=== PATIENT | male | born 2000 | race Caucasian/White ===

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

== ENCOUNTER 2019-06-21 14:08 | Emergency (ER) | payer MEDICARE, MEDICAID ==
[2019-06-21 14:40] VITALS: BP 124/73
== END 2019-06-21 16:15 | disposition home or self-care (01) ==
LOC: M ED 14:08
DX: F43.0 Acute stress reaction (principal); F90.9 Attention-deficit hyperactivity disorder, unspecified type; Z79.899 Other long term (current) drug therapy

== ENCOUNTER 2019-08-15 08:27 | Emergency (ER) | payer MEDICARE, MEDICAID ==
[~2019-08-15] VITALS: Ht 180.3 cm; Wt 115.5 kg
[2019-08-15 08:28] VITALS: BP 161/82
[2019-08-15] MEDS ORDERED: MELA3CAP2 (08:35)
[2019-08-15] MEDS ORDERED: ABIL10TA9 (08:35)
[2019-08-15] MEDS ORDERED: ZOLO50TA (08:35)
[2019-08-15] MEDS ORDERED: BACL10TA2 PO (09:36)
[2019-08-15] MEDS ORDERED: KETO10TAB PO (09:36)
[2019-08-15] MEDS ORDERED: KETOROLAC TROMETHAMINE 10 MG TAB PO ONE (09:45)
== END 2019-08-15 09:56 | disposition home or self-care (01) ==
LOC: M ED 08:27
DX: S39.012A Strain of muscle, fascia and tendon of lower back, initial encounter (principal); X58.XXXA Exposure to other specified factors, initial encounter; Y92.89 Other specified places as the place of occurrence of the external cause; F33.9 Major depressive disorder, recurrent, unspecified; F41.9 Anxiety disorder, unspecified; F90.9 Attention-deficit hyperactivity disorder, unspecified type; Z79.899 Other long term (current) drug therapy

== ENCOUNTER 2019-09-04 14:37 | Emergency (ER) | payer MEDICARE, MEDICAID ==
[~2019-09-04] VITALS: Ht 182.9 cm; Wt 117.3 kg
[~2019-09-04 14:37] MED LIST changes: +ABIL10TA9; +BACL10TA2 PO; +KETO10TAB PO; +MELA3CAP2; +ZOLO50TA
[2019-09-04 16:45] VITALS: BP 114/61
--- NOTE | 2019-09-04 20:43 | ECGEPIP ---
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
== END 2019-09-04 17:10 | disposition home or self-care (01) ==
LOC: M ED 14:37 → EDBD 14:37 → M ED 17:10
DX: R55 Syncope and collapse (principal); T48.1X5A Adverse effect of skeletal muscle relaxants [neuromuscular blocking agents], initial encounter; Y92.9 Unspecified place or not applicable; Y93.9 Activity, unspecified; M54.9 Dorsalgia, unspecified; E66.9 Obesity, unspecified; Z79.899 Other long term (current) drug therapy

== ENCOUNTER → 2019-09-26 | Outpatient (CLI) | payer MEDICARE, MEDICAID ==
[2019-09-26 11:12] LABS: ALBUMIN 3.8 GM/DL (3.2-5.2); ALT/SGPT 40 U/L (12-78); BILIRUBIN,TOTAL 0.4 MG/DL (0.2-1.0); BLOOD UREA NITROGEN 16 MG/DL (7-18); CARBON DIOXIDE LEVEL 29 MEQ/L (21-32); CHLORIDE LEVEL 105 MEQ/L (98-107); CHOLESTEROL LEVEL 132 MG/DL (<200); CHOLESTEROL RISK RATIO 3.219 (<5); CREATININE FOR GFR 0.94 MG/DL (0.70-1.30); FREE T4 0.82 NG/DL (0.78-1.33); GLUCOSE, FASTING 83 MG/DL (70-100); HDL CHOLESTEROL 41 MG/DL (>40); LDL CHOLESTEROL 77 MG/DL (<100); NON-HDL-C 91 MG/DL; POTASSIUM SERUM 4.7 MEQ/L (3.5-5.1); SODIUM LEVEL 139 MEQ/L (136-145); TOTAL PROTEIN 6.9 GM/DL (6.4-8.2); TRIGLYCERIDES LEVEL 72 MG/DL (<150)
[2019-09-26 11:14] LABS: BASO # 0.1 10^3/uL (0.0-0.2); BASO % 0.8 % (0.0-1.0); EOS # 0.2 10^3/uL (0.0-0.5); HEMATOCRIT 47.1 % (42.0-52.0); HEMOGLOBIN 15.2 g/dl (13.5-17.5); LYMPH # 2.6 10^3/uL (1.5-5.0); LYMPH % 41.8 % (24.0-44.0); MEAN CORPUSCULAR HEMOGLOBIN 29.9 pg (27.0-33.0); MEAN CORPUSCULAR HGB CONC 32.3 g/dl (32.0-36.5); MEAN CORPUSCULAR VOLUME 92.5 fl (80.0-96.0); MONO # 0.6 10^3/uL (0.0-0.8); MONO % 9.7 % (0.0-5.0); NEUTROPHILS # 2.8 10^3/uL (1.5-8.5); NEUTROPHILS % 44.4 % (36.0-66.0); PLATELET COUNT, AUTOMATED 317 10^3/uL (150-450); RED BLOOD COUNT 5.09 10^6/uL (4.30-6.10); TOTAL 25(OH) VITAMIN D 35.7 NG/ML (30.0-100.0); WHITE BLOOD COUNT 6.3 10^3/uL (4.0-10.0)
[2019-09-26 11:18] LABS: HEMOGLOBIN A1c 5.2 %
== END ==
LOC: M LAB 08:51
PROVIDERS: ATTEND Nurse Practitioner Family
DX: E66.01 Morbid (severe) obesity due to excess calories (principal); Z13.9 Encounter for screening, unspecified

== ENCOUNTER → 2019-11-07 | Outpatient (CLI) | payer MEDICARE, MEDICAID ==
[2019-11-07 13:27] LABS: BASO # 0.1 10^3/uL (0.0-0.2); BASO % 0.7 % (0.0-1.0); EOS # 0.2 10^3/uL (0.0-0.5); EOS % 2.4 % (0.0-3.0); HEMATOCRIT 47.6 % (42.0-52.0); HEMOGLOBIN 15.7 g/dl (13.5-17.5); LYMPH # 2.5 10^3/uL (1.5-5.0); LYMPH % 37.4 % (24.0-44.0); MEAN CORPUSCULAR HEMOGLOBIN 29.6 pg (27.0-33.0); MEAN CORPUSCULAR VOLUME 89.6 fl (80.0-96.0); MONO # 0.6 10^3/uL (0.0-0.8); MONO % 8.2 % (0.0-5.0); NEUTROPHILS # 3.4 10^3/uL (1.5-8.5); NEUTROPHILS % 50.9 % (36.0-66.0); PLATELET COUNT, AUTOMATED 339 10^3/uL (150-450); RED BLOOD COUNT 5.31 10^6/uL (4.30-6.10); WHITE BLOOD COUNT 6.7 10^3/uL (4.0-10.0)
[2019-11-07 14:07] LABS: FOLATE 9.5 NG/ML (>5.4); TOTAL 25(OH) VITAMIN D 38.9 NG/ML (30.0-100.0); VITAMIN B12 LEVEL 1211 PG/ML (247-911)
[2019-11-07 16:38] LABS: BLOOD UREA NITROGEN 10 MG/DL (7-18); CREATININE FOR GFR 0.97 MG/DL (0.70-1.30); GLUCOSE, FASTING 105 MG/DL (70-100)
[2019-11-07 16:39] LABS: ALBUMIN 3.8 GM/DL (3.2-5.2); ALT/SGPT 56 U/L (12-78); BILIRUBIN,TOTAL 0.5 MG/DL (0.2-1.0); CALCIUM LEVEL 9.4 MG/DL (8.5-10.1); CARBON DIOXIDE LEVEL 28 MEQ/L (21-32); CHLORIDE LEVEL 108 MEQ/L (98-107); POTASSIUM SERUM 4.1 MEQ/L (3.5-5.1); SODIUM LEVEL 140 MEQ/L (136-145); TOTAL PROTEIN 7.1 GM/DL (6.4-8.2)
[2019-11-09 00:07] LABS: ANTI-PARIETAL CELL ANTIBODY 5.6 Units (0.0-20.0); INTRINSIC FACTOR ANTIBODY 1.1 AU/mL (0.0-1.1)
== END ==
LOC: M LAB 12:44
PROVIDERS: ATTEND Psychiatry & Neurology Neurology
DX: E53.9 Vitamin B deficiency, unspecified (principal)

== ENCOUNTER → 2019-12-03 | Outpatient (REF) | payer MEDICARE, MEDICAID ==
[2019-12-03 12:37] LABS: FREE T4 0.86 NG/DL (0.78-1.33); THYROID STIMULATING HORMONE 1.17 uIU/ML (0.463-3.98)
== END ==
LOC: M LAB REF 12:03
PROVIDERS: ATTEND Nurse Practitioner Family
DX: Z13.9 Encounter for screening, unspecified (principal); E66.01 Morbid (severe) obesity due to excess calories; Z79.899 Other long term (current) drug therapy

== ENCOUNTER → 2020-10-07 | Outpatient (REF) | payer MEDICARE, MEDICAID ==
[2020-10-07 16:55] LABS: BASO % 0.6 % (0.0-1.0); EOS # 0.2 10^3/uL (0.0-0.5); EOS % 2.4 % (0.0-3.0); HEMATOCRIT 46.6 % (42.0-52.0); LYMPH # 2.4 10^3/uL (1.5-5.0); LYMPH % 39.5 % (24.0-44.0); MEAN CORPUSCULAR HEMOGLOBIN 29.2 pg (27.0-33.0); MEAN CORPUSCULAR HGB CONC 32.2 g/dl (32.0-36.5); MEAN CORPUSCULAR VOLUME 90.8 fl (80.0-96.0); MONO # 0.5 10^3/uL (0.0-0.8); MONO % 7.9 % (0.0-5.0); NEUTROPHILS # 3.1 10^3/uL (1.5-8.5); NEUTROPHILS % 49.4 % (36.0-66.0); PLATELET COUNT, AUTOMATED 352 10^3/uL (150-450); RED BLOOD COUNT 5.13 10^6/uL (4.30-6.10); WHITE BLOOD COUNT 6.2 10^3/uL (4.0-10.0)
[2020-10-07 17:28] LABS: ALBUMIN 4.2 GM/DL (3.2-5.2); ALT/SGPT 36 U/L (12-78); BILIRUBIN,TOTAL 0.5 MG/DL (0.2-1.0); BLOOD UREA NITROGEN 15 MG/DL (7-18); CALCIUM LEVEL 9.7 MG/DL (8.5-10.1); CARBON DIOXIDE LEVEL 26 MEQ/L (21-32); CHLORIDE LEVEL 108 MEQ/L (98-107); CHOLESTEROL LEVEL 145 MG/DL (<200); CHOLESTEROL RISK RATIO 3.918 (<5); CREATININE FOR GFR 0.94 MG/DL (0.70-1.30); FREE T4 0.99 NG/DL (0.76-1.46); GLOMERULAR FILTRATION RATE > 60.0 (>60); GLUCOSE, FASTING 93 MG/DL (70-100); HDL CHOLESTEROL 37 MG/DL (>40); LDL CHOLESTEROL 97 MG/DL (<100); NON-HDL-C 108 MG/DL; POTASSIUM SERUM 4.9 MEQ/L (3.5-5.1); SODIUM LEVEL 140 MEQ/L (136-145); THYROID STIMULATING HORMONE 0.524 uIU/ML (0.358-3.740); TOTAL 25(OH) VITAMIN D 44.6 NG/ML (30.0-100.0); TOTAL PROTEIN 7.2 GM/DL (6.4-8.2); TRIGLYCERIDES LEVEL 56 MG/DL (<150)
[2020-10-07 17:35] LABS: HEMOGLOBIN A1c 5.1 %
== END ==
LOC: M LAB REF 16:17
PROVIDERS: ATTEND Nurse Practitioner Family
DX: Z13.9 Encounter for screening, unspecified (principal); F41.1 Generalized anxiety disorder; G47.00 Insomnia, unspecified; F39 Unspecified mood [affective] disorder; E55.9 Vitamin D deficiency, unspecified; E66.01 Morbid (severe) obesity due to excess calories

== ENCOUNTER → 2020-12-17 | Outpatient (CLI) | payer MEDICARE, MEDICAID ==
--- NOTE | 2020-12-17 14:26 | REP ---
INDICATION: PAIN IN LEFT ANKLE AND JOINTS OF LEFT FOOT. COMPARISON: None. TECHNIQUE: Four views. FINDINGS: Four views of the left ankle demonstrate overall normal mineralization. Ankle mortise is intact. No fracture is seen. There is minimal lateral soft tissue swelling. Bones, joints and soft tissues are otherwise unremarkable. IMPRESSION: No fracture seen. Minimal lateral soft tissue swelling. <Electronically signed by Juan M Jacobs > 12/17/20 1901
== END ==
LOC: M RAD 12:21
PROVIDERS: ATTEND Nurse Practitioner Family
DX: M25.572 Pain in left ankle and joints of left foot (principal)

== ENCOUNTER → 2021-01-16 | Outpatient (REF) | payer MEDICARE, MEDICAID ==
[2021-01-16 12:29] LABS: BASO # 0.1 10^3/uL (0.0-0.2); BASO % 0.7 % (0.0-1.0); EOS # 0.2 10^3/uL (0.0-0.5); EOS % 2.4 % (0.0-3.0); HEMATOCRIT 46.1 % (42.0-52.0); HEMOGLOBIN 14.9 g/dl (13.5-17.5); LYMPH # 2.5 10^3/uL (1.5-5.0); LYMPH % 35.7 % (24.0-44.0); MEAN CORPUSCULAR HEMOGLOBIN 28.9 pg (27.0-33.0); MEAN CORPUSCULAR HGB CONC 32.3 g/dl (32.0-36.5); MEAN CORPUSCULAR VOLUME 89.5 fl (80.0-96.0); MONO # 0.7 10^3/uL (0.0-0.8); MONO % 9.9 % (2.0-8.0); NEUTROPHILS # 3.6 10^3/uL (1.5-8.5); PLATELET COUNT, AUTOMATED 322 10^3/uL (150-450); RED BLOOD COUNT 5.15 10^6/uL (4.30-6.10); WHITE BLOOD COUNT 7.1 10^3/uL (4.0-10.0)
[2021-01-16 12:45] LABS: ALT/SGPT 51 U/L (12-78); BILIRUBIN,TOTAL 0.8 MG/DL (0.2-1.0); BLOOD UREA NITROGEN 15 MG/DL (7-18); CALCIUM LEVEL 9.5 MG/DL (8.5-10.1); CARBON DIOXIDE LEVEL 29 MEQ/L (21-32); CHLORIDE LEVEL 105 MEQ/L (98-107); CREATININE FOR GFR 1.02 MG/DL (0.70-1.30); GLOMERULAR FILTRATION RATE > 60.0 (>60); GLUCOSE, FASTING 91 MG/DL (70-100); POTASSIUM SERUM 4.9 MEQ/L (3.5-5.1); SODIUM LEVEL 140 MEQ/L (136-145); TOTAL PROTEIN 6.9 GM/DL (6.4-8.2)
[2021-01-16 12:53] LABS: FOLATE 14.9 NG/ML; VITAMIN B12 LEVEL 994 PG/ML
== END ==
LOC: M LAB REF 11:25
PROVIDERS: ATTEND Nurse Practitioner Family
DX: Z00.00 Encounter for general adult medical examination without abnormal findings (principal); E53.8 Deficiency of other specified B group vitamins

== ENCOUNTER → 2021-06-19 | Outpatient (CLI) | payer MEDICARE, MEDICAID ==
[~2021-06-19] MED LIST changes: -SIME180C PO; +SIME180C25 PO
[2021-06-19 13:54] LABS: BASO # 0.1 10^3/uL (0.0-0.2); BASO % 0.8 % (0.0-1.0); EOS # 0.2 10^3/uL (0.0-0.5); EOS % 3.1 % (0.0-3.0); HEMATOCRIT 46.9 % (42.0-52.0); HEMOGLOBIN 15.5 g/dl (13.5-17.5); LYMPH # 2.6 10^3/uL (1.5-5.0); LYMPH % 40.8 % (24.0-44.0); MEAN CORPUSCULAR HEMOGLOBIN 29.9 pg (27.0-33.0); MEAN CORPUSCULAR VOLUME 90.5 fl (80.0-96.0); MONO # 0.6 10^3/uL (0.0-0.8); MONO % 8.8 % (2.0-8.0); NEUTROPHILS % 46.2 % (36.0-66.0); PLATELET COUNT, AUTOMATED 353 10^3/uL (150-450); RED BLOOD COUNT 5.18 10^6/uL (4.30-6.10); WHITE BLOOD COUNT 6.4 10^3/uL (4.0-10.0)
[2021-06-19 14:20] LABS: ALBUMIN 4.1 GM/DL (3.2-5.2); ALT/SGPT 56 U/L (12-78); BILIRUBIN,TOTAL 0.4 MG/DL (0.2-1.0); BLOOD UREA NITROGEN 10 MG/DL (7-18); CALCIUM LEVEL 9.6 MG/DL (8.5-10.1); CARBON DIOXIDE LEVEL 29 MEQ/L (21-32); CHLORIDE LEVEL 105 MEQ/L (98-107); CREATININE FOR GFR 0.97 MG/DL (0.70-1.30); GLOMERULAR FILTRATION RATE > 60.0 (>60); GLUCOSE, FASTING 86 MG/DL (70-100); POTASSIUM SERUM 4.6 MEQ/L (3.5-5.1); SODIUM LEVEL 140 MEQ/L (136-145); TOTAL PROTEIN 7.4 GM/DL (6.4-8.2)
[2021-06-19 14:28] LABS: TOTAL 25(OH) VITAMIN D 31.4 NG/ML (30.0-100.0); VITAMIN B12 LEVEL 1036 PG/ML (247-911)
== END ==
LOC: M LAB 13:20
PROVIDERS: ATTEND Psychiatry & Neurology Neurology
DX: E55.9 Vitamin D deficiency, unspecified (principal); D51.9 Vitamin B12 deficiency anemia, unspecified

== ENCOUNTER 2021-07-02 10:42 | Emergency (ER) | payer MEDICARE, MEDICAID ==
[~2021-07-02] VITALS: Ht 180.3 cm; Wt 130.0 kg
[2021-07-02] MEDS ORDERED: ARIP1TAB10 PO (11:00)
[2021-07-02] MEDS ORDERED: OMEP40CA5 (11:00)
[2021-07-02] MEDS ORDERED: DULO1CAP6 (11:00)
[2021-07-02] MEDS ORDERED: LAMO100T3 (11:00)
[2021-07-02] MEDS ORDERED: MIRT1TAB16 (11:00)
[2021-07-02] MEDS ORDERED: GI COCKTAIL 50ML BTL(HYOSCYAMINE/MAALOX/LIDOCAINE VISCOUS)(1:3:1) PO ONE (13:45)
[2021-07-02] MEDS ORDERED: NS 1,000 ML IV ONE (13:45)
[2021-07-02] MEDS ORDERED: ONDANSETRON 4MG/2ML VIAL IV ONE (14:20)
[2021-07-02 14:51] LABS: BASO # 0.1 10^3/uL (0.0-0.2); BASO % 0.9 % (0.0-1.0); EOS # 0.2 10^3/uL (0.0-0.5); EOS % 2.1 % (0.0-3.0); HEMATOCRIT 44.1 % (42.0-52.0); HEMOGLOBIN 14.7 g/dl (13.5-17.5); LYMPH # 2.9 10^3/uL (1.5-5.0); MEAN CORPUSCULAR HEMOGLOBIN 30.2 pg (27.0-33.0); MEAN CORPUSCULAR HGB CONC 33.3 g/dl (32.0-36.5); MEAN CORPUSCULAR VOLUME 90.6 fl (80.0-96.0); MONO # 0.8 10^3/uL (0.0-0.8); MONO % 9.4 % (2.0-8.0); NEUTROPHILS # 4.7 10^3/uL (1.5-8.5); NEUTROPHILS % 54.1 % (36.0-66.0); PLATELET COUNT, AUTOMATED 326 10^3/uL (150-450); RED BLOOD COUNT 4.87 10^6/uL (4.30-6.10); WHITE BLOOD COUNT 8.7 10^3/uL (4.0-10.0)
[2021-07-02 15:32] LABS: ALBUMIN 3.9 GM/DL (3.2-5.2); BILIRUBIN,DIRECT 0.2 MG/DL (0.0-0.2); BILIRUBIN,TOTAL 0.5 MG/DL (0.2-1.0); TOTAL PROTEIN 7.1 GM/DL (6.4-8.2)
[2021-07-02] MEDS ORDERED: CARA1TAB6 PO (15:40)
[2021-07-02 16:18] VITALS: BP 123/56
[2021-09-10] MEDS ORDERED: D31000TA2 PO (13:17)
[2021-09-10] MEDS ORDERED: B-12100011 SL (13:17)
== END 2021-07-02 16:45 | disposition home or self-care (01) ==
LOC: M ED 10:42
DX: K29.70 Gastritis, unspecified, without bleeding (principal); K21.9 Gastro-esophageal reflux disease without esophagitis; R11.10 Vomiting, unspecified; F90.9 Attention-deficit hyperactivity disorder, unspecified type; F41.9 Anxiety disorder, unspecified
CPT/HCPCS: 74021; 80047; 80076; 83690; 85025; 93005; 96361; 96374; 99284; J2405

== ENCOUNTER → 2021-09-08 | Outpatient (CLI) | payer MEDICARE, MEDICAID ==
[~2021-09-08] MED LIST changes: +ARIP1TAB10 PO; +B-12100011 SL; +CARA1TAB6 PO; +D31000TA2 PO; +DULO1CAP6; +LAMO100T3; +MIRT1TAB16; +OMEP-221
--- NOTE | 2021-09-09 12:30 | REP ---
INDICATION: NAUSEA WITH VOMITING. COMPARISON: None. TECHNIQUE/RADIOTRACER AND DOSE: Following the intravenous administration of 1.07 mCi technetium 99 M sulfur colloid in 2 scrambled eggs and 6 oz of water, multiple images of the upper abdomen are performed in the anterior and posterior projections for 90 minutes. FINDINGS: The gastric activity is measured. At the end of 90 minutes 50% of the ingested activity has emptied from the stomach. The T1/2 is 90 minutes which is normal. IMPRESSION: Normal gastric emptying time. <Electronically signed by Tam Cabrera > 09/09/21 [id number]
== END ==
LOC: M RAD 10:53
PROVIDERS: ATTEND Physician Assistant Medical
DX: R11.2 Nausea with vomiting, unspecified (principal); R10.10 Upper abdominal pain, unspecified
CPT/HCPCS: 78264; A9541

== ENCOUNTER → 2021-09-17 | Outpatient (CLI) | payer MEDICARE, MEDICAID | LOC: M LABSMTC 11:28 | PROVIDERS: ATTEND Anesthesiology | DX: Z20.828 Contact with and (suspected) exposure to other viral communicable diseases (principal); Z11.52 Encounter for screening for COVID-19 ==

== ENCOUNTER 2021-09-21 11:25 | Day surgery (SDC) | payer MEDICARE, MEDICAID ==
[~2021-09-21] VITALS: Ht 180.3 cm; Wt 128.5 kg
[~2021-09-21 11:25] MED LIST changes: +NS 1,000 ML IV ONE
--- OUTSIDE RECORDS SUMMARY | 2021-09-21 11:33 | CCD | Continuity of Care Document ---
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 AUTM [phone] Adenike Marie AUTM Problems Description No Active Problems Social History Type Date Description Comments Sex Unknown ETOH Use Denies alcohol use Tobacco Use Start: Unknown End: Unknown Patient is a former smoker Allergies, Adverse Reactions, Alerts Description No Known Drug Allergies Medications Active Medications SIG Qnty Indications Ordering Provide r Date Miralax 17GM/Scoop Powder use as instructed by doctor for bowel prep 510gm K21.9 Mata Marinelli MD 08/07/[address] take 4 tabs by mouth prior to procedure per instructions. 4tabs K62.5 Mata Marinelli MD 08/07/2021 Ibuprofen 800mg Tablets bid Adenike Foreman rn, F.N.P. Duloxetine HCL 60mg Caps DR Stephanie Daily Unknown Omeprazole 40mg Capsules Adenike Perez, [place].N.P. Aripiprazole 20mg Tablets at hs Unknown Mirtazapine 30mg Tablets at h s Unknown Lamictal 100mg Tablets Reports taking 60 mg bid Unknown Vitamin D 2000Unit Tablets Da katt Unknown Sucralfate 1gm Tablets 1 gm by mouth four times a day Unknown Vitamin B-12 100mcg Tablets D aily Unknown Immunizations Description No Information Available Vital Signs Date Vital Result Comment 08/07/2021 2:20pm BP Systolic 128 mmHg BP Diastolic 88 mmHg Height 71.5 inches 5'11.50" Weight 282.00 lb BMI (Body Mass Index) 38.8 kg/m2 [place] Body Weight 172 lb Weight 127.915 kg BSA (Body Surface Area) 2.45 m2 09/24/2020 10:19am Body Temperature 97.1 F Height 71 inches 5'11" Weight 274.00 lb BMI (Body Mass Index) 38.2 kg/m2 [place] Body Weight 172 lb Weight 124.286 kg BSA (Body Surface Area) 2.41 m2 Results Description No Information Available Procedures Description No Information Available Medical Devices Description No Information Available Encounters Description No Information Available Assessments Date Code Description Provider 08/07/2021 K21.9 Gastro-esophageal reflux disease without esophagitis Jossy Marte Lu [facility] 08/07/2021 R10.10 Upper abdominal pain, unspecifie d Jossy Marte Lu [facility] 08/07/2021 R11.2 Nausea with vomiting, unspecifie d Jossy Marte Lu [facility] 08/07/2021 K62.5 Hemorrhage of anus and rectum Me tameka Estuardo Kingston [facility] 08/07/2021 R63.4 Abnormal weight loss Jossy Marte Jaime hebert [facility] 08/07/2021 R68.81 Early satiety Jossy Marte Ahmet hobbs [facility] Plan of Treatment 08/07/2021 - Jossy Marte Lu [facility]* K21.9 Gastro-esophageal reflux disease without esophagitis * R10.10 Upper abdominal pain, unspecified * R11.2 Nausea with vomiting, unspecified * K62.5 Hemorrhage of anus and rectum * R63.4 Abnormal weight loss * R68.81 Early satiety * * New Medication:* Miralax 17 GM/Scoop * New Orders:* Endoscopy, Ordered: 08/07/21 * Comments:* Will arrange for upper endoscopy and colonoscopy. Reviewed risks and benefits of the procedures, as well as other options, with the patient. Prep for this procedure was discussed with patient, including risks and side effects associated with the prep. Patient verbalized understanding of all of the above and is in agreement to proceed. Patient will seek medical attention for any acute changes. Will monitor. * Follow up:* 2 weeks after procedures, sooner if needed. Functional Status Description No Information Available Mental Status Description No Information Available Referrals Refer to Reason for Referral Status Appt Date César Hernandez M.D. GERD Created [address], [address] [place] [address] [phone]
--- OUTSIDE RECORDS SUMMARY | 2021-09-21 11:33 | CCD ---
Author Author James Licona Organization [facility] Address Unknown Phone Unavailable Care Team Providers Care Milling Supervisor Name Role Phone Ninoska Licona PCP Unavailable Allergies, Adverse Reactions, Alerts Allergy Substance Code C odeSystem Reaction Severity Critic ality Status Start Date hydroxyzine hcl 249500 R xNorm aggression Moderate Active 2020-04-20 Medications Medication Medication Code Medication CodeSystem Start Date Stop Date Route Dose Status Fill Instructions buspirone 265771 RxNorm 2016-06-07 2016-06-23 oral 5 mg tablet completed for 30 day(s) Adderall XR 842869 RxNorm 2016-07-20 2016-08-16 oral 10 mg capsule,extended release 24hr completed for 30 day(s) Vitamin D3 918648 RxNorm 2017-11-14 2018-03-10 oral 2,000 unit capsule completed for 30 day(s) Benadryl 6277756 RxNorm 2018-01-30 2018-06-22 oral 25 mg capsule completed duloxetine 639834 RxNorm 2020-02-04 2020-02-20 oral 20 mg capsule,delayed release(DR/EC) completed for 30 day(s) Adderall XR 988151 RxNorm 2018-05-22 2018-07-14 oral 15 mg capsule,extended release 24hr completed for 30 day(s) Adderall XR 266730 RxNorm 2018-07-19 2018-08-18 oral 15 mg capsule,extended release 24hr completed for 30 day(s) Adderall XR 010708 RxNorm 2015-03-25 2016-05-03 oral 10 mg capsule,extended release 24hr completed for 30 day(s) aripiprazole 625271 RxNo 2020-02-20 2020-06-17 or al 15 mg tablet active for 30 day(s) hydroxyzine pamoate 465393 RxNo 2017-09-08 2017-09-28 or al 25 mg capsule completed for 30 day(s) Adderall XR 387096 RxNorm 2016-03-04 2016-04-03 oral 5 mg capsule,extended release 24hr completed for 30 day(s) lamotrigine 754242 RxNorm 2020-02-04 2020-06-17 oral 100 mg tablet active for 30 day(s) Abilify 283320 RxNorm 2015-12-23 2016-04-06 oral 20 mg tablet completed for 30 day(s) Lamictal 249394 RxNorm 2018-10-24 2018-12-24 oral 100 mg tablet completed for 30 day(s) [facility] 6[facility] 2016-12-24 2018-12-08 oral 20 mg tablet completed trazodone 314359 RxNo 2016-01-13 2016-04-06 oral 50 mg tablet completed for 30 day(s) haloperidol 846410 RxNo 2017-08-03 2017-09-21 oral 1 mg 1 tablet three times a day completed Take 1 tablet by mouth three times a day for 30 day(s) buspirone 851385 RxNo 2016-04-06 2016-06-07 oral 5 mg 1 tablet every morning completed Take 1 tablet by mouth every morning for 30 day(s) Adderall XR 313557 RxNo 2015-04-23 2016-05-03 oral 10 mg capsule,extended release 24hr completed for 30 day(s) Lexapro 963471 RxNorm 2015-12-23 2016-04-06 oral 10 mg tablet completed for 30 day(s) Abilify 794309 RxNorm 2016-04-06 2016-06-11 oral 20 mg tablet completed for 30 day(s) Adderall XR 717075 RxNorm 2015-12-08 2016-03-04 oral 5 mg capsule,extended release 24hr completed for 30 day(s) Abilify 266373 RxNorm 2019-03-19 2019-04-12 oral 10 mg tablet completed for 30 day(s) Lexapro 195991 RxNorm 2016-04-06 2016-07-20 oral 20 mg tablet completed for 30 day(s) buspirone 424563 RxNorm 2015-12-08 2016-04-06 oral 5 mg tablet completed for 30 day(s) Adderall XR 332887 RxNorm 2015-08-26 2016-05-03 oral 10 mg capsule,extended release 24hr completed for 30 day(s) Lexapro 353333 RxNorm 2015-04-23 2016-04-06 oral 10 mg tablet completed for 30 day(s) mirtazapine 116888 RxNorm 2019-09-13 2019-10-29 oral 7.5 mg tablet completed for 30 day(s) buspirone 647358 RxNorm 2016-06-23 2016-09-23 oral 5 mg 1 tablet every morning completed Take 1 tablet by mouth every morning for 30 day(s) Abilify 864923 RxNorm 2018-01-09 2018-02-20 oral 20 mg tablet completed for 21 day(s) Vitamin D3 230663 RxNorm 2019-12-07 2020-01-06 oral 50 mcg (2,000 unit) capsule completed for 30 day(s) hydroxyzine HCl 333215 R xNorm 2020-03-21 2020-04-20 or al 10 mg tablet completed for 30 day(s) trazodone 406942 RxNorm 2015-10-07 2015-10-21 oral 50 mg tablet completed for 30 day(s) Adderall XR 961457 RxNorm 2015-09-23 2016-05-03 oral 10 mg capsule,extended release 24hr completed for 30 day(s) Adderall XR 910319 RxNorm 2015-06-17 2016-05-03 oral 10 mg capsule,extended release 24hr completed for 30 day(s) prazosin 559548 RxNorm 2015-03-25 2016-05-03 oral 1 mg capsule completed for 6 day(s) Adderall XR 686372 RxNorm 2016-06-07 2016-06-23 oral 10 mg capsule,extended release 24hr completed for 30 day(s) Adderall XR 310040 RxNorm 2016-08-16 2016-09-15 oral 10 mg capsule,extended release 24hr completed for 30 day(s) Abilify 610940 RxNorm 2019-04-12 2019-05-12 oral 5 mg tablet completed for 30 day(s) Lexapro 185629 RxNorm 2015-10-07 2016-04-06 oral 10 mg tablet completed for 30 day(s) Lexapro 838666 RxNo 2015-08-12 2016-04-06 oral 10 mg tablet completed for 30 day(s) trazodone 186399 RxNo 2015-10-20 2016-04-06 oral 50 mg tablet completed for 30 day(s) Adderall XR 276706 RxNo 2017-01-24 2017-03-04 oral 15 mg capsule,extended release 24hr completed for 30 day(s) Lexapro 372965 RxNorm 2016-07-20 2016-11-17 oral 10 mg tablet completed for 30 day(s) Vistaril 636468 RxNo 2016-07-20 2016-10-18 oral 25 mg 1 capsule three times a day complete d Take 1 capsule by mouth three times a day for 30 day(s) Lexapro 080914 No 2015-12-23 2016-04-06 oral 20 mg tablet completed for 30 day(s) Abilify 953302 RxNo 2015-06-17 2016-05-03 oral 15 mg tablet completed for 30 day(s) Adderall XR 494303 RxNo 2015-10-07 2016-03-04 oral 5 mg capsule,extended release 24hr completed for 30 day(s) haloperidol 324064 RxNo 2017-09-21 2017-09-29 oral 1 mg 1 tablet twice a day completed Take 1 tablet by mouth twice a day Lexapro 431315 RxNo 2016-07-20 2016-08-16 oral 20 mg tablet completed for 30 day(s) Adderall XR 107941 RxNo 2015-12-23 2016-05-03 oral 10 mg capsule,extended release 24hr completed for 30 day(s) Adderall XR 983459 RxNorm 2018-04-20 2018-05-20 oral 15 mg capsule,extended release 24hr completed for 30 day(s) Adderall XR 217304 RxNorm 2019-04-02 2019-05-02 oral 20 mg capsule,extended release 24hr completed for 30 day(s) Adderall XR 603489 RxNorm 2018-03-15 2018-04-14 oral 15 mg capsule,extended release 24hr completed for 30 day(s) aripiprazole 397474 [facility] 2020-02-04 2020-02-20 or al 10 mg tablet completed for 30 day(s) [facility] 474340 [facility] 2016-08-16 2016-09-15 oral 5 mg capsule,extended release 24hr completed for 30 day(s) Abilify 412979 [facility] 2016-04-06 2016-09-23 oral 20 mg tablet completed for 30 day(s) Adderall XR 491600 [facility] 2016-04-06 2016-05-06 oral 10 mg capsule,extended release 24hr completed for 30 day(s) Lamictal 517632 [facility] 2019-04-17 2019-12-30 oral 100 mg tablet completed for 30 day(s) Abilify 557338 [facility] 2019-07-03 2019-07-17 oral 5 mg tablet completed for 30 day(s) Aristada 1742103 [facility] 2017-08-03 2017-08-24 IM 882 mg/3.2 mL suspension,extended rel syring completed aripiprazole 685511 [facility] 2019-10-01 2020-01-15 or al 10 mg tablet completed for 30 day(s) Adderall XR 981062 [facility] 2018-08-21 2018-10-20 oral 15 mg capsule,extended release 24hr completed for 30 day(s) Abilify 186412 [facility] 2017-11-17 2017-12-29 oral 20 mg tablet completed for 21 day(s) Adderall XR 118042 [facility] 2016-06-23 2016-07-20 oral 10 mg capsule,extended release 24hr completed for 30 day(s) Abilify 719354 [facility] 2018-05-22 2018-07-03 oral 20 mg tablet completed for 21 day(s) Adderall XR 804922 RxNo 2015-08-12 2016-03-04 oral 5 mg capsule,extended release 24hr completed for 30 day(s) Zoloft 439410 [facility] 2019-03-20 oral 50 mg tablet completed for 30 day(s) Abilify 082513 [facility] 2015-04-23 2016-05-03 oral 15 mg tablet completed for 30 day(s) Adderall XR 320087 No 2017-11-14 2018-03-01 oral 15 mg capsule,extended release 24hr completed for 30 day(s) Vitamin D3 862545 Rx[facility] 2019-08-13 2019-11-30 oral 50 mcg (2,000 unit) capsule completed for 30 day(s) Lamictal 510152 RxNo 2017-08-03 2017-08-10 oral 25 mg 1 tablet once a day completed Take 1 tablet by mouth once a day for 30 day(s) hydroxyzine pamoate 821263 RxNo 2016-12-24 2017-09-08 or al 25 mg capsule completed for 30 day(s) Adderall XR 724866 Rx[facility] 2015-12-23 2016-03-04 oral 5 mg capsule,extended release 24hr completed for 30 day(s) Abilify 603153 RxNo 2019 2019-03-17 oral 10 mg tablet completed for 30 day(s) Lamictal 009986 RxNo 2018-03-28 2018-08-18 oral 100 mg tablet completed for 30 day(s) haloperidol 260423 RxNo 2017-07-11 2017-08-03 oral 1 mg tablet completed lamotrigine 037388 RxNo 2019-03-12 2019-04-11 oral 100 mg tablet completed for 30 day(s) Abilify 193673 RxNo 2019-07-17 2019-09-13 oral 10 mg tablet completed for 30 day(s) Abilify 047856 RxNo 2017-08-31 2017-10-30 oral 5 mg tablet completed for 30 day(s) Lamictal 298265 RxNo 2017-09-26 2017-09-28 oral 25 mg tablet completed Adderall XR 490623 Rx[facility] 2019-05-07 2019-07-05 oral 20 mg 1 capsule,extended release 24hr once a day completed Take 1 capsule by mouth once a day for 30 day(s) Adderall XR 264670 RxNorm 2019-02-26 2019-03-28 oral 20 mg capsule,extended release 24hr completed for 30 day(s) Adderall XR 908764 RxNorm 2016-12-24 2017-01-22 oral 15 mg capsule,extended release 24hr completed for 30 day(s) Lexapro 216486 RxNo 2015-06-17 2016-04-06 oral 20 mg 1 tablet once a day completed Take 1 tablet by mouth once a day for 30 day(s) Adderall XR 487436 RxNorm 2015-10-29 2016-05-03 oral 10 mg capsule,extended release 24hr completed for 30 day(s) diphenhydramine HCl 4286527 RxNo 2015-03-25 2016-05-03 or al 50 mg tablet completed for 30 day(s) Adderall XR 418868 Rx[facility] 2018-10-24 2018-12-16 oral 20 mg capsule,extended release 24hr completed for 30 day(s) Vitamin D3 911661 Rx[facility] 2018-11-15 2019-03-15 oral 2,000 unit capsule completed for 30 day(s) Lamictal 779862 RxNo 2017-09-29 2017-10-05 oral 100 mg tablet completed for 30 day(s) Lexapro 062812 RxNo 2015-10-07 2016-04-06 oral 20 mg 1 tablet once a day completed Take 1 tablet by mouth once a day for 30 day(s) Adderall XR 421910 RxNo 2019 2019-02-18 oral 20 mg capsule,extended release 24hr completed for 30 day(s) Adderall XR 074304 RxNo 2016-05-27 2016-06-07 oral 5 mg capsule,extended release 24hr completed for 30 day(s) Adderall XR 161162 RxNo 2015-10-07 2016-05-03 oral 10 mg capsule,extended release 24hr completed for 30 day(s) Abilify 619208 RxNo 2018-02-27 2018-04-10 oral 20 mg tablet completed for 21 day(s) trazodone 362516 RxNo 2015-04-23 2016-04-06 oral 50 mg tablet completed for 30 day(s) Adderall XR 194460 Rx[facility] 2017-10-12 2017-11-11 oral 15 mg capsule,extended release 24hr completed for 30 day(s) Lamictal 674508 RxNo 2017-09-21 2017-09-26 oral 25 mg tablet completed Adderall XR 974624 RxNo 2015-11-18 2016-05-03 oral 10 mg capsule,extended release 24hr completed for 30 day(s) Lamictal 426987 RxNo 2018-08-21 2018-10-15 oral 100 mg tablet completed for 30 day(s) sertraline 613669 Rx[facility] 2020-01-04 2020-02-03 oral 25 mg tablet completed for 30 day(s) [facility] 253662 [facility] 2016-08-16 2016-09-23 oral 20 mg tablet completed for 30 day(s) Adderall XR 074824 [facility] 2015-10-29 2016-03-04 oral 5 mg capsule,extended release 24hr completed for 30 day(s) trazodone 454100 [facility] 2016-04-06 2016-06-05 oral 50 mg 1 tablet at bedtime completed Take 1 tablet by mouth at bedtime as needed for 30 day(s) Abilify 962267 [facility] 2018-08-21 2018-10-15 oral 20 mg tablet completed for 30 day(s) trazodone 215927 [facility] 2015-06-17 2016-04-06 oral 50 mg tablet completed for 30 day(s) Abilify 361982 [facility] 2016-09-23 2016-11-26 oral 10 mg tablet completed for 30 day(s) Adderall XR 586926 [facility] 2019-07-09 2019-08-08 oral 20 mg 1 capsule,extended release 24hr once a day completed Take 1 capsule by mouth once a day for 30 day(s) Adderall XR 475719 [facility] 2016-07-20 2016-08-16 oral 5 mg capsule,extended release 24hr completed for 30 day(s) Lamictal 743419 RxNo 2017-08-10 2017-09-21 oral 25 mg tablet completed for 30 day(s) Vistaril 105053 [facility] 2016-06-23 2016-07-20 oral 25 mg 1 capsule twice a day completed Take 1 capsule by mouth twice a day for 30 day(s) Adderall XR 639790 [facility] 2017-03-07 2017-06-01 oral 15 mg capsule,extended release 24hr completed for 30 day(s) Lamictal 772514 RxNo 2017-09-21 2017-09-21 oral 25 mg tablet completed for 30 day(s) Abilify 066764 [facility] 2018-07-19 2018-08-18 oral 20 mg tablet completed for 30 day(s) Abilify 014407 Rx[facility] 2017-08-24 2017-08-31 oral 20 mg tablet completed for 21 day(s) Adderall XR 860420 Rx[facility] 2016-05-27 2016-06-07 oral 10 mg capsule,extended release 24hr completed for 30 day(s) Adderall XR 294020 Rx[facility] 2016-05-06 2016-05-27 oral 5 mg capsule,extended release 24hr completed for 30 day(s) Lexapro 319159 Rx[facility] 2018-12-08 2018-12-15 oral 10 mg tablet completed for 7 day(s) escitalopram oxalate 790272 RxNorm 2015-07-15 2016-04-06 or al 10 mg 1 tablet every morning complet ed Take 1 tablet by mouth every morning fo r 30 day(s) Abilify 942227 Rx[facility] 2018-10-25 2018-12-24 oral 30 mg tablet completed for 30 day(s) Zoloft 714721 Rx[facility] 2019-08-02 2019-09-13 oral 50 mg tablet completed for 30 day(s) Zoloft 753906 Rx[facility] 2019-03-26 2019-06-24 oral 50 mg tablet completed for 30 day(s) Adderall XR 939910 Rx[facility] 2015-12-08 2016-05-03 oral 10 mg capsule,extended release 24hr completed for 30 day(s) mirtazapine 236362 Rx[facility] 2019-10-29 2019-12-16 oral 15 mg tablet completed for 30 day(s) Adderall XR 229339 Rx[facility] 2017-06-20 2017-09-23 oral 15 mg capsule,extended release 24hr completed for 30 day(s) haloperidol 365270 Rx[facility] 2017-09-29 2017-10-05 oral 1 mg tablet completed Abilify 783425 Rx[facility] 2018-12-26 2019 oral 30 mg tablet completed for 30 day(s) Adderall XR 965094 [facility] 2016-04-05 2016-05-05 oral 5 mg capsule,extended release 24hr completed for 30 day(s) Adderall XR 995199 Rx[facility] 2015-08-05 2016-05-03 oral 10 mg capsule,extended release 24hr completed for 30 day(s) Lexapro 156412 Rx[facility] 2016-04-06 2016-07-20 oral 10 mg tablet completed for 30 day(s) sertraline 427098 Rx[facility] 2019-12-07 2020-01-04 oral 50 mg tablet completed for 30 day(s) sertraline 176373 Rx[facility] 2019-06-29 2019-07-29 oral 50 mg tablet completed for 30 day(s) Lexapro 803725 Rx[facility] 2015-08-12 2016-04-06 oral 20 mg tablet completed for 30 day(s) Abilify 049694 Rx[facility] 2018-10-24 2018-10-25 oral 15 mg tablet completed for 30 day(s) Vitamin D3 087976 Rx[facility] 2019-04-03 2019-08-01 oral 2,000 unit capsule completed for 30 day(s) Adderall XR 971235 Rx[facility] 2016-03-09 2016-05-03 oral 10 mg capsule,extended release 24hr completed for 30 day(s) Adderall XR 974482 [facility] 2016-06-07 2016-06-23 oral 5 mg capsule,extended release 24hr completed for 30 day(s) Adderall XR 842538 Rx[facility] 2018-12-20 2019 oral 20 mg capsule,extended release 24hr completed for 30 day(s) Lamictal 148877 Rx[facility] 2017-09-26 2017-09-29 oral 100 mg tablet completed trazodone 198421 Rx[facility] 2018-06-22 2018-08-21 oral 50 mg tablet completed for 30 day(s) haloperidol 998197 Rx[facility] 2016-09-23 2017-07-11 oral 1 mg tablet completed for 30 day(s) melatonin 192731 Rx[facility] 2017-09-28 2017-10-05 oral 3 mg 2 tablet at bedtime completed Take 2 tablet by mouth at bedtime Cymbalta 188808 RxNorm 2020-01-04 2020-02-03 oral 20 mg capsule,delayed release(DR/EC) completed for 30 day(s) buspirone 890261 Rx[facility] 2015-12-23 2016-04-06 oral 5 mg tablet completed for 30 day(s) sertraline 600808 Rx[facility] 2019-10-01 2019-12-07 oral 50 mg tablet completed for 30 day(s) Abilify 610782 Rx[facility] 2015-03-25 2016-05-03 oral 15 mg tablet completed for 30 day(s) Lexapro 103656 RxNorm 2015-03-25 2016-04-06 oral 10 mg tablet completed for 30 day(s) Adderall XR 487631 RxNorm 2015-09-10 2016-03-04 oral 5 mg capsule,extended release 24hr completed for 30 day(s) Adderall XR 253128 RxNorm 2016 2016-05-03 oral 10 mg capsule,extended release 24hr completed for 30 day(s) melatonin 050865 RxNorm 2019-08-14 2019-09-13 oral 3 mg capsule completed for 30 day(s) Vitamin D3 224285 Rx[facility] 2016-12-24 2017-10-23 oral 2,000 unit capsule completed for 30 day(s) Abilify 625966 RxNo 2017-11-14 2017-11-17 oral 5 mg tablet completed for 30 day(s) Zoloft 036202 Rx[facility] 2018-12-08 2019-01-07 oral 50 mg tablet completed for 30 day(s) Adderall XR 489069 RxNorm 2016 2016-03-04 oral 5 mg capsule,extended release 24hr completed for 30 day(s) Lamictal 385763 RxNorm 2019-01-08 2019-03-09 oral 100 mg tablet completed for 30 day(s) Abilify 147375 RxNo 2016-11-26 2017-08-24 oral 20 mg tablet completed for 21 day(s) Lamictal 011739 RxNorm 2017-10-05 2018-03-28 oral 100 mg tablet completed Vitamin D3 476890 RxNorm 2020-01-22 2020-07-17 oral 50 mcg (2,000 unit) capsule active for 30 day(s) Adderall XR 412481 RxNorm 2015-11-18 2016-03-04 oral 5 mg capsule,extended release 24hr completed for 30 day(s) Adderall XR 997483 RxNorm 2016-05-10 2016-05-27 oral 10 mg capsule,extended release 24hr completed for 30 day(s) Adderall XR 558160 Rx[facility] 2016-06-23 2016-07-20 oral 5 mg capsule,extended release 24hr completed for 30 day(s) duloxetine 276407 RxNorm 2020-02-20 2020-06-17 oral 30 mg capsule,delayed release(DR/EC) active for 30 day(s) Vitamin D3 527298 RxNorm 2018-03-28 2018-11-14 oral 2,000 unit capsule completed for 30 day(s) Abilify 352226 RxNorm 2015-10-07 2016-05-03 oral 15 mg tablet completed for 30 day(s) Problems Problem Name Code CodeSy stem Alternate Code Alternate CodeSystem Start Date End Date Status Narrative Disruptive mood dysregulation disorder [id number] SNOMED-CT 2017-10-28 Active Conduct disorder, childhood onset 3647258 8 SNOMED-CT 2016-09-23 Active Depressive episode, unspecified 02556319 SNOMED-CT 2017-07-26 Active Depressive episode, unspecified 88081150 SNOMED-CT 2017-10-28 Active Attention-deficit hyperactivity disorder, combined ty pe 44382374 SNOMED-CT 2015-08-22 Active Depressive episode, unspecified 07136424 SNOMED-CT 2017-10-28 Active Conduct disorder, childhood onset 1494901 8 SNOMED-CT 2016-09-23 Active Disruptive mood dysregulation disorder 441443572 SNOMED-CT 2017-07-26 Active Conduct disorder, childhood onset 5409498 8 SNOMED-CT 2016-09-23 Active Conduct disorder, childhood onset 3120107 8 SNOMED-CT 2016-09-23 Active Disruptive mood dysregulation disorder 823484550 SNOMED-CT 2017-10-28 Active Attention-deficit hyperactivity disorder, combined ty pe 01991657 SNOMED-CT 2015-08-22 Active Attention-deficit hyperactivity disorder, combined ty pe 41548237 SNOMED-CT 2015-08-22 Active Disruptive mood dysregulation disorder 800016209 SNOMED-CT 2017-10-28 Active Attention-deficit hyperactivity disorder, combined ty pe 18870193 SNOMED-CT 2015-08-22 Active Depressive episode, unspecified 79758663 SNOMED-CT 2017-10-28 Active Conduct disorder, childhood onset 5767664 8 SNOMED-CT 2016-09-23 Active Attention-deficit hyperactivity disorder, combined ty pe 64862310 SNOMED-CT 2015-08-22 Active Relevant diagnostic tests/laboratory data Narrative No Information Procedures Procedure Name Code Code System Target Site Date of Procedure Status Service Delivery Location Device Cod e Device Name Device UID Psychotherapy, 45 minutes with patient [id number] SNOMED-CT () 2015-03-[address], [id number] Psychotherapy, 45 minutes with patient [id number] SNOMED-CT () 2015-07-[address], [id number] Psychotherapy, 45 minutes with patient [id number] SNOMED-CT () 2015-08-[address], [id number] Psychotherapy, 45 minutes with patient [id number] SNOMED-CT () 2015-08-[address], [id number] Psychotherapy, 45 minutes with patient [id number] SNOMED-CT () 2015-08-[address], [id number] Psychotherapy, 45 minutes with patient [id number] SNOMED-CT () 2015-09-[address], [id number] Psychotherapy, 45 minutes with patient [id number] SNOMED-CT () 2021-07-[address], [id number] Psychotherapy, 45 minutes with patient [id number] SNOMED-CT () 2016-12-[address], [id number] Psychotherapy, 45 minutes with patient [id number] SNOMED-CT () 2021-02-[address], [id number] Psychotherapy, 45 minutes with patient [id number] SNOMED-CT () 2021-03-[address], [id number] Psychotherapy, 45 minutes with patient [id number] SNOMED-CT () 2021-04-[address], [id number] Psychotherapy, 45 minutes with patient [id number] SNOMED-CT () 2021-05-[address], [id number] Psychotherapy, 45 minutes with patient [id number] SNOMED-CT () 2021-05-[address], [id number] Psychotherapy, 45 minutes with patient [id number] SNOMED-CT () 2021-06-[address], [id number] Psychotherapy, 45 minutes with patient [id number] SNOMED-CT () 2018-10-[address], [id number] Psychotherapy, 45 minutes with patient [id number] SNOMED-CT () 2019-02-[address], [id number] Psychotherapy, 45 minutes with patient [id number] SNOMED-CT () 2019-03-[address], [id number] Psychotherapy, 45 minutes with patient [id number] SNOMED-CT () 2019-07-[address], [id number] Psychotherapy, 45 minutes with patient [id number] SNOMED-CT () 2020-01-[address], [id number] Psychotherapy, 45 minutes with patient [id number] SNOMED-CT () 2020-05-[address], [id number] Psychotherapy, 45 minutes with patient [id number] SNOMED-CT () 2017-12-[address], [id number] Psychotherapy, 45 minutes with patient [id number] SNOMED-CT () 2017-12-[address], [id number] Psychotherapy, 45 minutes with patient [id number] SNOMED-CT () 2018-01-[address], [id number] Psychotherapy, 45 minutes with patient [id number] SNOMED-CT () 2018-04-[address], [id number] Psychotherapy, 45 minutes with patient [id number] SNOMED-CT () 2018-05-[address], [id number] Psychotherapy, 45 minutes with patient [id number] SNOMED-CT () 2018-08-[address], [id number] Psychotherapy, 45 minutes with patient [id number] SNOMED-CT () [address], [id number] Psychotherapy, 45 minutes with patient [id number] SNOMED-CT () 2017-03-[address], [id number] Psychotherapy, 45 minutes with patient [id number] SNOMED-CT () 2017-04-[address], [id number] Psychotherapy, 45 minutes with patient [id number] SNOMED-CT () 2017-04-[address], [id number] Psychotherapy, 45 minutes with patient [id number] SNOMED-CT () 2017-04-[address], [id number] Psychotherapy, 45 minutes with patient [id number] SNOMED-CT () 2017-11-[address], [id number] Psychotherapy, 45 minutes with patient [id number] SNOMED-CT () 2016-05-[address], [id number] Psychotherapy, 45 minutes with patient [id number] SNOMED-CT () 2016-06-[address], [id number] Psychotherapy, 45 minutes with patient [id number] SNOMED-CT () 2016-11-[address], [id number] Psychotherapy, 45 minutes with patient [id number] SNOMED-CT () 2016-12-[address], [id number] Psychotherapy, 45 minutes with patient [id number] SNOMED-CT () 2016-12-[address], [id number] Psychotherapy, 45 minutes with patient [id number] SNOMED-CT () 2017-01-[address], [id number] Psychotherapy, 45 minutes with patient [id number] SNOMED-CT () 2016-02-[address], [id number] Psychotherapy, 45 minutes with patient [id number] SNOMED-CT () 2016-02-[address], [id number] Psychotherapy, 45 minutes with patient [id number] SNOMED-CT () 2016-03-[address], [id number] [id number] Psychotherapy, 45 minutes with patient [id number] SNOMED-CT () 2016-03-[address], [id number] [id number] Psychotherapy, 45 minutes with patient [id number] SNOMED-CT () 2016-04-[address], [id number] Psychotherapy, 45 minutes with patient [id number] SNOMED-CT () 2016-05-[address], [id number] Psychotherapy, 45 minutes with patient [id number] SNOMED-CT () 2015-10-[address], [id number] [id number] Psychotherapy, 45 minutes with patient [id number] SNOMED-CT () 2015-12-[address], [id number] [id number] Psychotherapy, 45 minutes with patient [id number] SNOMED-CT () 2015-12-[address], [id number] [id number] Psychotherapy, 45 minutes with patient [id number] SNOMED-CT () 2015-12-[address], [id number] Psychotherapy, 45 minutes with patient [id number] SNOMED-CT () 2016-01-[address], [id number] [id number] Psychotherapy, 45 minutes with patient [id number] SNOMED-CT () 2016-01-[address], [id number] [phone] Initial Psychiatric Evaluation [id number] SNOMED-CT () 2017-07-[address], [place], [id number] [id number] Family psychotherapy (without the patien t present), 50 minutes [id number] SNOMED-CT () 2015-04-[address], [id number] [id number] Family psychotherapy (without the patien t present), 50 minutes [id number] SNOMED-CT () 2015-04-[address], [id number] [id number] Psychotherapy - Family&Client 1 hr 1 [id number] SNOMED-CT () 2016-06-[address], [id number] [id number] Health Monitoring / Risk Reduction Counseling - Brief [id number] SNOMED-CT () 2019-05-[address], [id number] Health Monitoring / Risk Reduction Counseling - Interm ediate [id number] SNOMED-CT () 2019-05-[address], [id number] [id number] Health Monitoring / Risk Reduction Counseling - Expand ed [id number] SNOMED-CT () 2019-04-[address], [id number] Health Monitoring / Risk Reduction Counseling - Expand ed [id number] SNOMED-CT () 2019-06-[address], [id number] Est. Patient - E&M Intermediate [id number] SNOMED-CT () 2015-04-[address], [id number] [id number] Est. Patient - E&M Intermediate [id number] SNOMED-CT () 2015-08-[address], [id number] [id number] Est. Patient - E&M Intermediate [id number] SNOMED-CT () 2015-09-[address], [id number] [id number] Est. Patient - E&M Intermediate [id number] SNOMED-CT () 2015-11-[address], [id number] [phone] Est. Patient - E&M Intermediate [id number] SNOMED-CT () 2015-12-[address], [id number] [id number] Est. Patient - E&M Intermediate [id number] SNOMED-CT () 2015-12-[address], [id number] [phone] Est. Patient - E&M Intermediate [id number] SNOMED-CT () 2020-12-[address], [id number] [id number] Est. Patient - E&M Intermediate [id number] SNOMED-CT () 2021-03-[address], [id number] Est. Patient - E&M Intermediate [id number] SNOMED-CT () 2018-08-[address], [id number] [id number] Est. Patient - E&M Intermediate [id number] SNOMED-CT () 2018-09-[address], [id number] [id number] Est. Patient - E&M Intermediate [id number] SNOMED-CT () 2018-10-[address], [id number] [phone] Est. Patient - E&M Intermediate [id number] SNOMED-CT () 2018-12-[address], [id number] Est. Patient - E&M Intermediate [id number] SNOMED-CT () [address], [id number] [id number] Est. Patient - E&M Intermediate [id number] SNOMED-CT () 2019-06-[address], [id number] [id number] Est. Patient - E&M Intermediate [id number] SNOMED-CT () 2017-02-[address], [id number] [phone] Est. Patient - E&M Intermediate [id number] SNOMED-CT () 2017-03-[address], [id number] Est. Patient - E&M Intermediate [id number] SNOMED-CT () 2017-04-[address], [id number] [id number] Est. Patient - E&M Intermediate [id number] SNOMED-CT () 2017-05-[address], [id number] [id number] Est. Patient - E&M Intermediate [id number] SNOMED-CT () 2017-10-[address], [id number] [phone] Est. Patient - E&M Intermediate [id number] SNOMED-CT () 2017-11-[address], [id number] [id number] Est. Patient - E&M Intermediate [id number] SNOMED-CT () [address], [id number] [id number] Est. Patient - E&M Intermediate [id number] SNOMED-CT () 2016-05-[address], [id number] Est. Patient - E&M Intermediate [id number] SNOMED-CT () 2016-06-[address], [id number] [phone] Est. Patient - E&M Intermediate [id number] SNOMED-CT () 2016-06-[address], [id number] [id number] Est. Patient - E&M Intermediate [id number] SNOMED-CT () 2016-07-[address], [id number] [phone] Est. Patient - E&M Intermediate [id number] SNOMED-CT () 2017-01-[address], [id number] [id number] Est. Patient - E&M Brief [id number] SNOMED-CT () 2015-08-[address], [id number] [id number] Est. Patient - E&M Brief [id number] SNOMED-CT () 2015-10-[address], [id number] [id number] Est. Patient - E&M Brief [id number] SNOMED-CT () 2015-10-[address], [id number] [phone] Est. Patient - E&M Brief [id number] SNOMED-CT () 2016-03-[address], [place], [id number] Est. Patient - E&M Brief [id number] SNOMED-CT () 2016-04-[address], [id number] [id number] Est. Patient - E&M Brief [id number] SNOMED-CT () 2016-08-[address], [id number] [id number] Est. Patient - E&M Brief [id number] SNOMED-CT () 2020-03-[address], [id number] [id number] Est. Patient - E&M Brief [id number] SNOMED-CT () 2020-04-[address], [id number] [id number] Est. Patient - E&M Brief [id number] SNOMED-CT () 2020-05-[address], [id number] [id number] Est. Patient - E&M Brief [id number] SNOMED-CT () 2020-07-[address], [id number] [phone] Est. Patient - E&M Brief [id number] SNOMED-CT () 2021-01-[address], [id number] [id number] Est. Patient - E&M Brief [id number] SNOMED-CT () 2020-02-[address], [id number] [phone] Est. Patient - E&M Brief [id number] SNOMED-CT () 2019-05-[address], [id number] [id number] Est. Patient - E&M Brief [id number] SNOMED-CT () 2019-08-[address], [id number] [id number] Est. Patient - E&M Brief [id number] SNOMED-CT () 2019-09-[address], [id number] [id number] Est. Patient - E&M Brief [id number] SNOMED-CT () 2019-10-[address], [id number] [phone] Est. Patient - E&M Brief [id number] SNOMED-CT () 2019-12-[address], [id number] [id number] Est. Patient - E&M Brief [id number] SNOMED-CT () 2020-01-[address], [id number] Est. Patient - E&M Brief [id number] SNOMED-CT () 2016-12-[address], [id number] [id number] Est. Patient - E&M Brief [id number] SNOMED-CT () 2017-09-[address], [id number] [id number] Est. Patient - E&M Brief [id number] SNOMED-CT () 2017-09-[address], [id number] [id number] Est. Patient - E&M Brief [id number] SNOMED-CT () 2017-09-[address], [id number] [id number] Est. Patient - E&M Brief [id number] SNOMED-CT () 2018-05-[address], [id number] [id number] Est. Patient - E&M Brief [id number] SNOMED-CT () 2019-04-[address], [id number] Est. Patient - E&M Expanded [id number] SNOMED-CT () 2015-03-[address], [id number] [phone] Est. Patient - E&M Expanded [id number] SNOMED-CT () 2015-05-[address], [id number] [id number] Est. Patient - E&M Expanded [id number] SNOMED-CT () 2015-06-[address], [id number] [id number] Est. Patient - E&M Expanded [id number] SNOMED-CT () 2015-07-[address], [id number] [id number] Est. Patient - E&M Expanded [id number] SNOMED-CT () 2017-07-[address], [id number] [id number] Est. Patient - E&M Expanded [id number] SNOMED-CT () 2017-08-[address], [id number] [phone] Est. Patient - E&M Expanded [id number] SNOMED-CT () 2019-07-[address], [id number] [id number] Est. Patient - E&M Expanded [id number] SNOMED-CT () 2019-07-[address], [id number] [id number] Est. Patient - E&M Expanded [id number] SNOMED-CT () 2021-05-[address], [id number] [id number] Est. Patient - E&M Expanded [id number] SNOMED-CT () 2021-06-[address], [id number] [id number] Est. Patient - E&M Expanded [id number] SNOMED-CT () 2021-07-[address], [id number] [id number] Est. Patient - E&M Expanded [id number] SNOMED-CT () 2018-01-[address], [id number] [id number] Est. Patient - E&M Expanded [id number] SNOMED-CT () 2018-01-[address], [id number] [id number] Est. Patient - E&M Expanded [id number] SNOMED-CT () 2018-02-[address], [id number] Est. Patient - E&M Expanded [id number] SNOMED-CT () 2018-03-[address], [id number] [id number] Est. Patient - E&M Expanded [id number] SNOMED-CT () 2018-04-[address], [id number] [id number] Est. Patient - E&M Expanded [id number] SNOMED-CT () 2018-06-22 completed [address], [id number] [id number] Est. Patient - E&M Expanded [id number] SNOMED-CT () 2017-08-[address], [id number] [id number] Est. Patient - E&M Expanded [id number] SNOMED-CT () 2017-08-[address], [id number] [id number] Est. Patient - E&M Expanded [id number] SNOMED-CT () 2017-09-[address], [id number] [phone] Est. Patient - E&M Expanded [id number] SNOMED-CT () 2017-09-[address], [id number] [id number] Est. Patient - E&M Expanded [id number] SNOMED-CT () 2017-10-[address], [id number] [id number] Est. Patient - E&M Expanded [id number] SNOMED-CT () 2017-12-[address], [id number] [id number] Individual Psychotherapy [id number] SNOMED-CT () 2015-03-[address], [id number] [phone] Individual Psychotherapy [id number] SNOMED-CT () 2015-04-[address], [id number] [phone] Individual Psychotherapy [id number] SNOMED-CT () 2015-05-[address], [id number] [id number] Individual Psychotherapy [id number] SNOMED-CT () 2015-05-[address], [id number] [id number] Individual Psychotherapy [id number] SNOMED-CT () 2015-05-[address], [id number] Individual Psychotherapy [id number] SNOMED-CT () 2015-05-[address], [id number] [id number] Individual Psychotherapy [id number] SNOMED-CT () 2020-04-[address], [id number] [id number] Individual Psychotherapy [id number] SNOMED-CT () 2020-03-[address], [id number] [id number] Individual Psychotherapy [id number] SNOMED-CT () 2021-01-[address], [id number] Individual Psychotherapy [id number] SNOMED-CT () 2021-02-[address], [id number] [id number] Individual Psychotherapy [id number] SNOMED-CT () 2021-03-[address], [id number] [phone] Individual Psychotherapy [id number] SNOMED-CT () 2021-03-[address], [id number] Individual Psychotherapy [id number] SNOMED-CT () 2021-03-[address], [id number] [id number] Individual Psychotherapy [id number] SNOMED-CT () 2021-07-[address] [place], [place], [id number] [phone] Individual Psychotherapy [id number] SNOMED-CT () 2019-09-[address], [id number] [id number] Individual Psychotherapy [id number] SNOMED-CT () 2020-02-[address], [id number] [id number] Individual Psychotherapy [id number] SNOMED-CT () 2020-07-[address], [id number] Individual Psychotherapy [id number] SNOMED-CT () 2020-04-[address], [id number] [phone] Individual Psychotherapy [id number] SNOMED-CT () 2020-03-[address], [id number] [id number] Individual Psychotherapy [id number] SNOMED-CT () 2020-12-[address], [id number] [id number] Individual Psychotherapy [id number] SNOMED-CT () 2018-10-[address], [id number] [phone] Individual Psychotherapy [id number] SNOMED-CT () 2018-10-[address], [id number] [id number] Individual Psychotherapy [id number] SNOMED-CT () 2018-11-[address], [id number] [id number] Individual Psychotherapy [id number] SNOMED-CT () 2018-12-[address], [id number] Individual Psychotherapy [id number] SNOMED-CT () 2019-02-[address], [id number] [id number] Individual Psychotherapy [id number] SNOMED-CT () 2019-08-[address], [id number] Individual Psychotherapy [id number] SNOMED-CT () 2017-11-[address], [id number] [id number] Individual Psychotherapy [id number] SNOMED-CT () 2017-12-[address], [id number] Individual Psychotherapy [id number] SNOMED-CT () 2018-03-[address], [id number] Individual Psychotherapy [id number] SNOMED-CT () 2018-06-[address], [id number] [phone] Individual Psychotherapy [id number] SNOMED-CT () 2018-07-[address], [id number] Individual Psychotherapy [id number] SNOMED-CT () 2018-09-[address], [id number] [id number] Individual Psychotherapy [id number] SNOMED-CT () 2017-08-[address], [id number] [phone] Individual Psychotherapy [id number] SNOMED-CT () 2017-09-[address], [id number] Individual Psychotherapy [id number] SNOMED-CT () 2017-09-[address], [id number] Individual Psychotherapy [id number] SNOMED-CT () 2017-09-[address], [id number] Individual Psychotherapy [id number] SNOMED-CT () 2017-10-[address], [id number] Individual Psychotherapy [id number] SNOMED-CT () 2017-10-[address], [id number] Individual Psychotherapy [id number] SNOMED-CT () 2017-03-[address], [id number] Individual Psychotherapy [id number] SNOMED-CT () 2017-03-[address], [id number] Individual Psychotherapy [id number] SNOMED-CT () 2017-05-[address], [id number] Individual Psychotherapy [id number] SNOMED-CT () 2017-07-[address], [id number] Individual Psychotherapy [id number] SNOMED-CT () 2017-08-[address], [id number] Individual Psychotherapy [id number] SNOMED-CT () 2017-08-[address], [id number] [id number] Individual Psychotherapy [id number] SNOMED-CT () 2016-07-[address], [id number] [phone] Individual Psychotherapy [id number] SNOMED-CT () 2016-07-[address], [id number] Individual Psychotherapy [id number] SNOMED-CT () 2016-08-[address], [id number] [id number] Individual Psychotherapy [id number] SNOMED-CT () 2016-08-[address], [id number] Individual Psychotherapy [id number] SNOMED-CT () 2016-09-[address], [id number] [id number] Individual Psychotherapy [id number] SNOMED-CT () 2017-02-[address], [id number] Individual Psychotherapy [id number] SNOMED-CT () 2016-03-[address], [id number] [id number] Individual Psychotherapy [id number] SNOMED-CT () 2016-04-[address], [id number] Individual Psychotherapy [id number] SNOMED-CT () 2016-04-[address], [id number] Individual Psychotherapy [id number] SNOMED-CT () 2016-05-[address], [id number] Individual Psychotherapy [id number] SNOMED-CT () 2016-06-[address], [id number] [id number] Individual Psychotherapy [id number] SNOMED-CT () 2016-07-05 completed [address], [id number] [id number] Individual Psychotherapy [id number] SNOMED-CT () 2015-11-[address], [id number] Individual Psychotherapy [id number] SNOMED-CT () 2016-01-[address], [id number] [id number] Individual Psychotherapy [id number] SNOMED-CT () 2016-01-[address], [id number] Individual Psychotherapy [id number] SNOMED-CT () 2016-02-[address], [id number] Individual Psychotherapy [id number] SNOMED-CT () 2016-02-[address], [id number] Individual Psychotherapy [id number] SNOMED-CT () 2016-03-[address], [id number] Individual Psychotherapy [id number] SNOMED-CT () 2015-06-[address], [id number] Individual Psychotherapy [id number] SNOMED-CT () 2015-09-[address], [id number] Individual Psychotherapy [id number] SNOMED-CT () 2015-09-[address], [id number] Individual Psychotherapy [id number] SNOMED-CT () 2015-10-[address], [id number] Individual Psychotherapy [id number] SNOMED-CT () 2015-10-[address] [place], [place], [id number] [id number] Individual Psychotherapy [id number] SNOMED-CT () 2015-10-[address], [id number] Individual Psychotherapy [id number] SNOMED-CT () 2015-03-[address], [id number] Individual Psychotherapy [id number] SNOMED-CT () 2015-07-[address], [id number] Individual Psychotherapy [id number] SNOMED-CT () 2015-08-[address], [id number] [id number] Individual Psychotherapy [id number] SNOMED-CT () 2015-08-[address], [id number] Individual Psychotherapy [id number] SNOMED-CT () 2015-08-[address], [id number] Individual Psychotherapy [id number] SNOMED-CT () 2015-09-[address], [id number] Individual Psychotherapy [id number] SNOMED-CT () 2021-07-[address], [id number] [id number] Individual Psychotherapy [id number] SNOMED-CT () 2016-12-[address], [id number] Individual Psychotherapy [id number] SNOMED-CT () 2021-02-[address], [id number] Individual Psychotherapy [id number] SNOMED-CT () 2021-03-[address], [id number] [id number] Individual Psychotherapy [id number] SNOMED-CT () 2021-04-[address], [id number] Individual Psychotherapy [id number] SNOMED-CT () 2021-05-[address], 514861106 [id number] Individual Psychotherapy [id number] SNOMED-CT () 2021-05-[address], [id number] Individual Psychotherapy [id number] SNOMED-CT () 2021-06-[address], [id number] Individual Psychotherapy [id number] SNOMED-CT () 2018-10-[address], [id number] [id number] Individual Psychotherapy [id number] SNOMED-CT () 2019-02-[address], [id number] Individual Psychotherapy [id number] SNOMED-CT () 2019-03-[address], [id number] Individual Psychotherapy [id number] SNOMED-CT () 2019-07-[address], [id number] [id number] Individual Psychotherapy [id number] SNOMED-CT () 2020-01-[address], [id number] Individual Psychotherapy [id number] SNOMED-CT () 2020-05-[address], [id number] Individual Psychotherapy [id number] SNOMED-CT () 2017-12-[address], [id number] Individual Psychotherapy [id number] SNOMED-CT () 2017-12-[address], [id number] [id number] Individual Psychotherapy [id number] SNOMED-CT () 2018-01-[address], [id number] [id number] Individual Psychotherapy [id number] SNOMED-CT () 2018-04-[address], [id number] Individual Psychotherapy [id number] SNOMED-CT () 2018-05-[address], [id number] Individual Psychotherapy [id number] SNOMED-CT () 2018-08-[address], [id number] [id number] Individual Psychotherapy [id number] SNOMED-CT () [address], [id number] Individual Psychotherapy [id number] SNOMED-CT () 2017-03-[address], [id number] [id number] Individual Psychotherapy [id number] SNOMED-CT () 2017-04-[address], [id number] Individual Psychotherapy [id number] SNOMED-CT () 2017-04-[address], [id number] Individual Psychotherapy [id number] SNOMED-CT () 2017-04-[address], [id number] Individual Psychotherapy [id number] SNOMED-CT () 2017-11-[address], [id number] [id number] Individual Psychotherapy [id number] SNOMED-CT () 2016-05-[address], [id number] Individual Psychotherapy [id number] SNOMED-CT () 2016-06-[address], [id number] Individual Psychotherapy [id number] SNOMED-CT () 2016-11-[address], [id number] Individual Psychotherapy [id number] SNOMED-CT () 2016-12-[address], [id number] [id number] Individual Psychotherapy [id number] SNOMED-CT () 2016-12-[address], [id number] Individual Psychotherapy [id number] SNOMED-CT () 2017-01-[address], [id number] Individual Psychotherapy [id number] SNOMED-CT () 2016-02-[address], [id number] Individual Psychotherapy [id number] SNOMED-CT () 2016-02-[address], [id number] [id number] Individual Psychotherapy [id number] SNOMED-CT () 2016-03-[address], [id number] [id number] Individual Psychotherapy [id number] SNOMED-CT () 2016-03-[address], [id number] [id number] Individual Psychotherapy [id number] SNOMED-CT () 2016-04-[address], [id number] [id number] Individual Psychotherapy [id number] SNOMED-CT () 2016-05-[address], 973606936 [id number] Individual Psychotherapy [id number] SNOMED-CT () 2015-10-[address], [id number] Individual Psychotherapy [id number] SNOMED-CT () 2015-12-[address], [id number] Individual Psychotherapy [id number] SNOMED-CT () 2015-12-[address], [id number] [id number] Individual Psychotherapy [id number] SNOMED-CT () 2015-12-[address], [id number] Individual Psychotherapy [id number] SNOMED-CT () 2016-01-[address], [id number] Individual Psychotherapy [id number] SNOMED-CT () 2016-01-[address], [id number] Psychiatric Diagnostic Evaluation without medical serv ices [id number] SNOMED-CT () 2015-03-[address], [id number] SNOMED-CT () 2018-03-[address], [id number] SNOMED-CT () 2017-12-29 completed [address] [place], [place], [id number] SNOMED-CT () 2018-07-29 completed [address] [place], [place], [id number] SNOMED-CT () 2017-10-28 completed [address] [place], [address] [id number] SNOMED-CT () 2018-06-28 completed [address] [place], [place], [id number] [id number] SNOMED-CT () 2018-08-28 completed [address] [place], [place], [id number] [id number] SNOMED-CT () 2017-11-28 completed [address] [place], [place], [address] [id number] SNOMED-CT () 2018-03-28 completed [address] [place], [place], [id number] SNOMED-CT () 2018-01-26 completed [address] [place], [id number] SNOMED-CT () 2018-05-28 completed [address] [place], 487209722 [id number] SNOMED-CT () 2018-02-26 completed [address] [place], 100774074 [phone] SNOMED-CT () 2018-04-28 completed [address] [place], 621012052 [id number] SNOMED-CT () 2017-07-21 completed [facility] [address] [place], [place], [address] [id number] SNOMED-CT () 2017-07-21 completed [facility] [address] [place], [place], [id number] [id number] SNOMED-CT () 2017-07-21 completed [facility] [address] [place], [place], 7[address] [id number] SNOMED-CT () 2017-07-21 completed [facility] [address] [place], [place], [id number] [id number] SNOMED-CT () 2017-07-21 completed [place] [address] [place], 603888392 [id number] SNOMED-CT () 2017-07-21 completed [place] [address] [place], 775525795 [id number] SNOMED-CT () 2017-07-[address], 662089184 [id number] SNOMED-CT () 2017-07-[address], 324187082 [id number] SNOMED-CT () 2017-07-[address], 263366495 [id number] SNOMED-CT () 2017-07-[address], 123779956 [id number] SNOMED-CT () 2017-07-[address], 666295919 [id number] SNOMED-CT () 2017-07-[address], 702824032 [id number] SNOMED-CT () 2017-07-[address], 061787447 [id number] SNOMED-CT () 2017-07-[address], 732720412 [id number] SNOMED-CT () 2017-07-[address], 174190794 [id number] SNOMED-CT () 2017-07-[address], 725644991 [id number] SNOMED-CT () 2016-08-[address], 762798127 [id number] SNOMED-CT () 2016-07-[address], 909386159 [id number] SNOMED-CT () 2016-04-[address], 215297067 [phone] SNOMED-CT () 2016-03-[address], [id number] [id number] SNOMED-CT () 2016-06-[address], 821344297 [id number] SNOMED-CT () 2016-04-12 completed [facility] [address], 614527998 [phone] SNOMED-CT () 2016-04-[address], 225775650 [id number] SNOMED-CT () 2016-06-[address], 310849742 [id number] SNOMED-CT () 2017-01-[address], 469579494 [id number] SNOMED-CT () 2016-05-[address], 780041206 [phone] SNOMED-CT () 2016-07-[address], 572087920 [id number] SNOMED-CT () 2016-08-[address], 878060420 [phone] SNOMED-CT () 2016-07-[address], 738068892 [phone] SNOMED-CT () 2016-05-[address], 475260197 [id number] SNOMED-CT () 2016-04-[address], 364791868 [id number] SNOMED-CT () 2016-03-[address], 494277586 [id number] SNOMED-CT () 2016-09-27 completed [facility] [address], 442884644 [phone] SNOMED-CT () 2016-06-21 completed [facility] [address], [id number] [phone] SNOMED-CT () 2016-05-10 completed [facility] [address], 978843942 [id number] SNOMED-CT () 2016-05-[address], 087621196 [phone] SNOMED-CT () 2016-06-14 completed [facility] [address], 277047859 [phone] SNOMED-CT () 2016-03-[address], [id number] [id number] SNOMED-CT () [address], 867338671 [phone] SNOMED-CT () 2016-06-[address], 919541828 [phone] SNOMED-CT () 2016-08-[address], 798232990 [id number] SNOMED-CT () 2016-07-[address], 187824964 [id number] SNOMED-CT () 2016-03-[address], 282704955 [id number] SNOMED-CT () 2016-03-09 completed [facility] [address], 815406379 [phone] SNOMED-CT () 2021-04-22 completed [facility] C [address], 181098193 [phone] SNOMED-CT () 2021-03-16 completed [address] C [address], 403653026 [phone] SNOMED-CT () 2021-01-21 completed [address] C [address], 658676777 [id number] SNOMED-CT () 2021-03-17 completed [address] C [address], 881569074 [phone] SNOMED-CT () 2021-03-04 completed [facility] [address], 538960409 [phone] SNOMED-CT () 2021-05-11 completed [address] C [address], 771503167 [id number] SNOMED-CT () 2020-12-29 completed W C [address], 741663548 [id number] SNOMED-CT () 2020-12-15 completed [address] C [address], 845251848 [phone] SNOMED-CT () 2021-03-11 completed [address] C [address], 509158789 [id number] SNOMED-CT () 2021-02-04 completed [address] C [address], 658063592 [phone] SNOMED-CT () 2021-03-24 completed [address] C [address], 230672861 [id number] SNOMED-CT () 2021-05-06 completed [facility] [address], 093905926 [phone] SNOMED-CT () 2021-02-[address], 957487255 [phone] SNOMED-CT () 2020-03-28 completed [address] [place], 02[address]2503 [id number] SNOMED-CT () 2020-06-28 completed [address] [place], 488311019 [id number] SNOMED-CT () 2020-09-28 completed [address] [place], 457436648 [id number] SNOMED-CT () 2020-04-28 completed [address] [place], 847452567 [id number] SNOMED-CT () 2020-02-27 completed [address] [place], 440872446 [id number] SNOMED-CT () 2020-08-28 completed [address] [place], 600023766 [id number] SNOMED-CT () 2020-12-29 completed [address] [place], 530262530 [id number] SNOMED-CT () 2021-01-26 completed [address] [place], 566876074 [id number] SNOMED-CT () 2020-11-28 completed [address] [place], 230585270 [id number] SNOMED-CT () 2020-01-27 completed [address] [place], 944998031 [phone] SNOMED-CT () 2020-05-28 completed [address] [place], 457380687 [phone] SNOMED-CT () 2020-10-28 completed [address] [place], 807269736 [phone] SNOMED-CT () 2020-07-29 completed [address] [place], 067696238 [id number] SNOMED-CT () 2015-03-29 completed [facility] [address] [place], 509177178 [phone] SNOMED-CT () 2015-04-29 completed [facility] [address] [place], 264187838 [phone] SNOMED-CT () 2015-05-28 completed [facility] [address] [place], 396860298 [phone] SNOMED-CT () 2015-06-28 completed [facility] [address] [place], 719705039 [phone] SNOMED-CT () 2015-07-29 completed [facility] [address] [place] [address], 252172701 [id number] SNOMED-CT () 2015-08-28 completed [address] [place] [address], 412418583 [id number] SNOMED-CT () 2021-04-28 completed [address] [place], 758927877 [id number] SNOMED-CT () 2021-05-28 completed [address] [place], 751011881 [id number] SNOMED-CT () 2021-06-28 completed [address] [place], 346516455 [phone] SNOMED-CT () 2021-07-29 completed [address] [place], 640725621 [phone] SNOMED-CT () 2020-10-28 completed [address] [place], 387988050 [phone] SNOMED-CT () 2020-11-28 completed [address] [place], 495947264 [id number] SNOMED-CT () 2020-12-29 completed [address] [place], 725801411 [phone] SNOMED-CT () 2021-01-26 completed [address] [place], 917751873 [id number] SNOMED-CT () 2021-02-26 completed [address] [place], 762837726 [id number] SNOMED-CT () 2021-03-28 completed [address] [place], 658811815 [id number] SNOMED-CT () 2020-04-28 completed [address] [place], 474881374 [id number] SNOMED-CT () 2020-05-28 completed [address] [place], 701241044 [id number] SNOMED-CT () 2020-06-28 completed [address] [place], 481053695 [id number] SNOMED-CT () 2020-07-29 completed [address] [place], 305243680 [phone] SNOMED-CT () 2020-08-28 completed [address] [place], 428667214 [phone] SNOMED-CT () 2020-09-28 completed [address] [place], 734613622 [id number] SNOMED-CT () 2019-10-28 completed [address] [place], 769840566 [id number] SNOMED-CT () 2019-11-28 completed [address] [place], 296332220 [id number] SNOMED-CT () 2019-12-29 completed [address] [place], 968591051 [id number] SNOMED-CT () 2020-01-27 completed [address] [place], 200929822 [id number] SNOMED-CT () 2020-02-27 completed [address] [place], 548674481 [id number] SNOMED-CT () 2020-03-28 completed [address] [place], 903662798 [id number] SNOMED-CT () 2019-05-28 completed [address] [place], 165326314 [id number] SNOMED-CT () 2019-06-[address], 841069226 [phone] SNOMED-CT () 2019-06-29 completed [address] [place], 102192918 [id number] SNOMED-CT () 2019-07-[address] [place], [place], 102681334 [phone] SNOMED-CT () 2019-08-28 completed [address] [place], 596039781 [phone] SNOMED-CT () 2019-09-28 completed [address] [place], 636277544 [id number] SNOMED-CT () 2018-11-28 completed [address] [place], 339135902 [phone] SNOMED-CT () 2018-12-29 completed [address] [place], 074601721 [id number] SNOMED-CT () 2019-01-26 completed [address] [place], 862554482 [phone] SNOMED-CT () 2019-02-26 completed [address] [place], 100204215 [id number] SNOMED-CT () 2019-03-28 completed [address] [place], 620619724 [id number] SNOMED-CT () 2019-04-28 completed [address] [place], 857085263 [phone] SNOMED-CT () 2018-05-28 completed [address] [place], 666441017 [phone] SNOMED-CT () 2018-06-28 completed [address] [place], 095857389 [phone] SNOMED-CT () 2018-07-29 completed [address] [place], 099951671 [id number] SNOMED-CT () 2018-08-28 completed [address] [place], 261259539 [id number] SNOMED-CT () 2018-09-28 completed [address] [place], 844709339 [id number] SNOMED-CT () 2018-10-28 completed [address] [place], 694939720 [id number] SNOMED-CT () 2017-11-28 completed [address] [place], 477570607 [phone] SNOMED-CT () 2017-12-29 completed [address] [place], 188303839 [id number] SNOMED-CT () 2018-01-26 completed [address] [place], 436311770 [id number] SNOMED-CT () 2018-02-26 completed [address] [place], 092605609 [id number] SNOMED-CT () 2018-03-28 completed [address] [place], 544958971 [phone] SNOMED-CT () 2018-04-28 completed [address] [place], 591013580 [phone] SNOMED-CT () 2017-05-28 completed [address] [place], 112992749 [id number] SNOMED-CT () 2017-06-28 completed [address] [place], 417965043 [phone] SNOMED-CT () 2017-07-29 completed [address] [place], 992696627 [id number] SNOMED-CT () 2017-08-28 completed [address] [place], 402076502 [id number] SNOMED-CT () 2017-09-28 completed [address] [place], 148483390 [id number] SNOMED-CT () 2017-10-28 completed [address] [place], 149295742 [id number] SNOMED-CT () 2016-11-28 completed [address] [place], 867877091 [id number] SNOMED-CT () 2016-12-29 completed [address] [place], 346991858 [id number] SNOMED-CT () 2017-01-26 completed [address] [place], 691886899 [phone] SNOMED-CT () 2017-02-26 completed [address] [place], 561488734 [id number] SNOMED-CT () 2017-03-28 completed [address] [place], 296463215 [id number] SNOMED-CT () 2017-04-28 completed [address] [place], 178451103 [id number] SNOMED-CT () 2016-03-28 completed [address] [place], 948991443 [id number] SNOMED-CT () 2016-04-28 completed [address] [place], 423178034 [phone] SNOMED-CT () 2016-05-28 completed [address] [place], 006371784 [id number] SNOMED-CT () 2016-06-28 completed [address] [place], [place], 963229706 [id number] SNOMED-CT () 2016-07-29 completed [address] [place], 806488033 [phone] SNOMED-CT () 2016-08-28 completed [address] [place], 353175931 [id number] SNOMED-CT () 2015-09-28 completed [address] [place], 462635520 [id number] SNOMED-CT () 2015-10-28 completed [address] [place], 404791463 [id number] SNOMED-CT () 2015-11-28 completed [address] [place], 214395574 [id number] SNOMED-CT () 2015-12-29 completed [address] [place], 032218970 [id number] SNOMED-CT () 2016-01-27 completed [address] [place], 552048205 [id number] SNOMED-CT () 2016-02-27 completed [address] [place], 048016352 [id number] SNOMED-CT () 2016-07-29 completed [address] [place], 868010705 [id number] SNOMED-CT () 2016-12-29 completed [address] [place], 853536696 [id number] SNOMED-CT () 2016-04-28 completed [address] [place], [place], 443009642 [id number] SNOMED-CT () 2016-05-28 completed [address] [place], NY, 142185779 [id number] SNOMED-CT () 2016-02-27 completed [address] [place], 121490269 [id number] SNOMED-CT () 2016-08-28 completed [address] [place], 558465143 [phone] SNOMED-CT () 2016-03-28 completed [address] [place], NY, 924645508 [id number] SNOMED-CT () 2016-06-28 completed [address] [place], NY, 346268778 [id number] SNOMED-CT () 2016-11-28 completed [address] [place], 306697564 [id number] SNOMED-CT () 2019-10-28 completed [address] [place], 894367017 [id number] SNOMED-CT () 2019-11-28 completed [address] [place], 891313339 [id number] SNOMED-CT () 2019-12-29 completed [address] [place], 239346772 [id number] SNOMED-CT () 2015-03-28 completed [address] [place], 591681591 [id number] SNOMED-CT () 2015-04-28 completed [address] [place], [place], 972780433 [id number] SNOMED-CT () 2015-05-28 completed [address] [place], NY, 660826406 [id number] SNOMED-CT () 2015-06-28 completed [address] [place] NY, 665525077 [id number] SNOMED-CT () 2015-07-29 completed [address] [place], 230098149 [id number] SNOMED-CT () 2015-09-28 completed [address] [place], [place], 299039994 [id number] SNOMED-CT () 2015-08-28 completed [facility] [address] [place] [address], 588967405 [id number] SNOMED-CT () 2016-09-28 completed [address] [place], 402099707 [id number] SNOMED-CT () 2015-03-10 completed [address] [place], 888685839 [id number] SNOMED-CT () 2018-05-28 completed [address] [place], 661831743 [id number] SNOMED-CT () 2016-10-28 completed [address] [place], 038114439 [id number] SNOMED-CT () 2020-02-27 completed [address] [place], 822181990 [id number] SNOMED-CT () 2021-02-26 completed [address] [place], 424040967 [id number] SNOMED-CT () 2021-03-28 completed [address] [place], 922531904 [id number] SNOMED-CT () 2021-04-28 completed [address] [place], 099101211 [id number] SNOMED-CT () 2021-05-28 completed [address] [place], 272575694 [id number] SNOMED-CT () 2021-06-28 completed [address] [place], 120620305 [phone] SNOMED-CT () 2021-07-29 completed [address] [place], 835929866 [id number] SNOMED-CT () 2020-08-28 completed [address] [place], 731772471 [id number] SNOMED-CT () 2020-09-28 completed [address] [place], 372176110 [id number] SNOMED-CT () 2020-10-28 completed [address] [place], 059598735 [id number] SNOMED-CT () 2020-11-28 completed [address] [place], 054548215 [id number] SNOMED-CT () 2020-12-29 completed [address] [place], 211767821 [id number] SNOMED-CT () 2021-01-26 completed [address] [place], 104552925 [id number] SNOMED-CT () 2020-01-27 completed [address] [place], 169624022 [id number] SNOMED-CT () 2020-03-28 completed [address] [place], 725887903 [id number] SNOMED-CT () 2020-04-28 completed [address] [place], 524317239 [phone] SNOMED-CT () 2020-05-28 completed [address] [place], 296162961 [id number] SNOMED-CT () 2020-06-28 completed [address] [place], 466105858 [id number] SNOMED-CT () 2020-07-29 completed [address] [place], 547165141 [id number] SNOMED-CT () 2019-07-29 completed [address] [place], 096896247 [id number] SNOMED-CT () 2019-08-28 completed [address] [place], 786713814 [id number] SNOMED-CT () 2019-09-28 completed [address] [place], 343004050 [id number] SNOMED-CT () 2019-10-28 completed [address] [place], 377701803 [id number] SNOMED-CT () 2019-11-28 completed [address] [place], 745213815 [id number] SNOMED-CT () 2019-12-29 completed [address] [place], 125270808 [id number] SNOMED-CT () 2019-01-26 completed [address] [place], 081572227 [id number] SNOMED-CT () 2019-02-26 completed [address] [place], 928674287 [id number] SNOMED-CT () 2019-03-28 completed [address] [place], 116002752 [id number] SNOMED-CT () 2019-04-28 completed [address] [place], 489527367 [id number] SNOMED-CT () 2019-05-28 completed [address] [place], 824546897 [id number] SNOMED-CT () 2019-06-[address], 688367946 [id number] SNOMED-CT () 2018-07-29 completed [address] [place], 225123827 [id number] SNOMED-CT () 2018-08-28 completed [address] [place], 596039099 [id number] SNOMED-CT () 2018-09-28 completed [address] [place], 125586545 [id number] SNOMED-CT () 2018-10-28 completed [address] [place], 354354649 [id number] SNOMED-CT () 2018-11-28 completed [address] [place], 119542980 [id number] SNOMED-CT () 2018-12-29 completed [address] [place], 529256117 [id number] SNOMED-CT () 2017-12-29 completed [address] [place], 562866457 [id number] SNOMED-CT () 2018-01-26 completed [address] [place], 655316135 [id number] SNOMED-CT () 2018-02-26 completed [address] [place], 260001756 [id number] SNOMED-CT () 2018-03-28 completed [address] [place], 235298968 [id number] SNOMED-CT () 2018-04-28 completed [address] [place], 225797511 [id number] SNOMED-CT () 2018-06-28 completed [address] [place], 034958076 [id number] SNOMED-CT () 2017-06-28 completed [address] [place], 847583452 [id number] SNOMED-CT () 2017-07-29 completed [address] [place], 644434391 [id number] SNOMED-CT () 2017-08-28 completed [address] [place], 276001497 [id number] SNOMED-CT () 2017-09-28 completed [address] [place], 232955365 [id number] SNOMED-CT () 2017-10-28 completed [address] [place], 300103583 [id number] SNOMED-CT () 2017-11-28 completed [address] [place], 973885927 [id number] SNOMED-CT () 2016-12-29 completed [address] [place], 213906378 [id number] SNOMED-CT () 2017-01-26 completed [address] [place], 755221065 [id number] SNOMED-CT () 2017-02-26 completed [address] [place], 077982138 [id number] SNOMED-CT () 2017-03-28 completed [address] [place], 860104992 [id number] SNOMED-CT () 2017-04-28 completed [address] [place], 691952116 [id number] SNOMED-CT () 2017-05-28 completed [address] [place], 818754333 [id number] SNOMED-CT () 2016-04-28 completed [address] [place], [place], 894826293 [id number] SNOMED-CT () 2016-05-28 completed [address] [place], 692410107 [id number] SNOMED-CT () 2016-06-28 completed [address] [place], 800885163 [id number] SNOMED-CT () 2016-07-29 completed [address] [place], 396578013 [id number] SNOMED-CT () 2016-08-28 completed [address] [place], 313910501 [id number] SNOMED-CT () 2016-11-28 completed [address] [place], 038169328 [id number] SNOMED-CT () 2015-10-28 completed [address] [place], 027088780 [phone] SNOMED-CT () 2015-11-28 completed [address] [place], 525746411 3951801853 SNOMED-CT () 2015-12-29 completed [address] [place], 265919297 [phone] SNOMED-CT () 2016-01-27 completed [address] [place], 792683977 [id number] SNOMED-CT () 2016-02-27 completed [address] [place], 256137708 [id number] SNOMED-CT () 2016-03-28 completed [address] [place], 921662582 7279388672 SNOMED-CT () 2015-09-30 completed [facility] [address], 684800853 [phone] SNOMED-CT () 2017-07-12 completed [facility] [address], 493025252 [id number] SNOMED-CT () 2019-06-29 completed [facility] [address], 371482684 [id number] SNOMED-CT () 2020-12-24 completed [facility] [address] [place], 868134417 [phone] SNOMED-CT () 2017-08-28 completed [address] [place], 477219843 [id number] SNOMED-CT () 2017-09-28 completed [address] [place], 678906944 [id number] SNOMED-CT () 2016-09-28 completed [address] [place], 349684570 [id number] SNOMED-CT () 2016-09-28 completed [address] [place], 013283673 [id number] SNOMED-CT () 2016-09-28 completed [address] [place], 460620095 7852130085 SNOMED-CT () 2016-09-28 completed [address] [place], 582158675 [id number] SNOMED-CT () 2016-09-28 completed [address] [place], 766137215 1893047002 SNOMED-CT () 2016-09-28 completed [address] [place], 081143868 [id number] SNOMED-CT () 2016-09-28 completed [address] [place], 257048862 [id number] SNOMED-CT () 2016-09-28 completed [address] [place], 319415369 5380048686 SNOMED-CT () 2016-09-28 completed [address] [place], 694217224 [id number] SNOMED-CT () 2016-09-28 completed [address] [place], 641581516 [id number] SNOMED-CT () 2016-09-28 completed [address] [place], 285617868 [id number] Encounters/Encounter Diagnoses Encounter Name Encounter Code Diagnosis Code Diagnosis Name Diagnosis CodeSystem Date of Diagnosis Service Delivery L ocation non-billable 51930 87422 006 Attention-deficit hyperactivity disorder, combined typ e SNOMED-CT 2019-07-31 [facility] , , , Vital Signs Code CodeSystem Vitals Date Value 8302-2 LO[facility] Height 2019-07-17 70 [in_i] 53775-5 [facility] Weight 2019-07-17 228 [lb_av] 8480-6 [facility] Blood Press ure-Systolic 2019-07-17 74 mm[HG] 8462-4 [facility] Press [facility]-Diastolic 2019-07-17 115 mm[HG] 77173-1 LOINC BMI 2019-07-17 32.71 (lb/in2) 8867-4 [facility] Heart Rate 2019-07-17 69 /min Social History Element Description Description Start Date End Date Code CodeSystem AdditionalInfo SexAssignedAtBirth Male 2000 M AdministrativeGender Hospital Discharge Instructions * Reason For Referral Medical Equipment * FDA Assessments *
--- OUTSIDE RECORDS SUMMARY | 2021-09-21 11:33 | CCD | Continuity of Care Document ---
Author Author James [facility] Organization Unknown Address 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 AUTM [phone] Adenike Marie AUTM [phone] Problems Description No Active Problems Social History [...] lb BMI (Body Mass Index) 38.8 kg/m2 [place] Body Weight 172 lb Weight 127.915 kg BSA (Body Surface Area) 2.45 m2 09/24/2020 10:19am Body Temperature 97.1 F Height 71 inches 5'11" Weight 274.00 lb BMI (Body Mass Index) 38.2 kg/m2 [place] Body Weight 172 lb Weight 124.286 kg BSA (Body Surface Area) 2.41 m2 Results Description No Information Available Procedures Description No Information Available Medical Devices Description No Information Available Encounters Description No Information Available Assessments Date Code Description Provider 08/07/2021 K21.9 Gastro-esophageal reflux disease without esophagitis Jossy Marte Lu [facility] 08/07/2021 R10.10 Upper abdominal pain, unspecifie d Jossy Marte Lu [facility] 08/07/2021 R11.2 Nausea with vomiting, unspecifie d Jossy Marte Lu [facility] 08/07/2021 K62.5 Hemorrhage of anus and rectum Me tameka Estuardo Kingston [facility] 08/07/2021 R63.4 Abnormal weight loss Jossy Marte Jaime hebert [facility] 08/07/2021 R68.81 Early satiety Jossy Marte Ahmet hobbs [facility] Plan of Treatment 08/07/2021 - Jossy Marte Lu [facility]* K21.9 Gastro-esophageal reflux disease without esophagitis * [...] Appt Date César Hernandez M.D. GERD Created [address], [address] [place] [address] [phone]
--- OUTSIDE RECORDS SUMMARY | 2021-09-21 11:33 | CCD ---
Author Author James Licona Organization [facility] Address Unknown Phone Unavailable Care Team Providers Care Community [facility] Advocate Name Role Phone Ninoska Licona PCP Unavailable Allergies, Adverse Reactions, Alerts Allergy Substance Code C odeSystem Reaction Severity Critic ality Status Start Date hydroxyzine hcl [id number] R xNorm aggression Moderate Active 2020-04-20 Medications Medication Medication Code Medication CodeSystem Start Date Stop Date Route Dose Status Fill Instructions sertraline 979822 RxNorm 2019-10-01 2019-12-07 oral 50 mg tablet completed for 30 day(s) Abilify 375891 RxNorm 2015-06-17 2016-05-03 oral 15 mg tablet completed for 30 day(s) Adderall XR 993168 RxNorm 2015-10-07 2016-03-04 oral 5 mg capsule,extended release 24hr completed for 30 day(s) Adderall XR 131253 RxNorm 2015-04-23 2016-05-03 oral 10 mg capsule,extended release 24hr completed for 30 day(s) Abilify 557305 RxNorm 2016-04-06 2016-09-23 oral 20 mg tablet completed for 30 day(s) melatonin 317245 RxNorm 2017-09-28 2017-10-05 oral 3 mg 2 tablet at bedtime completed Take 2 tablet by mouth at bedtime Lamictal 545349 RxNorm 2017-09-26 2017-09-29 oral 100 mg tablet completed Adderall XR 463354 RxNorm 2016-06-23 2016-07-20 oral 10 mg capsule,extended release 24hr completed for 30 day(s) Lexapro 291763 RxNorm 2016-08-16 2016-09-23 oral 20 mg tablet completed for 30 day(s) Abilify 145793 RxNorm 2015-03-25 2016-05-03 oral 15 mg tablet completed for 30 day(s) Abilify 145357 RxNorm 2018-10-25 2018-12-24 oral 30 mg tablet completed for 30 day(s) Adderall XR 718182 RxNorm 2015-06-17 2016-05-03 oral 10 mg capsule,extended release 24hr completed for 30 day(s) haloperidol 698930 RxNorm 2016-09-23 2017-07-11 oral 1 mg tablet completed for 30 day(s) Vitamin D3 459407 RxNorm 2019-04-03 2019-08-01 oral 2,000 unit capsule completed for 30 day(s) Abilify 808949 RxNorm 2015-12-23 2016-04-06 oral 20 mg tablet completed for 30 day(s) Adderall XR 627167 RxNorm 2015-11-18 2016-03-04 oral 5 mg capsule,extended release 24hr completed for 30 day(s) Lexapro 093710 RxNorm 2015-03-25 2016-04-06 oral 10 mg tablet completed for 30 day(s) Adderall XR 236847 RxNorm 2015-10-29 2016-03-04 oral 5 mg capsule,extended release 24hr completed for 30 day(s) Adderall XR 405305 RxNorm 2015-12-08 2016-05-03 oral 10 mg capsule,extended release 24hr completed for 30 day(s) Abilify 927065 RxNorm 2018-12-26 2019 oral 30 mg tablet completed for 30 day(s) Lexapro 165137 RxNorm 2015-04-23 2016-04-06 oral 10 mg tablet completed for 30 day(s) trazodone 558273 RxNorm 2015-10-20 2016-04-06 oral 50 mg tablet completed for 30 day(s) Abilify 269975 RxNorm 2018-02-27 2018-04-10 oral 20 mg tablet completed for 21 day(s) Vitamin D3 778411 RxNorm 2018-03-28 2018-11-14 oral 2,000 unit capsule completed for 30 day(s) Adderall XR 983963 RxNorm 2017-10-12 2017-11-11 oral 15 mg capsule,extended release 24hr completed for 30 day(s) Benadryl 7303935 RxNorm 2018-01-30 2018-06-22 oral 25 mg capsule completed Adderall XR 286239 RxNorm 2016-03-09 2016-05-03 oral 10 mg capsule,extended release 24hr completed for 30 day(s) Lexapro 986767 RxNorm 2015-06-17 2016-04-06 oral 20 mg 1 tablet once a day completed Take 1 tablet by mouth once a day for 30 day(s) Lamictal 838905 RxNorm 2018-10-24 2018-12-24 oral 100 mg tablet completed for 30 day(s) Abilify 573863 RxNorm 2017-11-14 2017-11-17 oral 5 mg tablet completed for 30 day(s) hydroxyzine pamoate 247767 RxNorm 2017-09-08 2017-09-28 or al 25 mg capsule completed for 30 day(s) trazodone 694457 RxNorm 2016-04-06 2016-06-05 oral 50 mg 1 tablet at bedtime completed Take 1 tablet by mouth at bedtime as needed for 30 day(s) Lamictal 953279 RxNo 2017-09-26 2017-09-28 oral 25 mg tablet completed hydroxyzine HCl 534598 R xNorm 2020-03-21 2020-04-20 or al 10 mg tablet completed for 30 day(s) lamotrigine 432069 RxNorm 2019-03-12 2019-04-11 oral 100 mg tablet completed for 30 day(s) Adderall XR 830880 RxNorm 2015-08-12 2016-03-04 oral 5 mg capsule,extended release 24hr completed for 30 day(s) Abilify 250460 RxNorm 2015-04-23 2016-05-03 oral 15 mg tablet completed for 30 day(s) Adderall XR 390836 RxNorm 2019 2019-02-18 oral 20 mg capsule,extended release 24hr completed for 30 day(s) Adderall XR 173983 RxNorm 2016 2016-03-04 oral 5 mg capsule,extended release 24hr completed for 30 day(s) prazosin 165039 RxNorm 2015-03-25 2016-05-03 oral 1 mg capsule completed for 6 day(s) duloxetine 296091 RxNorm 2020-02-04 2020-02-20 oral 20 mg capsule,delayed release(DR/EC) completed for 30 day(s) mirtazapine 958262 [facility] 2019-10-29 2019-12-16 oral 15 mg tablet completed for 30 day(s) [facility] 2019-07-17 oral 5 mg tablet completed for 30 day(s) aripiprazole 425123 RxNo 2020-02-04 2020-02-20 or al 10 mg tablet completed for 30 day(s) [facility] 238919 [facility] 2018-07-19 2018-08-18 oral 20 mg tablet completed for 30 day(s) duloxetine 882978 [facility] 2020-02-20 2020-06-17 oral 30 mg capsule,delayed release(DR/EC) active for 30 day(s) Abilify 062091 [facility] 2016-09-23 2016-11-26 oral 10 mg tablet completed for 30 day(s) trazodone 628817 [facility] 2015-06-17 2016-04-06 oral 50 mg tablet completed for 30 day(s) buspirone 210244 [facility] 2016-06-23 2016-09-23 oral 5 mg 1 tablet every morning completed Take 1 tablet by mouth every morning for 30 day(s) trazodone 574232 [facility] 2016-01-13 2016-04-06 oral 50 mg tablet completed for 30 day(s) Adderall XR 711068 [facility] 2015-12-08 2016-03-04 oral 5 mg capsule,extended release 24hr completed for 30 day(s) Vitamin D3 489958 [facility] 2016-12-24 2017-10-23 oral 2,000 unit capsule completed for 30 day(s) Adderall XR 360334 [facility] 2017-11-14 2018-03-01 oral 15 mg capsule,extended release 24hr completed for 30 day(s) sertraline 733090 [facility] 2019-12-07 2020-01-04 oral 50 mg tablet completed for 30 day(s) [facility] 2017-09-[facility] 2017-10-05 oral 1 mg tablet completed Adderall XR 314330 [facility] 2016-06-07 2016-06-23 oral 10 mg capsule,extended release 24hr completed for 30 day(s) haloperidol 688539 [facility] 2017-08-03 2017-09-21 oral 1 mg 1 tablet three times a day completed Take 1 tablet by mouth three times a day for 30 day(s) Adderall XR 472136 [facility] 2016-08-16 2016-09-15 oral 10 mg capsule,extended release 24hr completed for 30 day(s) Adderall XR 658117 Rx[facility] 2015-09-23 2016-05-03 oral 10 mg capsule,extended release 24hr completed for 30 day(s) Abilify 566065 Rx[facility] 2018-05-22 2018-07-03 oral 20 mg tablet completed for 21 day(s) mirtazapine 321586 RxNorm 2019-09-13 2019-10-29 oral 7.5 mg tablet completed for 30 day(s) Abilify 991799 RxNo 2018-01-09 2018-02-20 oral 20 mg tablet completed for 21 day(s) Adderall XR 564575 Rx[facility] 2018-08-21 2018-10-20 oral 15 mg capsule,extended release 24hr completed for 30 day(s) sertraline 432207 RxNo 2019-06-29 2019-07-29 oral 50 mg tablet completed for 30 day(s) Lamictal 533238 Rx[facility] 2018-08-21 2018-10-15 oral 100 mg tablet completed for 30 day(s) Abilify 971426 RxNo 2018-08-21 2018-10-15 oral 20 mg tablet completed for 30 day(s) melatonin 917473 Rx[facility] 2019-08-14 2019-09-13 oral 3 mg capsule completed for 30 day(s) Adderall XR 343860 RxNorm 2016 2016-05-03 oral 10 mg capsule,extended release 24hr completed for 30 day(s) Adderall XR 670037 [facility] 2016-04-05 2016-05-05 oral 5 mg capsule,extended release 24hr completed for 30 day(s) buspirone 324978 [facility] 2016-04-06 2016-06-07 oral 5 mg 1 tablet every morning completed Take 1 tablet by mouth every morning for 30 day(s) Lexapro 678546 [facility] 2015-10-07 2016-04-06 oral 10 mg tablet completed for 30 day(s) [facility]88661 [facility] 2020-02-03 oral 25 mg tablet completed for 30 day(s) buspirone 205058 [facility] 2015-12-23 2016-04-06 oral 5 mg tablet completed for 30 day(s) Adderall XR 730866 [facility] 2015-11-18 2016-05-03 oral 10 mg capsule,extended release 24hr completed for 30 day(s) Lamictal 962816 [facility] 2018-03-28 2018-08-18 oral 100 mg tablet completed for 30 day(s) [facility]28460 [facility] 2016-06-07 2016-06-23 oral 5 mg tablet completed for 30 day(s) aripiprazole 337610 [facility] 2020-02-20 2020-06-17 or al 15 mg tablet active for 30 day(s) Vistaril 716948 [facility] 2016-06-23 2016-07-20 oral 25 mg 1 capsule twice a day completed Take 1 capsule by mouth twice a day for 30 day(s) Adderall XR 554026 [facility] 2016-05-27 2016-06-07 oral 5 mg capsule,extended release 24hr completed for 30 day(s) [facility] 355387 [facility] 2019-07-09 2019-08-08 oral 20 mg 1 capsule,extended release 24hr once a day completed Take 1 capsule by mouth once a day for 30 day(s) Adderall XR 844157 [facility] 2015-08-05 2016-05-03 oral 10 mg capsule,extended release 24hr completed for 30 day(s) Lamictal 553017 [facility] 2017-09-21 2017-09-26 oral 25 mg tablet completed Adderall XR 842592 [facility] 2017-03-07 2017-06-01 oral 15 mg capsule,extended release 24hr completed for 30 day(s) Lexapro 852807 [facility] 2016-12-24 2018-12-08 oral 20 mg tablet completed Lexapro 478535 [facility] 2016-07-20 2016-11-17 oral 10 mg tablet completed for 30 day(s) Lexapro 309818 [facility] 2016-04-06 2016-07-20 oral 20 mg tablet completed for 30 day(s) Vistaril 318191 Rx[facility] 2016-07-20 2016-10-18 oral 25 mg 1 capsule three times a day complete d Take 1 capsule by mouth three times a day for 30 day(s) Adderall XR 163111 [facility] 2016-05-10 2016-05-27 oral 10 mg capsule,extended release 24hr completed for 30 day(s) Lamictal 016987 Rx[facility] 2017-09-21 2017-09-21 oral 25 mg tablet completed for 30 day(s) Adderall XR 546398 Rx[facility] 2015-08-26 2016-05-03 oral 10 mg capsule,extended release 24hr completed for 30 day(s) Lexapro 412729 RxNo 2016-07-20 2016-08-16 oral 20 mg tablet completed for 30 day(s) Abilify 104252 Rx[facility] 2017-08-31 2017-10-30 oral 5 mg tablet completed for 30 day(s) Vitamin D3 043761 Rx[facility] 2019-08-13 2019-11-30 oral 50 mcg (2,000 unit) capsule completed for 30 day(s) Abilify 739061 Rx[facility] 2017-08-24 2017-08-31 oral 20 mg tablet completed for 21 day(s) Adderall XR 985258 RxNo 2017-06-20 2017-09-23 oral 15 mg capsule,extended release 24hr completed for 30 day(s) Vitamin D3 718531 [facility] 2019-12-07 2020-01-06 oral 50 mcg (2,000 unit) capsule completed for 30 day(s) hydroxyzine pamoate 033089 [facility] 2016-12-24 2017-09-08 or al 25 mg capsule completed for 30 day(s) Adderall XR 965750 [facility] 2018-07-19 2018-08-18 oral 15 mg capsule,extended release 24hr completed for 30 day(s) Lexapro 311806 [facility] 2015-10-07 2016-04-06 oral 20 mg 1 tablet once a day completed Take 1 tablet by mouth once a day for 30 day(s) Abilify 330523 [facility] 2016-11-26 2017-08-24 oral 20 mg tablet completed for 21 day(s) Adderall XR 414319 [facility] 2016-12-24 2017-01-22 oral 15 mg capsule,extended release 24hr completed for 30 day(s) Vitamin D3 918815 [facility] 2017-11-14 2018-03-10 oral 2,000 unit capsule completed for 30 day(s) Lamictal 290641 [facility] 2017-10-05 2018-03-28 oral 100 mg tablet completed lamotrigine 019725 [facility] 2020-02-04 2020-06-17 oral 100 mg tablet active for 30 day(s) Abilify 089323 Rx[facility] 2019 2019-03-17 oral 10 mg tablet completed for 30 day(s) Adderall XR 698561 Rx[facility] 2015-09-10 2016-03-04 oral 5 mg capsule,extended release 24hr completed for 30 day(s) Adderall XR 685459 RxNo 2017-01-24 2017-03-04 oral 15 mg capsule,extended release 24hr completed for 30 day(s) Abilify 227747 RxNo 2016-04-06 2016-06-11 oral 20 mg tablet completed for 30 day(s) Adderall XR 489969 RxNo 2016-07-20 2016-08-16 oral 10 mg capsule,extended release 24hr completed for 30 day(s) Lamictal 275395 RxNo 2019-01-08 2019-03-09 oral 100 mg tablet completed for 30 day(s) Adderall XR 226487 Rx[facility] 2018-12-20 2019 oral 20 mg capsule,extended release 24hr completed for 30 day(s) Adderall XR 393587 Rx[facility] 2018-05-22 2018-07-14 oral 15 mg capsule,extended release 24hr completed for 30 day(s) diphenhydramine HCl 0639541 RxNo 2015-03-25 2016-05-03 or al 50 mg tablet completed for 30 day(s) Adderall XR 625444 [facility] 2015-10-07 2016-05-03 oral 10 mg capsule,extended release 24hr completed for 30 day(s) Adderall XR 609378 [facility] 2016-04-06 2016-05-06 oral 10 mg capsule,extended release 24hr completed for 30 day(s) Adderall XR 436247 [facility] 2015-12-23 2016-05-03 oral 10 mg capsule,extended release 24hr completed for 30 day(s) Adderall XR 187181 [facility] 2016-06-23 2016-07-20 oral 5 mg capsule,extended release 24hr completed for 30 day(s) Lexapro 808670 Rx[facility] 2016-04-06 2016-07-20 oral 10 mg tablet completed for 30 day(s) Adderall XR 868178 Rx[facility] 2015-03-25 2016-05-03 oral 10 mg capsule,extended release 24hr completed for 30 day(s) haloperidol 008416 Rx[facility] 2017-07-11 2017-08-03 oral 1 mg tablet completed Abilify 684888 [facility] 2018-10-24 2018-10-25 oral 15 mg tablet completed for 30 day(s) Abilify 747234 Rx[facility] 2019-03-19 2019-04-12 oral 10 mg tablet completed for 30 day(s) Vitamin D3 099577 RxNo 2020-01-22 2020-07-17 oral 50 mcg (2,000 unit) capsule active for 30 day(s) Zoloft 573453 Rx[facility] 2019-03-26 2019-06-24 oral 50 mg tablet completed for 30 day(s) Adderall XR 890290 [facility] 2016-07-20 2016-08-16 oral 5 mg capsule,extended release 24hr completed for 30 day(s) Adderall XR 260620 [facility] 2018-04-20 2018-05-20 oral 15 mg capsule,extended release 24hr completed for 30 day(s) Lexapro 910037 [facility] 2015-12-23 2016-04-06 oral 20 mg tablet completed for 30 day(s) Lamictal 690893 Rx[facility] 2017-09-29 2017-10-05 oral 100 mg tablet completed for 30 day(s) haloperidol 422134 Rx[facility] 2017-09-21 2017-09-29 oral 1 mg 1 tablet twice a day completed Take 1 tablet by mouth twice a day Adderall XR 430789 [facility] 2016-05-06 2016-05-27 oral 5 mg capsule,extended release 24hr completed for 30 day(s) Abilify 582231 Rx[facility] 2015-10-07 2016-05-03 oral 15 mg tablet completed for 30 day(s) Adderall XR 588509 Rx[facility] 2015-10-29 2016-05-03 oral 10 mg capsule,extended release 24hr completed for 30 day(s) Zoloft 467144 Rx[facility] 2019-08-02 2019-09-13 oral 50 mg tablet completed for 30 day(s) Adderall XR 794274 [facility] 2016-05-27 2016-06-07 oral 10 mg capsule,extended release 24hr completed for 30 day(s) Cymbalta 227098 Rx[facility] 2020-01-04 2020-02-03 oral 20 mg capsule,delayed release(DR/EC) completed for 30 day(s) Lexapro 791842 Rx[facility] 2015-08-12 2016-04-06 oral 20 mg tablet completed for 30 day(s) Adderall XR 401065 Rx[facility] 2019-04-02 2019-05-02 oral 20 mg capsule,extended release 24hr completed for 30 day(s) trazodone 853101 Rx[facility] 2018-06-22 2018-08-21 oral 50 mg tablet completed for 30 day(s) Abilify 641810 Rx[facility] 2017-11-17 2017-12-29 oral 20 mg tablet completed for 21 day(s) Lamictal 646471 Rx[facility] 2017-08-10 2017-09-21 oral 25 mg tablet completed for 30 day(s) Adderall XR 478325 Rx[facility] 2019-05-07 2019-07-05 oral 20 mg 1 capsule,extended release 24hr once a day completed Take 1 capsule by mouth once a day for 30 day(s) Lexapro 591040 Rx[facility] 2018-12-08 2018-12-15 oral 10 mg tablet completed for 7 day(s) Zoloft 380378 Rx[facility] 2018-12-08 2019-01-07 oral 50 mg tablet completed for 30 day(s) trazodone 377073 Rx[facility] 2015-10-07 2015-10-21 oral 50 mg tablet completed for 30 day(s) Adderall XR 353458 Rx[facility] 2018-10-24 2018-12-16 oral 20 mg capsule,extended release 24hr completed for 30 day(s) Adderall XR 976502 Rx[facility] 2018-03-15 2018-04-14 oral 15 mg capsule,extended release 24hr completed for 30 day(s) Lamictal 396026 RxNo 2019-04-17 2019-12-30 oral 100 mg tablet completed for 30 day(s) [facility] 2016-04-03 oral 5 mg capsule,extended release 24hr completed for 30 day(s) aripiprazole 726365 RxNo 2019-10-01 2020-01-15 or al 10 mg tablet completed for 30 day(s) [facility] 920223 [facility] 2016-08-16 2016-09-15 oral 5 mg capsule,extended release 24hr completed for 30 day(s) buspirone 636247 [facility] 2015-12-08 2016-04-06 oral 5 mg tablet completed for 30 day(s) Zoloft 001397 [facility] 2019 2019-03-20 oral 50 mg tablet completed for 30 day(s) Lamictal 110317 [facility] 2017-08-03 2017-08-10 oral 25 mg 1 tablet once a day completed Take 1 tablet by mouth once a day for 30 day(s) Abilify 219819 [facility] 2019-04-12 2019-05-12 oral 5 mg tablet completed for 30 day(s) Aristada 3002336 [facility] 2017-08-03 2017-08-24 IM 882 mg/3.2 mL suspension,extended rel syring completed [facility] X[facility] 832138 [facility] 2019-02-26 2019-03-28 oral 20 mg capsule,extended release 24hr completed for 30 day(s) Adderall XR 649885 RxNo 2015-12-23 2016-03-04 oral 5 mg capsule,extended release 24hr completed for 30 day(s) [facility] 752057 [facility] 2019-07-17 2019-09-13 oral 10 mg tablet completed for 30 day(s) Adderall XR 572740 [facility] 2016-06-07 2016-06-23 oral 5 mg capsule,extended release 24hr completed for 30 day(s) Vitamin D3 761845 [facility] 2018-11-15 2019-03-15 oral 2,000 unit capsule completed for 30 day(s) [facility]ro 840881 [facility] 2015-08-12 2016-04-06 oral 10 mg tablet completed for 30 day(s) escitalopram oxalate 946023 Rx[facility] 2015-07-15 2016-04-06 or al 10 mg 1 tablet every morning complet ed Take 1 tablet by mouth every morning fo r 30 day(s) trazodone 276976 [facility] 2015-04-23 2016-04-06 oral 50 mg tablet completed for 30 day(s) Lexapro 877702 Rx[facility] 2015-12-23 2016-04-06 oral 10 mg tablet completed for 30 day(s) Problems Problem Name Code CodeSy stem Alternate Code Alternate CodeSystem Start Date End Date Status Narrative Depressive episode, unspecified [id number] [facility]OM[facility] 2017-10-28 Active Depressive episode, unspecified 95903277 [facility] 2017-10-28 Active Attention-deficit hyperactivity disorder, combined ty pe 28055120 [facility] 2015-08-22 Active Disruptive mood dysregulation disorder 646860137 [facility] 2017-10-28 Active Attention-deficit hyperactivity disorder, combined ty pe 16088025 [facility] 2015-08-22 Active Depressive episode, unspecified 33265383 [facility] 2017-10-28 Active Depressive episode, unspecified 99071620 [facility] 2017-07-26 Active Conduct disorder, childhood onset 6603139 8 [facility]OMED-CT 2016-09-23 Active Disruptive mood dysregulation disorder 401545765 [facility]OM[facility] 2017-07-26 Active Disruptive mood dysregulation disorder 006059303 [facility]OM[facility] 2017-10-28 Active Attention-deficit hyperactivity disorder, combined ty pe 61257701 [facility]OM[facility] 2015-08-22 Active Conduct disorder, childhood onset 6943060 8 [facility]OMED-CT 2016-09-23 Active Conduct disorder, childhood onset 7417829 8 [facility]OMED-CT 2016-09-23 Active Conduct disorder, childhood onset 9339585 8 SNOMED-CT 2016-09-23 Active Disruptive mood dysregulation disorder 793180324 SNOMED-CT 2017-10-28 Active Attention-deficit hyperactivity disorder, combined ty pe 68684879 [facility]OM[facility]-CT 2015-08-22 Active Attention-deficit hyperactivity disorder, combined ty pe 32264681 [facility]OM[facility] 2015-08-22 Active Conduct disorder, childhood onset 0858426 8 SNOMED-CT 2016-09-23 Active Relevant diagnostic tests/laboratory data Narrative No Information Procedures Procedure Name Code Code System Target Site Date of Procedure Status Service Delivery Location Device Cod e Device Name Device UID Psychotherapy, 45 minutes with patient [id number] SNOMED-CT () 2015-03-[address], [id number] Psychotherapy, 45 minutes with patient [id number] SNOMED-CT () 2015-07-[address], [id number] Psychotherapy, 45 minutes with patient [id number] SNOMED-CT () 2015-08-[address], [id number] Psychotherapy, 45 minutes with patient [id number] SNOMED-CT () 2015-08-[address], [id number] Psychotherapy, 45 minutes with patient [id number] SNOMED-CT () 2015-08-[address], [id number] Psychotherapy, 45 minutes with patient [id number] SNOMED-CT () 2015-09-[address], [id number] Psychotherapy, 45 minutes with patient [id number] SNOMED-CT () 2021-02-[address], [id number] Psychotherapy, 45 minutes with patient [id number] SNOMED-CT () 2021-04-[address], [id number] Psychotherapy, 45 minutes with patient [id number] SNOMED-CT () 2015-12-[address], [id number] Psychotherapy, 45 minutes with patient [id number] SNOMED-CT () 2015-12-[address], [id number] Psychotherapy, 45 minutes with patient [id number] SNOMED-CT () 2015-12-[address], [id number] Psychotherapy, 45 minutes with patient [id number] SNOMED-CT () 2016-01-[address], [id number] Psychotherapy, 45 minutes with patient [id number] SNOMED-CT () 2016-01-[address], [id number] Psychotherapy, 45 minutes with patient [id number] SNOMED-CT () 2020-05-[address], [id number] Psychotherapy, 45 minutes with patient [id number] SNOMED-CT () 2016-02-[address], [id number] Psychotherapy, 45 minutes with patient [id number] SNOMED-CT () 2016-03-[address], [id number] Psychotherapy, 45 minutes with patient [id number] SNOMED-CT () 2016-03-[address], [id number] Psychotherapy, 45 minutes with patient [id number] SNOMED-CT () 2016-04-[address], [id number] Psychotherapy, 45 minutes with patient [id number] SNOMED-CT () 2016-05-[address], [id number] Psychotherapy, 45 minutes with patient [id number] SNOMED-CT () 2015-10-[address], [id number] Psychotherapy, 45 minutes with patient [id number] SNOMED-CT () 2016-06-[address], [id number] Psychotherapy, 45 minutes with patient [id number] SNOMED-CT () 2016-11-[address], [id number] Psychotherapy, 45 minutes with patient [id number] SNOMED-CT () 2016-12-[address], [id number] Psychotherapy, 45 minutes with patient [id number] SNOMED-CT () 2016-12-[address], [id number] Psychotherapy, 45 minutes with patient [id number] SNOMED-CT () 2017-01-[address], [id number] Psychotherapy, 45 minutes with patient [id number] SNOMED-CT () 2016-02-[address], [id number] Psychotherapy, 45 minutes with patient [id number] SNOMED-CT () 2017-03-[address], [id number] Psychotherapy, 45 minutes with patient [id number] SNOMED-CT () 2017-04-[address], [id number] Psychotherapy, 45 minutes with patient [id number] SNOMED-CT () 2017-04-[address], [id number] Psychotherapy, 45 minutes with patient [id number] SNOMED-CT () 2017-04-[address], [id number] Psychotherapy, 45 minutes with patient [id number] SNOMED-CT () 2017-11-[address], [id number] Psychotherapy, 45 minutes with patient [id number] SNOMED-CT () 2016-05-[address], [id number] Psychotherapy, 45 minutes with patient [id number] SNOMED-CT () 2017-12-[address], [id number] Psychotherapy, 45 minutes with patient [id number] SNOMED-CT () 2018-01-[address], [id number] Psychotherapy, 45 minutes with patient [id number] SNOMED-CT () 2018-04-[address], [id number] Psychotherapy, 45 minutes with patient [id number] SNOMED-CT () 2018-05-[address], [id number] Psychotherapy, 45 minutes with patient [id number] SNOMED-CT () 2018-08-[address], [id number] Psychotherapy, 45 minutes with patient [id number] SNOMED-CT () 2017 completed [address] [address], [id number] Psychotherapy, 45 minutes with patient [id number] SNOMED-CT () 2019-02-[address], [id number] Psychotherapy, 45 minutes with patient [id number] SNOMED-CT () 2019-03-[address], [id number] Psychotherapy, 45 minutes with patient [id number] SNOMED-CT () 2019-07-[address], [id number] Psychotherapy, 45 minutes with patient [id number] SNOMED-CT () 2020-01-[address], [id number] Psychotherapy, 45 minutes with patient [id number] SNOMED-CT () 2021-03-[address], [id number] [phone] Psychotherapy, 45 minutes with patient [id number] SNOMED-CT () 2017-12-[address], [id number] Psychotherapy, 45 minutes with patient [id number] SNOMED-CT () 2021-05-[address], [id number] Psychotherapy, 45 minutes with patient [id number] SNOMED-CT () 2021-05-[address], [id number] [phone] Psychotherapy, 45 minutes with patient [id number] SNOMED-CT () 2021-06-[address], [id number] Psychotherapy, 45 minutes with patient [id number] SNOMED-CT () 2021-07-[address], [id number] [phone] Psychotherapy, 45 minutes with patient [id number] SNOMED-CT () 2016-12-[address], [id number] Psychotherapy, 45 minutes with patient [id number] SNOMED-CT () 2018-10-[address], [id number] Initial Psychiatric Evaluation [id number] SNOMED-CT () 2017-07-[address], [place], [id number] [phone] Family psychotherapy (without the patien t present), 50 minutes [id number] SNOMED-CT () 2015-04-[address], [id number] Family psychotherapy (without the patien t present), 50 minutes [id number] SNOMED-CT () 2015-04-[address], [id number] Psychotherapy - Family&Client 1 hr 1 [id number] SNOMED-CT () 2016-06-[address], [id number] [phone] Health Monitoring / Risk Reduction Counseling - Brief [id number] SNOMED-CT () 2019-05-[address], [id number] Health Monitoring / Risk Reduction Counseling - Interm ediate [id number] SNOMED-CT () 2019-05-[address], [id number] Health Monitoring / Risk Reduction Counseling - Expand ed [id number] SNOMED-CT () 2019-04-[address], [id number] Health Monitoring / Risk Reduction Counseling - Expand ed [id number] SNOMED-CT () 2019-06-[address], [phone] Est. Patient - E&M Intermediate [id number] SNOMED-CT () 2015-04-[address], [id number] [id number] Est. Patient - E&M Intermediate [id number] SNOMED-CT () 2015-08-[address], [id number] [id number] Est. Patient - E&M Intermediate [id number] SNOMED-CT () 2015-09-[address], [id number] [id number] Est. Patient - E&M Intermediate [id number] SNOMED-CT () 2015-11-[address], [id number] Est. Patient - E&M Intermediate [id number] SNOMED-CT () 2015-12-[address], [id number] [id number] Est. Patient - E&M Intermediate [id number] SNOMED-CT () 2015-12-[address], [id number] [id number] Est. Patient - E&M Intermediate [id number] SNOMED-CT () 2017-01-[address], [id number] [id number] Est. Patient - E&M Intermediate [id number] SNOMED-CT () 2020-12-[address], [id number] [id number] Est. Patient - E&M Intermediate [id number] SNOMED-CT () 2021-03-[address], [id number] [id number] Est. Patient - E&M Intermediate [id number] SNOMED-CT () 2017-11-[address], [id number] [id number] Est. Patient - E&M Intermediate [id number] SNOMED-CT () [address], [id number] [phone] Est. Patient - E&M Intermediate [id number] SNOMED-CT () 2016-05-[address], [id number] [id number] Est. Patient - E&M Intermediate [id number] SNOMED-CT () 2016-06-[address], [id number] Est. Patient - E&M Intermediate [id number] SNOMED-CT () 2016-06-[address], [id number] [id number] Est. Patient - E&M Intermediate [id number] SNOMED-CT () 2016-07-[address], [id number] [id number] Est. Patient - E&M Intermediate [id number] SNOMED-CT () 2019-06-[address], [id number] [phone] Est. Patient - E&M Intermediate [id number] SNOMED-CT () 2017-02-[address], [id number] [id number] Est. Patient - E&M Intermediate [id number] SNOMED-CT () 2017-03-[address], [id number] Est. Patient - E&M Intermediate [id number] SNOMED-CT () 2017-04-[address], [id number] [phone] Est. Patient - E&M Intermediate [id number] SNOMED-CT () 2017-05-[address], [id number] [id number] Est. Patient - E&M Intermediate [id number] SNOMED-CT () 2017-10-[address], [id number] [phone] Est. Patient - E&M Intermediate [id number] SNOMED-CT () 2021-08-[address], [id number] [id number] Est. Patient - E&M Intermediate [id number] SNOMED-CT () 2018-08-[address], [id number] [phone] Est. Patient - E&M Intermediate [id number] SNOMED-CT () 2018-09-[address], [id number] [phone] Est. Patient - E&M Intermediate [id number] SNOMED-CT () 2018-10-[address], [id number] [phone] Est. Patient - E&M Intermediate [id number] SNOMED-CT () 2018-12-[address], [id number] [phone] Est. Patient - E&M Intermediate [id number] SNOMED-CT () [address], [id number] [id number] Est. Patient - E&M Brief [id number] SNOMED-CT () 2015-08-[address], [id number] [id number] Est. Patient - E&M Brief [id number] SNOMED-CT () 2015-10-[address], [id number] [phone] Est. Patient - E&M Brief [id number] SNOMED-CT () 2015-10-[address], [place], [id number] Est. Patient - E&M Brief [id number] SNOMED-CT () 2016-03-[address], [id number] [id number] Est. Patient - E&M Brief [id number] SNOMED-CT () 2016-04-[address], [id number] [id number] Est. Patient - E&M Brief [id number] SNOMED-CT () 2016-08-[address], [id number] [phone] Est. Patient - E&M Brief [id number] SNOMED-CT () 2019-04-[address], [id number] [phone] Est. Patient - E&M Brief [id number] SNOMED-CT () 2020-03-[address], [id number] [id number] Est. Patient - E&M Brief [id number] SNOMED-CT () 2020-04-[address], [id number] [phone] Est. Patient - E&M Brief [id number] SNOMED-CT () 2020-05-[address], [id number] [phone] Est. Patient - E&M Brief [id number] SNOMED-CT () 2020-07-[address], [id number] [phone] Est. Patient - E&M Brief [id number] SNOMED-CT () 2021-01-[address], [id number] [phone] Est. Patient - E&M Brief [id number] SNOMED-CT () 2020-01-[address], [id number] [id number] Est. Patient - E&M Brief [id number] SNOMED-CT () 2016-12-[address], [id number] [id number] Est. Patient - E&M Brief [id number] SNOMED-CT () 2017-09-[address], [phone] Est. Patient - E&M Brief [id number] SNOMED-CT () 2017-09-[address], [id number] [phone] Est. Patient - E&M Brief [id number] SNOMED-CT () 2017-09-[address], [id number] [id number] Est. Patient - E&M Brief [id number] SNOMED-CT () 2018-05-[address], [id number] [phone] Est. Patient - E&M Brief [id number] SNOMED-CT () 2020-02-[address], [id number] [phone] Est. Patient - E&M Brief [id number] SNOMED-CT () 2019-05-[address], [id number] [id number] Est. Patient - E&M Brief [id number] SNOMED-CT () 2019-08-[address], [id number] [phone] Est. Patient - E&M Brief [id number] SNOMED-CT () 2019-09-[address], [id number] [id number] Est. Patient - E&M Brief [id number] SNOMED-CT () 2019-10-[address], [id number] [phone] Est. Patient - E&M Brief [id number] SNOMED-CT () 2019-12-[address], [id number] [phone] Est. Patient - E&M Expanded [id number] SNOMED-CT () 2015-03-[address], [id number] [id number] Est. Patient - E&M Expanded [id number] SNOMED-CT () 2015-05-[address], [id number] [phone] Est. Patient - E&M Expanded [id number] SNOMED-CT () 2015-06-[address], [id number] [id number] Est. Patient - E&M Expanded [id number] SNOMED-CT () 2015-07-[address], [id number] [phone] Est. Patient - E&M Expanded [id number] SNOMED-CT () 2017-07-[address], [id number] [id number] Est. Patient - E&M Expanded [id number] SNOMED-CT () 2017-08-[address], [id number] [id number] Est. Patient - E&M Expanded [id number] SNOMED-CT () 2017-09-[address], [id number] [id number] Est. Patient - E&M Expanded [id number] SNOMED-CT () 2017-10-[address], [id number] [phone] Est. Patient - E&M Expanded [id number] SNOMED-CT () 2017-12-[address], [id number] [id number] Est. Patient - E&M Expanded [id number] SNOMED-CT () 2021-05-[address], [id number] [id number] Est. Patient - E&M Expanded [id number] SNOMED-CT () 2021-06-[address], [id number] [id number] Est. Patient - E&M Expanded [id number] SNOMED-CT () 2018-03-[address], [id number] [id number] Est. Patient - E&M Expanded [id number] SNOMED-CT () 2018-04-[address], [id number] [phone] Est. Patient - E&M Expanded [id number] SNOMED-CT () 2018-06-[address], [id number] [id number] Est. Patient - E&M Expanded [id number] SNOMED-CT () 2017-08-[address], [id number] [id number] Est. Patient - E&M Expanded [id number] SNOMED-CT () 2017-08-[address], [id number] [id number] Est. Patient - E&M Expanded [id number] SNOMED-CT () 2017-09-[address], [phone] Est. Patient - E&M Expanded [id number] SNOMED-CT () 2019-07-[address], [id number] [id number] Est. Patient - E&M Expanded [id number] SNOMED-CT () 2019-07-[address], [id number] [phone] Est. Patient - E&M Expanded [id number] SNOMED-CT () 2021-07-[address], [id number] [id number] Est. Patient - E&M Expanded [id number] SNOMED-CT () 2018-01-[address], [id number] [phone] Est. Patient - E&M Expanded [id number] SNOMED-CT () 2018-01-[address], [id number] [phone] Est. Patient - E&M Expanded [id number] SNOMED-CT () 2018-02-[address], [id number] [id number] Individual Psychotherapy [id number] SNOMED-CT () 2015-03-[address], [id number] Individual Psychotherapy [id number] SNOMED-CT () 2015-04-[address], [id number] [phone] Individual Psychotherapy [id number] SNOMED-CT () 2015-05-[address], [id number] [phone] Individual Psychotherapy [id number] SNOMED-CT () 2015-05-[address], [id number] [id number] Individual Psychotherapy [id number] SNOMED-CT () 2015-05-[address], 335154470 [id number] Individual Psychotherapy [id number] SNOMED-CT () 2015-05-[address], [id number] Individual Psychotherapy [id number] SNOMED-CT () 2021-03-[address], [id number] [phone] Individual Psychotherapy [id number] SNOMED-CT () 2021-03-[address], [id number] [id number] Individual Psychotherapy [id number] SNOMED-CT () 2021-07-[address], [id number] [id number] Individual Psychotherapy [id number] SNOMED-CT () 2020-04-[address], [id number] Individual Psychotherapy [id number] SNOMED-CT () 2020-03-[address], [id number] Individual Psychotherapy [id number] SNOMED-CT () 2020-04-[address], [id number] [id number] Individual Psychotherapy [id number] SNOMED-CT () 2020-03-[address], [id number] [phone] Individual Psychotherapy [id number] SNOMED-CT () 2020-12-[address], [id number] [phone] Individual Psychotherapy [id number] SNOMED-CT () 2021-01-[address], [id number] Individual Psychotherapy [id number] SNOMED-CT () 2021-02-[address], [id number] [id number] Individual Psychotherapy [id number] SNOMED-CT () 2021-03-[address], [id number] Individual Psychotherapy [id number] SNOMED-CT () 2015-09-[address], [id number] Individual Psychotherapy [id number] SNOMED-CT () 2015-09-[address], [id number] [id number] Individual Psychotherapy [id number] SNOMED-CT () 2015-10-[address], [id number] Individual Psychotherapy [id number] SNOMED-CT () 2015-10-[address], [id number] Individual Psychotherapy [id number] SNOMED-CT () 2015-10-[address], [id number] [id number] Individual Psychotherapy [id number] SNOMED-CT () 2020-07-[address], [id number] Individual Psychotherapy [id number] SNOMED-CT () 2016-01-[address], [id number] [phone] Individual Psychotherapy [id number] SNOMED-CT () 2016-01-[address], [id number] [id number] Individual Psychotherapy [id number] SNOMED-CT () 2016-02-[address], [id number] Individual Psychotherapy [id number] SNOMED-CT () 2016-02-[address], [id number] Individual Psychotherapy [id number] SNOMED-CT () 2016-03-[address], [id number] [id number] Individual Psychotherapy [id number] SNOMED-CT () 2015-06-[address], [id number] Individual Psychotherapy [id number] SNOMED-CT () 2016-04-[address], [id number] Individual Psychotherapy [id number] SNOMED-CT () 2016-04-[address], [id number] [id number] Individual Psychotherapy [id number] SNOMED-CT () 2016-05-[address], [id number] Individual Psychotherapy [id number] SNOMED-CT () 2016-06-[address], [id number] Individual Psychotherapy [id number] SNOMED-CT () 2016-07-[address], [id number] [id number] Individual Psychotherapy [id number] SNOMED-CT () 2015-11-[address], [id number] Individual Psychotherapy [id number] SNOMED-CT () 2016-07-[address], [phone] Individual Psychotherapy [id number] SNOMED-CT () 2016-08-[address], [id number] Individual Psychotherapy [id number] SNOMED-CT () 2016-08-[address], [id number] Individual Psychotherapy [id number] SNOMED-CT () 2016-09-[address], [id number] [id number] Individual Psychotherapy [id number] SNOMED-CT () 2017-02-[address], [id number] Individual Psychotherapy [id number] SNOMED-CT () 2016-03-[address], [id number] Individual Psychotherapy [id number] SNOMED-CT () 2017-03-[address], [id number] Individual Psychotherapy [id number] SNOMED-CT () 2017-05-[address], 297185963 [id number] Individual Psychotherapy [id number] SNOMED-CT () 2017-07-[address], [id number] [phone] Individual Psychotherapy [id number] SNOMED-CT () 2017-08-[address], [id number] Individual Psychotherapy [id number] SNOMED-CT () 2017-08-[address], [id number] [id number] Individual Psychotherapy [id number] SNOMED-CT () 2016-07-[address], [id number] Individual Psychotherapy [id number] SNOMED-CT () 2017-09-[address], [id number] Individual Psychotherapy [id number] SNOMED-CT () 2017-09-[address], 562581726 [id number] Individual Psychotherapy [id number] SNOMED-CT () 2017-09-[address], [id number] Individual Psychotherapy [id number] SNOMED-CT () 2017-10-[address], [id number] [id number] Individual Psychotherapy [id number] SNOMED-CT () 2017-10-[address], [id number] Individual Psychotherapy [id number] SNOMED-CT () 2017-03-[address], [id number] Individual Psychotherapy [id number] SNOMED-CT () 2017-12-[address], [id number] [id number] Individual Psychotherapy [id number] SNOMED-CT () 2018-03-[address], 413986842 [id number] Individual Psychotherapy [id number] SNOMED-CT () 2018-06-[address], 522144931 [id number] Individual Psychotherapy [id number] SNOMED-CT () 2018-07-[address], 647482944 [id number] Individual Psychotherapy [id number] SNOMED-CT () 2018-09-[address], [id number] Individual Psychotherapy [id number] SNOMED-CT () 2017-08-[address], [id number] [id number] Individual Psychotherapy [id number] SNOMED-CT () 2018-10-[address], [id number] Individual Psychotherapy [id number] SNOMED-CT () 2018-11-[address], [id number] [id number] Individual Psychotherapy [id number] SNOMED-CT () 2018-12-[address], [id number] Individual Psychotherapy [id number] SNOMED-CT () 2019-02-[address], [id number] [id number] Individual Psychotherapy [id number] SNOMED-CT () 2019-08-[address], 456807215 [id number] Individual Psychotherapy [id number] SNOMED-CT () 2017-11-[address], [id number] Individual Psychotherapy [id number] SNOMED-CT () 2019-09-[address], [id number] Individual Psychotherapy [id number] SNOMED-CT () 2020-02-[address], [id number] Individual Psychotherapy [id number] SNOMED-CT () 2021-08-[address], [id number] Individual Psychotherapy [id number] SNOMED-CT () 2021-08-[address], [id number] [id number] Individual Psychotherapy [id number] SNOMED-CT () 2021-08-[address], [id number] Individual Psychotherapy [id number] SNOMED-CT () 2018-10-[address], [id number] Individual Psychotherapy [id number] SNOMED-CT () 2015-03-[address], [id number] Individual Psychotherapy [id number] SNOMED-CT () 2015-07-[address], [id number] Individual Psychotherapy [id number] SNOMED-CT () 2015-08-[address], [id number] Individual Psychotherapy [id number] SNOMED-CT () 2015-08-[address], [id number] Individual Psychotherapy [id number] SNOMED-CT () 2015-08-[address], 640278798 [id number] Individual Psychotherapy [id number] SNOMED-CT () 2015-09-[address], 704377229 [id number] Individual Psychotherapy [id number] SNOMED-CT () 2021-02-[address], [id number] [id number] Individual Psychotherapy [id number] SNOMED-CT () 2021-04-[address], [id number] [id number] Individual Psychotherapy [id number] SNOMED-CT () 2015-12-[address], [id number] [id number] Individual Psychotherapy [id number] SNOMED-CT () 2015-12-[address], [id number] [id number] Individual Psychotherapy [id number] SNOMED-CT () 2015-12-[address], [id number] [id number] Individual Psychotherapy [id number] SNOMED-CT () 2016-01-[address], [id number] Individual Psychotherapy [id number] SNOMED-CT () 2016-01-[address], [id number] Individual Psychotherapy [id number] SNOMED-CT () 2020-05-[address], [id number] Individual Psychotherapy [id number] SNOMED-CT () 2016-02-[address], [id number] [id number] Individual Psychotherapy [id number] SNOMED-CT () 2016-03-[address], [id number] Individual Psychotherapy [id number] SNOMED-CT () 2016-03-[address], [id number] Individual Psychotherapy [id number] SNOMED-CT () 2016-04-[address], [id number] [id number] Individual Psychotherapy [id number] SNOMED-CT () 2016-05-[address], [id number] Individual Psychotherapy [id number] SNOMED-CT () 2015-10-[address], [id number] [id number] Individual Psychotherapy [id number] SNOMED-CT () 2016-06-[address], [id number] [id number] Individual Psychotherapy [id number] SNOMED-CT () 2016-11-[address], [id number] Individual Psychotherapy [id number] SNOMED-CT () 2016-12-[address], [id number] [id number] Individual Psychotherapy [id number] SNOMED-CT () 2016-12-[address], 950186478 [id number] Individual Psychotherapy [id number] SNOMED-CT () 2017-01-[address], [id number] Individual Psychotherapy [id number] SNOMED-CT () 2016-02-[address], [id number] [id number] Individual Psychotherapy [id number] SNOMED-CT () 2017-03-[address], [id number] Individual Psychotherapy [id number] SNOMED-CT () 2017-04-[address], [id number] Individual Psychotherapy [id number] SNOMED-CT () 2017-04-[address], 975353658 [id number] Individual Psychotherapy [id number] SNOMED-CT () 2017-04-[address], 835718940 [id number] Individual Psychotherapy [id number] SNOMED-CT () 2017-11-[address], [id number] Individual Psychotherapy [id number] SNOMED-CT () 2016-05-[address], [id number] Individual Psychotherapy [id number] SNOMED-CT () 2017-12-[address], 705769188 [id number] Individual Psychotherapy [id number] SNOMED-CT () 2018-01-[address], [id number] Individual Psychotherapy [id number] SNOMED-CT () 2018-04-[address], 943784026 [id number] Individual Psychotherapy [id number] SNOMED-CT () 2018-05-[address], [id number] [id number] Individual Psychotherapy [id number] SNOMED-CT () 2018-08-[address], [id number] Individual Psychotherapy [id number] SNOMED-CT () [address], [id number] Individual Psychotherapy [id number] SNOMED-CT () 2019-02-[address], [id number] [id number] Individual Psychotherapy [id number] SNOMED-CT () 2019-03-[address], [id number] Individual Psychotherapy [id number] SNOMED-CT () 2019-07-[address], [id number] [id number] Individual Psychotherapy [id number] SNOMED-CT () 2020-01-[address], [id number] [id number] Individual Psychotherapy [id number] SNOMED-CT () 2021-03-[address], [id number] [id number] Individual Psychotherapy [id number] SNOMED-CT () 2017-12-[address], [id number] Individual Psychotherapy [id number] SNOMED-CT () 2021-05-[address], [id number] [id number] Individual Psychotherapy [id number] SNOMED-CT () 2021-05-[address], [id number] [id number] Individual Psychotherapy [id number] SNOMED-CT () 2021-06-[address], 750381668 [id number] Individual Psychotherapy [id number] SNOMED-CT () 2021-07-[address] completed [address], [id number] [id number] Individual Psychotherapy [id number] SNOMED-CT () 2016-12-[address], [id number] [id number] Individual Psychotherapy [id number] SNOMED-CT () 2018-10-[address], [id number] Psychiatric Diagnostic Evaluation without medical serv ices [id number] SNOMED-CT () 2015-03-[address], [id number] SNOMED-CT () 2018-03-[address], [id number] SNOMED-CT () 2017-12-29 completed [address] [place], [place], [address] [id number] SNOMED-CT () 2017-10-28 completed [address] [place], [place], [address] [id number] SNOMED-CT () 2017-11-28 completed [address] [place], [place], [id number] SNOMED-CT () 2018-07-29 completed [address] [place], 575447026 [id number] SNOMED-CT () 2018-06-28 completed [address] [place], 653715011 [phone] SNOMED-CT () 2018-08-28 completed [address] [place], 807449752 [id number] SNOMED-CT () 2018-03-28 completed [address] [place], 760741481 [id number] SNOMED-CT () 2018-01-26 completed [address] [place], 374794527 [id number] SNOMED-CT () 2018-05-28 completed [address] [place], 233858262 [id number] SNOMED-CT () 2018-02-26 completed [address] [place], 416420754 [id number] SNOMED-CT () 2018-04-28 completed [address] [place], 989125057 [id number] SNOMED-CT () 2017-07-21 completed [address] [place], [place], 414713940 [id number] SNOMED-CT () 2017-07-21 completed [facility] [address] [place], [place], 702839525 [id number] SNOMED-CT () 2017-07-21 completed [address] [place], [place], 273507454 [id number] SNOMED-CT () 2017-07-21 completed [address] [place], 930329558 [phone] SNOMED-CT () 2017-07-21 completed [address] [place], 268776957 [id number] SNOMED-CT () 2017-07-21 completed [facility] [address] [place], [place], 772601975 [id number] SNOMED-CT () 2017-07-21 completed [address] [place], 882095692 [phone] SNOMED-CT () 2017-07-21 completed [facility] [address] [place], [place], 117677275 [id number] SNOMED-CT () 2017-07-21 completed [facility] [address] [place], [place], 031722078 [id number] SNOMED-CT () 2017-07-21 completed [facility] [address] [place], [place], 782371839 [id number] SNOMED-CT () 2017-07-21 completed [address] [place], [place], [id number] [phone] SNOMED-CT () 2017-07-21 completed [facility] [address] [place], [place], 879886311 [id number] SNOMED-CT () 2017-07-21 completed [address] [place], 455986796 [phone] SNOMED-CT () 2017-07-[address], 525269242 [phone] SNOMED-CT () 2017-07-[address], 057859517 [phone] SNOMED-CT () 2017-07-[address], 392089885 [phone] SNOMED-CT () 2016-08-[address], 273495719 [id number] SNOMED-CT () 2016-07-[address], 961088605 [phone] SNOMED-CT () 2016-04-[address], 819226820 [id number] SNOMED-CT () 2016-03-[address], 192297898 [id number] SNOMED-CT () 2016-06-[address], 223887054 [phone] SNOMED-CT () 2016-04-[address], 699987765 [id number] SNOMED-CT () 2016-08-[address], 818072392 [id number] SNOMED-CT () 2016-07-[address], 177237114 [phone] SNOMED-CT () 2016-03-[address], 131024001 [phone] SNOMED-CT () 2016-03-[address], 415656678 [phone] SNOMED-CT () 2016-05-10 completed [address], 267940774 [id number] SNOMED-CT () 2016-05-[address], 165688829 [phone] SNOMED-CT () 2016-06-14 completed [address], 947461839 [id number] SNOMED-CT () 2016-03-22 completed [address], 411071465 [id number] SNOMED-CT () 2017 completed [address], [id number] [id number] SNOMED-CT () 2016-06-07 completed [facility] [address], [id number] [id number] SNOMED-CT () 2016-07-26 completed [facility] [address], 718391170 [phone] SNOMED-CT () 2016-05-[address], 071866911 [id number] SNOMED-CT () 2016-04-05 completed [address], 278866627 [phone] SNOMED-CT () 2016-03-29 completed [address] [place] [address], [id number] [id number] SNOMED-CT () 2016-09-[address], 961225900 [id number] SNOMED-CT () 2016-06-[address], 791036964 [phone] SNOMED-CT () 2016-04-06 completed [facility] [address], 982174489 [phone] SNOMED-CT () 2016-06-[address], 536257661 [phone] SNOMED-CT () 2017-01-[address], 371355746 [id number] SNOMED-CT () 2016-05-[address], 151867592 [id number] SNOMED-CT () 2016-07-[address], 103671646 [id number] SNOMED-CT () 2016-08-[address], 588441694 [id number] SNOMED-CT () 2021-04-[address], 443183056 [id number] SNOMED-CT () 2021-03-[address], 132866945 [id number] SNOMED-CT () 2021-01-[address], 261949553 [id number] SNOMED-CT () 2021-03-[address], 488235362 [id number] SNOMED-CT () 2021-03-[address], 044468577 [id number] SNOMED-CT () 2021-05-[address], 801377635 [id number] SNOMED-CT () 2021-02-18 completed [facility] [address], 719513730 [id number] SNOMED-CT () 2020-12-[address], 571086888 [phone] SNOMED-CT () 2020-12-15 completed [facility] [address], 780273035 [id number] SNOMED-CT () 2021-03-[address], 000837242 [id number] SNOMED-CT () 2021-02-[address], 798526210 [phone] SNOMED-CT () 2021-03-[address], 096643344 [id number] SNOMED-CT () 2021-05-[address], 892848068 [id number] SNOMED-CT () 2020-03-28 completed [address] [place], 286438272 [id number] SNOMED-CT () 2020-06-28 completed [address] [place], 835982398 [id number] SNOMED-CT () 2020-09-28 completed [address] [place], 800532213 [id number] SNOMED-CT () 2020-04-28 completed [address] [place], 295737128 [id number] SNOMED-CT () 2020-02-27 completed [address] [place], 785647810 [id number] SNOMED-CT () 2020-08-28 completed [address] [place], 985113547 [id number] SNOMED-CT () 2020-07-29 completed [address] [place], 403880917 [id number] SNOMED-CT () 2020-12-29 completed [address] [place], 517932295 [id number] SNOMED-CT () 2021-01-26 completed [address] [place], 897159664 [id number] SNOMED-CT () 2020-11-28 completed [address] [place], 482898931 [id number] SNOMED-CT () 2020-01-27 completed [address] [place], 967810052 [phone] SNOMED-CT () 2020-05-28 completed [address] [place], 303840214 [id number] SNOMED-CT () 2020-10-28 completed [address] [place], 455637821 [id number] SNOMED-CT () 2016-11-28 completed [address] [place], 082425746 [id number] SNOMED-CT () 2016-12-29 completed [address] [place], 008827493 [phone] SNOMED-CT () 2019-06-[address] [place], [place], 561522551 [phone] SNOMED-CT () 2019-06-29 completed [address] [place], 965090994 [phone] SNOMED-CT () 2015-03-29 completed [address] [place], 274501788 [id number] SNOMED-CT () 2015-04-29 completed CYP [address] [place], 748912064 [id number] SNOMED-CT () 2015-12-29 completed CYP [address] [place], 714979129 [phone] SNOMED-CT () 2016-01-27 completed [address] [place] [address], 566415470 [id number] SNOMED-CT () 2016-02-27 completed [address] [place], 623282562 [phone] SNOMED-CT () 2016-03-28 completed [address] [place], 549263684 [id number] SNOMED-CT () 2016-04-28 completed [address] [place], 317548875 [phone] SNOMED-CT () 2016-06-28 completed [address] [place], 140894947 [phone] SNOMED-CT () 2016-07-29 completed [address] [place], 095521073 [id number] SNOMED-CT () 2016-08-28 completed [address] [place], 048031981 [phone] SNOMED-CT () 2017-01-26 completed [address] [place], 023056068 [phone] SNOMED-CT () 2017-02-26 completed [address] [place], 860888192 [phone] SNOMED-CT () 2015-11-28 completed [address] [place], 418793934 [phone] SNOMED-CT () 2017-03-28 completed [address] [place], 216855786 [phone] SNOMED-CT () 2017-04-28 completed [address] [place], 095980173 [phone] SNOMED-CT () 2017-05-28 completed [address] [place], 438980238 [phone] SNOMED-CT () 2017-06-28 completed [address] [place], 198324615 [phone] SNOMED-CT () 2017-07-29 completed [address] [place], 141757406 [phone] SNOMED-CT () 2016-05-28 completed [address] [place], 234429095 [id number] SNOMED-CT () 2015-05-28 completed [address] [place], 917572773 [id number] SNOMED-CT () 2015-06-28 completed [address] [place], 759722426 [phone] SNOMED-CT () 2015-07-29 completed [address] [place], 957551619 [id number] SNOMED-CT () 2015-08-28 completed [address] [place], 690039287 [phone] SNOMED-CT () 2015-09-28 completed [address] [place], 706437349 [id number] SNOMED-CT () 2015-10-28 completed [address] [place], 955935248 [phone] SNOMED-CT () 2018-02-26 completed [address] [place], 421937090 [id number] SNOMED-CT () 2018-03-28 completed [address] [place], 969421290 [id number] SNOMED-CT () 2018-04-28 completed [address] [place], 277261263 [id number] SNOMED-CT () 2018-05-28 completed [address] [place], 110735973 [id number] SNOMED-CT () 2018-06-28 completed [address] [place], 024414107 [id number] SNOMED-CT () 2018-07-29 completed [address] [place], 132854241 [id number] SNOMED-CT () 2018-08-28 completed [address] [place], 665597773 [id number] SNOMED-CT () 2018-09-28 completed [address] [place], 437547011 [id number] SNOMED-CT () 2018-10-28 completed [address] [place], 912982249 [id number] SNOMED-CT () 2018-11-28 completed [address] [place], 992574881 [phone] SNOMED-CT () 2018-12-29 completed [address] [place], 760718773 [phone] SNOMED-CT () 2019-01-26 completed [address] [place], 498791358 [id number] SNOMED-CT () 2019-02-26 completed [address] [place], 396615381 [id number] SNOMED-CT () 2019-03-28 completed [address] [place], 137082280 [phone] SNOMED-CT () 2019-04-28 completed [address] [place], 548498089 [phone] SNOMED-CT () 2019-05-28 completed [address] [place], 473601512 [id number] SNOMED-CT () 2019-07-[address], 120430367 [phone] SNOMED-CT () 2019-08-28 completed [address] [place], 963365682 [id number] SNOMED-CT () 2019-09-28 completed [address] [place], 088229741 [phone] SNOMED-CT () 2019-10-28 completed [address] [place], 914950843 [id number] SNOMED-CT () 2019-11-28 completed [address] [place], 529977837 [id number] SNOMED-CT () 2019-12-29 completed [address] [place], 677326813 [phone] SNOMED-CT () 2020-01-27 completed [address] [place], 827069098 [id number] SNOMED-CT () 2020-02-27 completed [address] [place], 750404863 [id number] SNOMED-CT () 2020-03-28 completed [address] [place], 505514472 [id number] SNOMED-CT () 2020-04-28 completed [address] [place], 859752175 [id number] SNOMED-CT () 2020-05-28 completed [address] [place], 327015934 [id number] SNOMED-CT () 2020-06-28 completed [address] [place], 464209357 [id number] SNOMED-CT () 2020-07-29 completed [address] [place], 769634818 [id number] SNOMED-CT () 2020-08-28 completed [address] [place], 026370765 [phone] SNOMED-CT () 2020-09-28 completed [address] [place], 507724596 [phone] SNOMED-CT () 2020-10-28 completed [address] [place], 828064011 [id number] SNOMED-CT () 2020-11-28 completed [address] [place], 103707246 [id number] SNOMED-CT () 2020-12-29 completed [address] [place], 689423931 [phone] SNOMED-CT () 2021-01-26 completed [address] [place], 207067070 [id number] SNOMED-CT () 2021-02-26 completed [address] [place], 841869493 [id number] SNOMED-CT () 2021-03-28 completed [address] [place], 709438028 [id number] SNOMED-CT () 2021-04-28 completed [address] [place], 328506940 [id number] SNOMED-CT () 2021-05-28 completed [address] [place], 648277074 [id number] SNOMED-CT () 2021-06-28 completed [address] [place], 478009877 [id number] SNOMED-CT () 2021-07-29 completed [address] [place], 234644246 [id number] SNOMED-CT () 2021-08-28 completed [address] [place], 638581663 [id number] SNOMED-CT () 2017-08-28 completed [address] [place], 845731851 [id number] SNOMED-CT () 2017-09-28 completed [address] [place], 835593076 [id number] SNOMED-CT () 2017-10-28 completed [address] [place], 813235403 [id number] SNOMED-CT () 2017-11-28 completed [address] [place], 840302898 [id number] SNOMED-CT () 2017-12-29 completed [address] [place], 195445593 [id number] SNOMED-CT () 2018-01-26 completed [address] [place], 909464511 [id number] SNOMED-CT () 2016-07-29 completed [address] [place], 065607260 [id number] SNOMED-CT () 2016-12-29 completed CYP [address] [place], 524531436 [id number] SNOMED-CT () 2016-04-28 completed CYP [address] [place], 098378553 [id number] SNOMED-CT () 2016-05-28 completed CYP [address] [place], 541187828 [id number] SNOMED-CT () 2016-02-27 completed CYP [address] [place], 222549719 [id number] SNOMED-CT () 2016-08-28 completed CYP [address] [place], 082281096 [id number] SNOMED-CT () 2016-03-28 completed [address] [place], 288481404 [id number] SNOMED-CT () 2016-06-28 completed CYP [address] [place], 356919813 [id number] SNOMED-CT () 2016-11-28 completed [address] [place], 010576098 [id number] SNOMED-CT () 2019-10-28 completed [address] [place], 675781820 [id number] SNOMED-CT () 2019-11-28 completed [address] [place], 439863898 [id number] SNOMED-CT () 2019-12-29 completed [address] [place], 542507349 [id number] SNOMED-CT () 2015-03-28 completed [address] [place], 854600783 [id number] SNOMED-CT () 2015-04-28 completed CYP [address] [place], 286190725 [id number] SNOMED-CT () 2015-05-28 completed CYP [address] [place] NY, 103859876 [id number] SNOMED-CT () 2015-06-28 completed CYP [address] [place] NY, 802615579 [id number] SNOMED-CT () 2015-07-29 completed CYP [address] [place] NY, 992378130 [id number] SNOMED-CT () 2015-09-28 completed CYP [address] [place], 518568186 [phone] SNOMED-CT () 2016-03-28 completed CYP [address] [place] NY, 475201077 [id number] SNOMED-CT () 2016-11-28 completed CYP [address] [place], 324151565 [id number] SNOMED-CT () 2015-10-28 completed CYP [address] [place], 258104857 [id number] SNOMED-CT () 2015-11-28 completed CYP [address] [place], 624798268 [id number] SNOMED-CT () 2015-12-29 completed CYP [address] [place], 797256095 [id number] SNOMED-CT () 2016-01-27 completed CYP [address] [place], 367466130 [id number] SNOMED-CT () 2016-02-27 completed CYP [address] [place], 091742269 [id number] SNOMED-CT () 2017-05-28 completed CYP [address] [place], 127562982 [id number] SNOMED-CT () 2016-04-28 completed CYP [address] [place], 171703662 [id number] SNOMED-CT () 2016-05-28 completed CYP [address] [place], 218019991 [id number] SNOMED-CT () 2016-06-28 completed CYP [address] [place], 665986845 [id number] SNOMED-CT () 2016-07-29 completed CYP [address] [place], 470205313 [phone] SNOMED-CT () 2016-08-28 completed CYP [address] [place], 798787482 [id number] SNOMED-CT () 2017-11-28 completed [address] [place], 849829266 [phone] SNOMED-CT () 2016-12-29 completed [address] [place], 917449970 [id number] SNOMED-CT () 2017-01-26 completed [address] [place], 456982505 [phone] SNOMED-CT () 2017-02-26 completed [address] [place], 756071441 [id number] SNOMED-CT () 2017-03-28 completed CYP [address] [place], 674847808 [id number] SNOMED-CT () 2017-04-28 completed [address] [place], 831471505 0238903851 SNOMED-CT () 2018-06-28 completed [address] [place], 492312563 [id number] SNOMED-CT () 2017-06-28 completed [address] [place], 301207533 [id number] SNOMED-CT () 2017-07-29 completed [address] [place], 402168341 [phone] SNOMED-CT () 2017-08-28 completed [address] [place], 778624211 [id number] SNOMED-CT () 2017-09-28 completed [address] [place], 167734018 [id number] SNOMED-CT () 2017-10-28 completed [address] [place], 474889863 [id number] SNOMED-CT () 2018-12-29 completed [address] [place], 670443100 [phone] SNOMED-CT () 2017-12-29 completed [address] [place], 463857085 [phone] SNOMED-CT () 2018-01-26 completed [address] [place], 525621155 [id number] SNOMED-CT () 2018-02-26 completed [address] [place], 602560905 [id number] SNOMED-CT () 2018-03-28 completed [address] [place], 580488496 [phone] SNOMED-CT () 2018-04-28 completed [address] [place], 631978122 [id number] SNOMED-CT () 2019-06-[address] [place] [address], 023960570 [id number] SNOMED-CT () 2018-07-29 completed [address] [place], 156613317 [id number] SNOMED-CT () 2018-08-28 completed [address] [place], 490947489 [id number] SNOMED-CT () 2018-09-28 completed [address] [place], 536063278 [id number] SNOMED-CT () 2018-10-28 completed [address] [place], 245720876 [id number] SNOMED-CT () 2018-11-28 completed [address] [place], 081089279 [id number] SNOMED-CT () 2019-12-29 completed [address] [place], 243322059 [id number] SNOMED-CT () 2019-01-26 completed [address] [place], 485633261 [id number] SNOMED-CT () 2019-02-26 completed [address] [place], 027221033 [id number] SNOMED-CT () 2019-03-28 completed [address] [place], 423160312 [id number] SNOMED-CT () 2019-04-28 completed [address] [place], 779179841 [id number] SNOMED-CT () 2019-05-28 completed [address] [place], 229508564 [id number] SNOMED-CT () 2020-07-29 completed [address] [place], 318605892 [id number] SNOMED-CT () 2019-07-29 completed [address] [place], 471772691 [id number] SNOMED-CT () 2019-08-28 completed [address] [place], 953911565 [id number] SNOMED-CT () 2019-09-28 completed [address] [place], 148474221 [id number] SNOMED-CT () 2019-10-28 completed [address] [place], 547448411 [id number] SNOMED-CT () 2019-11-28 completed [address] [place], 854551582 [id number] SNOMED-CT () 2021-01-26 completed [address] [place], 921355814 [id number] SNOMED-CT () 2020-01-27 completed [address] [place], 369724228 [id number] SNOMED-CT () 2020-03-28 completed [address] [place], 367931507 [id number] SNOMED-CT () 2020-04-28 completed [address] [place], 469005579 [id number] SNOMED-CT () 2020-05-28 completed [address] [place], 833133279 [id number] SNOMED-CT () 2020-06-28 completed [address] [place], 421594269 [id number] SNOMED-CT () 2021-07-29 completed [address] [place], 722338600 [id number] SNOMED-CT () 2020-08-28 completed [address] [place], 497161192 [id number] SNOMED-CT () 2020-09-28 completed [address] [place], 293621538 [id number] SNOMED-CT () 2020-10-28 completed [address] [place], 869242938 [id number] SNOMED-CT () 2020-11-28 completed [address] [place], 529674861 [id number] SNOMED-CT () 2020-12-29 completed [address] [place], 510108490 [id number] SNOMED-CT () 2016-10-28 completed [address] [place], 473013069 [id number] SNOMED-CT () 2021-02-26 completed [address] [place], 710584379 [id number] SNOMED-CT () 2021-03-28 completed [address] [place], 418405373 [id number] SNOMED-CT () 2021-04-28 completed [address] [place], 714202285 [id number] SNOMED-CT () 2021-05-28 completed [address] [place], 813030751 [id number] SNOMED-CT () 2021-06-28 completed [address] [place], 859310353 [id number] SNOMED-CT () 2020-02-27 completed [address] [place], 815468301 [id number] SNOMED-CT () 2021-08-28 completed [address] [place], 212253830 [id number] SNOMED-CT () 2015-08-28 completed [address] [place], 843638683 [id number] SNOMED-CT () 2016-09-[address] [place] [address], 551017440 [id number] SNOMED-CT () 2015-03-10 completed CYP [address] [place], 077445959 [id number] SNOMED-CT () 2018-05-28 completed [address] [place], 281843341 [id number] SNOMED-CT () 2015-09-30 completed [address], 427465645 [id number] SNOMED-CT () 2017-07-12 completed [address], 771036572 [id number] SNOMED-CT () 2019-06-29 completed [address], 902111959 [id number] SNOMED-CT () 2020-12-24 completed [address] [place] [address], 469907758 [phone] SNOMED-CT () 2017-08-28 completed [address] [place], 163172953 [id number] SNOMED-CT () 2017-09-28 completed [address] [place], 783999974 [id number] SNOMED-CT () 2016-09-28 completed [address] [place] [address], 757562429 [id number] SNOMED-CT () 2016-09-28 completed [address] [place] [address], 840781835 [id number] SNOMED-CT () 2016-09-28 completed [address] [place] [address], 756207968 [id number] SNOMED-CT () 2016-09-28 completed [address] [place] [address], 424874495 [id number] SNOMED-CT () 2016-09-28 completed [address] [place] [address], 110919478 [id number] SNOMED-CT () 2016-09-28 completed [address] [place] [address], 828070506 [id number] SNOMED-CT () 2016-09-28 completed [address] [place] [address], 022099521 [id number] SNOMED-CT () 2016-09-28 completed [address] [place] [address], 066994710 [id number] SNOMED-CT () 2016-09-28 completed [address] [place] [address], 783033433 [id number] SNOMED-CT () 2016-09-28 completed [address] [place] [address], 235298326 [id number] SNOMED-CT () 2016-09-[address] completed [address] [place] [address], 763456674 [phone] Encounters/Encounter Diagnoses Encounter Name Encounter Code Diagnosis Code Diagnosis Name Diagnosis CodeSystem Date of Diagnosis Service Delivery L ocation non-billable 03658 [id number] Attention-deficit hyperactivity disorder, combined typ e SNOMED-CT 2019-07-31 [facility] , , , Vital Signs Code CodeSystem Vitals Date Value 51494-2 [facility] BMI 2019-07-17 32.71 (lb/in2) 8462-4 [facility] Blood Press ure-Diastolic 2019-07-17 115 mm[HG] 8867-4 [facility] Heart Rate 2019-07-17 69 /min 75169-1 [facility] Weight 2019-07-17 228 [lb_av] 8480-6 [facility] Blood Press ure-Systolic 2019-07-17 74 mm[HG] 8302-2 [facility] Height 2019-07-17 70 [in_i] Social History Element Description Description Start Date End Date Code CodeSystem AdditionalInfo SexAssignedAtBirth Male 2000 M AdministrativeGender Hospital Discharge Instructions * Reason For Referral Medical Equipment * FDA Assessments *
--- OUTSIDE RECORDS SUMMARY | 2021-09-21 11:33 | CCD | Continuity of Care Document ---
Author Author James [facility] - Organization Unknown Address [address], [address] [place] [address] Phone [phone] Care Team Providers Care Gaming Cage Worker Name Role Phone AUTM Unavailable Sd Flannery M.D. AUTM [phone] Adenike Marie AUTM [phone] Problems Description No Active Problems Social [...] lb BMI (Body Mass Index) 38.8 kg/m2 [place] Body Weight 172 lb Weight 127.915 kg BSA (Body Surface Area) 2.45 m2 09/24/2020 10:19am Body Temperature 97.1 F Height 71 inches 5'11" Weight 274.00 lb BMI (Body Mass Index) 38.2 kg/m2 [place] Body Weight 172 lb Weight 124.286 kg BSA (Body Surface Area) 2.41 m2 Results Description No Information Available Procedures Date Code Description Status 08/07/2021 42409 Office/Outpatient New Moderate M DM 45-59 Minutes Completed Medical Devices Description No Information Available Encounters Type Date Location Provider Dx Diagnosis Office Visit 08/07/2021 2:00p [facility]astro[facility] ctice Jossy Marte Lu, [facility] K21.9 Gastro-esophageal reflux dis ease without esophagitis R11.2 Nausea with vomiting, unspec ified R10.10 Upper abdominal pain, unspec ified R68.81 Early satiety K62.5 Hemorrhage of anus and rectu m R63.4 Abnormal weight loss R13.10 Dysphagia, unspecified Assessments Date Code Description Provider 08/07/2021 K21.9 Gastro-esophageal reflux disease without esophagitis Jossy Leobosuzanna, [facility] 08/07/2021 R11.2 Nausea with vomiting, unspecifie d Jossy Callowaylebois, [facility] 08/07/2021 R10.10 Upper abdominal pain, unspecifie d Jossy Callowaylebois, [facility] 08/07/2021 R68.81 Early satiety Jossy Leo bois, [facility] 08/07/2021 K62.5 Hemorrhage of anus and rectum Me tameka Estuardo [place], [facility] 08/07/2021 R63.4 Abnormal weight loss Jossy Estuardo Sandoval madisynlebois, [facility] 08/07/2021 R13.10 Dysphagia, unspecified Jossy Estuardo Ahmetbosuzanna, [facility] Plan of Treatment Future Appointment(s):* 09/21/2021 9:05 am - César Hernandez M.D. at [facility] 08/07/2021 - Jossy Kingston, [facility]* K21.9 Gastro-esophageal reflux disease without esophagitis * R11.2 Nausea with vomiting, unspecified * R10.10 Upper abdominal pain, unspecified * R68.81 Early satiety * K62.5 Hemorrhage of anus and rectum * R63.4 Abnormal weight loss * R13.10 Dysphagia, unspecified * * New Medication:* Miralax 17 GM/Scoop [...] Appt Date César Hernandez M.D. GERD Created [facility] [address], [address] [place] [address] [phone]
--- OUTSIDE RECORDS SUMMARY | 2021-09-21 11:33 | CCD | Continuity of Care Document ---
Author Author James [facility] Organization Unknown Address [address], [address] [place] [address] Phone [phone] Care Team Providers Care Line Rider Name Role Phone AUTM Unavailable Sd Flannery M.D. AUTM [phone] Adenike Marie AUTM [phone] Problems Description No Active Problems Social [...] lb BMI (Body Mass Index) 38.8 kg/m2 [place] Body Weight 172 lb Weight 127.915 kg BSA (Body Surface Area) 2.45 m2 09/24/2020 10:19am Body Temperature 97.1 F Height 71 inches 5'11" Weight 274.00 lb BMI (Body Mass Index) 38.2 kg/m2 [place] Body Weight 172 lb Weight 124.286 kg BSA (Body Surface Area) 2.41 m2 Results Description No Information Available Procedures Description No Information Available Medical Devices Description No Information Available Encounters Description No Information Available Assessments Date Code Description Provider 08/07/2021 K21.9 Gastro-esophageal reflux disease without esophagitis Jossy Marte Lu [facility] 08/07/2021 R10.10 Upper abdominal pain, unspecifie d Jossy Marte Lu [facility] 08/07/2021 R11.2 Nausea with vomiting, unspecifie d Jossy Marte Lu [facility] 08/07/2021 K62.5 Hemorrhage of anus and rectum Me tameka Estuardo Kingston [facility] 08/07/2021 R63.4 Abnormal weight loss Jossy Marte Jaime hebert [facility] 08/07/2021 R68.81 Early satiety Jossy Marte Ahmet hobbs [facility] Plan of Treatment 08/07/2021 - Jossy Marte Lu [facility]* K21.9 Gastro-esophageal reflux disease without esophagitis * [...] Appt Date César Hernandez M.D. GERD Created [address], [address] [place] [address] [phone]
--- OUTSIDE RECORDS SUMMARY | 2021-09-21 11:34 | CCD ---
Author Author James Licona Organization [facility] Address Unknown Phone Unavailable Care Team Providers Care Gis Analyst Name Role Phone Ninoska Licona PCP Unavailable Allergies, Adverse Reactions, Alerts Allergy Substance Code C odeSystem Reaction Severity Critic ality Status Start Date hydroxyzine hcl [id number] R xNorm aggression Moderate Active 2020-04-20 Medications Medication Medication Code Medication CodeSystem Start Date Stop Date Route Dose Status Fill Instructions Vistaril [id number] RxNorm 2016-06-23 2016-07-20 oral 25 mg 1 capsule twice a day completed Take 1 capsule by mouth twice a day for 30 day(s) Adderall XR 154420 RxNorm 2018-12-20 2019 oral 20 mg capsule,extended release 24hr completed for 30 day(s) diphenhydramine HCl [id number] RxNorm 2015-03-25 2016-05-03 or al 50 mg tablet completed for 30 day(s) buspirone 144413 RxNorm 2015-12-23 2016-04-06 oral 5 mg tablet completed for 30 day(s) Adderall XR 641564 RxNorm 2016-06-23 2016-07-20 oral 10 mg capsule,extended release 24hr completed for 30 day(s) Abilify 945994 RxNorm 2018-07-19 2018-08-18 oral 20 mg tablet completed for 30 day(s) trazodone 786055 RxNorm 2015-04-23 2016-04-06 oral 50 mg tablet completed for 30 day(s) Abilify 598562 RxNorm 2018-08-21 2018-10-15 oral 20 mg tablet completed for 30 day(s) duloxetine 380371 RxNorm 2020-02-04 2020-02-20 oral 20 mg capsule,delayed release(DR/EC) completed for 30 day(s) Lexapro 502186 RxNorm 2015-04-23 2016-04-06 oral 10 mg tablet completed for 30 day(s) sertraline 178409 RxNorm 2019-10-01 2019-12-07 oral 50 mg tablet completed for 30 day(s) Lamictal 022596 RxNorm 2017-09-21 2017-09-26 oral 25 mg tablet completed trazodone 635495 RxNorm 2016-01-13 2016-04-06 oral 50 mg tablet completed for 30 day(s) Adderall XR 634410 RxNorm 2017-06-20 2017-09-23 oral 15 mg capsule,extended release 24hr completed for 30 day(s) Abilify 216679 RxNorm 2015-03-25 2016-05-03 oral 15 mg tablet completed for 30 day(s) Lamictal 704227 RxNorm 2018-08-21 2018-10-15 oral 100 mg tablet completed for 30 day(s) Lexapro 899107 RxNorm 2015-12-23 2016-04-06 oral 20 mg tablet completed for 30 day(s) Adderall XR 747381 RxNorm 2019-05-07 2019-07-05 oral 20 mg 1 capsule,extended release 24hr once a day completed Take 1 capsule by mouth once a day for 30 day(s) mirtazapine 648061 RxNorm 2019-10-29 2019-12-16 oral 15 mg tablet completed for 30 day(s) hydroxyzine pamoate 985875 RxNorm 2017-09-08 2017-09-28 or al 25 mg capsule completed for 30 day(s) Lamictal 713795 RxNorm 2017-09-29 2017-10-05 oral 100 mg tablet completed for 30 day(s) Adderall XR 656855 RxNorm 2016 2016-05-03 oral 10 mg capsule,extended release 24hr completed for 30 day(s) Cymbalta 340916 RxNorm 2020-01-04 2020-02-03 oral 20 mg capsule,delayed release(DR/EC) completed for 30 day(s) sertraline 359055 RxNorm 2019-06-29 2019-07-29 oral 50 mg tablet completed for 30 day(s) Adderall XR 110670 RxNorm 2018-03-15 2018-04-14 oral 15 mg capsule,extended release 24hr completed for 30 day(s) Adderall XR 829555 RxNorm 2018-10-24 2018-12-16 oral 20 mg capsule,extended release 24hr completed for 30 day(s) aripiprazole 820491 RxNo 2020-02-04 2020-02-20 or al 10 mg tablet completed for 30 day(s) Abilify 491225 RxNorm 2019-07-03 2019-07-17 oral 5 mg tablet completed for 30 day(s) duloxetine 570330 RxNorm 2020-02-20 2020-06-17 oral 30 mg capsule,delayed release(DR/EC) active for 30 day(s) Abilify 966142 RxNorm 2019-07-17 2019-09-13 oral 10 mg tablet completed for 30 day(s) Adderall XR 537356 RxNo 2018-05-22 2018-07-14 oral 15 mg capsule,extended release 24hr completed for 30 day(s) Lexapro 316214 RxNo 2015-10-07 2016-04-06 oral 10 mg tablet completed for 30 day(s) Adderall XR 349733 RxNorm 2016-04-06 2016-05-06 oral 10 mg capsule,extended release 24hr completed for 30 day(s) Abilify 318372 RxNo 2018-05-22 2018-07-03 oral 20 mg tablet completed for 21 day(s) Adderall XR 996195 RxNorm 2015-12-08 2016-05-03 oral 10 mg capsule,extended release 24hr completed for 30 day(s) Adderall XR 197680 RxNorm 2016-05-27 2016-06-07 oral 10 mg capsule,extended release 24hr completed for 30 day(s) Lexapro 535934 RxNorm 2016-08-16 2016-09-23 oral 20 mg tablet completed for 30 day(s) buspirone 017903 RxNorm 2015-12-08 2016-04-06 oral 5 mg tablet completed for 30 day(s) Adderall XR 263386 RxNorm 2016-08-16 2016-09-15 oral 5 mg capsule,extended release 24hr completed for 30 day(s) Adderall XR 832869 RxNorm 2016-04-05 2016-05-05 oral 5 mg capsule,extended release 24hr completed for 30 day(s) trazodone 808288 RxNorm 2018-06-22 2018-08-21 oral 50 mg tablet completed for 30 day(s) Abilify 047723 RxNorm 2016-04-06 2016-09-23 oral 20 mg tablet completed for 30 day(s) Adderall XR 988759 RxNorm 2016-03-04 2016-04-03 oral 5 mg capsule,extended release 24hr completed for 30 day(s) Abilify 157893 RxNorm 2019 2019-03-17 oral 10 mg tablet completed for 30 day(s) Lamictal 801329 RxNorm 2019-01-08 2019-03-09 oral 100 mg tablet completed for 30 day(s) Adderall XR 971855 RxNo 2019-02-26 2019-03-28 oral 20 mg capsule,extended release 24hr completed for 30 day(s) Lamictal 128197 RxNo 2018-10-24 2018-12-24 oral 100 mg tablet completed for 30 day(s) Aristada 2101877 RxNo 2017-08-03 2017-08-24 IM 882 mg/3.2 mL suspension,extended rel syring completed haloperidol 879988 RxNo 2017-08-03 2017-09-21 oral 1 mg 1 tablet three times a day completed Take 1 tablet by mouth three times a day for 30 day(s) Lexapro 645514 RxNo 2016-07-20 2016-08-16 oral 20 mg tablet completed for 30 day(s) Adderall XR 519430 RxNorm 2019-04-02 2019-05-02 oral 20 mg capsule,extended release 24hr completed for 30 day(s) melatonin 634729 RxNorm 2017-09-28 2017-10-05 oral 3 mg 2 tablet at bedtime completed Take 2 tablet by mouth at bedtime Abilify 841197 RxNo 2016-11-26 2017-08-24 oral 20 mg tablet completed for 21 day(s) Lexapro 307562 RxNo 2015-08-12 2016-04-06 oral 10 mg tablet completed for 30 day(s) Abilify 000396 RxNo 2017-08-24 2017-08-31 oral 20 mg tablet completed for 21 day(s) Adderall XR 742606 [facility] 2015-10-07 2016-03-04 oral 5 mg capsule,extended release 24hr completed for 30 day(s) Abilify 365142 [facility] 2019-03-19 2019-04-12 oral 10 mg tablet completed for 30 day(s) Lamictal 744578 [facility] 2017-10-05 2018-03-28 oral 100 mg tablet completed Abilify 086379 [facility] 2018-10-24 2018-10-25 oral 15 mg tablet completed for 30 day(s) Abilify 188811 RxNo 2018-10-25 2018-12-24 oral 30 mg tablet completed for 30 day(s) Lamictal 609191 [facility] 2018-03-28 2018-08-18 oral 100 mg tablet completed for 30 day(s) buspirone 000447 [facility] 2016-04-06 2016-06-07 oral 5 mg 1 tablet every morning completed Take 1 tablet by mouth every morning for 30 day(s) Adderall XR 029381 [facility] 2016-06-07 2016-06-23 oral 5 mg capsule,extended release 24hr completed for 30 day(s) Adderall XR 233415 [facility] 2016-12-24 2017-01-22 oral 15 mg capsule,extended release 24hr completed for 30 day(s) Adderall XR 646258 [facility] 2016-05-10 2016-05-27 oral 10 mg capsule,extended release 24hr completed for 30 day(s) Adderall XR 613898 [facility] 2015-08-12 2016-03-04 oral 5 mg capsule,extended release 24hr completed for 30 day(s) Abilify 258554 [facility] 2018-02-27 2018-04-10 oral 20 mg tablet completed for 21 day(s) aripiprazole 507523 [facility] 2020-02-20 2020-06-17 or al 15 mg tablet active for 30 day(s) Adderall XR 440069 RxNo 2015-04-23 2016-05-03 oral 10 mg capsule,extended release 24hr completed for 30 day(s) Adderall XR 920524 [facility] 2017-11-14 2018-03-01 oral 15 mg capsule,extended release 24hr completed for 30 day(s) Adderall XR 242443 RxNorm 2017-01-24 2017-03-04 oral 15 mg capsule,extended release 24hr completed for 30 day(s) Adderall XR 079279 RxNorm 2016-06-07 2016-06-23 oral 10 mg capsule,extended release 24hr completed for 30 day(s) Lexapro 931729 RxNorm 2015-12-23 2016-04-06 oral 10 mg tablet completed for 30 day(s) Lamictal 322854 RxNorm 2017-08-10 2017-09-21 oral 25 mg tablet completed for 30 day(s) Adderall XR 603197 RxNorm 2015-03-25 2016-05-03 oral 10 mg capsule,extended release 24hr completed for 30 day(s) Adderall XR 693768 RxNorm 2015-12-08 2016-03-04 oral 5 mg capsule,extended release 24hr completed for 30 day(s) hydroxyzine pamoate 233080 RxNorm 2016-12-24 2017-09-08 or al 25 mg capsule completed for 30 day(s) Adderall XR 369925 RxNorm 2015-10-07 2016-05-03 oral 10 mg capsule,extended release 24hr completed for 30 day(s) Adderall XR 143701 RxNorm 2016-07-20 2016-08-16 oral 10 mg capsule,extended release 24hr completed for 30 day(s) Adderall XR 935281 RxNorm 2019 2019-02-18 oral 20 mg capsule,extended release 24hr completed for 30 day(s) aripiprazole 203067 RxNo rm 2019-10-01 2020-01-15 or al 10 mg tablet completed for 30 day(s) Adderall XR 819875 RxNorm 2015-08-05 2016-05-03 oral 10 mg capsule,extended release 24hr completed for 30 day(s) melatonin 705613 RxNorm 2019-08-14 2019-09-13 oral 3 mg capsule completed for 30 day(s) escitalopram oxalate 356978 RxNorm 2015-07-15 2016-04-06 or al 10 mg 1 tablet every morning complet ed Take 1 tablet by mouth every morning fo r 30 day(s) Abilify 920459 RxNorm 2016-04-06 2016-06-11 oral 20 mg tablet completed for 30 day(s) Adderall XR 629758 RxNorm 2015-12-23 2016-05-03 oral 10 mg capsule,extended release 24hr completed for 30 day(s) Adderall XR 688916 RxNorm 2015-12-23 2016-03-04 oral 5 mg capsule,extended release 24hr completed for 30 day(s) trazodone 753871 RxNorm 2015-10-07 2015-10-21 oral 50 mg tablet completed for 30 day(s) Abilify 038570 RxNorm 2017-11-17 2017-12-29 oral 20 mg tablet completed for 21 day(s) Lexapro 319284 RxNorm 2015-03-25 2016-04-06 oral 10 mg tablet completed for 30 day(s) Adderall XR 286127 RxNorm 2015-11-18 2016-03-04 oral 5 mg capsule,extended release 24hr completed for 30 day(s) Adderall XR 279946 RxNorm 2015-08-26 2016-05-03 oral 10 mg capsule,extended release 24hr completed for 30 day(s) Adderall XR 457355 RxNorm 2019-07-09 2019-08-08 oral 20 mg 1 capsule,extended release 24hr once a day completed Take 1 capsule by mouth once a day for 30 day(s) haloperidol 426131 RxNorm 2016-09-23 2017-07-11 oral 1 mg tablet completed for 30 day(s) Abilify 462777 RxNorm 2015-04-23 2016-05-03 oral 15 mg tablet completed for 30 day(s) Adderall XR 296654 RxNorm 2015-09-23 2016-05-03 oral 10 mg capsule,extended release 24hr completed for 30 day(s) Vitamin D3 126556 RxNorm 2016-12-24 2017-10-23 oral 2,000 unit capsule completed for 30 day(s) Zoloft 999187 RxNorm 2019-03-26 2019-06-24 oral 50 mg tablet completed for 30 day(s) lamotrigine 924434 RxNorm 2020-02-04 2020-06-17 oral 100 mg tablet active for 30 day(s) Adderall XR 827920 RxNorm 2018-07-19 2018-08-18 oral 15 mg capsule,extended release 24hr completed for 30 day(s) Adderall XR 788468 RxNorm 2016-05-27 2016-06-07 oral 5 mg capsule,extended release 24hr completed for 30 day(s) Adderall XR 404125 RxNorm 2017-03-07 2017-06-01 oral 15 mg capsule,extended release 24hr completed for 30 day(s) Vitamin D3 527911 RxNorm 2018-11-15 2019-03-15 oral 2,000 unit capsule completed for 30 day(s) Abilify 757139 RxNorm 2016-09-23 2016-11-26 oral 10 mg tablet completed for 30 day(s) Zoloft 720244 RxNorm 2019 2019-03-20 oral 50 mg tablet completed for 30 day(s) sertraline 011062 RxNo 2019-12-07 2020-01-04 oral 50 mg tablet completed for 30 day(s) Vitamin D3 438837 RxNo 2020-01-22 2020-07-17 oral 50 mcg (2,000 unit) capsule active for 30 day(s) Abilify 479678 RxNo 2018-12-26 2019 oral 30 mg tablet completed for 30 day(s) trazodone 927465 RxNo 2015-10-20 2016-04-06 oral 50 mg tablet completed for 30 day(s) Adderall XR 559200 RxNo 2015-11-18 2016-05-03 oral 10 mg capsule,extended release 24hr completed for 30 day(s) Adderall XR 772346 RxNorm 2017-10-12 2017-11-11 oral 15 mg capsule,extended release 24hr completed for 30 day(s) lamotrigine 950894 RxNorm 2019-03-12 2019-04-11 oral 100 mg tablet completed for 30 day(s) mirtazapine 883885 RxNorm 2019-09-13 2019-10-29 oral 7.5 mg tablet completed for 30 day(s) Adderall XR 177140 RxNo 2016-05-06 2016-05-27 oral 5 mg capsule,extended release 24hr completed for 30 day(s) Vistaril 734140 RxNorm 2016-07-20 2016-10-18 oral 25 mg 1 capsule three times a day complete d Take 1 capsule by mouth three times a day for 30 day(s) Lamictal 501120 RxNorm 2017-09-26 2017-09-29 oral 100 mg tablet completed Lexapro 465167 RxNorm 2016-07-20 2016-11-17 oral 10 mg tablet completed for 30 day(s) haloperidol 271591 RxNorm 2017-07-11 2017-08-03 oral 1 mg tablet completed Lexapro 135273 RxNorm 2016-04-06 2016-07-20 oral 20 mg tablet completed for 30 day(s) Adderall XR 337591 RxNorm 2016-08-16 2016-09-15 oral 10 mg capsule,extended release 24hr completed for 30 day(s) prazosin 976126 RxNorm 2015-03-25 2016-05-03 oral 1 mg capsule completed for 6 day(s) trazodone 509471 RxNorm 2016-04-06 2016-06-05 oral 50 mg 1 tablet at bedtime completed Take 1 tablet by mouth at bedtime as needed for 30 day(s) Vitamin D3 870131 RxNorm 2018-03-28 2018-11-14 oral 2,000 unit capsule completed for 30 day(s) Abilify 702639 RxNorm 2015-06-17 2016-05-03 oral 15 mg tablet completed for 30 day(s) Adderall XR 647753 RxNorm 2016-03-09 2016-05-03 oral 10 mg capsule,extended release 24hr completed for 30 day(s) haloperidol 172587 RxNorm 2017-09-29 2017-10-05 oral 1 mg tablet completed Abilify 478708 RxNorm 2015-12-23 2016-04-06 oral 20 mg tablet completed for 30 day(s) Lexapro 532595 RxNorm 2015-08-12 2016-04-06 oral 20 mg tablet completed for 30 day(s) Vitamin D3 356220 RxNorm 2019-12-07 2020-01-06 oral 50 mcg (2,000 unit) capsule completed for 30 day(s) Abilify 056167 RxNorm 2015-10-07 2016-05-03 oral 15 mg tablet completed for 30 day(s) Lamictal 981672 RxNo 2019-04-17 2019-12-30 oral 100 mg tablet completed for 30 day(s) Adderall XR 150474 RxNorm 2015-09-10 2016-03-04 oral 5 mg capsule,extended release 24hr completed for 30 day(s) Vitamin D3 250461 RxNorm 2019-04-03 2019-08-01 oral 2,000 unit capsule completed for 30 day(s) Adderall XR 724142 RxNorm 2016 2016-03-04 oral 5 mg capsule,extended release 24hr completed for 30 day(s) Adderall XR 324264 RxNorm 2018-08-21 2018-10-20 oral 15 mg capsule,extended release 24hr completed for 30 day(s) Adderall XR 237992 RxNorm 2016-07-20 2016-08-16 oral 5 mg capsule,extended release 24hr completed for 30 day(s) Abilify 113504 RxNorm 2017-08-31 2017-10-30 oral 5 mg tablet completed for 30 day(s) Adderall XR 644432 RxNorm 2015-10-29 2016-05-03 oral 10 mg capsule,extended release 24hr completed for 30 day(s) Adderall XR 817859 RxNorm 2016-06-23 2016-07-20 oral 5 mg capsule,extended release 24hr completed for 30 day(s) Adderall XR 614473 RxNorm 2015-06-17 2016-05-03 oral 10 mg capsule,extended release 24hr completed for 30 day(s) Vitamin D3 962771 RxNorm 2017-11-14 2018-03-10 oral 2,000 unit capsule completed for 30 day(s) Abilify 221175 RxNorm 2018-01-09 2018-02-20 oral 20 mg tablet completed for 21 day(s) Lexapro 244894 RxNorm 2016-12-24 2018-12-08 oral 20 mg tablet completed Adderall XR 131060 RxNorm 2015-10-29 2016-03-04 oral 5 mg capsule,extended release 24hr completed for 30 day(s) Lamictal 846823 RxNorm 2017-09-26 2017-09-28 oral 25 mg tablet completed hydroxyzine HCl 945721 R xNorm 2020-03-21 2020-04-20 or al 10 mg tablet completed for 30 day(s) trazodone 245911 RxNo 2015-06-17 2016-04-06 oral 50 mg tablet completed for 30 day(s) Lamictal 720761 [facility] 2017-09-21 2017-09-21 oral 25 mg tablet completed for 30 day(s) Lexapro 059246 [facility] 2015-06-17 2016-04-06 oral 20 mg 1 tablet once a day completed Take 1 tablet by mouth once a day for 30 day(s) Abilify 328973 No 2019-04-12 2019-05-12 oral 5 mg tablet completed for 30 day(s) buspirone 606992 RxNo 2016-06-23 2016-09-23 oral 5 mg 1 tablet every morning completed Take 1 tablet by mouth every morning for 30 day(s) Lexapro 090806 No 2018-12-08 2018-12-15 oral 10 mg tablet completed for 7 day(s) Vitamin D3 367023 [facility] 2019-08-13 2019-11-30 oral 50 mcg (2,000 unit) capsule completed for 30 day(s) Lamictal 795485 [facility] 2017-08-03 2017-08-10 oral 25 mg 1 tablet once a day completed Take 1 tablet by mouth once a day for 30 day(s) Lexapro 193626 [facility] 2015-10-07 2016-04-06 oral 20 mg 1 tablet once a day completed Take 1 tablet by mouth once a day for 30 day(s) Zoloft 281054 No 2019-08-02 2019-09-13 oral 50 mg tablet completed for 30 day(s) haloperidol 437800 [facility] 2017-09-21 2017-09-29 oral 1 mg 1 tablet twice a day completed Take 1 tablet by mouth twice a day Abilify 872399 No 2017-11-14 2017-11-17 oral 5 mg tablet completed for 30 day(s) Zoloft 001455 No 2018-12-08 2019-01-07 oral 50 mg tablet completed for 30 day(s) Adderall XR 346013 RxNo 2018-04-20 2018-05-20 oral 15 mg capsule,extended release 24hr completed for 30 day(s) sertraline 183422 RxNorm 2020-01-04 2020-02-03 oral 25 mg tablet completed for 30 day(s) Benadryl 9397118 RxNorm 2018-01-30 2018-06-22 oral 25 mg capsule completed buspirone 701909 RxNorm 2016-06-07 2016-06-23 oral 5 mg tablet completed for 30 day(s) Lexapro 785421 RxNorm 2016-04-06 2016-07-20 oral 10 mg tablet completed for 30 day(s) Problems Problem Name Code CodeSy stem Alternate Code Alternate CodeSystem Start Date End Date Status Narrative Attention-deficit hyperactivity disorder, combined ty pe [id number] [facility]OM[facility]-CT 2015-08-22 Active Conduct disorder, childhood onset 2532810 8 [facility]OM[facility] 2016-09-23 Active Depressive episode, unspecified 26641306 [facility] 2017-10-28 Active Attention-deficit hyperactivity disorder, combined ty pe 85178169 [facility]OM[facility] 2015-08-22 Active Conduct disorder, childhood onset 0569942 8 SNOMED-CT 2016-09-23 Active Depressive episode, unspecified 55313788 [facility]OM[facility] 2017-10-28 Active Disruptive mood dysregulation disorder 383704092 [facility] 2017-07-26 Active Disruptive mood dysregulation disorder 008967453 [facility]OM[facility] 2017-10-28 Active Attention-deficit hyperactivity disorder, combined ty pe 30411965 [facility]OM[facility] 2015-08-22 Active Depressive episode, unspecified 85803339 [facility]OM[facility] 2017-10-28 Active Disruptive mood dysregulation disorder 204128088 [facility] 2017-10-28 Active Attention-deficit hyperactivity disorder, combined ty pe 34716457 [facility]OM[facility] 2015-08-22 Active Disruptive mood dysregulation disorder 156706962 [facility] 2017-10-28 Active Conduct disorder, childhood onset 7746981 8 SNOMED-CT 2016-09-23 Active Conduct disorder, childhood onset 9623547 8 SNOMED-CT 2016-09-23 Active Attention-deficit hyperactivity disorder, combined ty pe 28489921 [facility]OMED-CT 2015-08-22 Active Conduct disorder, childhood onset 7822075 8 SNOMED-CT 2016-09-23 Active Depressive episode, unspecified 18599813 [facility]OM[facility] 2017-07-26 Active Relevant diagnostic tests/laboratory data Narrative No Information Procedures Procedure Name Code Code System Target Site Date of Procedure Status Service Delivery Location Device Cod e Device Name Device UID Psychotherapy, 45 minutes with patient [id number] SNOMED-CT () 2015-03-[address], [id number] Psychotherapy, 45 minutes with patient [id number] SNOMED-CT () 2015-07-[address], [id number] Psychotherapy, 45 minutes with patient [id number] [facility]OM[facility] () 2015-08-[address], [id number] Psychotherapy, 45 minutes with patient [id number] [facility]OM[facility] () 2015-08-[address], [id number] Psychotherapy, 45 minutes with patient [id number] [facility]OM[facility] () 2015-08-[address], [id number] Psychotherapy, 45 minutes with patient [id number] [facility]OM[facility] () 2015-09-[address], [id number] Psychotherapy, 45 minutes with patient [id number] [facility]OM[facility] () 2021-07-[address], [id number] Psychotherapy, 45 minutes with patient [id number] [facility]OM[facility] () 2016-12-[address], [id number] Psychotherapy, 45 minutes with patient [id number] [facility]OM[facility]-CT () 2021-02-[address], [id number] Psychotherapy, 45 minutes with patient [id number] SNOMED-CT () 2021-03-[address], [id number] Psychotherapy, 45 minutes with patient [id number] SNOMED-CT () 2021-04-[address], [id number] Psychotherapy, 45 minutes with patient [id number] SNOMED-CT () 2021-05-[address], [id number] Psychotherapy, 45 minutes with patient [id number] SNOMED-CT () 2021-05-[address], [id number] Psychotherapy, 45 minutes with patient [id number] SNOMED-CT () 2021-06-[address], [id number] Psychotherapy, 45 minutes with patient [id number] SNOMED-CT () 2018-10-[address], [id number] Psychotherapy, 45 minutes with patient [id number] SNOMED-CT () 2019-02-[address], [id number] Psychotherapy, 45 minutes with patient [id number] SNOMED-CT () 2019-03-[address], [id number] Psychotherapy, 45 minutes with patient [id number] SNOMED-CT () 2019-07-[address], [id number] Psychotherapy, 45 minutes with patient [id number] SNOMED-CT () 2020-01-[address], [id number] Psychotherapy, 45 minutes with patient [id number] SNOMED-CT () 2020-05-[address], [id number] Psychotherapy, 45 minutes with patient [id number] SNOMED-CT () 2017-12-[address], [id number] Psychotherapy, 45 minutes with patient [id number] SNOMED-CT () 2017-12-[address], [id number] Psychotherapy, 45 minutes with patient [id number] SNOMED-CT () 2018-01-[address], [id number] Psychotherapy, 45 minutes with patient [id number] SNOMED-CT () 2018-04-[address], [id number] Psychotherapy, 45 minutes with patient [id number] SNOMED-CT () 2018-05-[address], [id number] Psychotherapy, 45 minutes with patient [id number] SNOMED-CT () 2018-08-[address], [id number] Psychotherapy, 45 minutes with patient [id number] SNOMED-CT () [address], [id number] Psychotherapy, 45 minutes with patient [id number] SNOMED-CT () 2017-03-[address], [id number] Psychotherapy, 45 minutes with patient [id number] SNOMED-CT () 2017-04-[address], [id number] Psychotherapy, 45 minutes with patient [id number] SNOMED-CT () 2017-04-[address], [id number] Psychotherapy, 45 minutes with patient [id number] SNOMED-CT () 2017-04-[address], [id number] Psychotherapy, 45 minutes with patient [id number] SNOMED-CT () 2017-11-[address], [id number] Psychotherapy, 45 minutes with patient [id number] SNOMED-CT () 2016-05-[address], [id number] Psychotherapy, 45 minutes with patient [id number] SNOMED-CT () 2016-06-[address], [id number] Psychotherapy, 45 minutes with patient [id number] SNOMED-CT () 2016-11-[address], [id number] Psychotherapy, 45 minutes with patient [id number] SNOMED-CT () 2016-12-[address], [id number] Psychotherapy, 45 minutes with patient [id number] SNOMED-CT () 2016-12-[address], [id number] Psychotherapy, 45 minutes with patient [id number] SNOMED-CT () 2017-01-[address], [id number] Psychotherapy, 45 minutes with patient [id number] SNOMED-CT () 2016-02-[address], [id number] Psychotherapy, 45 minutes with patient [id number] SNOMED-CT () 2016-02-[address], [id number] Psychotherapy, 45 minutes with patient [id number] SNOMED-CT () 2016-03-[address], [id number] Psychotherapy, 45 minutes with patient [id number] SNOMED-CT () 2016-03-[address], 785707675 [id number] Psychotherapy, 45 minutes with patient [id number] SNOMED-CT () 2016-04-[address], [id number] [id number] Psychotherapy, 45 minutes with patient [id number] SNOMED-CT () 2016-05-[address], [id number] Psychotherapy, 45 minutes with patient [id number] SNOMED-CT () 2015-10-[address], [id number] [id number] Psychotherapy, 45 minutes with patient [id number] SNOMED-CT () 2015-12-[address], [id number] [id number] Psychotherapy, 45 minutes with patient [id number] SNOMED-CT () 2015-12-[address], [id number] Psychotherapy, 45 minutes with patient [id number] SNOMED-CT () 2015-12-[address], [id number] [phone] Psychotherapy, 45 minutes with patient [id number] SNOMED-CT () 2016-01-[address], [id number] Psychotherapy, 45 minutes with patient [id number] SNOMED-CT () 2016-01-[address], [id number] [phone] Initial Psychiatric Evaluation [id number] SNOMED-CT () 2017-07-[address], [place], [id number] Family psychotherapy (without the patien t present), 50 minutes [id number] SNOMED-CT () 2015-04-[address], [id number] [phone] Family psychotherapy (without the patien t present), 50 minutes [id number] SNOMED-CT () 2015-04-[address], [id number] Psychotherapy - Family&Client 1 hr 1 [id number] SNOMED-CT () 2016-06-[address], [id number] Health Monitoring / Risk Reduction Counseling - Brief [id number] SNOMED-CT () 2019-05-[address], [id number] Health Monitoring / Risk Reduction Counseling - Interm ediate [id number] SNOMED-CT () 2019-05-[address], [id number] Health Monitoring / Risk Reduction Counseling - Expand ed [id number] SNOMED-CT () 2019-04-[address], [id number] Health Monitoring / Risk Reduction Counseling - Expand ed [id number] SNOMED-CT () 2019-06-[address], [id number] [id number] Est. Patient - E&M Intermediate [id number] SNOMED-CT () 2015-04-[address], [id number] [id number] Est. Patient - E&M Intermediate [id number] SNOMED-CT () 2015-08-[address], [id number] [phone] Est. Patient - E&M Intermediate [id number] SNOMED-CT () 2015-09-[address], [id number] [id number] Est. Patient - E&M Intermediate [id number] SNOMED-CT () 2015-11-[address], [id number] Est. Patient - E&M Intermediate [id number] SNOMED-CT () 2015-12-[address], [id number] Est. Patient - E&M Intermediate [id number] SNOMED-CT () 2015-12-[address], [id number] [id number] Est. Patient - E&M Intermediate [id number] SNOMED-CT () 2020-12-[address], [id number] [phone] Est. Patient - E&M Intermediate [id number] SNOMED-CT () 2021-03-[address], [id number] [phone] Est. Patient - E&M Intermediate [id number] SNOMED-CT () 2018-08-[address], [id number] Est. Patient - E&M Intermediate [id number] SNOMED-CT () 2018-09-[address], [id number] [phone] Est. Patient - E&M Intermediate [id number] SNOMED-CT () 2018-10-[address], [id number] [id number] Est. Patient - E&M Intermediate [id number] SNOMED-CT () 2018-12-[address], [id number] [phone] Est. Patient - E&M Intermediate [id number] SNOMED-CT () [address], [id number] [id number] Est. Patient - E&M Intermediate [id number] SNOMED-CT () 2019-06-[address], [id number] Est. Patient - E&M Intermediate [id number] SNOMED-CT () 2017-02-[address], [id number] [id number] Est. Patient - E&M Intermediate [id number] SNOMED-CT () 2017-03-[address], [id number] [phone] Est. Patient - E&M Intermediate [id number] SNOMED-CT () 2017-04-[address], [id number] [phone] Est. Patient - E&M Intermediate [id number] SNOMED-CT () 2017-05-[address], [id number] [id number] Est. Patient - E&M Intermediate [id number] SNOMED-CT () 2017-10-[address], [id number] [phone] Est. Patient - E&M Intermediate [id number] SNOMED-CT () 2017-11-[address], [id number] [phone] Est. Patient - E&M Intermediate [id number] SNOMED-CT () [address], [id number] [id number] Est. Patient - E&M Intermediate [id number] SNOMED-CT () 2016-05-[address], [id number] [id number] Est. Patient - E&M Intermediate [id number] SNOMED-CT () 2016-06-[address], [id number] [phone] Est. Patient - E&M Intermediate [id number] SNOMED-CT () 2016-06-[address], [id number] [id number] Est. Patient - E&M Intermediate [id number] SNOMED-CT () 2016-07-[address], [id number] [phone] Est. Patient - E&M Intermediate [id number] SNOMED-CT () 2017-01-[address], [id number] [id number] Est. Patient - E&M Brief [id number] SNOMED-CT () 2015-08-[address], [id number] [phone] Est. Patient - E&M Brief [id number] SNOMED-CT () 2015-10-[address], [id number] [id number] Est. Patient - E&M Brief [id number] SNOMED-CT () 2015-10-[address], [id number] [id number] Est. Patient - E&M Brief [id number] SNOMED-CT () 2016-03-[address], [place], [id number] [phone] Est. Patient - E&M Brief [id number] SNOMED-CT () 2016-04-[address], [id number] [id number] Est. Patient - E&M Brief [id number] SNOMED-CT () 2016-08-[address], [id number] [phone] Est. Patient - E&M Brief [id number] SNOMED-CT () 2020-03-[address], [id number] [phone] Est. Patient - E&M Brief [id number] SNOMED-CT () 2020-04-[address], [id number] Est. Patient - E&M Brief [id number] SNOMED-CT () 2020-05-[address], [id number] [id number] Est. Patient - E&M Brief [id number] SNOMED-CT () 2020-07-[address], [id number] [id number] Est. Patient - E&M Brief [id number] SNOMED-CT () 2021-01-[address], [id number] Est. Patient - E&M Brief [id number] SNOMED-CT () 2020-02-[address], [id number] [id number] Est. Patient - E&M Brief [id number] SNOMED-CT () 2019-05-[address], [id number] [phone] Est. Patient - E&M Brief [id number] SNOMED-CT () 2019-08-[address], [id number] [id number] Est. Patient - E&M Brief [id number] SNOMED-CT () 2019-09-[address], [id number] [phone] Est. Patient - E&M Brief [id number] SNOMED-CT () 2019-10-[address], [id number] [id number] Est. Patient - E&M Brief [id number] SNOMED-CT () 2019-12-[address], [id number] [id number] Est. Patient - E&M Brief [id number] SNOMED-CT () 2020-01-[address], [id number] [id number] Est. Patient - E&M Brief [id number] SNOMED-CT () 2016-12-[address], [id number] [phone] Est. Patient - E&M Brief [id number] SNOMED-CT () 2017-09-[address], [id number] [id number] Est. Patient - E&M Brief [id number] SNOMED-CT () 2017-09-[address], [id number] [phone] Est. Patient - E&M Brief [id number] SNOMED-CT () 2017-09-[address], [id number] [id number] Est. Patient - E&M Brief [id number] SNOMED-CT () 2018-05-[address], [id number] [id number] Est. Patient - E&M Brief [id number] SNOMED-CT () 2019-04-[address], [id number] [phone] Est. Patient - E&M Expanded [id number] SNOMED-CT () 2015-03-[address], [id number] Est. Patient - E&M Expanded [id number] SNOMED-CT () 2015-05-[address], [id number] [phone] Est. Patient - E&M Expanded [id number] SNOMED-CT () 2015-06-[address], [id number] [phone] Est. Patient - E&M Expanded [id number] SNOMED-CT () 2015-07-[address], [id number] [phone] Est. Patient - E&M Expanded [id number] SNOMED-CT () 2017-07-[address], [id number] [id number] Est. Patient - E&M Expanded [id number] SNOMED-CT () 2017-08-[address], [id number] [phone] Est. Patient - E&M Expanded [id number] SNOMED-CT () 2019-07-[address], [id number] [id number] Est. Patient - E&M Expanded [id number] SNOMED-CT () 2019-07-[address], [id number] [phone] Est. Patient - E&M Expanded [id number] SNOMED-CT () 2021-05-[address], [id number] [phone] Est. Patient - E&M Expanded [id number] SNOMED-CT () 2021-06-[address], [id number] [phone] Est. Patient - E&M Expanded [id number] SNOMED-CT () 2021-07-[address], [id number] [phone] Est. Patient - E&M Expanded [id number] SNOMED-CT () 2018-01-[address], [id number] [id number] Est. Patient - E&M Expanded [id number] SNOMED-CT () 2018-01-[address], [id number] [phone] Est. Patient - E&M Expanded [id number] SNOMED-CT () 2018-02-[address], [id number] [phone] Est. Patient - E&M Expanded [id number] SNOMED-CT () 2018-03-[address], [id number] [id number] Est. Patient - E&M Expanded [id number] SNOMED-CT () 2018-04-[address], [id number] [phone] Est. Patient - E&M Expanded [id number] SNOMED-CT () 2018-06-22 completed [address], [id number] [phone] Est. Patient - E&M Expanded [id number] SNOMED-CT () 2017-08-[address], [id number] [id number] Est. Patient - E&M Expanded [id number] SNOMED-CT () 2017-08-[address], [phone] Est. Patient - E&M Expanded [id number] SNOMED-CT () 2017-09-[address], [id number] [id number] Est. Patient - E&M Expanded [id number] SNOMED-CT () 2017-09-[address], [id number] [phone] Est. Patient - E&M Expanded [id number] SNOMED-CT () 2017-10-[address], [id number] [id number] Est. Patient - E&M Expanded [id number] SNOMED-CT () 2017-12-[address], [id number] [phone] Individual Psychotherapy [id number] SNOMED-CT () 2015-03-[address], [phone] Individual Psychotherapy [id number] SNOMED-CT () 2015-04-[address], [id number] [phone] Individual Psychotherapy [id number] SNOMED-CT () 2015-05-[address], [id number] [id number] Individual Psychotherapy [id number] SNOMED-CT () 2015-05-[address], [id number] [phone] Individual Psychotherapy [id number] SNOMED-CT () 2015-05-[address], [id number] [phone] Individual Psychotherapy [id number] SNOMED-CT () 2015-05-[address], [id number] [id number] Individual Psychotherapy [id number] SNOMED-CT () 2020-03-[address], [id number] [id number] Individual Psychotherapy [id number] SNOMED-CT () 2021-01-[address], [id number] [phone] Individual Psychotherapy [id number] SNOMED-CT () 2021-02-[address], [id number] [id number] Individual Psychotherapy [id number] SNOMED-CT () 2021-03-[address], [id number] [id number] Individual Psychotherapy [id number] SNOMED-CT () 2021-03-[address], [id number] [id number] Individual Psychotherapy [id number] SNOMED-CT () 2021-03-[address], [id number] Individual Psychotherapy [id number] SNOMED-CT () 2020-04-[address], [id number] [phone] Individual Psychotherapy [id number] SNOMED-CT () 2019-09-07 completed [address], [id number] [id number] Individual Psychotherapy [id number] SNOMED-CT () 2020-02-[address], [id number] [id number] Individual Psychotherapy [id number] SNOMED-CT () 2020-07-[address], [id number] [id number] Individual Psychotherapy [id number] SNOMED-CT () 2020-04-[address], [id number] Individual Psychotherapy [id number] SNOMED-CT () 2020-03-[address], [id number] [id number] Individual Psychotherapy [id number] SNOMED-CT () 2020-12-[address], [id number] Individual Psychotherapy [id number] SNOMED-CT () 2018-10-[address], [id number] [phone] Individual Psychotherapy [id number] SNOMED-CT () 2018-10-[address], [id number] [id number] Individual Psychotherapy [id number] SNOMED-CT () 2018-11-[address], [id number] Individual Psychotherapy [id number] SNOMED-CT () 2018-12-[address], [id number] [id number] Individual Psychotherapy [id number] SNOMED-CT () 2019-02-[address], [id number] [phone] Individual Psychotherapy [id number] SNOMED-CT () 2019-08-[address], [id number] [id number] Individual Psychotherapy [id number] SNOMED-CT () 2017-11-[address], [id number] [id number] Individual Psychotherapy [id number] SNOMED-CT () 2017-12-[address], [id number] Individual Psychotherapy [id number] SNOMED-CT () 2018-03-[address], [id number] Individual Psychotherapy [id number] SNOMED-CT () 2018-06-[address], [id number] [id number] Individual Psychotherapy [id number] SNOMED-CT () 2018-07-[address], [id number] [id number] Individual Psychotherapy [id number] SNOMED-CT () 2018-09-[address], [id number] Individual Psychotherapy [id number] SNOMED-CT () 2017-08-[address], [id number] [phone] Individual Psychotherapy [id number] SNOMED-CT () 2017-09-[address], [id number] [id number] Individual Psychotherapy [id number] SNOMED-CT () 2017-09-[address], [id number] [id number] Individual Psychotherapy [id number] SNOMED-CT () 2017-09-[address], [id number] [id number] Individual Psychotherapy [id number] SNOMED-CT () 2017-10-[address], [id number] Individual Psychotherapy [id number] SNOMED-CT () 2017-10-[address], [id number] [id number] Individual Psychotherapy [id number] SNOMED-CT () 2017-03-[address], 522711066 [id number] Individual Psychotherapy [id number] SNOMED-CT () 2017-03-[address], [id number] Individual Psychotherapy [id number] SNOMED-CT () 2017-05-[address], [id number] Individual Psychotherapy [id number] SNOMED-CT () 2017-07-[address], [id number] Individual Psychotherapy [id number] SNOMED-CT () 2017-08-[address], [id number] [id number] Individual Psychotherapy [id number] SNOMED-CT () 2017-08-[address], [id number] [id number] Individual Psychotherapy [id number] SNOMED-CT () 2016-07-[address], [id number] [id number] Individual Psychotherapy [id number] SNOMED-CT () 2016-07-[address], [id number] Individual Psychotherapy [id number] SNOMED-CT () 2016-08-[address], [id number] Individual Psychotherapy [id number] SNOMED-CT () 2016-08-[address], [id number] Individual Psychotherapy [id number] SNOMED-CT () 2016-09-[address], [id number] Individual Psychotherapy [id number] SNOMED-CT () 2017-02-[address], [id number] [id number] Individual Psychotherapy [id number] SNOMED-CT () 2016-03-[address], [id number] Individual Psychotherapy [id number] SNOMED-CT () 2016-04-[address], [id number] [id number] Individual Psychotherapy [id number] SNOMED-CT () 2016-04-[address], [id number] Individual Psychotherapy [id number] SNOMED-CT () 2016-05-[address], [id number] Individual Psychotherapy [id number] SNOMED-CT () 2016-06-[address], [id number] [phone] Individual Psychotherapy [id number] SNOMED-CT () 2016-07-[address], [id number] Individual Psychotherapy [id number] SNOMED-CT () 2015-11-06 completed [address], [id number] [phone] Individual Psychotherapy [id number] SNOMED-CT () 2016-01-[address], [id number] Individual Psychotherapy [id number] SNOMED-CT () 2016-01-[address], [id number] Individual Psychotherapy [id number] SNOMED-CT () 2016-02-[address], [id number] Individual Psychotherapy [id number] SNOMED-CT () 2016-02-[address], [id number] [phone] Individual Psychotherapy [id number] SNOMED-CT () 2016-03-[address], [id number] [id number] Individual Psychotherapy [id number] SNOMED-CT () 2015-06-[address], [id number] [id number] Individual Psychotherapy [id number] SNOMED-CT () 2015-09-[address], [id number] Individual Psychotherapy [id number] SNOMED-CT () 2015-09-[address], [id number] Individual Psychotherapy [id number] SNOMED-CT () 2015-10-[address], [id number] [id number] Individual Psychotherapy [id number] SNOMED-CT () 2015-10-[address], [id number] Individual Psychotherapy [id number] SNOMED-CT () 2015-10-30 completed [address], [address] [id number] Individual Psychotherapy [id number] SNOMED-CT () 2015-03-[address], [id number] [id number] Individual Psychotherapy [id number] SNOMED-CT () 2015-07-[address], [id number] Individual Psychotherapy [id number] SNOMED-CT () 2015-08-[address], [id number] Individual Psychotherapy [id number] SNOMED-CT () 2015-08-[address], [id number] Individual Psychotherapy [id number] SNOMED-CT () 2015-08-[address], [id number] Individual Psychotherapy [id number] SNOMED-CT () 2015-09-[address], [id number] [id number] Individual Psychotherapy [id number] SNOMED-CT () 2021-07-[address], [id number] Individual Psychotherapy [id number] SNOMED-CT () 2016-12-[address], [id number] [id number] Individual Psychotherapy [id number] SNOMED-CT () 2021-02-[address], [id number] [id number] Individual Psychotherapy [id number] SNOMED-CT () 2021-03-[address], [id number] Individual Psychotherapy [id number] SNOMED-CT () 2021-04-[address], [id number] [id number] Individual Psychotherapy [id number] SNOMED-CT () 2021-05-[address], [id number] [id number] Individual Psychotherapy [id number] SNOMED-CT () 2021-05-[address], [id number] [id number] Individual Psychotherapy [id number] SNOMED-CT () 2021-06-[address], [id number] Individual Psychotherapy [id number] SNOMED-CT () 2018-10-[address], [id number] Individual Psychotherapy [id number] SNOMED-CT () 2019-02-[address], [id number] Individual Psychotherapy [id number] SNOMED-CT () 2019-03-[address], 391606866 [id number] Individual Psychotherapy [id number] SNOMED-CT () 2019-07-[address], [id number] Individual Psychotherapy [id number] SNOMED-CT () 2020-01-[address], [id number] [phone] Individual Psychotherapy [id number] SNOMED-CT () 2020-05-[address], [id number] [id number] Individual Psychotherapy [id number] SNOMED-CT () 2017-12-[address], [id number] Individual Psychotherapy [id number] SNOMED-CT () 2017-12-[address], [id number] Individual Psychotherapy [id number] SNOMED-CT () 2018-01-[address], [id number] Individual Psychotherapy [id number] SNOMED-CT () 2018-04-[address], [id number] Individual Psychotherapy [id number] SNOMED-CT () 2018-05-[address], [id number] Individual Psychotherapy [id number] SNOMED-CT () 2018-08-[address], [id number] Individual Psychotherapy [id number] SNOMED-CT () [address], [id number] [phone] Individual Psychotherapy [id number] SNOMED-CT () 2017-03-[address], [id number] [id number] Individual Psychotherapy [id number] SNOMED-CT () 2017-04-[address], 323328480 [id number] Individual Psychotherapy [id number] SNOMED-CT () 2017-04-[address], [id number] Individual Psychotherapy [id number] SNOMED-CT () 2017-04-[address], [id number] [id number] Individual Psychotherapy [id number] SNOMED-CT () 2017-11-[address], [id number] Individual Psychotherapy [id number] SNOMED-CT () 2016-05-[address], [id number] [id number] Individual Psychotherapy [id number] SNOMED-CT () 2016-06-[address], [id number] Individual Psychotherapy [id number] SNOMED-CT () 2016-11-[address], [id number] [id number] Individual Psychotherapy [id number] SNOMED-CT () 2016-12-[address], [id number] Individual Psychotherapy [id number] SNOMED-CT () 2016-12-[address], [id number] Individual Psychotherapy [id number] SNOMED-CT () 2017-01-[address], [id number] Individual Psychotherapy [id number] SNOMED-CT () 2016-02-[address], 348662783 [id number] Individual Psychotherapy [id number] SNOMED-CT () 2016-02-[address], [id number] Individual Psychotherapy [id number] SNOMED-CT () 2016-03-[address], 435982756 [id number] Individual Psychotherapy [id number] SNOMED-CT () 2016-03-[address], [id number] Individual Psychotherapy [id number] SNOMED-CT () 2016-04-[address], [id number] [id number] Individual Psychotherapy [id number] SNOMED-CT () 2016-05-[address], [id number] Individual Psychotherapy [id number] SNOMED-CT () 2015-10-[address], [id number] Individual Psychotherapy [id number] SNOMED-CT () 2015-12-[address], [id number] Individual Psychotherapy [id number] SNOMED-CT () 2015-12-[address], 595280131 [id number] Individual Psychotherapy [id number] SNOMED-CT () 2015-12-[address], [id number] [id number] Individual Psychotherapy [id number] SNOMED-CT () 2016-01-[address], [id number] Individual Psychotherapy [id number] SNOMED-CT () 2016-01-[address], [id number] [id number] Psychiatric Diagnostic Evaluation without medical serv ices [id number] SNOMED-CT () 2015-03-[address], [id number] SNOMED-CT () 2018-03-[address], [id number] SNOMED-CT () 2017-12-29 completed [address] [address], [id number] SNOMED-CT () 2018-07-29 completed [address] [place], [place], [id number] SNOMED-CT () 2017-10-28 completed [address] [place], [address] [id number] SNOMED-CT () 2018-06-28 completed [address] [place], [place], [address] [id number] SNOMED-CT () 2018-08-28 completed [address] [place], [place], [address] [id number] SNOMED-CT () 2017-11-28 completed [address] [place], [address] [id number] SNOMED-CT () 2018-03-28 completed [address] [place], [address] [id number] SNOMED-CT () 2018-01-26 completed [address] [place], [address] [id number] SNOMED-CT () 2018-05-28 completed [address] [place], [place], [address] [id number] SNOMED-CT () 2018-02-26 completed [address] [place], [address] [id number] SNOMED-CT () 2018-04-28 completed [address] [place], [place], [address] [id number] SNOMED-CT () 2017-07-21 completed [facility] [address] [place], [place], [id number] SNOMED-CT () 2017-07-21 completed [facility] [address], [place], [id number] [id number] SNOMED-CT () 2017-07-21 completed [facility] [address], [place], [id number] [id number] SNOMED-CT () 2017-07-21 completed [facility] [address], [place], [id number] [id number] SNOMED-CT () 2017-07-21 completed [facility] [address] [place], [place], [id number] [id number] SNOMED-CT () 2017-07-[address], [id number] SNOMED-CT () 2017-07-[address], [id number] [id number] SNOMED-CT () 2017-07-[address], [id number] [id number] SNOMED-CT () 2017-07-[address], [id number] [id number] SNOMED-CT () 2017-07-[address], 090197078 [id number] SNOMED-CT () 2017-07-[address], [id number] [id number] SNOMED-CT () 2017-07-[address], [id number] [id number] SNOMED-CT () 2017-07-[address], [id number] [id number] SNOMED-CT () 2017-07-[address], [id number] [id number] SNOMED-CT () 2017-07-[address], [id number] [id number] SNOMED-CT () 2017-07-[address], [id number] [id number] SNOMED-CT () 2016-08-[address], [id number] [id number] SNOMED-CT () 2016-07-[address], [id number] [id number] SNOMED-CT () 2016-04-[address], 714763776 [id number] SNOMED-CT () 2016-03-[address], [id number] [id number] SNOMED-CT () 2016-06-[address], [id number] [id number] SNOMED-CT () 2016-04-[address], 470885498 [id number] SNOMED-CT () 2016-04-[address], 756867322 [id number] SNOMED-CT () 2016-06-[address], 781068362 [id number] SNOMED-CT () 2017-01-[address], [id number] [id number] SNOMED-CT () 2016-05-[address], [id number] [id number] SNOMED-CT () 2016-07-[address], [id number] [id number] SNOMED-CT () 2016-08-[address], 469166934 [id number] SNOMED-CT () 2016-07-[address], [id number] [id number] SNOMED-CT () 2016-05-[address], 442512837 [id number] SNOMED-CT () 2016-04-[address], 755686916 [id number] SNOMED-CT () 2016-03-[address], 326011051 [id number] SNOMED-CT () 2016-09-[address], 976946962 [id number] SNOMED-CT () 2016-06-21 completed [facility] [address], [id number] [id number] SNOMED-CT () 2016-05-10 completed [facility] [address], [id number] [id number] SNOMED-CT () 2016-05-17 completed [facility] [address] [place] [address], [phone] SNOMED-CT () 2016-06-14 completed [facility] [address], [id number] [phone] SNOMED-CT () 2016-03-[address], 470568594 [id number] SNOMED-CT () [address], 484403802 [id number] SNOMED-CT () 2016-06-[address], 454702290 [id number] SNOMED-CT () 2016-08-[address], 754729589 [id number] SNOMED-CT () 2016-07-[address], [id number] [phone] SNOMED-CT () 2016-03-[address], [id number] [id number] SNOMED-CT () 2016-03-[address], [id number] [id number] SNOMED-CT () 2021-04-22 [address], [address]77[address] [phone] SNOMED-CT () 2021-03-[address], 660473682 [id number] SNOMED-CT () 2021-01-[address], [id number] [id number] SNOMED-CT () 2021-03-17 completed [facility] [address], [id number] [phone] SNOMED-CT () 2021-03-[address], 372391939 [id number] SNOMED-CT () 2021-05-[address], [id number] SNOMED-CT () 2020-12-[address], 095237870 [id number] SNOMED-CT () 2020-12-[address], [id number] [id number] SNOMED-CT () 2021-03-[address], 905158929 [id number] SNOMED-CT () 2021-02-[address], 432466567 [id number] SNOMED-CT () 2021-03-[address], 760997817 [id number] SNOMED-CT () 2021-05-[address], 909811035 [id number] SNOMED-CT () 2021-02-18 completed [facility] [address], [id number] [id number] SNOMED-CT () 2020-03-28 completed [address] [place], 565138332 [id number] SNOMED-CT () 2020-06-28 completed [address] [place], 311659531 [id number] SNOMED-CT () 2020-09-28 completed [address] [place], 680582555 [phone] SNOMED-CT () 2020-04-28 completed [address] [place], 654426979 [id number] SNOMED-CT () 2020-02-27 completed [address] [place], 255565210 [id number] SNOMED-CT () 2020-08-28 completed [address] [place], 865014852 [id number] SNOMED-CT () 2020-12-29 completed [address] [place], 242446540 [id number] SNOMED-CT () 2021-01-26 completed [address] [place], 539668680 [id number] SNOMED-CT () 2020-11-28 completed [address] [place], 363696905 [id number] SNOMED-CT () 2020-01-27 completed [address] [place], 557140918 [id number] SNOMED-CT () 2020-05-28 completed [address] [place], 043644032 [id number] SNOMED-CT () 2020-10-28 completed [address] [place], 420468757 [phone] SNOMED-CT () 2020-07-29 completed [address] [place], 267158667 [id number] SNOMED-CT () 2015-03-29 completed [facility] [address], [place], 153244188 [id number] SNOMED-CT () 2015-04-29 completed [facility] [address], 853120963 [phone] SNOMED-CT () 2015-05-28 completed [facility] [address], 303985440 [id number] SNOMED-CT () 2015-06-28 completed [facility] [address], 185421063 [id number] SNOMED-CT () 2015-07-29 completed [facility] [address], 476119683 [phone] SNOMED-CT () 2015-08-28 completed [facility] [address], 466658950 [id number] SNOMED-CT () 2021-04-28 completed [address] [place], [id number] [id number] SNOMED-CT () 2021-05-28 completed [address] [place], 421866552 [id number] SNOMED-CT () 2021-06-28 completed [address] [place], 681689501 [phone] SNOMED-CT () 2021-07-29 completed [address] [place], [place], 283566162 [id number] SNOMED-CT () 2020-10-28 completed [address] [place], 292554146 [id number] SNOMED-CT () 2020-11-28 completed [address] [place], 349748116 [id number] SNOMED-CT () 2020-12-29 completed [address] [place], 174677350 [id number] SNOMED-CT () 2021-01-26 completed [address] [place], [place], 392875925 [id number] SNOMED-CT () 2021-02-26 completed [address] [place], 036783683 [id number] SNOMED-CT () 2021-03-28 completed [address] [place], 376870528 [id number] SNOMED-CT () 2020-04-28 completed [address] [place], 426169248 [id number] SNOMED-CT () 2020-05-28 completed [address] [place], 271624031 [id number] SNOMED-CT () 2020-06-28 completed [address] [place], 392289904 [id number] SNOMED-CT () 2020-07-29 completed [address] [place], 616377360 [id number] SNOMED-CT () 2020-08-28 completed [address] [place], [place], [id number] [phone] SNOMED-CT () 2020-09-28 completed [address] [place], 391915206 [phone] SNOMED-CT () 2019-10-28 completed [address] [place], 372772584 [id number] SNOMED-CT () 2019-11-28 completed [address] [place], 676056950 [id number] SNOMED-CT () 2019-12-29 completed [address] [place], 755556004 [phone] SNOMED-CT () 2020-01-27 completed [address] [place], 118590124 [id number] SNOMED-CT () 2020-02-27 completed [address] [place], 108449109 [id number] SNOMED-CT () 2020-03-28 completed [address] [place], 655823266 [id number] SNOMED-CT () 2019-05-28 completed [address] [place], 869811289 [phone] SNOMED-CT () 2019-06-28 completed [facility] [address] [place] [address], [id number] [phone] SNOMED-CT () 2019-06-29 completed [address] [place], 645105248 [phone] SNOMED-CT () 2019-07-29 completed [facility] [facility] [address] [place], [place], 641961672 [phone] SNOMED-CT () 2019-08-28 completed [address] [place], 430409411 [id number] SNOMED-CT () 2019-09-28 completed [address] [place], [id number] SNOMED-CT () 2018-11-28 completed [address] [place], 004420596 [id number] SNOMED-CT () 2018-12-29 completed [address] [place], 435516357 [phone] SNOMED-CT () 2019-01-26 completed [address] [place], 650704628 [id number] SNOMED-CT () 2019-02-26 completed [address] [place], 893745135 [id number] SNOMED-CT () 2019-03-28 completed [address] [place], 762014899 [id number] SNOMED-CT () 2019-04-28 completed [address] [place], 377334050 [id number] SNOMED-CT () 2018-05-28 completed [address] [place], 888426020 [phone] SNOMED-CT () 2018-06-28 completed [address] [place] NY, 398146654 [id number] SNOMED-CT () 2018-07-29 completed [address] [place] NY, 358337908 [id number] SNOMED-CT () 2018-08-28 completed [address] [place], 731946040 [id number] SNOMED-CT () 2018-09-28 completed [address] [place] NY, 645670333 [id number] SNOMED-CT () 2018-10-28 completed [address] [place] NY, 393207361 [id number] SNOMED-CT () 2017-11-28 completed [address] [place], 931153904 [id number] SNOMED-CT () 2017-12-29 completed [address] [place], 409589520 [id number] SNOMED-CT () 2018-01-26 completed [address] [place] NY, 647250205 [id number] SNOMED-CT () 2018-02-26 completed [address] [place], 997789523 [id number] SNOMED-CT () 2018-03-28 completed [address] [place], NY, 624556329 [id number] SNOMED-CT () 2018-04-28 completed [address] [place], 023974519 [phone] SNOMED-CT () 2017-05-28 completed [facility] [address] [place] [address], [id number] [id number] SNOMED-CT () 2017-06-28 completed [facility] [address] [place] [address], [id number] [id number] SNOMED-CT () 2017-07-29 completed [facility] [address], 558582693 [id number] SNOMED-CT () 2017-08-28 completed [address] [place], 262854421 [id number] SNOMED-CT () 2017-09-28 completed [address] [place], 958279733 [id number] SNOMED-CT () 2017-10-28 completed [address] [place], 097647819 [id number] SNOMED-CT () 2016-11-28 completed [facility] [address], 386226991 [id number] SNOMED-CT () 2016-12-29 completed [facility] [address], 285907603 [id number] SNOMED-CT () 2017-01-26 [address] [place] [address], 498602502 [id number] SNOMED-CT () 2017-02-26 completed [facility] [address], 468097857 [phone] SNOMED-CT () 2017-03-28 completed [facility] [address], 464840264 [id number] SNOMED-CT () 2017-04-28 completed [facility] [address], 039335204 [phone] SNOMED-CT () 2016-03-28 completed [facility] [address], 742321063 [id number] SNOMED-CT () 2016-04-28 completed [facility] [address], 540622554 [phone] SNOMED-CT () 2016-05-28 completed [facility] [address] NY, 405100790 [id number] SNOMED-CT () 2016-06-28 completed [facility] [address] [place], 901290037 [id number] SNOMED-CT () 2016-07-29 completed [facility] [address] [place], 711813779 [id number] SNOMED-CT () 2016-08-28 completed [facility] [address] [place], 167537116 [phone] SNOMED-CT () 2015-09-28 completed [facility] [address] [place] NY, 080036389 [id number] SNOMED-CT () 2015-10-28 completed [facility] [address] [place], 926466650 [id number] SNOMED-CT () 2015-11-28 completed [facility] [address] [place], 533391019 [id number] SNOMED-CT () 2015-12-29 completed [facility] [address] [place], 619367700 [id number] SNOMED-CT () 2016-01-27 completed [facility] [address] [place], 590519040 [id number] SNOMED-CT () 2016-02-27 completed [facility] [address] [place], 937515907 [id number] SNOMED-CT () 2016-07-29 completed [facility] [address] [place], 136628913 [id number] SNOMED-CT () 2016-12-29 completed [facility] [address] [place] NY, 235998441 [id number] SNOMED-CT () 2016-04-28 completed [facility] [address] [place], 808141745 [id number] SNOMED-CT () 2016-05-28 completed [facility] [address] [place], 417040903 [phone] SNOMED-CT () 2016-02-27 completed [facility] [address] [place] NY, 272428201 [id number] SNOMED-CT () 2016-08-28 completed [facility] [address] [place] NY, 590418338 [id number] SNOMED-CT () 2016-03-28 completed [facility] [address] [place] NY, 495756603 [id number] SNOMED-CT () 2016-06-28 completed [facility] [address] [place], 223834324 [id number] SNOMED-CT () 2016-11-28 completed [facility] [address], 005897155 [id number] SNOMED-CT () 2019-10-28 completed [address] [place], 439571112 [id number] SNOMED-CT () 2019-11-28 completed [address] [place], 632817426 [id number] SNOMED-CT () 2019-12-29 completed [address] [place], 996341727 [id number] SNOMED-CT () 2015-03-28 completed [facility] [address], 038095965 [id number] SNOMED-CT () 2015-04-28 completed [facility] [address], 863866263 [id number] SNOMED-CT () 2015-05-28 completed [facility] [address] [place], 439650367 [id number] SNOMED-CT () 2015-06-28 completed [facility] [address] NY, 256535285 [id number] SNOMED-CT () 2015-07-29 completed [facility] [address] NY, 745039571 [id number] SNOMED-CT () 2015-09-28 completed [facility] [address] NY, 002694110 [id number] SNOMED-CT () 2015-08-28 completed [facility] [address] NY, 965913985 [id number] SNOMED-CT () 2016-09-28 completed [facility] [address] NY, 364535317 [id number] SNOMED-CT () 2015-03-10 completed [facility] [address], 391774897 [id number] SNOMED-CT () 2018-05-28 completed [address] [place], 523179579 [id number] SNOMED-CT () 2016-10-28 completed [facility] [address], 657705097 [id number] SNOMED-CT () 2020-02-27 completed [address] [place], NY, 275385149 [phone] SNOMED-CT () 2021-02-26 completed [address] [place] NY, 490967789 [id number] SNOMED-CT () 2021-03-28 completed [address] [place] NY, 869599339 [phone] SNOMED-CT () 2021-04-28 completed [address] [place] NY, 819651439 [id number] SNOMED-CT () 2021-05-28 completed [address] [place] NY, 197430853 [id number] SNOMED-CT () 2021-06-28 completed [address] [place], 658924024 [id number] SNOMED-CT () 2021-07-29 completed [address] [place], 635759716 [id number] SNOMED-CT () 2020-08-28 completed [address] [place] NY, 609918536 [id number] SNOMED-CT () 2020-09-28 completed [address] [place], 487894832 [id number] SNOMED-CT () 2020-10-28 completed [address] [place], 341657568 [id number] SNOMED-CT () 2020-11-28 completed [address] [place] NY, 204821072 [id number] SNOMED-CT () 2020-12-29 completed [address] [place], [place], 841442922 [id number] SNOMED-CT () 2021-01-26 completed [address] [place] NY, 800007618 [id number] SNOMED-CT () 2020-01-27 completed [address] [place], 218402791 [id number] SNOMED-CT () 2020-03-28 completed [address] [place] NY, 267191169 [id number] SNOMED-CT () 2020-04-28 completed [address] [place], 901357097 [id number] SNOMED-CT () 2020-05-28 completed [address] [place] NY, 350853127 [phone] SNOMED-CT () 2020-06-28 completed [address] [place], 802754091 [id number] SNOMED-CT () 2020-07-29 completed [address] [place], 531083314 [id number] SNOMED-CT () 2019-07-29 completed [address] [place], 911365942 [id number] SNOMED-CT () 2019-08-28 completed [address] [place], 222840273 [id number] SNOMED-CT () 2019-09-28 completed [address] [place], 622202855 [id number] SNOMED-CT () 2019-10-28 completed [address] [place], 342474865 [id number] SNOMED-CT () 2019-11-28 completed [address] [place], 837547513 [id number] SNOMED-CT () 2019-12-29 completed [address] [place], 843306551 [id number] SNOMED-CT () 2019-01-26 completed [address] [place], 084231434 [id number] SNOMED-CT () 2019-02-26 completed [address] [place], 565900716 [id number] SNOMED-CT () 2019-03-28 completed [address] [place], 712599234 [id number] SNOMED-CT () 2019-04-28 completed [address] [place], 896116230 [id number] SNOMED-CT () 2019-05-28 completed [address] [place], 894693362 [id number] SNOMED-CT () 2019-06-28 completed [facility] [facility] [address] [place] [address], 489776427 [phone] SNOMED-CT () 2018-07-29 completed [address] [place], 479164164 [id number] SNOMED-CT () 2018-08-28 completed [address] [place], 051405766 [id number] SNOMED-CT () 2018-09-28 completed [address] [place] NY, 328349681 [id number] SNOMED-CT () 2018-10-28 completed [address] [place], 176027835 [id number] SNOMED-CT () 2018-11-28 completed [address] [place], 075705033 [id number] SNOMED-CT () 2018-12-29 completed [address] [place], 958878839 [id number] SNOMED-CT () 2017-12-29 completed [address] [place] NY, 639327990 [id number] SNOMED-CT () 2018-01-26 completed [address] [place], 187995299 [id number] SNOMED-CT () 2018-02-26 completed [address] [place] NY, 924534536 [id number] SNOMED-CT () 2018-03-28 completed [address] [place], NY, 951134195 [id number] SNOMED-CT () 2018-04-28 completed [address] [place], 833132783 [id number] SNOMED-CT () 2018-06-28 completed [address] [place] NY, 970880984 [id number] SNOMED-CT () 2017-06-28 completed [facility] [address], 527942368 [id number] SNOMED-CT () 2017-07-29 completed [facility] [address], 766205854 [id number] SNOMED-CT () 2017-08-28 completed [address] [place], 474822176 [id number] SNOMED-CT () 2017-09-28 completed [address] [place], 437072665 [id number] SNOMED-CT () 2017-10-28 completed [address] [place] NY, 460938563 [id number] SNOMED-CT () 2017-11-28 completed [address] [place] NY, 587245908 [id number] SNOMED-CT () 2016-12-29 completed [facility] [address], 395162824 [id number] SNOMED-CT () 2017-01-26 completed [facility] [address], 632683459 [id number] SNOMED-CT () 2017-02-26 completed [facility] [address] [place], 009760682 [id number] SNOMED-CT () 2017-03-28 completed [facility] [address] [place], 293099237 [id number] SNOMED-CT () 2017-04-28 completed [facility] [address] [place], 463056816 [id number] SNOMED-CT () 2017-05-28 completed [facility] [address] [place], 842533553 [id number] SNOMED-CT () 2016-04-28 completed [facility] [address] NY, 929753129 [id number] SNOMED-CT () 2016-05-28 completed [facility] [address] [place] NY, 048357472 [id number] SNOMED-CT () 2016-06-28 completed [facility] [address] [place], 910883496 [id number] SNOMED-CT () 2016-07-29 completed [facility] [address], 205976824 [id number] SNOMED-CT () 2016-08-28 completed [facility] [address] [place], 314387210 [id number] SNOMED-CT () 2016-11-28 completed [facility] [address] [place], 548790992 [id number] SNOMED-CT () 2015-10-28 completed [address] [place], 063996967 [id number] SNOMED-CT () 2015-11-28 completed [facility] [address] [place], 816968959 [id number] SNOMED-CT () 2015-12-29 completed [facility] [address] [place], 825018420 [id number] SNOMED-CT () 2016-01-27 completed [facility] [address] [place], 861779054 [id number] SNOMED-CT () 2016-02-27 completed [facility] [address] [place], 937592402 [id number] SNOMED-CT () 2016-03-28 completed [facility] [address] [place], 095063825 [id number] SNOMED-CT () 2015-09-30 completed [facility] [address], 051267307 [id number] SNOMED-CT () 2017-07-12 completed [address], 079128532 [id number] SNOMED-CT () 2019-06-29 completed [facility] [address], 657271615 [id number] SNOMED-CT () 2020-12-24 completed [address] [place] [address], 349385397 [id number] SNOMED-CT () 2017-08-28 completed [address] [place], [place], 545707689 [id number] SNOMED-CT () 2017-09-28 completed [address] [place], 249002084 [id number] SNOMED-CT () 2016-09-28 completed [facility] [address], 760235142 [id number] SNOMED-CT () 2016-09-28 completed [facility] [address], 407318878 [id number] SNOMED-CT () 2016-09-28 completed [facility] [address], 066240371 [id number] SNOMED-CT () 2016-09-28 completed [facility] [address] [place], 758858294 [id number] SNOMED-CT () 2016-09-28 completed [facility] [address] [place] NY, 351669935 [id number] SNOMED-CT () 2016-09-28 completed [facility] [address] [place], 997456367 [id number] SNOMED-CT () 2016-09-28 completed [facility] [address] [place], 165440259 [id number] SNOMED-CT () 2016-09-28 completed [facility] [address] [place], 444635962 [id number] SNOMED-CT () 2016-09-28 completed [facility] [address] [place], 269247469 [id number] SNOMED-CT () 2016-09-28 completed [facility] [address] [place], 656825622 [id number] SNOMED-CT () 2016-09-28 completed [facility] [address], 446489294 [phone] Encounters/Encounter Diagnoses Encounter Name Encounter Code Diagnosis Code Diagnosis Name Diagnosis CodeSystem Date of Diagnosis Service Delivery L ocation non-billable [id number] Attention-deficit hyperactivity disorder, combined typ e SNOMED-CT 2019-07-31 [facility] , , , Vital Signs Code CodeSystem Vitals Date Value 8302-2 LOINC Height 2019-07-17 70 [in_i] 8480-6 [facility] Blood Press ure-Systolic 2019-07-17 74 mm[HG] 8462-4 [facility] Blood Press ure-Diastolic 2019-07-17 115 mm[HG] 8867-4 [facility] Heart Rate 2019-07-17 69 /min 96041-9 LO[facility] Weight 2019-07-17 228 [lb_av] 32314-7 LO[facility] BMI 2019-07-17 32.71 (lb/in2) Social History Element Description Description Start Date End Date Code CodeSystem AdditionalInfo SexAssignedAtBirth Male 2000 M AdministrativeGender [facility] Discharge Instructions * Reason For Referral Medical Equipment * FDA Assessments *
--- OUTSIDE RECORDS SUMMARY | 2021-09-21 11:34 | CCD ---
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[employer] Name Role Phone Ninoska Licona PCP Unavailable Allergies, Adverse Reactions, Alerts Allergy Substance Code C odeSystem Reaction Severity Critic ality Status Start Date hydroxyzine hcl 050198 R xNorm aggression Moderate Active 2020-04-20 Medications Medication Medication Code Medication CodeSystem Start Date Stop Date Route Dose Status Fill Instructions trazodone [id number] RxNorm 2015-10-07 2015-10-21 oral 50 mg tablet completed for 30 day(s) Adderall XR 870899 RxNorm 2017-01-24 2017-03-04 oral 15 mg capsule,extended release 24hr completed for 30 day(s) Adderall XR 767909 RxNorm 2015-10-29 2016-03-04 oral 5 mg capsule,extended release 24hr completed for 30 day(s) Adderall XR 594756 RxNorm 2015-09-23 2016-05-03 oral 10 mg capsule,extended release 24hr completed for 30 day(s) Adderall XR 942197 RxNorm 2015-12-08 2016-03-04 oral 5 mg capsule,extended release 24hr completed for 30 day(s) haloperidol 326573 RxNorm 2017-07-11 2017-08-03 oral 1 mg tablet completed trazodone 174451 RxNorm 2016-01-13 2016-04-06 oral 50 mg tablet completed for 30 day(s) haloperidol 067601 RxNorm 2017-08-03 2017-09-21 oral 1 mg 1 tablet three times a day completed Take 1 tablet by mouth three times a day for 30 day(s) Lamictal 709519 RxNorm 2017-09-21 2017-09-26 oral 25 mg tablet completed Adderall XR 164669 RxNorm 2016-05-06 2016-05-27 oral 5 mg capsule,extended release 24hr completed for 30 day(s) Abilify 518292 RxNorm 2017-08-31 2017-10-30 oral 5 mg tablet completed for 30 day(s) Abilify 274944 RxNorm 2015-06-17 2016-05-03 oral 15 mg tablet completed for 30 day(s) Abilify 796591 RxNorm 2019-07-03 2019-07-17 oral 5 mg tablet completed for 30 day(s) Lexapro 987051 RxNorm 2016-04-06 2016-07-20 oral 20 mg tablet completed for 30 day(s) trazodone 267305 RxNorm 2018-06-22 2018-08-21 oral 50 mg tablet completed for 30 day(s) Adderall XR 139635 RxNo 2016-12-24 2017-01-22 oral 15 mg capsule,extended release 24hr completed for 30 day(s) Adderall XR 612246 RxNorm 2015-12-08 2016-05-03 oral 10 mg capsule,extended release 24hr completed for 30 day(s) lamotrigine 201867 RxNo 2020-02-04 2020-06-17 oral 100 mg tablet active for 30 day(s) Lamictal 558660 RxNo 2018-08-21 2018-10-15 oral 100 mg tablet completed for 30 day(s) Lexapro 985792 RxNo 2016-08-16 2016-09-23 oral 20 mg tablet completed for 30 day(s) Adderall XR 352964 RxNorm 2015-11-18 2016-03-04 oral 5 mg capsule,extended release 24hr completed for 30 day(s) Lexapro 278738 RxNorm 2015-03-25 2016-04-06 oral 10 mg tablet completed for 30 day(s) duloxetine 307791 RxNorm 2020-02-20 2020-06-17 oral 30 mg capsule,delayed release(DR/EC) active for 30 day(s) Aristada 6180871 RxNorm 2017-08-03 2017-08-24 IM 882 mg/3.2 mL suspension,extended rel syring completed Lamictal 612680 RxNo 2017-08-10 2017-09-21 oral 25 mg tablet completed for 30 day(s) aripiprazole 122268 RxNo 2020-02-20 2020-06-17 or al 15 mg tablet active for 30 day(s) Adderall XR 824379 RxNorm 2016-08-16 2016-09-15 oral 10 mg capsule,extended release 24hr completed for 30 day(s) Lexapro 777667 RxNorm 2015-06-17 2016-04-06 oral 20 mg 1 tablet once a day completed Take 1 tablet by mouth once a day for 30 day(s) hydroxyzine pamoate 249853 RxNo 2016-12-24 2017-09-08 or al 25 mg capsule completed for 30 day(s) escitalopram oxalate 017680 RxNo 2015-07-15 2016-04-06 or al 10 mg 1 tablet every morning complet ed Take 1 tablet by mouth every morning fo r 30 day(s) Adderall XR 034490 RxNo 2016-03-09 2016-05-03 oral 10 mg capsule,extended release 24hr completed for 30 day(s) Vitamin D3 005137 RxNo 2019-08-13 2019-11-30 oral 50 mcg (2,000 unit) capsule completed for 30 day(s) Adderall XR 951768 RxNo 2016-06-07 2016-06-23 oral 5 mg capsule,extended release 24hr completed for 30 day(s) [facility] 2016-04-06 oral 50 mg tablet completed for 30 day(s) Adderall XR 084901 RxNo 2015-09-10 2016-03-04 oral 5 mg capsule,extended release 24hr completed for 30 day(s) Abilify 785251 RxNo 2015-12-23 2016-04-06 oral 20 mg tablet completed for 30 day(s) Abilify 594824 RxNorm 2018-08-21 2018-10-15 oral 20 mg tablet completed for 30 day(s) Abilify 762152 RxNo 2018-12-26 2019 oral 30 mg tablet completed for 30 day(s) Zoloft 685124 RxNo 2019-03-26 2019-06-24 oral 50 mg tablet completed for 30 day(s) buspirone 625327 RxNo 2016-06-07 2016-06-23 oral 5 mg tablet completed for 30 day(s) haloperidol 907670 RxNo 2017-09-29 2017-10-05 oral 1 mg tablet completed Adderall XR 625810 RxNo 2016-06-07 2016-06-23 oral 10 mg capsule,extended release 24hr completed for 30 day(s) Adderall XR 735794 RxNo 2018-12-20 2019 oral 20 mg capsule,extended release 24hr completed for 30 day(s) [facility]3426 [facility] 2016-05-03 oral 1 mg capsule completed for 6 day(s) Adderall XR 381513 RxNo 2015-10-07 2016-03-04 oral 5 mg capsule,extended release 24hr completed for 30 day(s) [facility]30013 [facility] 2016-08-16 2016-09-15 oral 5 mg capsule,extended release 24hr completed for 30 day(s) [facility] 403145 [facility] 2016-05-03 oral 10 mg capsule,extended release 24hr completed for 30 day(s) [facility] 356760 [facility] 2018-03-15 2018-04-14 oral 15 mg capsule,extended release 24hr completed for 30 day(s) [facility]8499 [facility] 2016-04-05 2016-05-05 oral 5 mg capsule,extended release 24hr completed for 30 day(s) aripiprazole 226483 [facility] 2019-10-01 2020-01-15 or al 10 mg tablet completed for 30 day(s) [facility] 333851 [facility] 2016-04-06 2016-06-05 oral 50 mg 1 tablet at bedtime completed Take 1 tablet by mouth at bedtime as needed for 30 day(s) Benadryl 1516908 RxNo 2018-01-30 2018-06-22 oral 25 mg capsule completed lamotrigine 671201 RxNo 2019-03-12 2019-04-11 oral 100 mg tablet completed for 30 day(s) [facility] 096053 [facility] 2015-10-20 2016-04-06 oral 50 mg tablet completed for 30 day(s) [facility] 338745 [facility] 2016-11-26 2017-08-24 oral 20 mg tablet completed for 21 day(s) buspirone 383733 RxNo 2016-06-23 2016-09-23 oral 5 mg 1 tablet every morning completed Take 1 tablet by mouth every morning for 30 day(s) [facility] 887921 [facility] 2016-06-23 2016-07-20 oral 25 mg 1 capsule twice a day completed Take 1 capsule by mouth twice a day for 30 day(s) Vitamin D3 097707 RxNo 2019-12-07 2020-01-06 oral 50 mcg (2,000 unit) capsule completed for 30 day(s) [facility] 653269 [facility] 2018-02-27 2018-04-10 oral 20 mg tablet completed for 21 day(s) [facility] 734753 [facility] 2015-12-08 2016-04-06 oral 5 mg tablet completed for 30 day(s) [facility] 634071 [facility] 2019-10-29 2019-12-16 oral 15 mg tablet completed for 30 day(s) [facility] 306195 [facility] 2015-04-23 2016-05-03 oral 10 mg capsule,extended release 24hr completed for 30 day(s) Adderall XR 217399 RxNo 2015-08-26 2016-05-03 oral 10 mg capsule,extended release 24hr completed for 30 day(s) [facility] 102697 [facility] 2015-12-23 2016-04-06 oral 5 mg tablet completed for 30 day(s) Abilify 665743 [facility] 2019 2019-03-17 oral 10 mg tablet completed for 30 day(s) buspirone 561294 RxNo 2016-04-06 2016-06-07 oral 5 mg 1 tablet every morning completed Take 1 tablet by mouth every morning for 30 day(s) Adderall XR 320391 RxNo 2018-10-24 2018-12-16 oral 20 mg capsule,extended release 24hr completed for 30 day(s) Adderall XR 759579 RxNo 2016-06-23 2016-07-20 oral 5 mg capsule,extended release 24hr completed for 30 day(s) Adderall XR 062473 RxNo 2015-12-23 2016-03-04 oral 5 mg capsule,extended release 24hr completed for 30 day(s) Adderall XR 584248 RxNorm 2016-06-23 2016-07-20 oral 10 mg capsule,extended release 24hr completed for 30 day(s) Adderall XR 178676 RxNorm 2018-07-19 2018-08-18 oral 15 mg capsule,extended release 24hr completed for 30 day(s) Adderall XR 141768 RxNorm 2019 2019-02-18 oral 20 mg capsule,extended release 24hr completed for 30 day(s) Lexapro 592450 RxNorm 2016-04-06 2016-07-20 oral 10 mg tablet completed for 30 day(s) hydroxyzine pamoate 134386 RxNorm 2017-09-08 2017-09-28 or al 25 mg capsule completed for 30 day(s) Abilify 913220 RxNorm 2019-07-17 2019-09-13 oral 10 mg tablet completed for 30 day(s) Lexapro 935399 RxNorm 2016-07-20 2016-11-17 oral 10 mg tablet completed for 30 day(s) Lexapro 631744 RxNorm 2015-08-12 2016-04-06 oral 10 mg tablet completed for 30 day(s) Adderall XR 473379 RxNorm 2016 2016-03-04 oral 5 mg capsule,extended release 24hr completed for 30 day(s) Lamictal 223696 RxNorm 2019-01-08 2019-03-09 oral 100 mg tablet completed for 30 day(s) Abilify 444620 RxNorm 2018-07-19 2018-08-18 oral 20 mg tablet completed for 30 day(s) Lamictal 517445 RxNorm 2017-09-26 2017-09-29 oral 100 mg tablet completed sertraline 743975 RxNorm 2019-12-07 2020-01-04 oral 50 mg tablet completed for 30 day(s) Adderall XR 415502 RxNorm 2017-06-20 2017-09-23 oral 15 mg capsule,extended release 24hr completed for 30 day(s) Lexapro 532600 RxNorm 2016-07-20 2016-08-16 oral 20 mg tablet completed for 30 day(s) melatonin 429199 RxNorm 2019-08-14 2019-09-13 oral 3 mg capsule completed for 30 day(s) Lamictal 645106 RxNo 2017-09-21 2017-09-21 oral 25 mg tablet completed for 30 day(s) sertraline 392811 RxNorm 2019-06-29 2019-07-29 oral 50 mg tablet completed for 30 day(s) Abilify 460397 RxNorm 2018-05-22 2018-07-03 oral 20 mg tablet completed for 21 day(s) Abilify 521973 RxNorm 2015-04-23 2016-05-03 oral 15 mg tablet completed for 30 day(s) Vitamin D3 079671 RxNo 2016-12-24 2017-10-23 oral 2,000 unit capsule completed for 30 day(s) [facility]129 [facility] 2016-04-06 2016-06-11 oral 20 mg tablet completed for 30 day(s) Adderall XR 557872 RxNo 2018-04-20 2018-05-20 oral 15 mg capsule,extended release 24hr completed for 30 day(s) Lexapro 876704 RxNo 2015-04-23 2016-04-06 oral 10 mg tablet completed for 30 day(s) [facility]00664 [facility] 2015-08-12 2016-04-06 oral 20 mg tablet completed for 30 day(s) Lamictal 745671 RxNo 2017-09-29 2017-10-05 oral 100 mg tablet completed for 30 day(s) [facility] 261094 [facility] 2015-12-23 2016-05-03 oral 10 mg capsule,extended release 24hr completed for 30 day(s) Adderall XR 035126 RxNo 2019-07-09 2019-08-08 oral 20 mg 1 capsule,extended release 24hr once a day completed Take 1 capsule by mouth once a day for 30 day(s) trazodone 916172 RxNo 2015-06-17 2016-04-06 oral 50 mg tablet completed for 30 day(s) [facility] 133675 [facility] 2016-07-20 2016-10-18 oral 25 mg 1 capsule three times a day complete d Take 1 capsule by mouth three times a day for 30 day(s) Zoloft 491381 RxNo 2019-08-02 2019-09-13 oral 50 mg tablet completed for 30 day(s) Adderall XR 407869 RxNo 2018-05-22 2018-07-14 oral 15 mg capsule,extended release 24hr completed for 30 day(s) Adderall XR 714810 RxNo 2017-11-14 2018-03-01 oral 15 mg capsule,extended release 24hr completed for 30 day(s) Adderall XR 675120 RxNo 2015-06-17 2016-05-03 oral 10 mg capsule,extended release 24hr completed for 30 day(s) [facility]23537 [facility] 2015-03-25 2016-05-03 oral 15 mg tablet completed for 30 day(s) [facility] 720966 [facility] 2018-03-28 2018-08-18 oral 100 mg tablet completed for 30 day(s) Abilify 437198 [facility] 2017-08-24 2017-08-31 oral 20 mg tablet completed for 21 day(s) aripiprazole 652611 [facility] 2020-02-04 2020-02-20 or al 10 mg tablet completed for 30 day(s) Abilify 348409 [facility] 2018-10-24 2018-10-25 oral 15 mg tablet completed for 30 day(s) [facility] 640307 [facility] 2018-12-08 2018-12-15 oral 10 mg tablet completed for 7 day(s) mirtazapine 982855 [facility] 2019-09-13 2019-10-29 oral 7.5 mg tablet completed for 30 day(s) Adderall XR 611911 RxNo 2015-08-12 2016-03-04 oral 5 mg capsule,extended release 24hr completed for 30 day(s) Adderall XR 141304 RxNo 2016-03-04 2016-04-03 oral 5 mg capsule,extended release 24hr completed for 30 day(s) Adderall XR 388720 RxNo 2016-04-06 2016-05-06 oral 10 mg capsule,extended release 24hr completed for 30 day(s) [facility]3496 [facility] 2017-03-07 2017-06-01 oral 15 mg capsule,extended release 24hr completed for 30 day(s) [facility] 564094 [facility] 2017-11-14 2017-11-17 oral 5 mg tablet completed for 30 day(s) diphenhydramine HCl 2125373 RxNorm 2015-03-25 2016-05-03 or al 50 mg tablet completed for 30 day(s) Adderall XR 848382 RxNorm 2015-08-05 2016-05-03 oral 10 mg capsule,extended release 24hr completed for 30 day(s) haloperidol 346615 RxNorm 2017-09-21 2017-09-29 oral 1 mg 1 tablet twice a day completed Take 1 tablet by mouth twice a day Lamictal 111740 RxNorm 2018-10-24 2018-12-24 oral 100 mg tablet completed for 30 day(s) Adderall XR 569959 RxNorm 2015-11-18 2016-05-03 oral 10 mg capsule,extended release 24hr completed for 30 day(s) Adderall XR 139095 RxNorm 2017-10-12 2017-11-11 oral 15 mg capsule,extended release 24hr completed for 30 day(s) Abilify 863692 RxNorm 2015-10-07 2016-05-03 oral 15 mg tablet completed for 30 day(s) Vitamin D3 780033 RxNorm 2018-03-28 2018-11-14 oral 2,000 unit capsule completed for 30 day(s) Vitamin D3 196083 RxNorm 2020-01-22 2020-07-17 oral 50 mcg (2,000 unit) capsule active for 30 day(s) Adderall XR 674293 RxNo 2016-05-27 2016-06-07 oral 5 mg capsule,extended release 24hr completed for 30 day(s) melatonin 822197 RxNorm 2017-09-28 2017-10-05 oral 3 mg 2 tablet at bedtime completed Take 2 tablet by mouth at bedtime sertraline 173831 RxNorm 2019-10-01 2019-12-07 oral 50 mg tablet completed for 30 day(s) Adderall XR 731070 RxNorm 2019-04-02 2019-05-02 oral 20 mg capsule,extended release 24hr completed for 30 day(s) Lamictal 009605 RxNorm 2017-10-05 2018-03-28 oral 100 mg tablet completed Abilify 081064 RxNorm 2019-03-19 2019-04-12 oral 10 mg tablet completed for 30 day(s) sertraline 474460 RxNorm 2020-01-04 2020-02-03 oral 25 mg tablet completed for 30 day(s) Lamictal 209511 RxNorm 2017-08-03 2017-08-10 oral 25 mg 1 tablet once a day completed Take 1 tablet by mouth once a day for 30 day(s) Vitamin D3 668627 RxNorm 2017-11-14 2018-03-10 oral 2,000 unit capsule completed for 30 day(s) haloperidol 835105 RxNorm 2016-09-23 2017-07-11 oral 1 mg tablet completed for 30 day(s) Vitamin D3 886863 RxNorm 2018-11-15 2019-03-15 oral 2,000 unit capsule completed for 30 day(s) Adderall XR 646511 RxNo 2016-05-27 2016-06-07 oral 10 mg capsule,extended release 24hr completed for 30 day(s) Abilify 823579 RxNo 2017-11-17 2017-12-29 oral 20 mg tablet completed for 21 day(s) Adderall XR 490518 RxNo 2016-07-20 2016-08-16 oral 5 mg capsule,extended release 24hr completed for 30 day(s) Cymbalta 264625 RxNo 2020-01-04 2020-02-03 oral 20 mg capsule,delayed release(DR/EC) completed for 30 day(s) Lexapro 673196 RxNo 2015-10-07 2016-04-06 oral 20 mg 1 tablet once a day completed Take 1 tablet by mouth once a day for 30 day(s) Lamictal 773403 RxNo 2019-04-17 2019-12-30 oral 100 mg tablet completed for 30 day(s) Adderall XR 814996 RxNorm 2015-03-25 2016-05-03 oral 10 mg capsule,extended release 24hr completed for 30 day(s) Adderall XR 837848 RxNorm 2018-08-21 2018-10-20 oral 15 mg capsule,extended release 24hr completed for 30 day(s) Adderall XR 735936 RxNorm 2019-05-07 2019-07-05 oral 20 mg 1 capsule,extended release 24hr once a day completed Take 1 capsule by mouth once a day for 30 day(s) Adderall XR 229554 RxNorm 2016-07-20 2016-08-16 oral 10 mg capsule,extended release 24hr completed for 30 day(s) duloxetine 812772 RxNorm 2020-02-04 2020-02-20 oral 20 mg capsule,delayed release(DR/EC) completed for 30 day(s) Abilify 764774 RxNorm 2016-04-06 2016-09-23 oral 20 mg tablet completed for 30 day(s) Abilify 483457 RxNorm 2019-04-12 2019-05-12 oral 5 mg tablet completed for 30 day(s) Zoloft 752738 RxNorm 2018-12-08 2019-01-07 oral 50 mg tablet completed for 30 day(s) hydroxyzine HCl 732949 R xNorm 2020-03-21 2020-04-20 or al 10 mg tablet completed for 30 day(s) Abilify 934738 RxNorm 2016-09-23 2016-11-26 oral 10 mg tablet completed for 30 day(s) Vitamin D3 505206 RxNorm 2019-04-03 2019-08-01 oral 2,000 unit capsule completed for 30 day(s) Adderall XR 316002 RxNorm 2015-10-29 2016-05-03 oral 10 mg capsule,extended release 24hr completed for 30 day(s) Lexapro 110676 RxNorm 2015-10-07 2016-04-06 oral 10 mg tablet completed for 30 day(s) Adderall XR 835820 RxNorm 2019-02-26 2019-03-28 oral 20 mg capsule,extended release 24hr completed for 30 day(s) Abilify 599679 RxNorm 2018-10-25 2018-12-24 oral 30 mg tablet completed for 30 day(s) Lamictal 602411 RxNorm 2017-09-26 2017-09-28 oral 25 mg tablet completed Lexapro 792693 RxNorm 2015-12-23 2016-04-06 oral 10 mg tablet completed for 30 day(s) Abilify 929064 RxNorm 2018-01-09 2018-02-20 oral 20 mg tablet completed for 21 day(s) Lexapro 208594 RxNorm 2015-12-23 2016-04-06 oral 20 mg tablet completed for 30 day(s) Lexapro 349497 RxNorm 2016-12-24 2018-12-08 oral 20 mg tablet completed Zoloft 119935 RxNorm 2019 2019-03-20 oral 50 mg tablet completed for 30 day(s) Adderall XR 442278 RxNorm 2016-05-10 2016-05-27 oral 10 mg capsule,extended release 24hr completed for 30 day(s) Adderall XR 443914 RxNorm 2015-10-07 2016-05-03 oral 10 mg capsule,extended release 24hr completed for 30 day(s) Problems Problem Name Code CodeSy stem Alternate Code Alternate CodeSystem Start Date End Date Status Narrative Attention-deficit hyperactivity disorder, combined ty pe [id number] SNOMED-CT 2015-08-22 Active Depressive episode, unspecified [id number] SNOMED-CT 2017-10-28 Active Disruptive mood dysregulation disorder [id number] SNOMED-CT 2017-07-26 Active Disruptive mood dysregulation disorder 755029047 SNOMED-CT 2017-10-28 Active Depressive episode, unspecified 76744350 SNOMED-CT 2017-10-28 Active Attention-deficit hyperactivity disorder, combined ty pe 00543246 SNOMED-CT 2015-08-22 Active Attention-deficit hyperactivity disorder, combined ty pe 89278548 SNOMED-CT 2015-08-22 Active Disruptive mood dysregulation disorder 679135938 SNOMED-CT 2017-10-28 Active Attention-deficit hyperactivity disorder, combined ty pe 57997954 SNOMED-CT 2015-08-22 Active Conduct disorder, childhood onset 6551195 8 SNOMED-CT 2016-09-23 Active Conduct disorder, childhood onset 0524651 8 SNOMED-CT 2016-09-23 Active Disruptive mood dysregulation disorder 006282781 SNOMED-CT 2017-10-28 Active Conduct disorder, childhood onset 6207544 8 SNOMED-CT 2016-09-23 Active Conduct disorder, childhood onset 8248131 8 SNOMED-CT 2016-09-23 Active Conduct disorder, childhood onset 5643282 8 SNOMED-CT 2016-09-23 Active Depressive episode, unspecified 59774998 SNOMED-CT 2017-07-26 Active Attention-deficit hyperactivity disorder, combined ty pe 07020688 SNOMED-CT 2015-08-22 Active Depressive episode, unspecified 67658836 SNOMED-CT 2017-10-28 Active Relevant diagnostic tests/laboratory data Narrative No Information Procedures Procedure Name Code Code System Target Site Date of Procedure Status Service Delivery Location Device Cod e Device Name Device UID Psychotherapy, 45 minutes with patient [id number] SNOMED-CT () 2015-03-[address], [id number] Psychotherapy, 45 minutes with patient [id number] SNOMED-CT () 2015-07-[address], [id number] Psychotherapy, 45 minutes with patient [id number] SNOMED-CT () 2015-08-[address], [id number] Psychotherapy, 45 minutes with patient [id number] SNOMED-CT () 2015-08-[address], [id number] Psychotherapy, 45 minutes with patient [id number] SNOMED-CT () 2015-08-[address], [id number] Psychotherapy, 45 minutes with patient [id number] SNOMED-CT () 2015-09-[address], [id number] Psychotherapy, 45 minutes with patient [id number] SNOMED-CT () 2016-12-[address], [id number] Psychotherapy, 45 minutes with patient [id number] SNOMED-CT () 2021-02-[address], [id number] Psychotherapy, 45 minutes with patient [id number] SNOMED-CT () 2021-03-[address], [id number] Psychotherapy, 45 minutes with patient [id number] SNOMED-CT () 2021-04-[address], [id number] Psychotherapy, 45 minutes with patient [id number] SNOMED-CT () 2021-05-[address], [id number] Psychotherapy, 45 minutes with patient [id number] SNOMED-CT () 2021-05-[address], [id number] Psychotherapy, 45 minutes with patient [id number] SNOMED-CT () 2021-06-[address], [id number] Psychotherapy, 45 minutes with patient [id number] SNOMED-CT () 2018-10-[address], [id number] Psychotherapy, 45 minutes with patient [id number] SNOMED-CT () 2019-02-[address], [id number] Psychotherapy, 45 minutes with patient [id number] SNOMED-CT () 2019-03-[address], [id number] Psychotherapy, 45 minutes with patient [id number] SNOMED-CT () 2019-07-[address], [id number] Psychotherapy, 45 minutes with patient [id number] SNOMED-CT () 2020-01-[address], [id number] Psychotherapy, 45 minutes with patient [id number] SNOMED-CT () 2020-05-[address], [id number] Psychotherapy, 45 minutes with patient [id number] SNOMED-CT () 2017-12-[address], [id number] Psychotherapy, 45 minutes with patient [id number] SNOMED-CT () 2017-12-[address], [id number] Psychotherapy, 45 minutes with patient [id number] SNOMED-CT () 2018-01-[address], [id number] Psychotherapy, 45 minutes with patient [id number] SNOMED-CT () 2018-04-[address], [id number] Psychotherapy, 45 minutes with patient [id number] SNOMED-CT () 2018-05-[address], [id number] Psychotherapy, 45 minutes with patient [id number] SNOMED-CT () 2018-08-[address], [id number] Psychotherapy, 45 minutes with patient [id number] SNOMED-CT () [address], [id number] Psychotherapy, 45 minutes with patient [id number] SNOMED-CT () 2017-03-[address], [id number] Psychotherapy, 45 minutes with patient [id number] SNOMED-CT () 2017-04-[address], [id number] Psychotherapy, 45 minutes with patient [id number] SNOMED-CT () 2017-04-[address], [id number] Psychotherapy, 45 minutes with patient [id number] SNOMED-CT () 2017-04-[address], [id number] Psychotherapy, 45 minutes with patient [id number] SNOMED-CT () 2017-11-[address], [id number] Psychotherapy, 45 minutes with patient [id number] SNOMED-CT () 2016-05-[address], [id number] Psychotherapy, 45 minutes with patient [id number] SNOMED-CT () 2016-06-[address], [id number] Psychotherapy, 45 minutes with patient [id number] SNOMED-CT () 2016-11-[address], [id number] Psychotherapy, 45 minutes with patient [id number] SNOMED-CT () 2016-12-[address], [id number] Psychotherapy, 45 minutes with patient [id number] SNOMED-CT () 2016-12-22 completed [address], [id number] Psychotherapy, 45 minutes with patient [id number] SNOMED-CT () 2017-01-[address], [id number] [id number] Psychotherapy, 45 minutes with patient [id number] SNOMED-CT () 2016-02-[address], [id number] [id number] Psychotherapy, 45 minutes with patient [id number] SNOMED-CT () 2016-02-[address], [id number] [phone] Psychotherapy, 45 minutes with patient [id number] SNOMED-CT () 2016-03-[address], [id number] [id number] Psychotherapy, 45 minutes with patient [id number] SNOMED-CT () 2016-03-[address], [id number] Psychotherapy, 45 minutes with patient [id number] SNOMED-CT () 2016-04-[address], [id number] [id number] Psychotherapy, 45 minutes with patient [id number] SNOMED-CT () 2016-05-[address], [id number] [id number] Psychotherapy, 45 minutes with patient [id number] SNOMED-CT () 2015-10-[address], [id number] Psychotherapy, 45 minutes with patient [id number] SNOMED-CT () 2015-12-[address], [id number] [id number] Psychotherapy, 45 minutes with patient [id number] SNOMED-CT () 2015-12-[address], [id number] [phone] Psychotherapy, 45 minutes with patient [id number] SNOMED-CT () 2015-12-[address], [id number] Psychotherapy, 45 minutes with patient [id number] SNOMED-CT () 2016-01-[address], [id number] Psychotherapy, 45 minutes with patient [id number] SNOMED-CT () 2016-01-[address], [id number] Initial Psychiatric Evaluation [id number] SNOMED-CT () 2017-07-[address], [id number] [phone] Family psychotherapy (without the patien t present), 50 minutes [id number] SNOMED-CT () 2015-04-[address], [id number] [id number] Family psychotherapy (without the patien t present), 50 minutes [id number] SNOMED-CT () 2015-04-[address], [id number] Psychotherapy - Family&Client 1 hr 1 [id number] SNOMED-CT () 2016-06-[address], [id number] Health Monitoring / Risk Reduction Counseling - Brief [id number] SNOMED-CT () 2019-05-[address], [id number] Health Monitoring / Risk Reduction Counseling - Interm ediate [id number] SNOMED-CT () 2019-05-[address], [id number] [id number] Health Monitoring / Risk Reduction Counseling - Expand ed [id number] SNOMED-CT () 2019-04-[address], [id number] [id number] Health Monitoring / Risk Reduction Counseling - Expand ed [id number] SNOMED-CT () 2019-06-[address], [id number] [id number] Est. Patient - E&M Intermediate [id number] SNOMED-CT () 2015-04-[address], [id number] [id number] Est. Patient - E&M Intermediate [id number] SNOMED-CT () 2015-08-[address], [id number] [phone] Est. Patient - E&M Intermediate [id number] SNOMED-CT () 2015-09-[address], [id number] [id number] Est. Patient - E&M Intermediate [id number] SNOMED-CT () 2015-11-[address], [id number] [id number] Est. Patient - E&M Intermediate [id number] SNOMED-CT () 2015-12-[address], [id number] [phone] Est. Patient - E&M Intermediate [id number] SNOMED-CT () 2015-12-[address], [id number] Est. Patient - E&M Intermediate [id number] SNOMED-CT () 2020-12-[address], [id number] [id number] Est. Patient - E&M Intermediate [id number] SNOMED-CT () 2021-03-[address], [id number] [id number] Est. Patient - E&M Intermediate [id number] SNOMED-CT () 2018-08-[address], [id number] [id number] Est. Patient - E&M Intermediate [id number] SNOMED-CT () 2018-09-[address], [id number] [id number] Est. Patient - E&M Intermediate [id number] SNOMED-CT () 2018-10-[address], [id number] [id number] Est. Patient - E&M Intermediate [id number] SNOMED-CT () 2018-12-[address], [id number] [phone] Est. Patient - E&M Intermediate [id number] SNOMED-CT () [address], [id number] [id number] Est. Patient - E&M Intermediate [id number] SNOMED-CT () 2019-06-[address], [phone] Est. Patient - E&M Intermediate [id number] SNOMED-CT () 2017-02-[address], [id number] [phone] Est. Patient - E&M Intermediate [id number] SNOMED-CT () 2017-03-[address], [id number] [id number] Est. Patient - E&M Intermediate [id number] SNOMED-CT () 2017-04-[address], [id number] [id number] Est. Patient - E&M Intermediate [id number] SNOMED-CT () 2017-05-[address], [id number] [id number] Est. Patient - E&M Intermediate [id number] SNOMED-CT () 2017-10-[address], [id number] [phone] Est. Patient - E&M Intermediate [id number] SNOMED-CT () 2017-11-[address], [id number] [phone] Est. Patient - E&M Intermediate [id number] SNOMED-CT () [address], [id number] [id number] Est. Patient - E&M Intermediate [id number] SNOMED-CT () 2016-05-[address], [id number] [id number] Est. Patient - E&M Intermediate [id number] SNOMED-CT () 2016-06-[address], [id number] [id number] Est. Patient - E&M Intermediate [id number] SNOMED-CT () 2016-06-[address], [id number] [phone] Est. Patient - E&M Intermediate [id number] SNOMED-CT () 2016-07-[address], [id number] [phone] Est. Patient - E&M Intermediate [id number] SNOMED-CT () 2017-01-[address], [id number] [id number] Est. Patient - E&M Brief [id number] SNOMED-CT () 2015-08-[address], [id number] [phone] Est. Patient - E&M Brief [id number] SNOMED-CT () 2015-10-[address], [id number] [id number] Est. Patient - E&M Brief [id number] SNOMED-CT () 2015-10-[address], [id number] [phone] Est. Patient - E&M Brief [id number] SNOMED-CT () 2016-03-[address], [id number] [id number] Est. Patient - E&M Brief [id number] SNOMED-CT () 2016-04-06 completed [address], [id number] [phone] Est. Patient - E&M Brief [id number] SNOMED-CT () 2016-08-[address], [id number] [id number] Est. Patient - E&M Brief [id number] SNOMED-CT () 2020-03-[address], [id number] [phone] Est. Patient - E&M Brief [id number] SNOMED-CT () 2020-04-[address], [id number] [phone] Est. Patient - E&M Brief [id number] SNOMED-CT () 2020-05-[address], [id number] [id number] Est. Patient - E&M Brief [id number] SNOMED-CT () 2020-07-[address], [id number] [phone] Est. Patient - E&M Brief [id number] SNOMED-CT () 2021-01-[address], [id number] Est. Patient - E&M Brief [id number] SNOMED-CT () 2020-02-[address], [id number] [phone] Est. Patient - E&M Brief [id number] SNOMED-CT () 2019-05-[address], [id number] [phone] Est. Patient - E&M Brief [id number] SNOMED-CT () 2019-08-[address], [id number] [phone] Est. Patient - E&M Brief [id number] SNOMED-CT () 2019-09-[address], [id number] [id number] Est. Patient - E&M Brief [id number] SNOMED-CT () 2019-10-[address], [id number] [id number] Est. Patient - E&M Brief [id number] SNOMED-CT () 2019-12-[address], [id number] [id number] Est. Patient - E&M Brief [id number] SNOMED-CT () 2020-01-[address], [id number] [id number] Est. Patient - E&M Brief [id number] SNOMED-CT () 2016-12-[address], [id number] [phone] Est. Patient - E&M Brief [id number] SNOMED-CT () 2017-09-[address], [id number] Est. Patient - E&M Brief [id number] SNOMED-CT () 2017-09-[address], [id number] [id number] Est. Patient - E&M Brief [id number] SNOMED-CT () 2017-09-[address], [id number] [id number] Est. Patient - E&M Brief [id number] SNOMED-CT () 2018-05-[address], [id number] [phone] Est. Patient - E&M Brief [id number] SNOMED-CT () 2019-04-[address], [id number] [phone] Est. Patient - E&M Expanded [id number] SNOMED-CT () 2015-03-[address], [id number] [id number] Est. Patient - E&M Expanded [id number] SNOMED-CT () 2015-05-[address], [id number] [id number] Est. Patient - E&M Expanded [id number] SNOMED-CT () 2015-06-[address], [id number] [phone] Est. Patient - E&M Expanded [id number] SNOMED-CT () 2015-07-[address], [id number] [phone] Est. Patient - E&M Expanded [id number] SNOMED-CT () 2017-07-[address], [id number] [id number] Est. Patient - E&M Expanded [id number] SNOMED-CT () 2017-08-[address], [id number] [id number] Est. Patient - E&M Expanded [id number] SNOMED-CT () 2019-07-[address], [id number] [phone] Est. Patient - E&M Expanded [id number] SNOMED-CT () 2019-07-[address], [id number] [id number] Est. Patient - E&M Expanded [id number] SNOMED-CT () 2021-05-[address], [id number] Est. Patient - E&M Expanded [id number] SNOMED-CT () 2021-06-[address], [id number] [id number] Est. Patient - E&M Expanded [id number] SNOMED-CT () 2021-07-[address], [id number] [id number] Est. Patient - E&M Expanded [id number] SNOMED-CT () 2018-01-[address], [id number] [phone] Est. Patient - E&M Expanded [id number] SNOMED-CT () 2018-01-[address], [id number] [id number] Est. Patient - E&M Expanded [id number] SNOMED-CT () 2018-02-[address], [id number] [phone] Est. Patient - E&M Expanded [id number] SNOMED-CT () 2018-03-[address], [id number] [id number] Est. Patient - E&M Expanded [id number] SNOMED-CT () 2018-04-[address], [id number] [id number] Est. Patient - E&M Expanded [id number] SNOMED-CT () 2018-06-[address], [id number] [phone] Est. Patient - E&M Expanded [id number] SNOMED-CT () 2017-08-10 completed [facility] [address], [id number] [phone] Est. Patient - E&M Expanded [id number] SNOMED-CT () 2017-08-[address], [id number] [phone] Est. Patient - E&M Expanded [id number] SNOMED-CT () 2017-09-[address], [id number] [phone] Est. Patient - E&M Expanded [id number] SNOMED-CT () 2017-09-[address], [id number] [id number] Est. Patient - E&M Expanded [id number] SNOMED-CT () 2017-10-[address], [id number] [id number] Est. Patient - E&M Expanded [id number] SNOMED-CT () 2017-12-[address], [id number] [phone] Individual Psychotherapy [id number] SNOMED-CT () 2015-03-[address], [id number] [phone] Individual Psychotherapy [id number] SNOMED-CT () 2015-04-[address], [id number] [phone] Individual Psychotherapy [id number] SNOMED-CT () 2015-05-[address], [id number] [id number] Individual Psychotherapy [id number] SNOMED-CT () 2015-05-[address], [id number] Individual Psychotherapy [id number] SNOMED-CT () 2015-05-[address], [id number] [id number] Individual Psychotherapy [id number] SNOMED-CT () 2015-05-[address], [id number] [id number] Individual Psychotherapy [id number] SNOMED-CT () 2020-03-[address], [id number] [id number] Individual Psychotherapy [id number] SNOMED-CT () 2021-01-[address], [id number] Individual Psychotherapy [id number] SNOMED-CT () 2021-02-[address], [id number] Individual Psychotherapy [id number] SNOMED-CT () 2021-03-[address], [id number] Individual Psychotherapy [id number] SNOMED-CT () 2021-03-[address], [id number] Individual Psychotherapy [id number] SNOMED-CT () 2021-03-[address], [id number] [id number] Individual Psychotherapy [id number] SNOMED-CT () 2020-04-[address], [id number] Individual Psychotherapy [id number] SNOMED-CT () 2019-09-[address], [id number] [id number] Individual Psychotherapy [id number] SNOMED-CT () 2020-02-[address], [place], [id number] [id number] Individual Psychotherapy [id number] SNOMED-CT () 2020-07-[address], [id number] [id number] Individual Psychotherapy [id number] SNOMED-CT () 2020-04-[address], [id number] [id number] Individual Psychotherapy [id number] SNOMED-CT () 2020-03-[address], [id number] Individual Psychotherapy [id number] SNOMED-CT () 2020-12-[address], [id number] [id number] Individual Psychotherapy [id number] SNOMED-CT () 2018-10-[address], [id number] Individual Psychotherapy [id number] SNOMED-CT () 2018-10-[address], [id number] Individual Psychotherapy [id number] SNOMED-CT () 2018-11-[address], [id number] Individual Psychotherapy [id number] SNOMED-CT () 2018-12-[address], [id number] [id number] Individual Psychotherapy [id number] SNOMED-CT () 2019-02-[address], [id number] Individual Psychotherapy [id number] SNOMED-CT () 2019-08-[address], [id number] [id number] Individual Psychotherapy [id number] SNOMED-CT () 2017-11-[address], [id number] Individual Psychotherapy [id number] SNOMED-CT () 2017-12-[address], [id number] Individual Psychotherapy [id number] SNOMED-CT () 2018-03-[address], [id number] [id number] Individual Psychotherapy [id number] SNOMED-CT () 2018-06-[address], [id number] [id number] Individual Psychotherapy [id number] SNOMED-CT () 2018-07-[address], [id number] Individual Psychotherapy [id number] SNOMED-CT () 2018-09-[address], [id number] [id number] Individual Psychotherapy [id number] SNOMED-CT () 2017-08-[address], [id number] Individual Psychotherapy [id number] SNOMED-CT () 2017-09-[address], [id number] Individual Psychotherapy [id number] SNOMED-CT () 2017-09-[address], [id number] Individual Psychotherapy [id number] SNOMED-CT () 2017-09-[address], [id number] [id number] Individual Psychotherapy [id number] SNOMED-CT () 2017-10-[address], [id number] Individual Psychotherapy [id number] SNOMED-CT () 2017-10-[address], [id number] [id number] Individual Psychotherapy [id number] SNOMED-CT () 2017-03-[address], [id number] [phone] Individual Psychotherapy [id number] SNOMED-CT () 2017-03-[address], [id number] Individual Psychotherapy [id number] SNOMED-CT () 2017-05-[address], [id number] Individual Psychotherapy [id number] SNOMED-CT () 2017-07-[address], [id number] Individual Psychotherapy [id number] SNOMED-CT () 2017-08-[address], [id number] Individual Psychotherapy [id number] SNOMED-CT () 2017-08-[address], [id number] Individual Psychotherapy [id number] SNOMED-CT () 2016-07-[address], [id number] [phone] Individual Psychotherapy [id number] SNOMED-CT () 2016-07-[address], [id number] Individual Psychotherapy [id number] SNOMED-CT () 2016-08-[address], [id number] Individual Psychotherapy [id number] SNOMED-CT () 2016-08-[address], [id number] Individual Psychotherapy [id number] SNOMED-CT () 2016-09-[address], [id number] [id number] Individual Psychotherapy [id number] SNOMED-CT () 2017-02-[address], 517443241 [id number] Individual Psychotherapy [id number] SNOMED-CT () 2016-03-[address], [id number] Individual Psychotherapy [id number] SNOMED-CT () 2016-04-[address], [id number] Individual Psychotherapy [id number] SNOMED-CT () 2016-04-[address], [id number] Individual Psychotherapy [id number] SNOMED-CT () 2016-05-[address], [id number] Individual Psychotherapy [id number] SNOMED-CT () 2016-06-[address], [id number] [id number] Individual Psychotherapy [id number] SNOMED-CT () 2016-07-[address], [id number] Individual Psychotherapy [id number] SNOMED-CT () 2015-11-[address], [id number] [id number] Individual Psychotherapy [id number] SNOMED-CT () 2016-01-[address], [id number] Individual Psychotherapy [id number] SNOMED-CT () 2016-01-[address], [id number] [id number] Individual Psychotherapy [id number] SNOMED-CT () 2016-02-[address], [id number] Individual Psychotherapy [id number] SNOMED-CT () 2016-02-[address], [id number] Individual Psychotherapy [id number] SNOMED-CT () 2016-03-[address], [id number] [id number] Individual Psychotherapy [id number] SNOMED-CT () 2015-06-[address], [id number] Individual Psychotherapy [id number] SNOMED-CT () 2015-09-[address], [id number] Individual Psychotherapy [id number] SNOMED-CT () 2015-09-[address], [id number] [id number] Individual Psychotherapy [id number] SNOMED-CT () 2015-10-[address], [id number] Individual Psychotherapy [id number] SNOMED-CT () 2015-10-[address], [id number] Individual Psychotherapy [id number] SNOMED-CT () 2015-10-[address], [id number] [id number] Individual Psychotherapy [id number] SNOMED-CT () 2015-03-[address], [id number] Individual Psychotherapy [id number] SNOMED-CT () 2015-07-[address], [id number] Individual Psychotherapy [id number] SNOMED-CT () 2015-08-[address], [id number] [id number] Individual Psychotherapy [id number] SNOMED-CT () 2015-08-[address], [id number] [id number] Individual Psychotherapy [id number] SNOMED-CT () 2015-08-[address], [id number] Individual Psychotherapy [id number] SNOMED-CT () 2015-09-[address], [id number] Individual Psychotherapy [id number] SNOMED-CT () 2016-12-[address], [id number] Individual Psychotherapy [id number] SNOMED-CT () 2021-02-[address], [id number] [id number] Individual Psychotherapy [id number] SNOMED-CT () 2021-03-[address], [id number] Individual Psychotherapy [id number] SNOMED-CT () 2021-04-[address], [id number] Individual Psychotherapy [id number] SNOMED-CT () 2021-05-[address], [id number] Individual Psychotherapy [id number] SNOMED-CT () 2021-05-[address], [id number] [id number] Individual Psychotherapy [id number] SNOMED-CT () 2021-06-[address], [id number] [id number] Individual Psychotherapy [id number] SNOMED-CT () 2018-10-[address], [id number] Individual Psychotherapy [id number] SNOMED-CT () 2019-02-[address], [id number] [id number] Individual Psychotherapy [id number] SNOMED-CT () 2019-03-[address], [id number] Individual Psychotherapy [id number] SNOMED-CT () 2019-07-[address], [id number] Individual Psychotherapy [id number] SNOMED-CT () 2020-01-[address], [id number] [id number] Individual Psychotherapy [id number] SNOMED-CT () 2020-05-[address], [id number] Individual Psychotherapy [id number] SNOMED-CT () 2017-12-[address], [id number] [id number] Individual Psychotherapy [id number] SNOMED-CT () 2017-12-[address], [id number] Individual Psychotherapy [id number] SNOMED-CT () 2018-01-30 completed [facility] [address], [id number] Individual Psychotherapy [id number] SNOMED-CT () 2018-04-[address], [id number] Individual Psychotherapy [id number] SNOMED-CT () 2018-05-[address], [id number] Individual Psychotherapy [id number] SNOMED-CT () 2018-08-[address], 704086415 [id number] Individual Psychotherapy [id number] SNOMED-CT () [address], [id number] Individual Psychotherapy [id number] SNOMED-CT () 2017-03-[address], [id number] Individual Psychotherapy [id number] SNOMED-CT () 2017-04-[address], [id number] [id number] Individual Psychotherapy [id number] SNOMED-CT () 2017-04-[address], [id number] Individual Psychotherapy [id number] SNOMED-CT () 2017-04-[address], [id number] Individual Psychotherapy [id number] SNOMED-CT () 2017-11-[address], [id number] Individual Psychotherapy [id number] SNOMED-CT () 2016-05-[address], [id number] Individual Psychotherapy [id number] SNOMED-CT () 2016-06-[address], [id number] Individual Psychotherapy [id number] SNOMED-CT () 2016-11-[address], [id number] [id number] Individual Psychotherapy [id number] SNOMED-CT () 2016-12-[address], 189756923 [id number] Individual Psychotherapy [id number] SNOMED-CT () 2016-12-[address], [id number] [id number] Individual Psychotherapy [id number] SNOMED-CT () 2017-01-[address], [id number] Individual Psychotherapy [id number] SNOMED-CT () 2016-02-[address], [id number] [id number] Individual Psychotherapy [id number] SNOMED-CT () 2016-02-[address], [id number] [id number] Individual Psychotherapy [id number] SNOMED-CT () 2016-03-[address], 395443453 [id number] Individual Psychotherapy [id number] SNOMED-CT () 2016-03-[address], [id number] [id number] Individual Psychotherapy [id number] SNOMED-CT () 2016-04-[address], [id number] [id number] Individual Psychotherapy [id number] SNOMED-CT () 2016-05-[address], [id number] [id number] Individual Psychotherapy [id number] SNOMED-CT () 2015-10-[address], [id number] Individual Psychotherapy [id number] SNOMED-CT () 2015-12-[address], [id number] Individual Psychotherapy [id number] SNOMED-CT () 2015-12-[address], [id number] [id number] Individual Psychotherapy [id number] SNOMED-CT () 2015-12-[address], [id number] Individual Psychotherapy [id number] SNOMED-CT () 2016-01-[address], [id number] [id number] Individual Psychotherapy [id number] SNOMED-CT () 2016-01-[address], [id number] Psychiatric Diagnostic Evaluation without medical serv ices [id number] SNOMED-CT () 2015-03-[address], [id number] [id number] SNOMED-CT () 2018-03-[address], [id number] SNOMED-CT () 2017-12-29 completed [address] [place], [place], [address] [id number] SNOMED-CT () 2018-07-29 completed [address] [place], [place], [id number] [id number] SNOMED-CT () 2017-10-28 completed [address] [place], [place], 468073092 [id number] SNOMED-CT () 2018-06-28 completed [address] [place], [place], 947830330 [id number] SNOMED-CT () 2018-08-28 completed [address] [place], [place], 025816791 [id number] SNOMED-CT () 2017-11-28 completed [address] [place], [place], 922581524 [id number] SNOMED-CT () 2018-03-28 completed [address] [place], [place], 851126369 [id number] SNOMED-CT () 2018-01-26 completed [address] [place], [place], [id number] [id number] SNOMED-CT () 2018-05-28 completed [address] [place], [place], 734878734 [id number] SNOMED-CT () 2018-02-26 completed [address] [address] [place], [place], [id number] SNOMED-CT () 2018-04-28 completed [address] [place], [place], [id number] [phone] SNOMED-CT () 2017-07-21 completed [facility] [address], [place], [id number] [phone] SNOMED-CT () 2017-07-21 completed [facility] [address], [place], [id number] [phone] SNOMED-CT () 2017-07-21 completed [facility] [facility] [address], 774950131 [phone] SNOMED-CT () 2017-07-21 completed [facility] [address] [place], [place], [id number] [phone] SNOMED-CT () 2017-07-21 completed [facility] [address], [place], [id number] [phone] SNOMED-CT () 2017-07-21 completed [facility] [address], [place], [id number] [id number] SNOMED-CT () 2017-07-21 completed [facility] [address], [place], [id number] [phone] SNOMED-CT () 2017-07-21 completed [facility] [address], [place], 269057844 [phone] SNOMED-CT () 2017-07-21 completed [facility] [facility] [address] [place], [place], 662690454 [phone] SNOMED-CT () 2017-07-[address], [id number] [phone] SNOMED-CT () 2017-07-[address], 573446169 [id number] SNOMED-CT () 2017-07-[address], 644078665 [id number] SNOMED-CT () 2017-07-[address], 122864082 [phone] SNOMED-CT () 2017-07-[address], 557624356 [id number] SNOMED-CT () 2017-07-[address], 057844847 [phone] SNOMED-CT () 2017-07-[address], [id number] [id number] SNOMED-CT () 2016-08-23 completed [facility] [address], [id number] [phone] SNOMED-CT () 2016-07-20 completed [facility] [address], [id number] [phone] SNOMED-CT () 2016-04-19 completed [address], [id number] [phone] SNOMED-CT () 2016-03-[address], [id number] [phone] SNOMED-CT () 2016-06-[address], [id number] [phone] SNOMED-CT () 2016-04-12 completed [facility] [address], [id number] [phone] SNOMED-CT () 2016-04-06 completed [facility] [address], [id number] [phone] SNOMED-CT () 2016-06-23 completed [facility] [address], [id number] [phone] SNOMED-CT () 2017-01-05 completed [facility] [address], [id number] [phone] SNOMED-CT () 2016-05-24 completed [facility] [address], [id number] [phone] SNOMED-CT () 2016-07-12 completed [facility] [address], [id number] [phone] SNOMED-CT () 2016-08-09 completed [facility] [address], [id number] [id number] SNOMED-CT () 2016-07-[address], 738994038 [phone] SNOMED-CT () 2016-05-10 completed [facility] [address], [id number] SNOMED-CT () 2016-04-05 completed [facility] [address], [id number] [phone] SNOMED-CT () 2016-03-29 completed [facility] [address] [place] [address], [id number] [phone] SNOMED-CT () 2016-09-27 completed [facility] [address], [id number] [phone] SNOMED-CT () 2016-06-[address], [id number] [phone] SNOMED-CT () 2016-05-[address], 537456048 [phone] SNOMED-CT () 2016-05-[address], 299295544 [phone] SNOMED-CT () 2016-06-[address], 792131590 [phone] SNOMED-CT () 2016-03-[address], 615684906 [phone] SNOMED-CT () [address], [id number] [phone] SNOMED-CT () 2016-06-[address], 066473449 [phone] SNOMED-CT () 2016-08-[address], 606144598 [phone] SNOMED-CT () 2016-07-[address], [id number] [phone] SNOMED-CT () 2016-03-[address], [id number] [phone] SNOMED-CT () 2016-03-[address], [id number] [phone] SNOMED-CT () 2021-04-[address], 740883407 [phone] SNOMED-CT () 2021-03-[address], [id number] [phone] SNOMED-CT () 2021-01-[address], 547178027 [id number] SNOMED-CT () 2021-03-17 completed [address], [id number] [phone] SNOMED-CT () 2021-03-04 completed [address] C [address], 864062405 [id number] SNOMED-CT () 2021-05-11 completed [address] C [address], 552296512 [phone] SNOMED-CT () 2020-12-29 completed [address] C [address], [id number] [phone] SNOMED-CT () 2020-12-15 completed [facility] [address], [id number] [phone] SNOMED-CT () 2021-03-11 completed [address] C [address], 554697217 [phone] SNOMED-CT () 2021-02-04 completed [facility] [address], [id number] [id number] SNOMED-CT () 2021-03-[address], 770479741 [phone] SNOMED-CT () 2021-05-06 completed [address], 734962339 [phone] SNOMED-CT () 2021-02-18 [address], [id number] [phone] SNOMED-CT () 2020-03-28 completed [address] [place], [place], 095564179 [phone] SNOMED-CT () 2020-06-28 completed [address] [place], [place], 460565698 [phone] SNOMED-CT () 2020-09-28 completed [address] [place], [place], 790198250 [id number] SNOMED-CT () 2020-04-28 completed [address] [place], 878203607 [phone] SNOMED-CT () 2020-02-27 completed [address] [place], 468068091 [phone] SNOMED-CT () 2020-08-28 completed [address] [place], 082370751 [phone] SNOMED-CT () 2020-12-29 completed [address] [place], 801300660 [id number] SNOMED-CT () 2021-01-26 completed [address] [place], 022670838 [phone] SNOMED-CT () 2020-11-28 completed [address] [place], 771362775 [id number] SNOMED-CT () 2020-01-27 completed [address] [place], 055911795 [id number] SNOMED-CT () 2020-05-28 completed [address] [place], [place], 247269643 [id number] SNOMED-CT () 2020-10-28 completed [address] [place], 938580605 [phone] SNOMED-CT () 2020-07-29 completed [address] [place], 416181753 [id number] SNOMED-CT () 2015-03-29 completed [facility] [address] [place], 465124873 [phone] SNOMED-CT () 2015-04-29 completed [facility] [address] [place], 684837092 [phone] SNOMED-CT () 2015-05-28 completed [facility] [address] [place], 530547754 [phone] SNOMED-CT () 2015-06-28 completed [facility] [address] [place], 991049348 [phone] SNOMED-CT () 2015-07-29 completed [facility] [address] [place], 054290705 [phone] SNOMED-CT () 2015-08-28 completed [facility] [address] [place], 256238834 [phone] SNOMED-CT () 2021-04-28 completed [address] [place], [place], 717725474 [id number] SNOMED-CT () 2021-05-28 completed [address] [place], 918816925 [phone] SNOMED-CT () 2021-06-28 completed [address] [place], [place], 164328927 [id number] SNOMED-CT () 2020-10-28 completed [address] [place], 170282496 [phone] SNOMED-CT () 2020-11-28 completed [address] [place], 083679326 [id number] SNOMED-CT () 2020-12-29 completed [address] [place], 261953955 [id number] SNOMED-CT () 2021-01-26 completed [address] [place], 746225520 [id number] SNOMED-CT () 2021-02-26 completed [address] [place], [place], 956846997 [id number] SNOMED-CT () 2021-03-28 completed [address] [place], 253573319 [id number] SNOMED-CT () 2020-04-28 completed [address] [place], [place], 615891683 [phone] SNOMED-CT () 2020-05-28 completed [address] [place], 204636028 [phone] SNOMED-CT () 2020-06-28 completed [address] [place], [place], 235172414 [id number] SNOMED-CT () 2020-07-29 completed [address] [place], [place], 097092793 [id number] SNOMED-CT () 2020-08-28 completed [address] [place], [place], 262451421 [id number] SNOMED-CT () 2020-09-28 completed [address] [place], [place], 093568925 [id number] SNOMED-CT () 2019-10-28 completed [address] [place], [place], 111423400 [phone] SNOMED-CT () 2019-11-28 completed [address] [place], [place], 169440281 [phone] SNOMED-CT () 2019-12-29 completed [address] [place], [place], 152807991 [id number] SNOMED-CT () 2020-01-27 completed [address] [place], 381574008 [phone] SNOMED-CT () 2020-02-27 completed [address] [place], [place], 735010331 [phone] SNOMED-CT () 2020-03-28 completed [address] [place], 240449220 [id number] SNOMED-CT () 2019-05-28 completed [address] [place], [place], 172717461 [id number] SNOMED-CT () 2019-06-28 completed [facility] [address], [place], 631635691 [phone] SNOMED-CT () 2019-06-29 completed [address] [place], [place], 148719028 [id number] SNOMED-CT () 2019-07-29 completed [facility] [address] [place] [address], [id number] [phone] SNOMED-CT () 2019-08-28 completed [address] [place], 701342972 [phone] SNOMED-CT () 2019-09-28 completed [address] [place], [place], 346361282 [id number] SNOMED-CT () 2018-11-28 completed [address] [place], 723167399 [id number] SNOMED-CT () 2018-12-29 completed [address] [place], 084648260 [phone] SNOMED-CT () 2019-01-26 completed [address] [place], [place], 747698991 [phone] SNOMED-CT () 2019-02-26 completed [address] [place], [place], 867440710 [phone] SNOMED-CT () 2019-03-28 completed [address] [place], [place], 687855756 [id number] SNOMED-CT () 2019-04-28 completed [address] [place], [place], 431897992 [id number] SNOMED-CT () 2018-05-28 completed [address] [place], 949633970 [phone] SNOMED-CT () 2018-06-28 completed [address] [place], 398187521 [phone] SNOMED-CT () 2018-07-29 completed [address] [place], [place], 263935723 [phone] SNOMED-CT () 2018-08-28 completed [address] [place], 826584717 [id number] SNOMED-CT () 2018-09-28 completed [address] [place], 118994767 [phone] SNOMED-CT () 2018-10-28 completed [address] [place], [place], 905988843 [id number] SNOMED-CT () 2017-11-28 completed [address] [place], 546993919 [id number] SNOMED-CT () 2017-12-29 completed [address] [place], 926848080 [phone] SNOMED-CT () 2018-01-26 completed [address] [place], 845310054 [id number] SNOMED-CT () 2018-02-26 completed [address] [place], [place], 587774951 [phone] SNOMED-CT () 2018-03-28 completed [address] [place], [place], 761192473 [id number] SNOMED-CT () 2018-04-28 completed [address] [place], 228663805 [phone] SNOMED-CT () 2017-05-28 completed CYP [address] [place], 095636478 [id number] SNOMED-CT () 2017-06-28 completed CYP [address] [place], 941619320 [phone] SNOMED-CT () 2017-07-29 completed CYP [address] [place], 254340921 [phone] SNOMED-CT () 2017-08-28 completed [address] [place], 059382085 [id number] SNOMED-CT () 2017-09-28 completed [address] [place], 803165405 [id number] SNOMED-CT () 2017-10-28 completed [address] [place], 085513116 [id number] SNOMED-CT () 2016-11-28 completed [facility] [address] [place] [address], [id number] [id number] SNOMED-CT () 2016-12-29 completed [facility] [address] [place] [address], [id number] [phone] SNOMED-CT () 2017-01-26 completed [facility] [address] [place], 486215162 [id number] SNOMED-CT () 2017-02-26 completed CYP [address] [place], 187914552 [phone] SNOMED-CT () 2017-03-28 completed CYP [address] [place], 223700593 [id number] SNOMED-CT () 2017-04-28 completed CYP [address] [place], 936480056 [id number] SNOMED-CT () 2016-03-28 completed CYP [address] [place], 875963527 [id number] SNOMED-CT () 2016-04-28 completed CYP [address] [place], 523133024 [id number] SNOMED-CT () 2016-05-28 completed CYP [address] [place], 735505608 [phone] SNOMED-CT () 2016-06-28 completed CYP [address] [place], 115102978 [id number] SNOMED-CT () 2016-07-29 completed CYP [address] [place], 660097715 [id number] SNOMED-CT () 2016-08-28 completed CYP [address] [place], 613262449 [id number] SNOMED-CT () 2015-09-28 completed CYP [address] [place], 784402936 [phone] SNOMED-CT () 2015-10-28 completed CYP [address] [place], 937990865 [id number] SNOMED-CT () 2015-11-28 completed CYP [address] [place], 046865339 [id number] SNOMED-CT () 2015-12-29 completed CYP [address] [place], 871638618 [phone] SNOMED-CT () 2016-01-27 completed CYP [address] [place], 760303909 [phone] SNOMED-CT () 2016-02-27 completed CYP [address] [place], 256345592 [id number] SNOMED-CT () 2016-07-29 completed CYP [address] [place], 350430820 [phone] SNOMED-CT () 2016-12-29 completed CYP [address] [place], 399110531 [id number] SNOMED-CT () 2016-04-28 completed CYP [address] [place], 876789869 [id number] SNOMED-CT () 2016-05-28 completed CYP [address] [place], 193695078 [id number] SNOMED-CT () 2016-02-27 completed CYP [address] [place], 886463429 [id number] SNOMED-CT () 2016-08-28 completed CYP [address] [place] NY, 346906074 [id number] SNOMED-CT () 2016-03-28 completed CYP [address] [place], 481377060 [id number] SNOMED-CT () 2016-06-28 completed CYP [address] [place], 425406582 [id number] SNOMED-CT () 2016-11-28 completed CYP [address] [place], 472712160 [id number] SNOMED-CT () 2019-10-28 completed [address], 359325571 [id number] SNOMED-CT () 2019-11-28 completed [address] [place], 828249621 [phone] SNOMED-CT () 2019-12-29 completed [address] [place], 566539274 [id number] SNOMED-CT () 2015-03-28 completed CYP [address] [place], 514615046 [id number] SNOMED-CT () 2015-04-28 completed [facility] [address] [place] [address], 644230687 [phone] SNOMED-CT () 2015-05-28 completed CYP [address] [place], 625499495 [id number] SNOMED-CT () 2015-06-28 completed CYP [address] [place], 771955694 [id number] SNOMED-CT () 2015-07-29 completed CYP [address] [place], 570908986 [id number] SNOMED-CT () 2015-09-28 completed [facility] [address] [place] [address], 943729671 [id number] SNOMED-CT () 2016-09-28 completed CYP [address] [place], 379053934 [id number] SNOMED-CT () 2015-03-10 completed CYP [address] [place], 541079054 [id number] SNOMED-CT () 2018-05-28 completed [address] [place], [place], 512304236 [id number] SNOMED-CT () 2016-10-28 completed CYP [address] [place], 195353674 [id number] SNOMED-CT () 2020-02-27 completed [address] [place], [place], 109679528 [id number] SNOMED-CT () 2021-02-26 completed [address] [place], 391850795 [id number] SNOMED-CT () 2021-03-28 completed [address] [place], NY, 650029778 [id number] SNOMED-CT () 2021-04-28 completed [address] [place], 744841090 [id number] SNOMED-CT () 2021-05-28 completed [address] [place], [place], 314896031 [id number] SNOMED-CT () 2021-06-28 completed [address] [place], [place], 297659593 [id number] SNOMED-CT () 2015-08-28 completed CYP [address] [place], 812218038 [phone] SNOMED-CT () 2020-08-28 completed [address] [place], [place], 445583702 [id number] SNOMED-CT () 2020-09-28 completed [address] [place], 364550177 [id number] SNOMED-CT () 2020-10-28 completed [address] [place], 058579427 [id number] SNOMED-CT () 2020-11-28 completed [address] [place], [place], 636102066 [id number] SNOMED-CT () 2020-12-29 completed [address] [place], [place], 049727952 [id number] SNOMED-CT () 2021-01-26 completed [address] [place], [place], 528101869 [id number] SNOMED-CT () 2020-01-27 completed [address] [place], 300004411 [id number] SNOMED-CT () 2020-03-28 completed [address] [place], [place], 217801607 [id number] SNOMED-CT () 2020-04-28 completed [address] [place], 890358780 [id number] SNOMED-CT () 2020-05-28 completed [address] [place], 876996465 [id number] SNOMED-CT () 2020-06-28 completed [address] [place], [place], 974041198 [id number] SNOMED-CT () 2020-07-29 completed [address] [place], [place], 710624406 [id number] SNOMED-CT () 2019-07-29 completed [address] [place], [place], 887699896 [phone] SNOMED-CT () 2019-08-28 completed [address] [place], 673406034 [id number] SNOMED-CT () 2019-09-28 completed [address] [place], 064743843 [id number] SNOMED-CT () 2019-10-28 completed [address] [place], 541988356 [id number] SNOMED-CT () 2019-11-28 completed [address] [place], 652634027 [id number] SNOMED-CT () 2019-12-29 completed [address] [place], 047812534 [id number] SNOMED-CT () 2019-01-26 completed [address] [place], 521504696 [id number] SNOMED-CT () 2019-02-26 completed [address] [place], [place], 379687326 [id number] SNOMED-CT () 2019-03-28 completed [address] [place], [place], 118284583 [id number] SNOMED-CT () 2019-04-28 completed [address] [place], 279404280 [id number] SNOMED-CT () 2019-05-28 completed [address] [place], 716075140 [phone] SNOMED-CT () 2019-06-28 completed [facility] [facility] [address] [place] [address], [id number] [phone] SNOMED-CT () 2018-07-29 completed [address] [place], [place], 251628106 [id number] SNOMED-CT () 2018-08-28 completed [address] [place], 075318994 [id number] SNOMED-CT () 2018-09-28 completed [address] [place], 607862899 [id number] SNOMED-CT () 2018-10-28 completed [address] [place], 664843028 [id number] SNOMED-CT () 2018-11-28 completed [address] [place], 258993646 [phone] SNOMED-CT () 2018-12-29 completed [address] [place], 277836163 [id number] SNOMED-CT () 2017-12-29 completed [address] [place], 074167627 [id number] SNOMED-CT () 2018-01-26 completed [address] [place], 533235356 [id number] SNOMED-CT () 2018-02-26 completed [address] [place], 988245955 [id number] SNOMED-CT () 2018-03-28 completed [address] [place], 236240570 [id number] SNOMED-CT () 2018-04-28 completed [address] [place] NY, 865827160 [id number] SNOMED-CT () 2018-06-28 completed [address] [place], [place], 256435942 [id number] SNOMED-CT () 2017-06-28 completed CYP [address] [place], 881385701 [id number] SNOMED-CT () 2017-07-29 completed CYP [address] [place], 705895064 [id number] SNOMED-CT () 2017-08-28 completed [address] [place], 288453391 [id number] SNOMED-CT () 2017-09-28 completed [address] [place], 876919580 [id number] SNOMED-CT () 2017-10-28 completed [address] [place], 041398220 [id number] SNOMED-CT () 2017-11-28 completed [address] [place], 345856552 [id number] SNOMED-CT () 2016-12-29 completed CYP [address] [place], 358719807 [phone] SNOMED-CT () 2017-01-26 completed CYP [address] [place], 361551046 [id number] SNOMED-CT () 2017-02-26 completed CYP [address] [place], 701148045 [id number] SNOMED-CT () 2017-03-28 completed CYP [address] [place], 257345354 [id number] SNOMED-CT () 2017-04-28 completed CYP [address] [place] NY, 479697483 [id number] SNOMED-CT () 2017-05-28 completed CYP [address] [place] NY, 518609809 [id number] SNOMED-CT () 2016-04-28 completed CYP [address] [place], 017684991 [id number] SNOMED-CT () 2016-05-28 completed CYP [address] [place] NY, 991205867 [id number] SNOMED-CT () 2016-06-28 completed CYP [address] [place], 163126511 [id number] SNOMED-CT () 2016-07-29 completed CYP [address] [place], 743974371 [id number] SNOMED-CT () 2016-08-28 completed CYP [address] [place], 688182054 [id number] SNOMED-CT () 2016-11-28 completed CYP [address] [place], 510557151 [id number] SNOMED-CT () 2015-10-28 completed [facility] [address] [place] [address], 969338639 [phone] SNOMED-CT () 2015-11-28 completed CYP [address] [place] [address], 529959947 [id number] SNOMED-CT () 2015-12-29 completed CYP [address] [place], 186350039 [phone] SNOMED-CT () 2016-01-27 completed [facility] [address] [place] [address], 772644065 [id number] SNOMED-CT () 2016-02-27 completed CYP [address] [place] [address], 018258446 [id number] SNOMED-CT () 2016-03-28 completed CYP [address] [place] [address], 789232641 [id number] SNOMED-CT () 2015-09-30 completed [address], 848465384 [phone] SNOMED-CT () 2017-07-12 completed [address], 857243406 [id number] SNOMED-CT () 2019-06-29 completed [address], 981316450 [id number] SNOMED-CT () 2020-12-24 completed [facility] [address] [place], [place], 261639528 [id number] SNOMED-CT () 2017-08-28 completed [address] [place], 539324651 [id number] SNOMED-CT () 2017-09-28 completed [address] [place], 295128254 [id number] SNOMED-CT () 2016-09-28 completed [facility] [address] [place] [address], 780719503 [id number] SNOMED-CT () 2016-09-28 completed CYP [address] [place] [address], 994400075 [phone] SNOMED-CT () 2016-09-28 completed [facility] [address] [place] [address], 989475322 [id number] SNOMED-CT () 2016-09-28 completed [facility] [address] [place] [address], 317520218 [id number] SNOMED-CT () 2016-09-28 completed [facility] [address] [place] [address], 271241455 [id number] SNOMED-CT () 2016-09-28 completed [facility] [address] [place] [address], 790095268 [id number] SNOMED-CT () 2016-09-28 completed [address] [place] [address], 365922609 [phone] SNOMED-CT () 2016-09-28 completed [address] [place] [address], 746129608 [phone] SNOMED-CT () 2016-09-28 completed [address] [place] [address], 365030084 [id number] SNOMED-CT () 2016-09-28 completed [address] [place] [address], 033164216 [id number] SNOMED-CT () 2016-09-28 completed [facility] [address] [place] [address], [id number] [phone] Encounters/Encounter Diagnoses Encounter Name Encounter Code Diagnosis Code Diagnosis Name Diagnosis CodeSystem Date of Diagnosis Service Delivery L ocation non-billable 56020 [id number] [id number] Attention-deficit hyperactivity disorder, combined typ e SNOMED-CT 2019-07-31 [facility] , , , Vital Signs Code CodeSystem Vitals Date Value 8867-4 [facility] Heart Rate 2019-07-17 69 /min 8462-4 [facility] Blood Press ure-Diastolic 2019-07-17 115 mm[HG] 8302-2 [facility] Height 2019-07-17 70 [in_i] 00669-6 [facility] Weight 2019-07-17 228 [lb_av] 8480-6 [facility] Blood Press ure-Systolic 2019-07-17 74 mm[HG] 47308-5 [facility] BMI 2019-07-17 32.71 (lb/in2) Social History Element Description Description Start Date End Date Code CodeSystem AdditionalInfo SexAssignedAtBirth Male 2000 M AdministrativeGender Hospital Discharge Instructions * Reason For Referral Medical Equipment * FDA Assessments *
--- OUTSIDE RECORDS SUMMARY | 2021-09-21 11:35 | CCD ---
Author Author James Licona Organization [facility] Address Unknown Phone Unavailable Care Team Providers Care Master Craftsman Name Role Phone Ninoska Licona PCP Unavailable Allergies, Adverse Reactions, Alerts Allergy Substance Code C odeSystem Reaction Severity Critic ality Status Start Date hydroxyzine hcl [id number] R xNorm aggression Moderate Active 2020-04-20 Medications Medication Medication Code Medication CodeSystem Start Date Stop Date Route Dose Status Fill Instructions Vitamin D3 383568 RxNorm 2019-04-03 2019-08-01 oral 2,000 unit capsule completed for 30 day(s) Adderall XR 963233 RxNorm 2018-12-20 2019 oral 20 mg capsule,extended release 24hr completed for 30 day(s) Abilify 395961 RxNorm 2018-12-26 2019 oral 30 mg tablet completed for 30 day(s) Adderall XR 499556 Rx[facility] 2018-04-20 2018-05-20 oral 15 mg capsule,extended release 24hr completed for 30 day(s) Vitamin D3 450482 Rx[facility] 2020-01-22 2020-07-17 oral 50 mcg (2,000 unit) capsule active for 30 day(s) Adderall XR 902179 RxNorm 2019-05-07 2019-07-05 oral 20 mg 1 capsule,extended release 24hr once a day completed Take 1 capsule by mouth once a day for 30 day(s) Adderall XR 172458 Rx[facility] 2015-10-29 2016-05-03 oral 10 mg capsule,extended release 24hr completed for 30 day(s) Abilify 542896 RxNorm 2019-07-03 2019-07-17 oral 5 mg tablet completed for 30 day(s) haloperidol 555437 RxNorm 2017-09-29 2017-10-05 oral 1 mg tablet [facility] 2016-07-20 oral 10 mg tablet completed for 30 day(s) aripiprazole 298953 [facility] 2020-02-04 2020-02-20 or al 10 mg tablet completed for 30 day(s) [facility] 711463 [facility] 2017-09-29 oral 1 mg 1 tablet twice a day completed Take 1 tablet by mouth twice a day Lexapro [id number] [facility] 2015-08-12 2016-04-06 oral 20 mg tablet completed for 30 day(s) Adderall XR 363093 [facility] 2015-08-12 2016-03-04 oral 5 mg capsule,extended release 24hr completed for 30 day(s) Lamictal 990998 [facility] 2017-09-26 2017-09-28 oral 25 mg tablet completed Adderall XR 640305 [facility] 2016 2016-05-03 oral 10 mg capsule,extended release 24hr completed for 30 day(s) Adderall XR 420888 [facility] 2015-10-07 2016-03-04 oral 5 mg capsule,extended release 24hr completed for 30 day(s) trazodone 319031 [facility] 2015-10-07 2015-10-21 oral 50 mg tablet completed for 30 day(s) Lamictal 894054 [facility] 2018-08-21 2018-10-15 oral 100 mg tablet completed for 30 day(s) Adderall XR 190121 [facility] 2017-01-24 2017-03-04 oral 15 mg capsule,extended release 24hr completed for 30 day(s) Lamictal 477343 [facility] 2018-10-24 2018-12-24 oral 100 mg tablet completed for 30 day(s) [facility] 907299 [facility] 2018-11-[facility] 2019-03-15 oral 2,000 unit capsule completed for 30 day(s) aripiprazole 124719 [facility] 2020-02-20 2020-06-17 or al 15 mg tablet active for 30 day(s) Vitamin D3 435233 [facility] 2017-11-14 2018-03-10 oral 2,000 unit capsule completed for 30 day(s) Abilify 975545 [facility] 2018-02-27 2018-04-10 oral 20 mg tablet completed for 21 day(s) Lexapro 824170 [facility] 2015-12-23 2016-04-06 oral 10 mg tablet completed for 30 day(s) mirtazapine 328230 Rx[facility] 2019-10-29 2019-12-16 oral 15 mg tablet completed for 30 day(s) Adderall XR 989254 [facility] 2018-03-15 2018-04-14 oral 15 mg capsule,extended release 24hr completed for 30 day(s) Adderall XR 268974 [facility] 2017-10-12 2017-11-11 oral 15 mg capsule,extended release 24hr completed for 30 day(s) sertraline 859306 [facility] 2020-01-04 2020-02-03 oral 25 mg tablet completed for 30 day(s) Cymbalta 021434 [facility] 2020-01-04 2020-02-03 oral 20 mg capsule,delayed release(DR/EC) completed for 30 day(s) Zoloft 677087 [facility] 2018-12-08 2019-01-07 oral 50 mg tablet completed for 30 day(s) Adderall XR 419962 [facility] 2016-12-24 2017-01-22 oral 15 mg capsule,extended release 24hr completed for 30 day(s) Abilify 636287 [facility] 2015-06-17 2016-05-03 oral 15 mg tablet completed for 30 day(s) melatonin 448948 [facility] 2017-09-28 2017-10-05 oral 3 mg 2 tablet at bedtime completed Take 2 tablet by mouth at bedtime hydroxyzine HCl 644956 R xNorm 2020-03-21 2020-04-20 or al 10 mg tablet completed for 30 day(s) Adderall XR 028790 [facility] 2015-09-10 2016-03-04 oral 5 mg capsule,extended release 24hr completed for 30 day(s) Lexapro 047385 [facility] 2015-06-17 2016-04-06 oral 20 mg 1 tablet once a day completed Take 1 tablet by mouth once a day for 30 day(s) Abilify 570939 [facility] 2018-08-21 2018-10-15 oral 20 mg tablet completed for 30 day(s) hydroxyzine pamoate 429930 [facility] 2016-12-24 2017-09-08 or al 25 mg capsule completed for 30 day(s) Adderall XR 794434 [facility] 2018-10-24 2018-12-16 oral 20 mg capsule,extended release 24hr completed for 30 day(s) Adderall XR 568576 [facility] 2016-06-23 2016-07-20 oral 10 mg capsule,extended release 24hr completed for 30 day(s) Adderall XR 441556 [facility] 2015-10-07 2016-05-03 oral 10 mg capsule,extended release 24hr completed for 30 day(s) Vistaril 684202 [facility] 2016-06-23 2016-07-20 oral 25 mg 1 capsule twice a day completed Take 1 capsule by mouth twice a day for 30 day(s) Adderall XR 571091 [facility] 2016-07-20 2016-08-16 oral 5 mg capsule,extended release 24hr completed for 30 day(s) buspirone 334392 RxNo 2015-12-23 2016-04-06 oral 5 mg tablet completed for 30 day(s) Lamictal 424290 Rx[facility] 2017-09-21 2017-09-21 oral 25 mg tablet completed for 30 day(s) Adderall XR 127546 [facility] 2019-04-02 2019-05-02 oral 20 mg capsule,extended release 24hr completed for 30 day(s) Adderall XR 644075 [facility] 2015-12-23 2016-05-03 oral 10 mg capsule,extended release 24hr completed for 30 day(s) Abilify 615675 [facility] 2016-04-06 2016-09-23 oral 20 mg tablet completed for 30 day(s) trazodone 264947 [facility] 2015-04-23 2016-04-06 oral 50 mg tablet completed for 30 day(s) Lamictal 936493 [facility] 2019-04-17 2019-12-30 oral 100 mg tablet completed for 30 day(s) Adderall XR 723131 [facility] 2016-04-06 2016-05-06 oral 10 mg capsule,extended release 24hr completed for 30 day(s) duloxetine 480212 Rx[facility] 2020-02-20 2020-06-17 oral 30 mg capsule,delayed release(DR/EC) active for 30 day(s) Abilify 527614 [facility] 2015-04-23 2016-05-03 oral 15 mg tablet completed for 30 day(s) Adderall XR 365943 [facility] 2016-06-07 2016-06-23 oral 10 mg capsule,extended release 24hr completed for 30 day(s) Lexapro 922744 [facility] 2016-04-06 2016-07-20 oral 20 mg tablet completed for 30 day(s) Adderall XR 754495 Rx[facility] 2019 2019-02-18 oral 20 mg capsule,extended release 24hr completed for 30 day(s) trazodone 229449 Rx[facility] 2015-10-20 2016-04-06 oral 50 mg tablet completed for 30 day(s) Adderall XR 817034 [facility] 2015-10-29 2016-03-04 oral 5 mg capsule,extended release 24hr completed for 30 day(s) buspirone 845461 [facility] 2015-12-08 2016-04-06 oral 5 mg tablet completed for 30 day(s) haloperidol 091814 [facility] 2016-09-23 2017-07-11 oral 1 mg tablet completed for 30 day(s) Vitamin D3 605450 [facility] 2018-03-28 2018-11-14 oral 2,000 unit capsule completed for 30 day(s) Adderall XR 517957 [facility] 2015-06-17 2016-05-03 oral 10 mg capsule,extended release 24hr completed for 30 day(s) Lamictal 520176 [facility] 2019-01-08 2019-03-09 oral 100 mg tablet completed for 30 day(s) Vitamin D3 428212 [facility] 2016-12-24 2017-10-23 oral 2,000 unit capsule completed for 30 day(s) diphenhydramine HCl 4209727 [facility] 2015-03-25 2016-05-03 or al 50 mg tablet completed for 30 day(s) duloxetine 896072 Rx[facility] 2020-02-04 2020-02-20 oral 20 mg capsule,delayed release(DR/EC) completed for 30 day(s) Lexapro 455641 [facility] 2015-12-23 2016-04-06 oral 20 mg tablet completed for 30 day(s) Adderall XR 151132 [facility] 2018-07-19 2018-08-18 oral 15 mg capsule,extended release 24hr completed for 30 day(s) Adderall XR 242813 [facility] 2018-05-22 2018-07-14 oral 15 mg capsule,extended release 24hr completed for 30 day(s) Adderall XR 184141 [facility] 2015-04-23 2016-05-03 oral 10 mg capsule,extended release 24hr completed for 30 day(s) Adderall XR 274345 [facility] 2016-03-09 2016-05-03 oral 10 mg capsule,extended release 24hr completed for 30 day(s) Lamictal 376317 Rx[facility] 2017-09-29 2017-10-05 oral 100 mg tablet completed for 30 day(s) Adderall XR 743413 Rx[facility] 2016-06-23 2016-07-20 oral 5 mg capsule,extended release 24hr completed for 30 day(s) Zoloft 669722 Rx[facility] 2019-03-26 2019-06-24 oral 50 mg tablet completed for 30 day(s) Abilify 239530 Rx[facility] 2017-11-14 2017-11-17 oral 5 mg tablet completed for 30 day(s) escitalopram oxalate 551589 Rx[facility] 2015-07-15 2016-04-06 or al 10 mg 1 tablet every morning complet ed Take 1 tablet by mouth every morning fo r 30 day(s) Abilify 853692 Rx[facility] 2016-11-26 2017-08-24 oral 20 mg tablet completed for 21 day(s) Abilify 823510 Rx[facility] 2017-11-17 2017-12-29 oral 20 mg tablet completed for 21 day(s) Abilify 662276 Rx[facility] 2015-10-07 2016-05-03 oral 15 mg tablet completed for 30 day(s) Adderall XR 516644 Rx[facility] 2015-11-18 2016-03-04 oral 5 mg capsule,extended release 24hr completed for 30 day(s) Abilify 933706 Rx[facility] 2019-04-12 2019-05-12 oral 5 mg tablet completed for 30 day(s) trazodone 461018 Rx[facility] 2015-06-17 2016-04-06 oral 50 mg tablet completed for 30 day(s) Adderall XR 016139 Rx[facility] 2016-05-27 2016-06-07 oral 5 mg capsule,extended release 24hr completed for 30 day(s) Aristada 3994889 RxNo 2017-08-03 2017-08-24 IM 882 mg/3.2 mL suspension,extended rel syring completed Lexapro 743227 [facility] 2016-07-20 2016-08-16 oral 20 mg tablet completed for 30 day(s) Adderall XR 909293 [facility] 2015-12-23 2016-03-04 oral 5 mg capsule,extended release 24hr completed for 30 day(s) Lamictal 724778 RxNo 2017-10-05 2018-03-28 oral 100 mg tablet completed Abilify 478134 RxNo 2018-07-19 2018-08-18 oral 20 mg tablet completed for 30 day(s) Adderall XR 186509 Rx[facility] 2016-07-20 2016-08-16 oral 10 mg capsule,extended release 24hr completed for 30 day(s) Abilify 414158 RxNo 2019 2019-03-17 oral 10 mg tablet completed for 30 day(s) Adderall XR 659087 [facility] 2015-12-08 2016-03-04 oral 5 mg capsule,extended release 24hr completed for 30 day(s) Abilify 587469 RxNo 2016-04-06 2016-06-11 oral 20 mg tablet completed for 30 day(s) Adderall XR 433689 Rx[facility] 2015-09-23 2016-05-03 oral 10 mg capsule,extended release 24hr completed for 30 day(s) Lamictal 944905 RxNo 2017-09-26 2017-09-29 oral 100 mg tablet completed Abilify 282137 RxNo 2018-10-25 2018-12-24 oral 30 mg tablet completed for 30 day(s) Adderall XR 903300 RxNorm 2017-03-07 2017-06-01 oral 15 mg capsule,extended release 24hr completed for 30 day(s) Lamictal 851344 RxNo 2018-03-28 2018-08-18 oral 100 mg tablet completed for 30 day(s) trazodone 884936 Rx[facility] 2016-01-13 2016-04-06 oral 50 mg tablet completed for 30 day(s) Benadryl 8348393 RxNo 2018-01-30 2018-06-22 oral 25 mg capsule completed lamotrigine 250684 RxNorm 2019-03-12 2019-04-11 oral 100 mg tablet completed for 30 day(s) Lamictal 503960 RxNo 2017-09-21 2017-09-26 oral 25 mg tablet completed Adderall XR 871021 Rx[facility] 2019-02-26 2019-03-28 oral 20 mg capsule,extended release 24hr completed for 30 day(s) buspirone 657221 RxNo 2016-06-23 2016-09-23 oral 5 mg 1 tablet every morning completed Take 1 tablet by mouth every morning for 30 day(s) Lexapro 672791 Rx[facility] 2015-10-07 2016-04-06 oral 20 mg 1 tablet once a day completed Take 1 tablet by mouth once a day for 30 day(s) Lexapro 134725 RxNo 2016-12-24 2018-12-08 oral 20 mg tablet completed Lexapro 646018 RxNo 2016-07-20 2016-11-17 oral 10 mg tablet completed for 30 day(s) Abilify 955784 RxNo 2018-01-09 2018-02-20 oral 20 mg tablet completed for 21 day(s) Zoloft 038611 RxNo 2019 2019-03-20 oral 50 mg tablet completed for 30 day(s) Adderall XR 002895 RxNo 2016-05-06 2016-05-27 oral 5 mg capsule,extended release 24hr completed for 30 day(s) Abilify 946477 RxNo 2015-12-23 2016-04-06 oral 20 mg tablet completed for 30 day(s) Adderall XR 917838 RxNo 2016-05-10 2016-05-27 oral 10 mg capsule,extended release 24hr completed for 30 day(s) sertraline 564367 RxNorm 2019-10-01 2019-12-07 oral 50 mg tablet completed for 30 day(s) haloperidol 132611 RxNo 2017-08-03 2017-09-21 oral 1 mg 1 tablet three times a day completed Take 1 tablet by mouth three times a day for 30 day(s) Abilify 245745 RxNo 2019-07-17 2019-09-13 oral 10 mg tablet completed for 30 day(s) Abilify 137889 RxNorm 2019-03-19 2019-04-12 oral 10 mg tablet completed for 30 day(s) Adderall XR 255522 RxNorm 2019-07-09 2019-08-08 oral 20 mg 1 capsule,extended release 24hr once a day completed Take 1 capsule by mouth once a day for 30 day(s) buspirone 123156 Rx[facility] 2016-04-06 2016-06-07 oral 5 mg 1 tablet every morning completed Take 1 tablet by mouth every morning for 30 day(s) Lexapro 741664 RxNorm 2015-08-12 2016-04-06 oral 10 mg tablet completed for 30 day(s) Lexapro 005975 RxNorm 2015-10-07 2016-04-06 oral 10 mg tablet completed for 30 day(s) trazodone 792999 RxNo 2016-04-06 2016-06-05 oral 50 mg 1 tablet at bedtime completed Take 1 tablet by mouth at bedtime as needed for 30 day(s) buspirone 484534 RxNorm 2016-06-07 2016-06-23 oral 5 mg tablet completed for 30 day(s) Vitamin D3 614840 RxNo 2019-08-13 2019-11-30 oral 50 mcg (2,000 unit) capsule completed for 30 day(s) sertraline 156890 RxNorm 2019-06-29 2019-07-29 oral 50 mg tablet completed for 30 day(s) Adderall XR 265426 RxNo 2015-12-08 2016-05-03 oral 10 mg capsule,extended release 24hr completed for 30 day(s) Vitamin D3 814340 RxNorm 2019-12-07 2020-01-06 oral 50 mcg (2,000 unit) capsule completed for 30 day(s) melatonin 783766 RxNorm 2019-08-14 2019-09-13 oral 3 mg capsule completed for 30 day(s) Lexapro 174219 RxNorm 2018-12-08 2018-12-15 oral 10 mg tablet completed for 7 day(s) Adderall XR 997018 RxNo 2016-05-27 2016-06-07 oral 10 mg capsule,extended release 24hr completed for 30 day(s) Vistaril 922619 RxNorm 2016-07-20 2016-10-18 oral 25 mg 1 capsule three times a day complete d Take 1 capsule by mouth three times a day for 30 day(s) aripiprazole 033631 [facility] 2019-10-01 2020-01-15 or al 10 mg tablet completed for 30 day(s) lamotrigine 381725 [facility] 2020-02-04 2020-06-17 oral 100 mg tablet active for 30 day(s) [facility]5032 [facility] 2016-05-03 oral 10 mg capsule,extended release 24hr completed for 30 day(s) [facility] 858280 [facility] 2018-08-21 2018-10-20 oral 15 mg capsule,extended release 24hr completed for 30 day(s) Abilify 051159 [facility] 2018-05-22 2018-07-03 oral 20 mg tablet completed for 21 day(s) Adderall XR 370095 [facility] 2016-08-16 2016-09-15 oral 5 mg capsule,extended release 24hr completed for 30 day(s) Lamictal 292514 [facility] 2017-08-10 2017-09-21 oral 25 mg tablet completed for 30 day(s) [facility] 596852 [facility] 2016-08-[facility] 2016-09-15 oral 10 mg capsule,extended release 24hr completed for 30 day(s) Lexapro 107889 [facility] 2015-03-25 2016-04-06 oral 10 mg tablet completed for 30 day(s) Abilify 353502 [facility] 2016-09-23 2016-11-26 oral 10 mg tablet completed for 30 day(s) Adderall XR 711719 [facility] 2015-03-25 2016-05-03 oral 10 mg capsule,extended release 24hr completed for 30 day(s) [facility] 794351 [facility] 2017-08-03 2017-08-10 oral 25 mg 1 tablet once a day completed Take 1 tablet by mouth once a day for 30 day(s) [facility] 855294 [facility] 2016-04-05 2016-05-05 oral 5 mg capsule,extended release 24hr completed for 30 day(s) Lexapro 426642 [facility] 2015-04-23 2016-04-06 oral 10 mg tablet completed for 30 day(s) Abilify 113123 [facility] 2015-03-25 2016-05-03 oral 15 mg tablet completed for 30 day(s) Adderall XR 499575 [facility] 2015-08-26 2016-05-03 oral 10 mg capsule,extended release 24hr completed for 30 day(s) Adderall XR 244038 Rx[facility] 2017-06-20 2017-09-23 oral 15 mg capsule,extended release 24hr completed for 30 day(s) Lexapro 490522 [facility] 2016-08-16 2016-09-23 oral 20 mg tablet completed for 30 day(s) haloperidol 343565 Rx[facility] 2017-07-11 2017-08-03 oral 1 mg tablet completed mirtazapine 586129 Rx[facility] 2019-09-13 2019-10-29 oral 7.5 mg tablet completed for 30 day(s) prazosin 427930 Rx[facility] 2015-03-25 2016-05-03 oral 1 mg capsule completed for 6 day(s) hydroxyzine pamoate 453218 Rx[facility] 2017-09-08 2017-09-28 or al 25 mg capsule completed for 30 day(s) Abilify 168835 Rx[facility] 2017-08-24 2017-08-31 oral 20 mg tablet completed for 21 day(s) Abilify 445879 Rx[facility] 2017-08-31 2017-10-30 oral 5 mg tablet completed for 30 day(s) Adderall XR 823178 Rx[facility] 2017-11-14 2018-03-01 oral 15 mg capsule,extended release 24hr completed for 30 day(s) Abilify 754443 Rx[facility] 2018-10-24 2018-10-25 oral 15 mg tablet completed for 30 day(s) sertraline 728952 Rx[facility] 2019-12-07 2020-01-04 oral 50 mg tablet completed for 30 day(s) Adderall XR 972326 [facility] 2016-06-07 2016-06-23 oral 5 mg capsule,extended release 24hr completed for 30 day(s) Adderall XR 372677 [facility] 2016-03-04 2016-04-03 oral 5 mg capsule,extended release 24hr completed for 30 day(s) Zoloft 084592 Rx[facility] 2019-08-02 2019-09-13 oral 50 mg tablet completed for 30 day(s) trazodone 393355 Rx[facility] 2018-06-22 2018-08-21 oral 50 mg tablet completed for 30 day(s) Adderall XR 025361 RxNorm 2016 2016-03-04 oral 5 mg capsule,extended release 24hr completed for 30 day(s) Adderall XR 267582 [facility] 2015-08-05 2016-05-03 oral 10 mg capsule,extended release 24hr completed for 30 day(s) Problems Problem Name Code CodeSy stem Alternate Code Alternate CodeSystem Start Date End Date Status Narrative Attention-deficit hyperactivity disorder, combined ty pe [id number] [facility]OM[facility]-CT 2015-08-22 Active Attention-deficit hyperactivity disorder, combined ty pe 92937343 [facility]OM[facility] 2015-08-22 Active Conduct disorder, childhood onset 2286791 8 [facility] 2016-09-23 Active Conduct disorder, childhood onset 7392570 8 [facility]OM[facility] 2016-09-23 Active Depressive episode, unspecified 39699505 [facility] 2017-10-28 Active Depressive episode, unspecified 72779762 [facility]OM[facility] 2017-10-28 Active Disruptive mood dysregulation disorder 795451777 SNOMED-CT 2017-10-28 Active Conduct disorder, childhood onset 7662205 8 SNOMED-CT 2016-09-23 Active Disruptive mood dysregulation disorder 209125776 SNOMED-CT 2017-10-28 Active Depressive episode, unspecified 19910515 SNOM[facility]-CT 2017-07-26 Active Disruptive mood dysregulation disorder 420256175 SNOMED-CT 2017-10-28 Active Attention-deficit hyperactivity disorder, combined ty pe 35854620 [facility]OM[facility] 2015-08-22 Active Conduct disorder, childhood onset 4447537 8 SNOMED-CT 2016-09-23 Active Conduct disorder, childhood onset 4795448 8 SNOMED-CT 2016-09-23 Active Depressive episode, unspecified 63973075 SNOMED-CT 2017-10-28 Active Disruptive mood dysregulation disorder 892048233 SNOMED-CT 2017-07-26 Active Attention-deficit hyperactivity disorder, combined ty pe 27930426 [facility]OM[facility] 2015-08-22 Active Attention-deficit hyperactivity disorder, combined ty pe 49796052 SNOMED-CT 2015-08-22 Active Relevant diagnostic tests/laboratory data Narrative No Information Procedures Procedure Name Code Code System Target Site Date of Procedure Status Service Delivery Location Device Cod e Device Name Device UID Psychotherapy, 45 minutes with patient [id number] SNOMED-CT () 2015-03-[address], [id number] Psychotherapy, 45 minutes with patient [id number] SNOMED-CT () 2015-07-[address], [id number] Psychotherapy, 45 minutes with patient [id number] SNOMED-CT () 2015-08-[address], [id number] Psychotherapy, 45 minutes with patient [id number] SNOMED-CT () 2015-08-[address], [id number] Psychotherapy, 45 minutes with patient [id number] SNOMED-CT () 2015-08-[address], [id number] Psychotherapy, 45 minutes with patient [id number] SNOMED-CT () 2015-09-[address], [id number] Psychotherapy, 45 minutes with patient [id number] SNOMED-CT () 2016-12-[address], [id number] Psychotherapy, 45 minutes with patient [id number] SNOMED-CT () 2021-02-[address], [id number] Psychotherapy, 45 minutes with patient [id number] SNOMED-CT () 2021-03-[address], [id number] Psychotherapy, 45 minutes with patient [id number] SNOMED-CT () 2021-04-[address], [id number] Psychotherapy, 45 minutes with patient [id number] SNOMED-CT () 2021-05-[address], [id number] Psychotherapy, 45 minutes with patient [id number] SNOMED-CT () 2021-05-[address], [id number] Psychotherapy, 45 minutes with patient [id number] SNOMED-CT () 2021-06-[address], [id number] Psychotherapy, 45 minutes with patient [id number] SNOMED-CT () 2018-10-[address], [id number] Psychotherapy, 45 minutes with patient [id number] SNOMED-CT () 2019-02-[address], [id number] Psychotherapy, 45 minutes with patient [id number] SNOMED-CT () 2019-03-[address], [id number] Psychotherapy, 45 minutes with patient [id number] SNOMED-CT () 2019-07-[address], [id number] Psychotherapy, 45 minutes with patient [id number] SNOMED-CT () 2020-01-[address], [id number] Psychotherapy, 45 minutes with patient [id number] SNOMED-CT () 2020-05-[address], [id number] Psychotherapy, 45 minutes with patient [id number] SNOMED-CT () 2017-12-[address], [id number] Psychotherapy, 45 minutes with patient [id number] SNOMED-CT () 2017-12-[address], [id number] Psychotherapy, 45 minutes with patient [id number] SNOMED-CT () 2018-01-[address], [id number] Psychotherapy, 45 minutes with patient [id number] SNOMED-CT () 2018-04-[address], [id number] Psychotherapy, 45 minutes with patient [id number] SNOMED-CT () 2018-05-[address], [id number] Psychotherapy, 45 minutes with patient [id number] SNOMED-CT () 2018-08-[address], [id number] Psychotherapy, 45 minutes with patient [id number] SNOMED-CT () [address], [id number] Psychotherapy, 45 minutes with patient [id number] SNOMED-CT () 2017-03-[address], [id number] Psychotherapy, 45 minutes with patient [id number] SNOMED-CT () 2017-04-[address], [id number] Psychotherapy, 45 minutes with patient [id number] SNOMED-CT () 2017-04-[address], [id number] Psychotherapy, 45 minutes with patient [id number] SNOMED-CT () 2017-04-[address], [id number] Psychotherapy, 45 minutes with patient [id number] SNOMED-CT () 2017-11-[address], [id number] Psychotherapy, 45 minutes with patient [id number] SNOMED-CT () 2016-05-[address], [id number] Psychotherapy, 45 minutes with patient [id number] SNOMED-CT () 2016-06-[address], [id number] Psychotherapy, 45 minutes with patient [id number] SNOMED-CT () 2016-11-[address], [id number] Psychotherapy, 45 minutes with patient [id number] SNOMED-CT () 2016-12-[address], [id number] Psychotherapy, 45 minutes with patient [id number] SNOMED-CT () 2016-12-[address], [id number] Psychotherapy, 45 minutes with patient [id number] SNOMED-CT () 2017-01-[address], [id number] Psychotherapy, 45 minutes with patient [id number] SNOMED-CT () 2016-02-[address], [id number] Psychotherapy, 45 minutes with patient [id number] SNOMED-CT () 2016-02-[address], [id number] Psychotherapy, 45 minutes with patient [id number] SNOMED-CT () 2016-03-[address], [id number] Psychotherapy, 45 minutes with patient [id number] SNOMED-CT () 2016-03-[address], [id number] Psychotherapy, 45 minutes with patient [id number] SNOMED-CT () 2016-04-[address], [id number] Psychotherapy, 45 minutes with patient [id number] SNOMED-CT () 2016-05-[address], [id number] [id number] Psychotherapy, 45 minutes with patient [id number] SNOMED-CT () 2015-10-[address], [id number] Psychotherapy, 45 minutes with patient [id number] SNOMED-CT () 2015-12-[address], [id number] [id number] Psychotherapy, 45 minutes with patient [id number] SNOMED-CT () 2015-12-[address], [id number] [id number] Psychotherapy, 45 minutes with patient [id number] SNOMED-CT () 2015-12-[address], [id number] Psychotherapy, 45 minutes with patient [id number] SNOMED-CT () 2016-01-[address], [id number] [id number] Psychotherapy, 45 minutes with patient [id number] SNOMED-CT () 2016-01-[address], [id number] Initial Psychiatric Evaluation [id number] SNOMED-CT () 2017-07-[address], [id number] Family psychotherapy (without the patien t present), 50 minutes [id number] SNOMED-CT () 2015-04-[address], [id number] Family psychotherapy (without the patien t present), 50 minutes [id number] SNOMED-CT () 2015-04-[address], [id number] Psychotherapy - Family&Client 1 hr 1 [id number] SNOMED-CT () 2016-06-[address], [id number] Health Monitoring / Risk Reduction Counseling - Brief [id number] SNOMED-CT () 2019-05-[address], [id number] Health Monitoring / Risk Reduction Counseling - Interm ediate [id number] SNOMED-CT () 2019-05-[address], [id number] Health Monitoring / Risk Reduction Counseling - Expand ed [id number] SNOMED-CT () 2019-04-[address], [id number] Health Monitoring / Risk Reduction Counseling - Expand ed [id number] SNOMED-CT () 2019-06-[address], [id number] Est. Patient - E&M Intermediate [id number] SNOMED-CT () 2015-04-[address], [id number] Est. Patient - E&M Intermediate [id number] SNOMED-CT () 2015-08-[address], [id number] [phone] Est. Patient - E&M Intermediate [id number] SNOMED-CT () 2015-09-[address], [id number] [id number] Est. Patient - E&M Intermediate [id number] SNOMED-CT () 2015-11-[address], [id number] [id number] Est. Patient - E&M Intermediate [id number] SNOMED-CT () 2015-12-[address], [id number] [id number] Est. Patient - E&M Intermediate [id number] SNOMED-CT () 2015-12-[address], [id number] Est. Patient - E&M Intermediate [id number] SNOMED-CT () 2020-12-[address], [id number] [id number] Est. Patient - E&M Intermediate [id number] SNOMED-CT () 2021-03-[address], [id number] [id number] Est. Patient - E&M Intermediate [id number] SNOMED-CT () 2018-08-[address], [id number] Est. Patient - E&M Intermediate [id number] SNOMED-CT () 2018-09-[address], [id number] [id number] Est. Patient - E&M Intermediate [id number] SNOMED-CT () 2018-10-[address], [id number] [phone] Est. Patient - E&M Intermediate [id number] SNOMED-CT () 2018-12-[address], [id number] [id number] Est. Patient - E&M Intermediate [id number] SNOMED-CT () [address], [id number] [id number] Est. Patient - E&M Intermediate [id number] SNOMED-CT () 2019-06-[address], [id number] Est. Patient - E&M Intermediate [id number] SNOMED-CT () 2017-02-[address], [id number] Est. Patient - E&M Intermediate [id number] SNOMED-CT () 2017-03-[address], [id number] [id number] Est. Patient - E&M Intermediate [id number] SNOMED-CT () 2017-04-[address], [id number] Est. Patient - E&M Intermediate [id number] SNOMED-CT () 2017-05-[address], [id number] [id number] Est. Patient - E&M Intermediate [id number] SNOMED-CT () 2017-10-[address], [id number] [id number] Est. Patient - E&M Intermediate [id number] SNOMED-CT () 2017-11-[address], [id number] [phone] Est. Patient - E&M Intermediate [id number] SNOMED-CT () [address], [id number] [id number] Est. Patient - E&M Intermediate [id number] SNOMED-CT () 2016-05-[address], [id number] [phone] Est. Patient - E&M Intermediate [id number] SNOMED-CT () 2016-06-[address], [id number] [id number] Est. Patient - E&M Intermediate [id number] SNOMED-CT () 2016-06-[address], [id number] [id number] Est. Patient - E&M Intermediate [id number] SNOMED-CT () 2016-07-[address], [id number] [id number] Est. Patient - E&M Intermediate [id number] SNOMED-CT () 2017-01-[address], [id number] Est. Patient - E&M Brief [id number] SNOMED-CT () 2015-08-[address], [id number] [id number] Est. Patient - E&M Brief [id number] SNOMED-CT () 2015-10-[address], [id number] Est. Patient - E&M Brief [id number] SNOMED-CT () 2015-10-[address], [id number] [id number] Est. Patient - E&M Brief [id number] SNOMED-CT () 2016-03-[address], [id number] [id number] Est. Patient - E&M Brief [id number] SNOMED-CT () 2016-04-06 completed [address], [id number] [id number] Est. Patient - E&M Brief [id number] SNOMED-CT () 2016-08-[address], [id number] [id number] Est. Patient - E&M Brief [id number] SNOMED-CT () 2020-03-[address], [id number] Est. Patient - E&M Brief [id number] SNOMED-CT () 2020-04-[address], [id number] Est. Patient - E&M Brief [id number] SNOMED-CT () 2020-05-[address], [id number] [id number] Est. Patient - E&M Brief [id number] SNOMED-CT () 2020-07-[address], [id number] [id number] Est. Patient - E&M Brief [id number] SNOMED-CT () 2021-01-[address], [id number] [id number] Est. Patient - E&M Brief [id number] SNOMED-CT () 2020-02-[address], [id number] [id number] Est. Patient - E&M Brief [id number] SNOMED-CT () 2019-05-[address], [id number] [id number] Est. Patient - E&M Brief [id number] SNOMED-CT () 2019-08-[address], [id number] [id number] Est. Patient - E&M Brief [id number] SNOMED-CT () 2019-09-[address], [id number] [id number] Est. Patient - E&M Brief [id number] SNOMED-CT () 2019-10-[address], [id number] [phone] Est. Patient - E&M Brief [id number] SNOMED-CT () 2019-12-[address], [id number] Est. Patient - E&M Brief [id number] SNOMED-CT () 2020-01-[address], [id number] [id number] Est. Patient - E&M Brief [id number] SNOMED-CT () 2016-12-[address], [id number] Est. Patient - E&M Brief [id number] SNOMED-CT () 2017-09-[address], [id number] [id number] Est. Patient - E&M Brief [id number] SNOMED-CT () 2017-09-[address], [id number] [id number] Est. Patient - E&M Brief [id number] SNOMED-CT () 2017-09-[address], [id number] [id number] Est. Patient - E&M Brief [id number] SNOMED-CT () 2018-05-[address], [id number] Est. Patient - E&M Brief [id number] SNOMED-CT () 2019-04-[address], [id number] Est. Patient - E&M Expanded [id number] SNOMED-CT () 2015-03-[address], [id number] [id number] Est. Patient - E&M Expanded [id number] SNOMED-CT () 2015-05-[address], [id number] [id number] Est. Patient - E&M Expanded [id number] SNOMED-CT () 2015-06-[address], [id number] [id number] Est. Patient - E&M Expanded [id number] SNOMED-CT () 2015-07-[address], [id number] [id number] Est. Patient - E&M Expanded [id number] SNOMED-CT () 2017-07-[address], [id number] Est. Patient - E&M Expanded [id number] SNOMED-CT () 2017-08-[address], [id number] Est. Patient - E&M Expanded [id number] SNOMED-CT () 2019-07-[address], [id number] Est. Patient - E&M Expanded [id number] SNOMED-CT () 2019-07-[address], [id number] [id number] Est. Patient - E&M Expanded [id number] SNOMED-CT () 2021-05-[address], [id number] [id number] Est. Patient - E&M Expanded [id number] SNOMED-CT () 2021-06-[address], [id number] [phone] Est. Patient - E&M Expanded [id number] SNOMED-CT () 2018-01-[address], [id number] Est. Patient - E&M Expanded [id number] SNOMED-CT () 2018-01-[address], [id number] [id number] Est. Patient - E&M Expanded [id number] SNOMED-CT () 2018-02-[address], [id number] Est. Patient - E&M Expanded [id number] SNOMED-CT () 2018-03-[address], [id number] [id number] Est. Patient - E&M Expanded [id number] SNOMED-CT () 2018-04-[address], [id number] [id number] Est. Patient - E&M Expanded [id number] SNOMED-CT () 2018-06-[address], [id number] [id number] Est. Patient - E&M Expanded [id number] SNOMED-CT () 2017-08-[address], [id number] Est. Patient - E&M Expanded [id number] SNOMED-CT () 2017-08-[address] [place], [place], [id number] [phone] Est. Patient - E&M Expanded [id number] SNOMED-CT () 2017-09-[address], [id number] [phone] Est. Patient - E&M Expanded [id number] SNOMED-CT () 2017-09-[address], [id number] [id number] Est. Patient - E&M Expanded [id number] SNOMED-CT () 2017-10-[address], [id number] [id number] Est. Patient - E&M Expanded [id number] SNOMED-CT () 2017-12-[address], [id number] [id number] Individual Psychotherapy [id number] SNOMED-CT () 2015-03-[address], [id number] [phone] Individual Psychotherapy [id number] SNOMED-CT () 2015-04-[address], [id number] Individual Psychotherapy [id number] SNOMED-CT () 2015-05-[address], [id number] Individual Psychotherapy [id number] SNOMED-CT () 2015-05-[address], [id number] [id number] Individual Psychotherapy [id number] SNOMED-CT () 2015-05-[address], [id number] Individual Psychotherapy [id number] SNOMED-CT () 2015-05-[address], [id number] [id number] Individual Psychotherapy [id number] SNOMED-CT () 2020-03-[address], [id number] [id number] Individual Psychotherapy [id number] SNOMED-CT () 2021-01-[address], [id number] Individual Psychotherapy [id number] SNOMED-CT () 2021-02-[address], [id number] Individual Psychotherapy [id number] SNOMED-CT () 2021-03-[address], [id number] Individual Psychotherapy [id number] SNOMED-CT () 2021-03-[address], [id number] [id number] Individual Psychotherapy [id number] SNOMED-CT () 2021-03-[address], [id number] Individual Psychotherapy [id number] SNOMED-CT () 2020-04-[address], [id number] [phone] Individual Psychotherapy [id number] SNOMED-CT () 2019-09-[address], [id number] Individual Psychotherapy [id number] SNOMED-CT () 2020-02-[address], [id number] Individual Psychotherapy [id number] SNOMED-CT () 2020-07-[address], [id number] [id number] Individual Psychotherapy [id number] SNOMED-CT () 2020-04-[address], [id number] Individual Psychotherapy [id number] SNOMED-CT () 2020-03-[address], [id number] Individual Psychotherapy [id number] SNOMED-CT () 2020-12-[address], [id number] [id number] Individual Psychotherapy [id number] SNOMED-CT () 2018-10-[address], [id number] [id number] Individual Psychotherapy [id number] SNOMED-CT () 2018-10-[address], [id number] Individual Psychotherapy [id number] SNOMED-CT () 2018-11-[address], [id number] [id number] Individual Psychotherapy [id number] SNOMED-CT () 2018-12-[address], [id number] Individual Psychotherapy [id number] SNOMED-CT () 2019-02-[address], [id number] Individual Psychotherapy [id number] SNOMED-CT () 2019-08-[address], [id number] Individual Psychotherapy [id number] SNOMED-CT () 2017-11-[address], [id number] [id number] Individual Psychotherapy [id number] SNOMED-CT () 2017-12-[address], [id number] Individual Psychotherapy [id number] SNOMED-CT () 2018-03-[address], [id number] Individual Psychotherapy [id number] SNOMED-CT () 2018-06-[address], [id number] [id number] Individual Psychotherapy [id number] SNOMED-CT () 2018-07-[address], [id number] Individual Psychotherapy [id number] SNOMED-CT () 2018-09-[address], [id number] Individual Psychotherapy [id number] SNOMED-CT () 2017-08-[address], [id number] Individual Psychotherapy [id number] SNOMED-CT () 2017-09-[address], [id number] Individual Psychotherapy [id number] SNOMED-CT () 2017-09-[address], [id number] Individual Psychotherapy [id number] SNOMED-CT () 2017-09-[address], [id number] Individual Psychotherapy [id number] SNOMED-CT () 2017-10-[address], [id number] Individual Psychotherapy [id number] SNOMED-CT () 2017-10-27 [address], [id number] [phone] Individual Psychotherapy [id number] SNOMED-CT () 2017-03-[address], [id number] [phone] Individual Psychotherapy [id number] SNOMED-CT () 2017-03-[address], [id number] [id number] Individual Psychotherapy [id number] SNOMED-CT () 2017-05-[address], [id number] [id number] Individual Psychotherapy [id number] SNOMED-CT () 2017-07-[address], [id number] Individual Psychotherapy [id number] SNOMED-CT () 2017-08-[address], [id number] Individual Psychotherapy [id number] SNOMED-CT () 2017-08-[address], [id number] Individual Psychotherapy [id number] SNOMED-CT () 2016-07-[address], [id number] [id number] Individual Psychotherapy [id number] SNOMED-CT () 2016-07-[address], [id number] Individual Psychotherapy [id number] SNOMED-CT () 2016-08-[address], [id number] Individual Psychotherapy [id number] SNOMED-CT () 2016-08-[address], [id number] Individual Psychotherapy [id number] SNOMED-CT () 2016-09-[address], [id number] Individual Psychotherapy [id number] SNOMED-CT () 2017-02-16 completed [facility] [address] [place], [place], [id number] [id number] Individual Psychotherapy [id number] SNOMED-CT () 2016-03-[address], [id number] Individual Psychotherapy [id number] SNOMED-CT () 2016-04-[address], [id number] Individual Psychotherapy [id number] SNOMED-CT () 2016-04-[address], [id number] Individual Psychotherapy [id number] SNOMED-CT () 2016-05-[address], [id number] Individual Psychotherapy [id number] SNOMED-CT () 2016-06-[address], [id number] Individual Psychotherapy [id number] SNOMED-CT () 2016-07-[address], [id number] Individual Psychotherapy [id number] SNOMED-CT () 2015-11-[address], [id number] Individual Psychotherapy [id number] SNOMED-CT () 2016-01-02 completed [facility] [address] [place], [place], [id number] [id number] Individual Psychotherapy [id number] SNOMED-CT () 2016-01-[address], [id number] Individual Psychotherapy [id number] SNOMED-CT () 2016-02-[address], [id number] Individual Psychotherapy [id number] SNOMED-CT () 2016-02-[address], [id number] [id number] Individual Psychotherapy [id number] SNOMED-CT () 2016-03-[address], [id number] [id number] Individual Psychotherapy [id number] SNOMED-CT () 2015-06-[address], [id number] Individual Psychotherapy [id number] SNOMED-CT () 2015-09-[address], [id number] Individual Psychotherapy [id number] SNOMED-CT () 2015-09-[address], [id number] Individual Psychotherapy [id number] SNOMED-CT () 2015-10-[address], [id number] Individual Psychotherapy [id number] SNOMED-CT () 2015-10-[address], [id number] Individual Psychotherapy [id number] SNOMED-CT () 2015-10-[address], [id number] Individual Psychotherapy [id number] SNOMED-CT () 2015-03-[address], [id number] Individual Psychotherapy [id number] SNOMED-CT () 2015-07-[address], [id number] Individual Psychotherapy [id number] SNOMED-CT () 2015-08-[address], [id number] Individual Psychotherapy [id number] SNOMED-CT () 2015-08-[address], [id number] Individual Psychotherapy [id number] SNOMED-CT () 2015-08-[address], [id number] Individual Psychotherapy [id number] SNOMED-CT () 2015-09-[address], [id number] Individual Psychotherapy [id number] SNOMED-CT () 2016-12-[address], [id number] Individual Psychotherapy [id number] SNOMED-CT () 2021-02-[address], [id number] Individual Psychotherapy [id number] SNOMED-CT () 2021-03-[address], [id number] Individual Psychotherapy [id number] SNOMED-CT () 2021-04-[address], [id number] [id number] Individual Psychotherapy [id number] SNOMED-CT () 2021-05-[address], 587607605 [id number] Individual Psychotherapy [id number] SNOMED-CT () 2021-05-[address], [id number] [id number] Individual Psychotherapy [id number] SNOMED-CT () 2021-06-[address], [id number] [id number] Individual Psychotherapy [id number] SNOMED-CT () 2018-10-[address], [id number] Individual Psychotherapy [id number] SNOMED-CT () 2019-02-[address], [id number] Individual Psychotherapy [id number] SNOMED-CT () 2019-03-[address], [id number] [id number] Individual Psychotherapy [id number] SNOMED-CT () 2019-07-[address], [id number] Individual Psychotherapy [id number] SNOMED-CT () 2020-01-[address], [id number] Individual Psychotherapy [id number] SNOMED-CT () 2020-05-[address], [id number] Individual Psychotherapy [id number] SNOMED-CT () 2017-12-[address], [id number] Individual Psychotherapy [id number] SNOMED-CT () 2017-12-[address], [id number] Individual Psychotherapy [id number] SNOMED-CT () 2018-01-[address], [id number] Individual Psychotherapy [id number] SNOMED-CT () 2018-04-[address], [id number] Individual Psychotherapy [id number] SNOMED-CT () 2018-05-[address], [id number] Individual Psychotherapy [id number] SNOMED-CT () 2018-08-[address], [id number] Individual Psychotherapy [id number] SNOMED-CT () [address], [id number] [id number] Individual Psychotherapy [id number] SNOMED-CT () 2017-03-[address], 378805730 [id number] Individual Psychotherapy [id number] SNOMED-CT () 2017-04-[address], [id number] Individual Psychotherapy [id number] SNOMED-CT () 2017-04-[address], [id number] Individual Psychotherapy [id number] SNOMED-CT () 2017-04-[address], [id number] Individual Psychotherapy [id number] SNOMED-CT () 2017-11-[address], [id number] Individual Psychotherapy [id number] SNOMED-CT () 2016-05-[address], [id number] Individual Psychotherapy [id number] SNOMED-CT () 2016-06-[address], [id number] Individual Psychotherapy [id number] SNOMED-CT () 2016-11-[address], 125784056 [id number] Individual Psychotherapy [id number] SNOMED-CT () 2016-12-[address], [id number] Individual Psychotherapy [id number] SNOMED-CT () 2016-12-[address], [id number] [id number] Individual Psychotherapy [id number] SNOMED-CT () 2017-01-[address], [id number] Individual Psychotherapy [id number] SNOMED-CT () 2016-02-[address], [id number] [id number] Individual Psychotherapy [id number] SNOMED-CT () 2016-02-[address], [id number] Individual Psychotherapy [id number] SNOMED-CT () 2016-03-[address], [id number] [id number] Individual Psychotherapy [id number] SNOMED-CT () 2016-03-[address], 441610154 [id number] Individual Psychotherapy [id number] SNOMED-CT () 2016-04-[address], [id number] [id number] Individual Psychotherapy [id number] SNOMED-CT () 2016-05-[address], [id number] [id number] Individual Psychotherapy [id number] SNOMED-CT () 2015-10-[address], [id number] Individual Psychotherapy [id number] SNOMED-CT () 2015-12-[address], 348078033 [id number] Individual Psychotherapy [id number] SNOMED-CT () 2015-12-[address], [id number] Individual Psychotherapy [id number] SNOMED-CT () 2015-12-[address], [id number] [id number] Individual Psychotherapy [id number] SNOMED-CT () 2016-01-[address], [id number] [id number] Individual Psychotherapy [id number] SNOMED-CT () 2016-01-[address], [id number] Psychiatric Diagnostic Evaluation without medical serv ices [id number] SNOMED-CT () 2015-03-[address], [id number] SNOMED-CT () 2018-03-[address], [id number] SNOMED-CT () 2017-12-29 completed [address] [place], [place], [id number] [id number] SNOMED-CT () 2018-07-29 completed [address] [place], [place], [address] [id number] SNOMED-CT () 2017-10-28 completed [address] [place], [address] [id number] SNOMED-CT () 2018-06-28 completed [address] [place], [id number] SNOMED-CT () 2018-08-28 completed [address] [place], [id number] [id number] SNOMED-CT () 2017-11-28 completed [address] [place], [address] [id number] SNOMED-CT () 2018-03-28 completed [address] [place], [address] [id number] SNOMED-CT () 2018-01-26 completed [address] [place], [address] [id number] SNOMED-CT () 2018-05-28 completed [address] [place], [id number] SNOMED-CT () 2018-02-26 completed [address] [place], [place], [id number] SNOMED-CT () 2018-04-28 completed [address] [place], 072774796 [phone] SNOMED-CT () 2017-07-21 completed [facility] [address] [place], [place], 9976926[address] [phone] SNOMED-CT () 2017-07-21 completed [facility] [address] [place], 463736045 [id number] SNOMED-CT () 2017-07-21 completed [facility] [address] [place], 534134113 [phone] SNOMED-CT () 2017-07-21 completed [facility] [address] [place], 917975436 [id number] SNOMED-CT () 2017-07-21 completed [facility] [address] [place], 968011503 [id number] SNOMED-CT () 2017-07-21 completed [facility] [address] [place], 232428725 [phone] SNOMED-CT () 2017-07-21 completed [facility] [address] [place], [place], 29[address]85[address] [phone] SNOMED-CT () 2017-07-21 completed [facility] [address] [place], [place], 597238743 [phone] SNOMED-CT () 2017-07-21 completed [facility] [address] [place], 808104190 [id number] SNOMED-CT () 2017-07-21 completed [facility] [address] [place], 237148414 [phone] SNOMED-CT () 2017-07-[address], 693689207 [id number] SNOMED-CT () 2017-07-[address], 091825269 [phone] SNOMED-CT () 2017-07-[address], [id number] [phone] SNOMED-CT () 2017-07-[address], 949388641 [phone] SNOMED-CT () 2017-07-[address], 002187672 [id number] SNOMED-CT () 2017-07-[address], 423074284 [id number] SNOMED-CT () 2016-08-[address], 517569304 [id number] SNOMED-CT () 2016-07-[address], 951381631 [phone] SNOMED-CT () 2016-04-19 completed [facility] C [address], [id number] [id number] SNOMED-CT () 2016-03-[address], 720876835 [phone] SNOMED-CT () 2016-06-[address], 296926429 [phone] SNOMED-CT () 2016-04-12 completed [facility] C [address], [id number] [id number] SNOMED-CT () 2016-04-[address], [id number] [phone] SNOMED-CT () 2016-06-[address] [place], [address]2085 [phone] SNOMED-CT () 2017-01-[address], [id number] [phone] SNOMED-CT () 2016-05-[address], [id number] [id number] SNOMED-CT () 2016-07-[address], 842218591 [id number] SNOMED-CT () 2016-08-[address], 077971762 [phone] SNOMED-CT () 2016-07-[address], [id number] [id number] SNOMED-CT () 2016-05-[address], [id number] [phone] SNOMED-CT () 2016-04-[address], [id number] [phone] SNOMED-CT () 2016-03-[address], 430427127 [phone] SNOMED-CT () 2016-09-[address], 457586924 [phone] SNOMED-CT () 2016-06-[address], 117223669 [phone] SNOMED-CT () 2016-05-[address], 473686048 [id number] SNOMED-CT () 2016-05-[address], 524384105 [phone] SNOMED-CT () 2016-06-14 completed [facility] C [address], 504007091 [id number] SNOMED-CT () 2016-03-22 completed W C [address], 857175704 [id number] SNOMED-CT () 2017 completed W C [address], 885659565 [id number] SNOMED-CT () 2016-06-07 completed W C [address], [id number] [phone] SNOMED-CT () 2016-08-16 completed W C [address], 930124619 [id number] SNOMED-CT () 2016-07-05 completed W C [address], 223275312 [id number] SNOMED-CT () 2016-03-01 completed W C [address], [id number] [phone] SNOMED-CT () 2016-03-09 completed W C [address], 893747682 [phone] SNOMED-CT () 2021-04-22 completed W C [address], 770432261 [phone] SNOMED-CT () 2021-03-16 completed W C [address], 446446852 [phone] SNOMED-CT () 2021-01-[address], 156988529 [id number] SNOMED-CT () 2021-03-[address], [id number] [id number] SNOMED-CT () 2021-03-04 completed [facility] [address], [id number] [id number] SNOMED-CT () 2021-05-11 completed [facility] [address], 741210325 [id number] SNOMED-CT () 2020-12-29 completed [facility] C [address], [id number] [phone] SNOMED-CT () 2020-12-15 completed [facility] C [address], [id number] [id number] SNOMED-CT () 2021-03-11 completed [facility] C [address], 219604450 [id number] SNOMED-CT () 2021-02-04 completed [facility] C [address], 468152270 [id number] SNOMED-CT () 2021-03-24 completed W C [address], 956290527 [phone] SNOMED-CT () 2021-05-06 completed W C [address], [id number] [id number] SNOMED-CT () 2021-02-18 completed W C [address], 542917272 [phone] SNOMED-CT () 2020-03-28 completed [address] [place], 654463436 [phone] SNOMED-CT () 2020-06-28 completed [address] [place], 868631718 [id number] SNOMED-CT () 2020-09-28 completed [address] [place], 534838591 [phone] SNOMED-CT () 2020-04-28 completed [address] [place], 012854902 [phone] SNOMED-CT () 2020-02-27 completed [address] [place], 099990535 [phone] SNOMED-CT () 2020-08-28 completed [address] [place], 347761291 [phone] SNOMED-CT () 2020-12-29 completed [address] [place], 950081669 [phone] SNOMED-CT () 2021-01-26 completed [address] [place], 690011876 [phone] SNOMED-CT () 2020-11-28 completed [address] [place], 923626919 [phone] SNOMED-CT () 2020-01-27 completed [address] [place], 661560488 [phone] SNOMED-CT () 2020-05-28 completed [address] [place], 972139867 [id number] SNOMED-CT () 2020-10-28 completed [address] [place], 240659599 [id number] SNOMED-CT () 2020-07-29 completed [address] [place], 071392829 [phone] SNOMED-CT () 2015-03-29 completed [facility] [address] [place], 032931145 [id number] SNOMED-CT () 2015-04-29 completed [facility] [address] [place], 333216329 [phone] SNOMED-CT () 2015-05-28 completed [facility] [address] [place], 153402542 [phone] SNOMED-CT () 2015-06-28 completed [facility] [address] [place], 198863868 [phone] SNOMED-CT () 2015-07-29 completed CYP [address] [place], 896698052 [id number] SNOMED-CT () 2015-08-28 completed [facility] [address] [place], 397080957 [phone] SNOMED-CT () 2021-04-28 completed [address] [place], 167959937 [phone] SNOMED-CT () 2021-05-28 completed [address] [place], 475131970 [id number] SNOMED-CT () 2021-06-28 completed [address] [place], 814208818 [id number] SNOMED-CT () 2020-10-28 completed [address] [place], 562055064 [phone] SNOMED-CT () 2020-11-28 completed [address] [place], 618781196 [phone] SNOMED-CT () 2020-12-29 completed [address] [place], 056724695 [phone] SNOMED-CT () 2021-01-26 completed [address] [place], 203107784 [phone] SNOMED-CT () 2021-02-26 completed [address] [place], 370486703 [phone] SNOMED-CT () 2021-03-28 completed [address] [place], 864517750 [phone] SNOMED-CT () 2020-04-28 completed [address] [place], 147086048 [phone] SNOMED-CT () 2020-05-28 completed [address] [place], 443493764 [phone] SNOMED-CT () 2020-06-28 completed [address] [place], 489420913 [phone] SNOMED-CT () 2020-07-29 completed [address] [place], 259738011 [phone] SNOMED-CT () 2020-08-28 completed [address] [place], 596717777 [phone] SNOMED-CT () 2020-09-28 completed [address] [place], 567225733 [id number] SNOMED-CT () 2019-10-28 completed [address] [place], 438049389 [phone] SNOMED-CT () 2019-11-28 completed [address] [place], 573756397 [id number] SNOMED-CT () 2019-12-29 completed [address] [place], 852801136 [phone] SNOMED-CT () 2020-01-27 completed [address] [place], 594549444 [phone] SNOMED-CT () 2020-02-27 completed [address] [place], 497634699 [id number] SNOMED-CT () 2020-03-28 completed [address] [place], 844606283 [phone] SNOMED-CT () 2019-05-28 completed [address] [place], 243150881 [phone] SNOMED-CT () 2019-06-[address] [facility] [facility] [address] [place], [place], 758247392 [phone] SNOMED-CT () 2019-06-29 completed [address] [place], 753150608 [id number] SNOMED-CT () 2019-07-29 [address] [place] [address], [id number] [phone] SNOMED-CT () 2019-08-28 completed [address] [place], 131297916 [phone] SNOMED-CT () 2019-09-28 completed [address] [place], 559638194 [phone] SNOMED-CT () 2018-11-28 completed [address] [place], [id number] [phone] SNOMED-CT () 2018-12-29 completed [address] [place], 391677190 [phone] SNOMED-CT () 2019-01-26 completed [address] [place], NY, 291867411 [phone] SNOMED-CT () 2019-02-26 completed [address] [place], 586995610 [id number] SNOMED-CT () 2019-03-28 completed [address] [place], NY, 694034413 [phone] SNOMED-CT () 2019-04-28 completed [address] [place], 985778464 [phone] SNOMED-CT () 2018-05-28 completed [address] [place] NY, 771319847 [phone] SNOMED-CT () 2018-06-28 completed [address] [place], NY, 354821114 [phone] SNOMED-CT () 2018-07-29 completed [address] [place], 434121381 [phone] SNOMED-CT () 2018-08-28 completed [address] [place], 672907930 [phone] SNOMED-CT () 2018-09-28 completed [address] [place], 473841522 [phone] SNOMED-CT () 2018-10-28 completed [address] [place], 921136001 [phone] SNOMED-CT () 2017-11-28 completed [address] [place] NY, 560891108 [phone] SNOMED-CT () 2017-12-29 completed [address] [place] NY, 741711383 [id number] SNOMED-CT () 2018-01-26 completed [address] [place] NY, 849519043 [id number] SNOMED-CT () 2018-02-26 completed [address] [place] NY, 800600101 [phone] SNOMED-CT () 2018-03-28 completed [address] [place], 648781277 [phone] SNOMED-CT () 2018-04-28 completed [address] [place], 170553742 [id number] SNOMED-CT () 2017-05-28 completed CYP [address] [place], 261240853 [id number] SNOMED-CT () 2017-06-28 completed [address] [place], 732413932 [id number] SNOMED-CT () 2017-07-29 completed [address] [place], 764040587 [id number] SNOMED-CT () 2017-08-28 completed [address] [place], 531441985 [phone] SNOMED-CT () 2017-09-28 completed [address] [place], 782662163 [id number] SNOMED-CT () 2017-10-28 completed [address] [place] NY, 662509686 [phone] SNOMED-CT () 2016-11-28 completed [address] [place], 536767805 [id number] SNOMED-CT () 2016-12-29 completed [address] [place], 059721988 [phone] SNOMED-CT () 2017-01-26 completed [address] [place], 553723136 [id number] SNOMED-CT () 2017-02-26 completed [address] [place], 188794202 [id number] SNOMED-CT () 2017-03-28 completed [address] [place], 097177180 [id number] SNOMED-CT () 2017-04-28 completed [address] [place], 478183413 [id number] SNOMED-CT () 2016-03-28 completed [address] [place], 550187630 [id number] SNOMED-CT () 2016-04-28 completed [address] [place], 526951891 [phone] SNOMED-CT () 2016-05-28 completed [address] [place], 641335945 [id number] SNOMED-CT () 2016-06-28 completed [address] [place], 451807556 [id number] SNOMED-CT () 2016-07-29 completed [address] [place], 013741247 [id number] SNOMED-CT () 2016-08-28 completed [address] [place], 984807286 [id number] SNOMED-CT () 2015-09-28 completed [address] [place], 345259220 [id number] SNOMED-CT () 2015-10-28 completed [address] [place], 161148336 [id number] SNOMED-CT () 2015-11-28 completed [address] [place], 386146592 [id number] SNOMED-CT () 2015-12-29 completed [address] [place], 512978898 [phone] SNOMED-CT () 2016-01-27 completed [address] [place], 804088378 [id number] SNOMED-CT () 2016-02-27 completed [address] [place], 964197837 [id number] SNOMED-CT () 2016-07-29 completed [address] [place], 154983481 [id number] SNOMED-CT () 2016-12-29 completed CYP [address] [place], 867433345 [id number] SNOMED-CT () 2016-04-28 completed [address] [place], 743872511 [id number] SNOMED-CT () 2016-05-28 completed [address] [place], 102657023 [id number] SNOMED-CT () 2016-02-27 completed [address] [place], 791794024 [id number] SNOMED-CT () 2016-08-28 completed CYP [address] [place], 052344563 [phone] SNOMED-CT () 2016-03-28 completed [address] [place] NY, 369966638 [id number] SNOMED-CT () 2016-06-28 completed [address] [place], 915262501 [id number] SNOMED-CT () 2016-11-28 completed [address] [place], NY, 159762188 [id number] SNOMED-CT () 2019-10-28 completed [address] [place] NY, 007428908 [id number] SNOMED-CT () 2019-11-28 completed [address] [place] NY, 590854810 [id number] SNOMED-CT () 2019-12-29 completed [address] [place], NY, 525096387 [id number] SNOMED-CT () 2015-03-28 completed [address] [place], 046620465 [id number] SNOMED-CT () 2015-04-28 completed [address] [place], 623798554 [id number] SNOMED-CT () 2015-05-28 completed [address] [place] NY, 166271834 [id number] SNOMED-CT () 2015-06-28 completed [address] [place] NY, 631973714 [id number] SNOMED-CT () 2015-07-29 completed [address] [place], 810997811 [id number] SNOMED-CT () 2015-09-28 completed [address] [place] NY, 173927956 [id number] SNOMED-CT () 2016-09-28 completed [address] [place], NY, 334814592 [id number] SNOMED-CT () 2015-03-10 completed CYP [address] [place] NY, 781810989 [id number] SNOMED-CT () 2018-05-28 completed [address] [place], NY, 943301948 [id number] SNOMED-CT () 2016-10-28 completed [address] [place], 872598226 [id number] SNOMED-CT () 2020-02-27 completed [address] [place] NY, 838300865 [phone] SNOMED-CT () 2021-02-26 completed [address] [place], NY, 534614747 [id number] SNOMED-CT () 2021-03-28 completed [address] [place], NY, 385184150 [id number] SNOMED-CT () 2021-04-28 completed [address] [place] NY, 468906812 [id number] SNOMED-CT () 2021-05-28 completed [address] [place] NY, 302855978 [id number] SNOMED-CT () 2021-06-28 completed [address] [place] NY, 997102802 [phone] SNOMED-CT () 2015-08-28 completed [address] [place], 413143962 [id number] SNOMED-CT () 2020-08-28 completed [address] [place] NY, 361681659 [id number] SNOMED-CT () 2020-09-28 completed [address] [place] NY, 920007417 [id number] SNOMED-CT () 2020-10-28 completed [address] [place], 833147716 [phone] SNOMED-CT () 2020-11-28 completed [address] [place] NY, 036179043 [phone] SNOMED-CT () 2020-12-29 completed [address] [place] NY, 379610796 [phone] SNOMED-CT () 2021-01-26 completed [address] [place] NY, 455242942 [id number] SNOMED-CT () 2020-01-27 completed [address] [place] NY, 230285785 [phone] SNOMED-CT () 2020-03-28 completed [address] [place] NY, 348762858 [id number] SNOMED-CT () 2020-04-28 completed [address] [place] NY, 322582062 [id number] SNOMED-CT () 2020-05-28 completed [address] [place], NY, 755257361 [id number] SNOMED-CT () 2020-06-28 completed [address] [place] NY, 333870054 [id number] SNOMED-CT () 2020-07-29 completed [address] [place], 309746582 [id number] SNOMED-CT () 2019-07-29 completed [address] [place] NY, 465606443 [id number] SNOMED-CT () 2019-08-28 completed [address] [place], NY, 006610838 [id number] SNOMED-CT () 2019-09-28 completed [address] [place], 887174712 [id number] SNOMED-CT () 2019-10-28 completed [address] [place] NY, 457974383 [phone] SNOMED-CT () 2019-11-28 completed [address] [place], 083103393 [id number] SNOMED-CT () 2019-12-29 completed [address] [place], NY, 421517824 [id number] SNOMED-CT () 2019-01-26 completed [address] [place] NY, 814099332 [phone] SNOMED-CT () 2019-02-26 completed [address] [place] NY, 303226463 [id number] SNOMED-CT () 2019-03-28 completed [address] [place] NY, 248699930 [id number] SNOMED-CT () 2019-04-28 completed [address] [place] NY, 747698249 [id number] SNOMED-CT () 2019-05-28 completed [address] [place], 762996194 [phone] SNOMED-CT () 2019-06-[address] [place] [address], 551305070 [phone] SNOMED-CT () 2018-07-29 completed [address] [place] NY, 540428174 [id number] SNOMED-CT () 2018-08-28 completed [address] [place], 037061387 [phone] SNOMED-CT () 2018-09-28 completed [address] [place], 343589416 [id number] SNOMED-CT () 2018-10-28 completed [address] [place] NY, 397162083 [id number] SNOMED-CT () 2018-11-28 completed [address] [place] NY, 407367124 [id number] SNOMED-CT () 2018-12-29 completed [address] [place] NY, 621814709 [id number] SNOMED-CT () 2017-12-29 completed [address] [place] NY, 795078043 [id number] SNOMED-CT () 2018-01-26 completed [address] [place] NY, 224929780 [id number] SNOMED-CT () 2018-02-26 completed [address] [place], NY, 962083210 [id number] SNOMED-CT () 2018-03-28 completed [address] [place] NY, 486390335 [id number] SNOMED-CT () 2018-04-28 completed [address] [place] NY, 460170042 [id number] SNOMED-CT () 2018-06-28 completed [address] [place] NY, 408483420 [id number] SNOMED-CT () 2017-06-28 completed [address] [place], 782648021 [id number] SNOMED-CT () 2017-07-29 completed [address] [place], 786738696 [id number] SNOMED-CT () 2017-08-28 completed [address] [place] NY, 547898540 [id number] SNOMED-CT () 2017-09-28 completed [address] [place] NY, 449163197 [id number] SNOMED-CT () 2017-10-28 completed [address] [place] NY, 580211927 [id number] SNOMED-CT () 2017-11-28 completed [address] [place] NY, 855187909 [id number] SNOMED-CT () 2016-12-29 completed [address] [place], 562094175 [id number] SNOMED-CT () 2017-01-26 completed [address] [place] NY, 842894911 [id number] SNOMED-CT () 2017-02-26 completed [address] [place] NY, 964590454 [id number] SNOMED-CT () 2017-03-28 completed [address] [place] NY, 675608418 [id number] SNOMED-CT () 2017-04-28 completed [address] [place] NY, 251282613 [id number] SNOMED-CT () 2017-05-28 completed [address] [place] NY, 246929534 [id number] SNOMED-CT () 2016-04-28 completed [address] [place] NY, 497778225 [id number] SNOMED-CT () 2016-05-28 completed [address] [place] NY, 612727362 [id number] SNOMED-CT () 2016-06-28 completed [address] [place] NY, 085230915 [id number] SNOMED-CT () 2016-07-29 completed [address] [place], 792991040 [id number] SNOMED-CT () 2016-08-28 completed [address] [place] NY, 687193955 [id number] SNOMED-CT () 2016-11-[address] [place] [address], 733150365 [id number] SNOMED-CT () 2015-10-28 completed [address] [place] [address], 290907747 [id number] SNOMED-CT () 2015-11-[address] [place] [address], 810340747 [phone] SNOMED-CT () 2015-12-29 completed CYP [address] [place] [address], 060539990 [id number] SNOMED-CT () 2016-01-[address] [place] [address], 665932674 [id number] SNOMED-CT () 2016-02-27 completed [address] [place] [address], 962022710 [id number] SNOMED-CT () 2016-03-[address] [place] [address], 809814815 [id number] SNOMED-CT () 2015-09-30 completed [facility] C [address], 701221960 [id number] SNOMED-CT () 2017-07-12 completed [facility] C [address], 094869051 [id number] SNOMED-CT () 2019-06-29 completed [facility] C [address], 379963138 [id number] SNOMED-CT () 2020-12-24 completed [facility] C [address] [place], 975253676 [id number] SNOMED-CT () 2017-08-28 completed [address] [place] NY, 813424516 [id number] SNOMED-CT () 2017-09-28 completed [address] [place] NY, 590754920 [id number] SNOMED-CT () 2016-09-28 completed CYP [address] [place], 798781306 [id number] SNOMED-CT () 2016-09-28 completed [address] [place] [address], 652229726 [id number] SNOMED-CT () 2016-09-28 completed CYP [facility] [place], [place], 879138106 [id number] SNOMED-CT () 2016-09-[address] [place] [address], 786261727 [id number] SNOMED-CT () 2016-09-[address] [place] [address], 990592915 [id number] SNOMED-CT () 2016-09-[address] [place] [address], 620990287 [phone] SNOMED-CT () 2016-09-[address] [place] [address], 916623178 [phone] SNOMED-CT () 2016-09-[address] [place] [address], 631514811 [id number] SNOMED-CT () 2016-09-[address] [place] [address], 796998733 [phone] SNOMED-CT () 2016-09-[address] [place] [address], 184591605 [id number] SNOMED-CT () 2016-09-[address] [place] [address], [id number] [phone] Encounters/Encounter Diagnoses Encounter Name Encounter Code Diagnosis Code Diagnosis Name Diagnosis CodeSystem Date of Diagnosis Service Delivery L ocation non-billable 76934 [id number] Attention-deficit hyperactivity disorder, combined typ e SNOMED-CT 2019-07-31 [facility] , , , Vital Signs Code CodeSystem Vitals Date Value 8867-4 LOINC Heart Rate 2019-07-17 69 /min 8302-2 [facility] Height 2019-07-17 70 [in_i] 8462-4 [facility] Blood Press ure-Diastolic 2019-07-17 115 mm[HG] 8480-6 [facility] Blood Press ure-Systolic 2019-07-17 74 mm[HG] 08045-0 [facility] BMI 2019-07-17 32.71 (lb/in2) 00341-7 [facility] Weight 2019-07-17 228 [lb_av] Social History Element Description Description Start Date End Date Code CodeSystem AdditionalInfo SexAssignedAtBirth Male 2000 M AdministrativeGender Hospital Discharge Instructions * Reason For Referral Medical Equipment * FDA Assessments *
--- OUTSIDE RECORDS SUMMARY | 2021-09-21 11:35 | CCD ---
Author Organization Unknown Address [address] [place] [address] Phone [phone] Care Team Providers Care Mechanic Name Role Phone [facility] 129 [phone] Allergies Code Code System Name Reaction Severity Status Onset NKDA Notes: SEASONAL - Reaction: congestion, runny nose, itchy eyes Medications Name Status Start Date Stop Date aripiprazole 10 mg tablet Completed 2020 aripiprazole 15 mg tablet Active Not av ailable aripiprazole 20 mg tablet Active Not av ailable betamethasone dipropionate 0.05 % topical ointment Completed 09/18/2020 cephalexin 500 mg capsule Completed 2019 cyanocobalamin (vit B-12) 1,000 mcg tabl et TAKE ONE TABLET BY MOUTH ONCE DAILY Completed cyclobenzaprine 10 mg tablet Completed duloxetine 20 mg capsule,delayed release Completed 06/15/2021 duloxetine 30 mg capsule,delayed release Completed 09/18/2020 duloxetine 40 mg capsule,delayed release Completed 12/25/2020 duloxetine 60 mg capsule,delayed release Active Not available hydroxyzine HCl 10 mg tablet Completed ibuprofen 600 mg tablet Completed 12/16/19 ibuprofen 800 mg tablet Active Not avai lable Lamictal 100 mg tablet Take 1 tablet every day by oral route. Active Not available mirtazapine 15 mg tablet Active Not verito ilable mirtazapine 30 mg tablet Active Not verito ilable mirtazapine 7.5 mg tablet Completed 2019 omeprazole 20 mg capsule,delayed release Active Not available omeprazole 40 mg capsule,delayed release Active Not available sertraline 25 mg tablet Completed 09/18/20 sertraline 50 mg tablet Completed 09/18/20 sucralfate 1 gram tablet Active Not verito ilable vitamin B12 2,500 mcg-folic acid 400 mc g disintegrating tablet Take by oral route. Active Not available vitamin D3 2,000 unit-folic acid 1 mg ta blet Take by oral route. Active Not available Problems Name Status Onset Date Source Disorder of Upper Respiratory System Unknown 05/01/2015 History Severe Obesity Active 05/26/2015 History Vitamin D Deficiency Active 07/08/2015 History Attention Deficit Hyperactivity Disorder Active 016 History Influenza Vaccine Needed Unknown 06/03/2016 History Procedure by Method Unknown 06/03/2016 History General Finding of Observation of Patient Unknown 2015 History Mental Disorder Unknown 06/03/2016 History Pain of Left Shoulder Joint Active 12/03/2016 Hist ory Insomnia Active 05/16/2017 History Finding Related to Sleep Unknown 05/16/2017 History Body Mass Index 30+ - Obesity Active 09/01/2017 Hi story Adjustment Disorder with Mixed Anxiety and Depressed Mood Active 09/01/2017 History Exposure to Second Hand Tobacco Smoke Active 10/05/2017 History Clinical History and Observation Findings Unknown 2017 History Tinea Cruris Active 09/04/2018 History Repetitive Self-excoriation Unknown 04/19/2019 Hist ory Generalized Anxiety Disorder Active 09/05/2019 His tory Clinical Finding Unknown 09/05/[address] Concept Unknown 09/05/2019 History Patient Asked to Attend Unknown 04/16/2020 History Gastroesophageal Reflux Disease Active 06/09/2020 History Finding by Site Unknown 06/09/2020 History Low Back Pain Active 07/14/2020 History Procedures Date Name Performed by 12/16/2020 XR, Ankle, 3 or More View Information no t available 06/15/2021 XR, Abdomen [facility] [address] [place] [address] (Work Place) Notes: tonsillectomy, adnoidectomy Results Lab Results Date Name Specimen Result Interpretation Description Value Range Status Address 07/02/2021 Istat Chem8+ Panel Normal Istat HCT 44.0 % 38. 0-51.0 % Final [facility]: [address] [facility] Normal Istat Glucose 90 mg/dL 70-105 mg/dL Final [facility]: [address] [facility] Normal Istat Sodium 139 mEq/L 136-145 mEq/L Final [facility]: [address] [facility] Normal Istat Potassium 4.2 mEq/L 3.5-5.1 mE q/L [facility]: [address] [facility] Normal Istat Ca++ 4.8 mg/dL 4.5-5.3 mg/dL F [facility]: [address] [facility] Normal Istat Chloride 100 mEq/L 98-109 mEq/ L [facility]: 0 [facility] Normal Istat CO2 26.0 mm/L 23.0-27.0 mm/L F [facility]: [address] [facility] Normal Istat BUN 11 mg/dL 8-26 mg/dL [facility]: [address] [place] [address] Normal Istat Creatinine 1.0 mg/dL 0.6-1.3 m g/dL [facility]: [address] [place] [address] 07/02/2021 CBC W/ Auto Diff Normal White Blood Count 8.7 10 4.0-10.0 10 [facility]: [address] [place] [address] Normal Red Blood Count 4.87 10 4.30-6.10 10 [facility]: [address] [place] [address] Normal Hemoglobin 14.7 g/dL 13.5-17.5 g/dL [facility]: [address] [place] [address] Normal Hematocrit 44.1 % 42.0-52.0 % [facility]: [address] [place] [address] Normal Mean Corpuscular Volume 90.6 fL 80.0 -96.0 fL [facility]: [address] [place] [address] Normal Mean Corpuscular Hemoglobin 30.2 pg 27.0-33.0 pg [facility]: [address] [place] [address] Normal Mean Corpuscular HGB Conc 33.3 g/dL 32.0-36.5 g/dL [facility]: [address] [place] [address] Normal Red Cell Distribution Width 12.2 % 1 1.5-14.5 % [facility]: [address] [place] [address] Normal Platelet Count, Automated 326 10 150 -450 10 [facility]: [address] [facility] Normal Neutrophils % 54.1 % 36.0-66.0 % [facility]: [address] [facility] Normal Lymph % 33.0 % 24.0-44.0 % [facility]: [address] [facility] High [place] % 9.4 % 2.0-8.0 % Final [facility]: [address] [facility] Normal Eos % 2.1 % 0.0-3.0 % [facility]: [address] [facility] Normal Baso % 0.9 % 0.0-1.0 % Final [facility]: [address] [facility] Normal Immature Granulocyte % 0.5 % 0-3.0 % [facility]: [address] [facility] Normal Nucleated Red Blood Cell % 0.0 % 0- 0 % [facility]: [address] [facility] Normal Neutrophils # 4.7 10 1.5-8.5 10 [facility]: [address] [facility] Normal Lymph # 2.9 10 1.5-5.[address] [facility]: [address] [facility] Normal Cowley # 0.8 10 0.0-0.8 10 [facility]: [address] [facility] Normal Eos # 0.2 10 0.0-0.5 10 [facility]: [address] [facility] Normal Baso # 0.1 10 0.0-0.2 10 [facility]: [address] [facility] 07/02/2021 Hepatic Function Panel, Serum Normal AST/SG OT 31 U/L 7-37 U/L [facility]: [address] [facility] Normal ALT/SGPT 62 U/L 12-78 U/L [facility]: [address] [facility] Normal Alkaline Phosphatase 92 U/L 45-117 U /L [facility]: 0 [facility] Normal Bilirubin,total 0.5 mg/dL 0.2-1.0 mg /dL Final [facility]: [address] [facility] Normal Bilirubin,direct 0.2 mg/dL 0.0-0.2 m g/dL [facility]: [address] [facility] Normal Total Protein 7.1 gm/dL 6.4-8.2 gm/d L [facility]: [address] [facility] Normal Albumin 3.9 gm/dL 3.2-5.2 gm/dL Lisa l [facility]: [address] [facility] Normal Albumin/globulin Ratio 1.2 [facility]: [address] [place] [address] 07/02/2021 Lipase, Serum or Plasma Normal Lipase 74 U/L 7 3-393 U/L [facility]: 0 [facility] 06/15/2021 Urinalysis, Dipstick, Auto Normal Bilirubin ne g Final [facility]: [address] [facility] Normal Blood neg Final [facility]: [address] [facility] Normal Glucose neg Final [facility]: [address] [facility] Normal Ketone neg Final [facility]: [address] [facility] Normal Leukocytes neg Final [facility]: [address] [facility] Normal Nitrite neg Final [facility] Medical: [address] [facility] Normal Ph 8.5 Final [facility]: [address] [facility] Normal Protein +- Final [facility] Medical: [address] [facility] Normal Specific [place] 1.015 Final [facility]: [address] [facility] Normal Urobilinogen 0.2 Final [facility]: [address] [facility] 01/16/2021 CBC W/ Auto Diff Normal White Blood Count 7.1 10 4.0-10.0 10 [facility]: [address] [facility] Normal Red Blood Count 5.15 10 4.30-6.10 10 [facility]: 0 [facility] Normal Hemoglobin 14.9 g/dL 13.5-17.5 g/dL Final [facility]: [address] [facility] Normal Hematocrit 46.1 % 42.0-52.0 % [facility]: [address] [facility] Normal Mean Corpuscular Volume 89.5 fL 80.0 -96.0 fL Final [facility]: [address] [place] [address] Normal Mean Corpuscular Hemoglobin 28.9 pg 27.0-33.0 pg Final [facility]: [address] [facility] Normal Mean Corpuscular HGB Conc 32.3 g/dL 32.0-36.5 g/dL Final [facility]: [address] [facility] Normal Red Cell Distribution Width 12.0 % 1 1.5-14.5 % [facility]: [address] [place] [address] Normal Platelet Count, Automated 322 10 150 -450 10 [facility]: 0 [facility] Normal Neutrophils % 51.0 % 36.0-66.0 % [facility]: [address] [facility] Normal Lymph % 35.7 % 24.0-44.0 % [facility]: [address] [facility] High [place] % 9.9 % 2.0-8.0 % [facility]: [address] [facility] Normal Eos % 2.4 % 0.0-3.0 % [facility]: [address] [facility] Normal Baso % 0.7 % 0.0-1.0 % [facility]: [address] [facility] Normal Immature Granulocyte % 0.3 % 0-3.0 % [facility]: [address] [facility] Normal Nucleated Red Blood Cell % 0.0 % 0- 0 % [facility]: 0 [facility] Normal Neutrophils # 3.6 10 1.5-8.5 10 [facility]: [address] [facility] Normal Lymph # 2.5 10 1.5-5.[address] [facility]: [address] [facility] Normal Cowley # 0.7 10 0.0-0.8 10 [facility]: [address] [facility] Normal Eos # 0.2 10 0.0-0.5 10 [facility]: [address] [facility] Normal Baso # 0.1 10 0.0-0.2 10 [facility]: 0 [facility] 01/16/2021 CMP, Serum or Plasma Blood venous Normal Glu cose, Fasting 91 mg/dL 70-100 mg/dL [facility] nter: [address] [place] [address] Blood venous Normal Blood Urea Nitrogen 15 mg/dL 7-18 mg/dL [facility]: [address] [place] [address] Blood venous Normal Creatinine for GFR 1.02 mg/dL 0.70-1.30 mg/dL [facility]: [address] [place] [address] Blood venous Normal Glomerular Filtration Rate > 60.0 >60 [facility]: 0 [facility] Blood venous Normal Sodium Level 140 mEq/L 136-14 5 mEq/L [facility]: [address] [place] [address] Blood venous Normal Potassium Serum 4.9 mEq/L 3.5 -5.1 mEq/L [facility]: [address] [place] [address] Blood venous Normal Chloride Level 105 mEq/L 98-1 07 mEq/L [facility]: [address] [place] [address] Blood venous Normal Carbon Dioxide Level 29 mEq/L 21-32 mEq/L [facility]: [address] [place] [address] Blood venous Low Anion Gap 6 mEq/L 8-16 mEq/L [facility]: [address] [place] [address] Blood venous Normal Calcium Level 9.5 mg/dL 8.5-1 0.1 mg/dL [facility]: 0 [facility] Blood venous Normal AST/SGOT 28 U/L 7-37 U/L Lisa l [facility]: 0 [facility] Blood venous Normal ALT/SGPT 51 U/L 12-78 U/L [facility]: [address] [place] [address] Blood venous Normal Alkaline Phosphatase 105 U/L 45-117 U/L [facility]: [address] [place] [address] Blood venous Normal Bilirubin,total 0.8 mg/dL 0.2 -1.0 mg/dL [facility]: [address] [place] [address] Blood venous Normal Total Protein 6.9 gm/dL 6.4-8 .2 gm/dL [facility]: [address] [place] [address] Blood venous Normal Albumin 4.0 gm/dL 3.2-5.2 gm/ dL [facility]: [address] [place] [address] Blood venous Normal Albumin/globulin Ratio 1.4 [facility]: [address] [place] [address] 01/16/2021 Vitamin B12 + Folate, Serum or Blood Blood venous Normal Vitamin B12 Level 994 pg/mL [facility]: [address] [place] [address] Blood venous Normal Folate 14.9 NG/mL [facility]: [address] [place] [address] 10/07/2020 CBC W/ Auto Diff Normal White Blood Count 6.2 10 4.0-10.0 10 [facility]: [address] [place] [address] Normal Red Blood Count 5.13 10 4.30-6.10 10 [facility]: [address] [place] [address] Normal Hemoglobin 15.0 g/dL 13.5-17.5 g/dL [facility]: [address] [place] [address] Normal Hematocrit 46.6 % 42.0-52.0 % [facility]: [address] [place] [address] Normal Mean Corpuscular Volume 90.8 fL 80.0 -96.0 fL [facility]: [address] [place] [address] Normal Mean Corpuscular Hemoglobin 29.2 pg 27.0-33.0 pg [facility]: [address] [place] [address] Normal Mean Corpuscular HGB Conc 32.2 g/dL 32.0-36.5 g/dL [facility]: [address] [facility] Normal Red Cell Distribution Width 11.9 % 1 1.5-14.5 % [facility]: [address] [facility] Normal Platelet Count, Automated 352 10 150 -450 10 [facility]: [address] [facility] Normal Neutrophils % 49.4 % 36.0-66.0 % [facility]: [address] [facility] Normal Lymph % 39.5 % 24.0-44.0 % Final [facility]: [address] [facility] High [place] % 7.9 % 0.0-5.0 % Final [facility]: [address] [facility] Normal Eos % 2.4 % 0.0-3.0 % [facility]: [address] [facility] Normal Baso % 0.6 % 0.0-1.0 % Final [facility]: [address] [facility] Normal Immature Granulocyte % 0.2 % 0-3.0 % [facility]: [address] [facility] Normal Nucleated Red Blood Cell % 0.0 % 0- 0 % [facility]: [address] [facility] Normal Neutrophils # 3.1 10 1.5-8.5 10 [facility]: [address] [facility] Normal Lymph # 2.4 10 1.5-5.[address] [facility]: [address] [facility] Normal Cowley # 0.5 10 0.0-0.8 10 [facility]: [address] [facility] Normal Eos # 0.2 10 0.0-0.5 10 [facility]: [address] [facility] Normal Baso # 0.0 10 0.0-0.2 10 [facility]: [address] [facility] 10/07/2020 CMP, Serum or Plasma Normal Glucose, Fastin g 93 mg/dL 70-100 mg/dL [facility]: [address] [facility] Normal Blood Urea Nitrogen 15 mg/dL 7-18 mg /dL [facility]: 0 [facility] Normal Creatinine for GFR 0.94 mg/dL 0.70-1 .30 mg/dL [facility]: 0 [facility] Normal Glomerular Filtration Rate > 60.0 >6 0 [facility]: [address] [facility] Normal Sodium Level 140 mEq/L 136-145 mEq/L [facility]: 0 [facility] Normal Potassium Serum 4.9 mEq/L 3.5-5.1 mE q/L [facility]: 0 [facility] High Chloride Level 108 mEq/L 98-107 mEq/ L [facility]: 0 [facility] Normal Carbon Dioxide Level 26 mEq/L 21-32 mEq/L [facility]: 0 [facility] Low Anion Gap 6 mEq/L 8-16 mEq/L [facility]: 0 [facility] Normal Calcium Level 9.7 mg/dL 8.5-10.1 mg/ dL [facility]: 0 [facility] Normal AST/SGOT 18 U/L 7-37 U/L [facility]: 0 [facility] Normal ALT/SGPT 36 U/L 12-78 U/L [facility]: 0 [facility] Normal Alkaline Phosphatase 89 U/L 45-117 U /L [facility]: 0 [facility] Normal Bilirubin,total 0.5 mg/dL 0.2-1.0 mg /dL [facility]: 0 [facility] Normal Total Protein 7.2 gm/dL 6.4-8.2 gm/d L [facility]: 0 [facility] Normal Albumin 4.2 gm/dL 3.2-5.2 gm/dL Lisa l [facility]: 0 [facility] Normal Albumin/globulin Ratio 1.4 [facility]: 0 [facility] 10/07/2020 Lipid Panel, Blood Normal Triglycerides Lev el 56 mg/dL <150 mg/dL Final [facility]: [address] [facility] Normal Cholesterol Level 145 mg/dL <200 mg/ dL Final [facility]: [address] [facility] Low HDL Cholesterol 37 mg/dL >40 mg/dL F [facility]: [address] [facility] Normal LDL Cholesterol 97 mg/dL <100 mg/dL Final [facility]: [address] [facility] Normal Non-hdl-c 108 mg/dL Final [facility]: [address] [facility] Normal Cholesterol Risk Ratio 3.918 <5 Final [facility]: [address] [facility] 10/07/2020 TSH + Free T4, Serum Normal Thyroid Stimulating Hormone 0.524 uIU/mL 0.358-3.740 uIU/mL [facility] nter: [address] [facility] Normal Free T4 0.99 NG/dL 0.76-1.46 NG/dL F [facility]: [address] [facility] 10/07/2020 Vitamin D, 25-Hydroxy, Total, Serum Normal Total 25(Oh) Vitamin D 44.6 NG/mL 30.0-100.0 NG/mL [facility]: [address] [facility] 10/07/2020 HbA1C (Hemoglobin a1C), Blood Normal Hemogl obin a1C 5.1 % [facility]: [address] [facility] Normal Estimated Average Glucose 100 mg/dL 60-110 mg/dL [facility]: [address] [facility] CMP, Serum or Plasma Blood venous High Glucose 101 mg/dL 65-99 mg/dL Final [facility]: [address] , [place] Blood venous Normal Urea Nitrogen (BUN) 10 mg/dL 7-25 mg/dL Final [facility]: [address] [facility] Blood venous Normal Creatinine 0.93 mg/dL 0.60-1. 35 mg/dL Final [facility]: [address], [place] Blood venous Normal eGFR Non-afr. Brazilian 1 16 mL/min/1.73m2 > or = 60 mL/min/1.73m2 Final [facility]: [address] [facility] Blood venous Normal eGFR 13 5 mL/min/1.73m2 > or = 60 mL/min/1.73m2 Final [facility]: [address] [facility] Blood venous BUN/creatinine Ratio not applicable (calc) 6-22 (calc) [facility]: [address] [facility] Blood venous Normal Sodium 139 mmol/L 135-146 mmo l/L [facility]: [address] [facility] Blood venous Normal Potassium 4.4 mmol/L 3.5-5.3 mmol/L [facility]: [address] [facility] Blood venous Normal Chloride 106 mmol/L 98-110 mm ol/L [facility]: [address] [facility] Blood venous Normal Carbon Dioxide 24 mmol/L 20-3 2 mmol/L [facility]: [address] [facility] Blood venous Normal Calcium 9.5 mg/dL 8.6-10.3 mg /dL [facility]: [address] [facility] Blood venous Normal Protein, Total 6.8 g/dL 6.1-8 .1 g/dL [facility]: [address] [facility] Blood venous Normal Albumin 4.5 g/dL 3.6-5.1 g/dL [facility]: [address] [facility] Blood venous Normal Globulin 2.3 g/dL (calc) 1.9- 3.7 g/dL (calc) [facility]: [address] [facility] Blood venous Normal Albumin/globulin Ratio 2 .0 (calc) 1.0-2.5 (calc) [facility]: [address] [facility] Blood venous Normal Bilirubin, Total 0.5 mg/dL 0. 2-1.2 mg/dL [facility]: [address] [facility] Blood venous Normal Alkaline Phosphatase 83 U/L 3 6-130 U/L [facility]: [address] [facility] Blood venous Normal Ast 28 U/L 10-40 U/L [facility]: [address] [facility] Blood venous Normal Alt 34 U/L 9-46 U/L Final uest [facility]: [address] [facility] Cbc Blood venous Normal White Blood Cell Count 6 .4 thousand/uL 3.8-10.8 thousand/uL Final [facility] gh: [address] [facility] Blood venous Normal Red Blood Cell Count 4.8 3 million/uL 4.20-5.80 million/uL Final [facility] gh: [address] [facility] Blood venous Normal Hemoglobin 14.7 g/dL 13.2-17. 1 g/dL Final [facility]: [address] [facility] Blood venous Normal Hematocrit 43.5 % 38.5-50.0 % Final [facility]: [address] [facility] Blood venous Normal Mcv 90.1 fL 80.0-100.0 fL Fi nal [facility]: [address] [facility] Blood venous Normal Mch 30.4 pg 27.0-33.0 pg Fin al [facility]: [address] [facility] Blood venous Normal Mchc 33.8 g/dL 32.0-36.0 g/dL Final [facility]: [address] [facility] Blood venous Normal Rdw 12.3 % 11.0-15.0 % Final [facility]: [address] [facility] Blood venous Normal Platelet Count 358 thous and/uL 140-400 thousand/uL Final [facility]: [address] [facility] Blood venous Normal Mpv 10.9 fL 7.5-12.5 fL Lisa l [facility]: [address] [facility] Tsh Blood venous Normal Tsh 0.98 mIU/L 0.40-4.50 mIU /L Final [facility]: [address] [facility] Amylase, Serum or Plasma Blood venous Normal Amylase 43 U/L 21-101 U/L Final [facility]: [address] [facility] Lipase, Serum or Plasma Blood venous Normal Lipase 19 U/ L 7-60 U/L [facility]: [address] [facility] Past Encounters 07/10/2021 Gastroesophageal Reflux Disease without Esophagitis Edie Trevino PA-C: [address] [place] [address], Ph. 06/15/2021 Nausea and Vomiting; Gastroesophageal Reflux Disease without Esophagitis; Increased Belching; Severe Obesity Edie Trevino PA-C: [address] [place] [address], Ph. 03/17/2021 Patient Asked to Attend; Body Mass Index 30+ - Obesity Adenikeryder Marie [facility]: [address] [place] [address], Ph. 01/16/2021 Sd Flannery MD: [address] [place] [address], Ph. 12/25/2020 Gastroesophageal Reflux Disease without Esophagitis; Pain of Left Ankle Joint Adenikeryder Marie [facility]: [address] [place] [address], Ph. 12/25/2020 SARS-CoV-2 Vaccination BALDEV Harvey: [address] [place] [address], Ph. 12/16/2020 Pain of Left Ankle Joint; Adult Health Examination; Attention Deficit Hyperactivity Disorder; Disorder of Vitamin B12 Adenike Marie [facility]: [address] [place] [address], Ph. 11/26/2020 SARS-CoV-2 Vaccination Sd Flannery MD: [address] [place] [address], Ph. 10/07/2020 Adult Health Examination Sd Flannery MD: [address] [place] [address], Ph. 09/18/2020 Pain in Right Knee; Pain of Right Shoulder Joint; Administration of Influenza Vaccine Adenikera Marie [facility]: [address] [place] [phone], Ph. Social History Tobacco Smoking Status Former Smoker Vaccine List Vaccine Type COVID-19, mRNA, LNP-S, PF, 100 mcg/0.5 m L dose 11/26/20200.5 mL 10.5 mL Hep A, ped/adol, 2 dose 05/26/2015 Hep A, unspecified formulation 06/03/20160.5 mL influenza, injectable, quadrivalent, pre servative free influenza, seasonal, injectable 09/01/20170.5 mL 09/04/20180.5 mL meningococcal B, recombinant 04/19/20190.5 mL meningococcal B, unspecified 09/04/2018 meningococcal, unspecified formulation 06/03/20160.5 mL 09/01/20170.5 mL Tdap 09/04/20180.5 mL Plan of Care Patient Instructions Lab results reviewed and discussed with you today. Please continue medications as prescribed. Please try to maintain good nutrition, adequate rest and adequate physical activities and adequate intake of water daily. Please try to avoid strenuous activities . may use ice alternate with heat as needed may continue ibuprofen twice daily as needed We have made a referral to orthopedic for you today. Please keep appointment as scheduled. You have had your annual physical exam d one today. Please continue medications as prescribed. Please continue lifestyle changes to include healthy diet ans physical activities. Please try to maintain adequate intake of water daily. Xray of left ankle ordered. Please have xray of left ankle done. We will contact you if results are concerning. Please keep orthopedic appointment as sc heduled. Pt scheduled to see ortho 09/24/2020 Reminders Provider Appointments None recorded. Lab None recorded. Referral None recorded. Procedures None recorded. Surgeries None recorded. Imaging None recorded. Vitals 07/10/2021 10:40AM HOSPITAL DISCHARGE Height Weight BMI Blood Pressure 71.5 in 282 lbs 38.8 kg/m2 134/84 mm[Hg] 06/15/2021 10:20AM ESTABLISHED [id number] Height Weight BMI Blood Pressure 71.5 in 279 lbs 16 oz 38.5 kg/m2 117/79 mm[Hg] 03/17/2021 05:20PM TELEHEALTH 20 Height 71.5 in 12/25/2020 11:40AM ESTABLISHED [id number] Height Weight BMI Blood Pressure 71.5 in 283 lbs 6 oz 39 kg/m2 107/72 mm[Hg] 12/16/2020 04:00PM ANNUAL EXAM Height Weight BMI Blood Pressure 71.5 in 286 lbs 6.4 oz 39.4 kg/m2 127/77 mm[Hg ] 09/18/2020 08:40AM ESTABLISHED [id number] Height Weight BMI Blood Pressure 71.5 in 274 lbs 12.8 oz 37.8 kg/m2 116/78 mm[H g] 07/14/2020 Height Weight BMI Blood Pressure 71.5 in 285 lbs 39.34 kg/m2 120/79 mm[Hg] 06/09/2020 Height Weight BMI Blood Pressure 71.5 in 284 lbs 6.08 oz 39.25 kg/m2 120/79 mm[H g] 09/05/2019 Height Weight BMI Blood Pressure 71.5 in 261 lbs 6.08 oz 36.08 kg/m2 116/75 mm[H g] 04/19/2019 Height Weight BMI Blood Pressure 71 in 256 lbs 6.4 oz 35.89 kg/m2 116/70 mm[Hg ]
--- OUTSIDE RECORDS SUMMARY | 2021-09-21 11:37 | CCD ---
Author Author [facility] Organization [facility] Address Unknown Phone Unavailable Care Team Providers Care Mud Engineer Name Role Phone Randy Flannery MD Unavailable Unavailable Randy Flannery MD Unavailable Unavailable Randy Flannery MD Unavailable Unavailable Randy Flannery MD Unavailable Unavailable Randy Flannery MD Unavailable Unavailable Randy Flannery MD Unavailable Unavailable Randy Flannery MD Unavailable Unavailable Randy Flannery MD Unavailable Unavailable Randy Flannery MD Unavailable Unavailable Randy Flannery MD Unavailable Unavailable Randy Flannery MD Unavailable Unavailable Randy Flannery MD Unavailable Unavailable Randy Flannery MD Unavailable Unavailable Randy Flannery MD Unavailable Unavailable Randy Flannery MD Unavailable Unavailable Randy Flannery MD Unavailable Unavailable Randy Flannery MD Unavailable Unavailable Randy Flannery MD Unavailable Unavailable Randy Flannery MD Unavailable Unavailable Randy Flannery MD Unavailable Unavailable Randy Flannery MD Unavailable Unavailable Randy Flannery MD Unavailable Unavailable Randy Flannery MD Unavailable Unavailable Randy Flannery MD Unavailable Unavailable Randy Flannery MD Unavailable Unavailable Randy Flannery MD Unavailable Unavailable Randy Flannery MD Unavailable Unavailable Randy Flannery MD Unavailable Unavailable Randy Flannery MD Unavailable Unavailable Randy Flannery MD Unavailable Unavailable Randy Flannery MD Unavailable Unavailable Randy Flannery MD Unavailable Unavailable Randy Flannery MD Unavailable Unavailable Randy Flannery MD Unavailable Unavailable Randy Flannery MD Unavailable Unavailable Randy Flannery MD Unavailable Unavailable Randy Flannery MD Unavailable Unavailable Randy Flannery MD Unavailable Unavailable Randy Flannery MD Unavailable Unavailable Randy Flannery MD Unavailable Unavailable Randy Flannery MD Unavailable Unavailable Randy Flannery MD Unavailable Unavailable Randy Flannery MD Unavailable Unavailable Randy Flannery MD Unavailable Unavailable Randy Flannery MD Unavailable Unavailable Randy Flannery MD Unavailable Unavailable Randy Flannery MD Unavailable Unavailable Randy Flannery MD Unavailable Unavailable Randy Flannery MD Unavailable Unavailable Randy Flannery MD Unavailable Unavailable Randy Flannery MD Unavailable Unavailable Randy Flannery MD Unavailable Unavailable Randy Flannery MD Unavailable Unavailable Randy Flannery MD Unavailable Unavailable Randy Flannery MD Unavailable Unavailable Randy Flannery MD Unavailable Unavailable Randy Flannery MD Unavailable Unavailable Randy Flannery MD Unavailable Unavailable Randy Flannery MD Unavailable Unavailable Randy Flannery MD Unavailable Unavailable Randy Flannery MD Unavailable Unavailable Randy Flannery MD Unavailable Unavailable Randy Flannery MD Unavailable Unavailable Randy Flannery MD Unavailable Unavailable Randy Flannery MD Unavailable Unavailable Randy Flannery MD Unavailable Unavailable Randy Flannery MD Unavailable Unavailable Randy Flannery MD Unavailable Unavailable Randy Flannery MD Unavailable Unavailable Randy Flannery MD Unavailable Unavailable Randy Flannery MD Unavailable Unavailable Randy Flannery MD Unavailable Unavailable Randy Flannery MD Unavailable Unavailable Randy Flannery MD Unavailable Unavailable Randy Flannery MD Unavailable Unavailable Randy Flannery MD Unavailable Unavailable Randy Flannery MD Unavailable Unavailable Flannery, Randy Beaver MD Unavailable Unavailable Flannery, Randy Beaver MD Unavailable Unavailable Flannery, Randy Beaver MD Unavailable Unavailable Flannery, Randy Beaver MD Unavailable Unavailable Flannery, Randy Beaver MD Unavailable Unavailable Flannery, Randy Beaver MD Unavailable Unavailable Flannery, Randy Beaver MD Unavailable Unavailable Flannery, Randy Beaver MD Unavailable Unavailable Flannery, Randy Beaver MD Unavailable Unavailable Flannery, Randy Beaver MD Unavailable Unavailable Flannery, Randy Beaver MD Unavailable Unavailable Flannery, Randy Beaver MD Unavailable Unavailable Flannery, Randy Beaver MD Unavailable Unavailable Flannery, Randy Beaver MD Unavailable Unavailable Flannery, Randy Beaver MD Unavailable Unavailable Flannery, Randy Beaver MD Unavailable Unavailable Adenike Marie SHUFFLE BOARD OPERATOR SHUFFLE BOARD OPERATOR Unavailable Unavailable Charlebois, A Jossy RPA C Unavailable Unavailable Charlebois, A Jossy RPA C Unavailable Unavailable Charlebois, A Jossy RPA C Unavailable Unavailable Charlebois, A Jossy RPA C Unavailable Unavailable Charlebois, A Jossy RPA C Unavailable Unavailable Charlebois, A Jossy RPA C Unavailable Unavailable Charlebois, A Jossy RPA C Unavailable Unavailable Charlebois, A Jossy RPA C Unavailable Unavailable Charlebois, A Jossy RPA C Unavailable Unavailable Charlebois, A Jossy RPA C Unavailable Unavailable Charlebois, A Jossy RPA C Unavailable Unavailable Charlebois, A Jossy RPA C Unavailable Unavailable Charlebois, A Jossy RPA C Unavailable Unavailable Charlebois, A Jossy RPA C Unavailable Unavailable Charlebois, A Jossy RPA C Unavailable Unavailable Charlebois, A Jossy RPA C Unavailable Unavailable Charlebois, A Jossy RPA C Unavailable Unavailable Charlebois, A Jossy RPA C Unavailable Unavailable Charlebois, A Jossy RPA C Unavailable Unavailable Charlebois, A Jossy RPA C Unavailable Unavailable Charlebois, A Jossy RPA C Unavailable Unavailable Charlebois, A Jossy RPA C Unavailable Unavailable Charlebois, A Jossy RPA C Unavailable Unavailable Charlebois, A Jossy RPA C Unavailable Unavailable Charlebois, A Jossy RPA C Unavailable Unavailable Charlebois, A Jossy RPA C Unavailable Unavailable Charlebois, A Jossy RPA C Unavailable Unavailable Charlebois, A Jossy RPA C Unavailable Unavailable Charlebois, A Jossy RPA C Unavailable Unavailable Charlebois, A Jossy RPA C Unavailable Unavailable Charlebois, A Jossy RPA C Unavailable Unavailable Charlebois, A Jossy RPA C Unavailable Unavailable Charlebosuzanna Estuardo Jossy RPA C Unavailable Unavailable MCELHERAN, NIYAH PA Unavailable Unavailable MCELHERAN, NIYAH PA Unavailable Unavailable MCELHERAN, NIYAH PA Unavailable Unavailable MCELHERAN, NIYAH PA Unavailable Unavailable MCELHERAN, NIYAH PA Unavailable Unavailable MCELHERAN, NIYAH PA Unavailable Unavailable MCELHERAN, NIYAH PA Unavailable Unavailable MCELHERAN, NIYAH PA Unavailable Unavailable MCELHERAN, NIYAH PA Unavailable Unavailable MCELHERAN, NIYAH PA Unavailable Unavailable MCELHERAN, NIYAH PA Unavailable Unavailable MCELHERAN, NIYAH PA Unavailable Unavailable MCELHERAN, NIYAH PA Unavailable Unavailable MCELHERAN, NIYAH PA Unavailable Unavailable MCELHERAN, NIYAH PA Unavailable Unavailable MCELHERAN, NIYAH PA Unavailable Unavailable MCELHERAN, NIYAH PA Unavailable Unavailable MCELHERAN, NIYAH PA Unavailable Unavailable MCELHERAN, NIYAH PA Unavailable Unavailable MCELHERAN, NIYAH PA Unavailable Unavailable MCELHERAN, NIYAH PA Unavailable Unavailable MCELHERAN, NIYAH PA Unavailable Unavailable MCELHERAN, NIYAH PA Unavailable Unavailable MCELHERAN, NIYAH PA Unavailable Unavailable MCELHERAN, NIYAH PA Unavailable Unavailable MCELHERAN, NIYAH PA Unavailable Unavailable MCELHERAN, NIYAH PA Unavailable Unavailable MCELHERAN, NIYAH PA Unavailable Unavailable MCELHERAN, NIYAH PA Unavailable Unavailable Salomon-Centner, Shwetha Unavailable Unavailable Salomon-Centner, Shwetha Unavailable Unavailable Salomon-Centner, Shwetha Unavailable Unavailable Salomon-Centner, Shwetha Unavailable Unavailable Salomon-Centner, Shwetha Unavailable Unavailable Salomon-Centner, Shwetha Unavailable Unavailable Salomon-Centner, Shwetha Unavailable Unavailable Salomon-Centner, Shwetha Unavailable Unavailable Salomon-Centner, Shwetha Unavailable Unavailable Salomon-Centner, Shwetha Unavailable Unavailable Salomon-Centner, Shwetha Unavailable Unavailable Paige Walters MD Unavailable Unavailable Paige Walters MD Unavailable Unavailable Paige Walters MD Unavailable Unavailable Paige Walters MD Unavailable Unavailable Paige Walters MD Unavailable Unavailable Paige Walters MD Unavailable Unavailable Paige Walters MD Unavailable Unavailable Paige Walters MD Unavailable Unavailable Paige Walters MD Unavailable Unavailable Paige Walters MD Unavailable Unavailable Paige Walters MD Unavailable Unavailable Paige Walters MD Unavailable Unavailable Mollison, Paige Beaver MD Unavailable Unavailable Mollison, Paige Beaver MD Unavailable Unavailable Mollison, Paige Beaver MD Unavailable Unavailable Mollison, Paige Beaver MD Unavailable Unavailable Mollison, Paige Beaver MD Unavailable Unavailable Mollison, Paige Beaver MD Unavailable Unavailable Mollison, Paige Beaver MD Unavailable Unavailable Mollison, Paige Beaver MD Unavailable Unavailable Mollison, Paige Beaver MD Unavailable Unavailable Mollison, Paige Beaver MD Unavailable Unavailable Mollison, Paige Beaver MD Unavailable Unavailable Mollison, Paige Beaver MD Unavailable Unavailable Mollison, Paige Beaver MD Unavailable Unavailable Mollison, Paige Beaver MD Unavailable Unavailable Mollison, Paige Beaver MD Unavailable Unavailable Mollison, aPige Beaver MD Unavailable Unavailable Mollison, Paige Beaver MD Unavailable Unavailable Mollison, Paige Beaver MD Unavailable Unavailable AliCiaran MD Unavailable Unavailable AliCiaran MD Unavailable Unavailable AliCiaran MD Unavailable Unavailable AliCiaran MD Unavailable Unavailable AliCiaran MD Unavailable Unavailable Ali, Ciaran SWEENEY Unavailable Unavailable Ali, Ciaran MD Unavailable Unavailable Ali, Ciaran MD Unavailable Unavailable Ali, Ciaran MD Unavailable Unavailable Ali, Ciaran MD Unavailable Unavailable AliCiaran MD Unavailable Unavailable AliCiaran MD Unavailable Unavailable Ali, Ciaran MD Unavailable Unavailable AliCiaran MD Unavailable Unavailable Ali, Ciaran MD Unavailable Unavailable Ali, Ciaran MD Unavailable Unavailable AliCiaran MD Unavailable Unavailable Ali, Ciaran MD Unavailable Unavailable Ali, Ciaran MD Unavailable Unavailable AliCiaran MD Unavailable Unavailable Ali, Ciaran SWEENEY Unavailable Unavailable Ali, Ciaran MD Unavailable Unavailable Ali, Ciaran MD Unavailable Unavailable Ali, Ciaran MD Unavailable Unavailable Ali, Ciaran MD Unavailable Unavailable Ali Ciaran MD Unavailable Unavailable Ali, Ciaran MD Unavailable Unavailable AliCiaran MD Unavailable Unavailable AliCiaran MD Unavailable Unavailable AliCiaran MD Unavailable Unavailable Ali Ciaran MD Unavailable Unavailable AliCiaran MD Unavailable Unavailable AliCiaran MD Unavailable Unavailable Ali, Ciaran Unavailable Unavailable Ali Ciaran MD Unavailable Unavailable Ali Ciaran MD Unavailable Unavailable Ali Ciaran MD Unavailable Unavailable AliCiaran MD Unavailable Unavailable AliCiaran MD Unavailable Unavailable Ali Ciaran MD Unavailable Unavailable Ali Ciaran MD Unavailable Unavailable Ali Ciaran MD Unavailable Unavailable Ali Ciaran MD Unavailable Unavailable Ali, Ciaran MD Unavailable Unavailable Ali Ciaran MD Unavailable Unavailable AliCiaran MD Unavailable Unavailable AliCiaran MD Unavailable Unavailable AliCiaran MD Unavailable Unavailable AliCiaran MD Unavailable Unavailable AliCiaran MD Unavailable Unavailable Frank, A Adenike SHUFFLE BOARD OPERATOR Unavailable Unavailable Frank, A Adenike SHUFFLE BOARD OPERATOR Unavailable Unavailable Warren, A Adenike SHUFFLE BOARD OPERATOR Unavailable Unavailable Warren, A Adenike SHUFFLE BOARD OPERATOR Unavailable Unavailable Warren, A Adenike SHUFFLE BOARD OPERATOR Unavailable Unavailable Warren, A Adenike SHUFFLE BOARD OPERATOR Unavailable Unavailable Warren, A Adenike SHUFFLE BOARD OPERATOR Unavailable Unavailable Warren, A Adenike SHUFFLE BOARD OPERATOR Unavailable Unavailable Warren, A Adenike SHUFFLE BOARD OPERATOR Unavailable Unavailable Warren, A Adenike SHUFFLE BOARD OPERATOR Unavailable Unavailable Warren, A Adenike SHUFFLE BOARD OPERATOR Unavailable Unavailable Warren, A Adenike SHUFFLE BOARD OPERATOR Unavailable Unavailable Warren, A Adenike SHUFFLE BOARD OPERATOR Unavailable Unavailable Warren, A Adenike SHUFFLE BOARD OPERATOR Unavailable Unavailable Warren, A Adenike SHUFFLE BOARD OPERATOR Unavailable Unavailable Warren, A Adenike SHUFFLE BOARD OPERATOR Unavailable Unavailable Warren, A Adenike SHUFFLE BOARD OPERATOR Unavailable Unavailable Warren, A Adenike SHUFFLE BOARD OPERATOR Unavailable Unavailable Warren, A Adenike SHUFFLE BOARD OPERATOR Unavailable Unavailable Warren, A Adenike SHUFFLE BOARD OPERATOR Unavailable Unavailable Warren, A Adenike SHUFFLE BOARD OPERATOR Unavailable Unavailable Warren, A Adenike SHUFFLE BOARD OPERATOR Unavailable Unavailable Warren, A Adenike SHUFFLE BOARD OPERATOR Unavailable Unavailable Warren, A Adenike SHUFFLE BOARD OPERATOR Unavailable Unavailable Warren, A Adenike SHUFFLE BOARD OPERATOR Unavailable Unavailable Warren, A Adenike SHUFFLE BOARD OPERATOR Unavailable Unavailable Warren, A Adenike SHUFFLE BOARD OPERATOR Unavailable Unavailable Warren, A Adenike SHUFFLE BOARD OPERATOR Unavailable Unavailable Warren, A Adenike SHUFFLE BOARD OPERATOR Unavailable Unavailable Warren, A Adenike SHUFFLE BOARD OPERATOR Unavailable Unavailable Warren, A Aednike SHUFFLE BOARD OPERATOR Unavailable Unavailable Tal, P Simeon DO Unavailable Unavailable Tal, P Simeon DO Unavailable Unavailable Tal, P Simeon DO Unavailable Unavailable Tla, P Simeon DO Unavailable Unavailable Tal, P Simeon DO Unavailable Unavailable Tal, P Simeon DO Unavailable Unavailable Tal, P Simeon DO Unavailable Unavailable Tal, P Simeon DO Unavailable Unavailable Tal, P Simeon DO Unavailable Unavailable Tal, P Simeon DO Unavailable Unavailable Tal, P Simeon DO Unavailable Unavailable Tal, P Simeon DO Unavailable Unavailable Tal, P Simeon DO Unavailable Unavailable Tal, P Simeon DO Unavailable Unavailable Tal, P Simeon DO Unavailable Unavailable Tal, P Simeno DO Unavailable Unavailable Tal, P Simeon DO Unavailable Unavailable Tal, P Simeon DO Unavailable Unavailable Tal, P Simeon DO Unavailable Unavailable Tal, P Simeon DO Unavailable Unavailable Tal, P Simeon DO Unavailable Unavailable Tal, P Simeon DO Unavailable Unavailable Tal, P Simeon DO Unavailable Unavailable Tal, P Simeon DO Unavailable Unavailable Tal, P Simeon DO Unavailable Unavailable Tal, P Simeon DO Unavailable Unavailable Tal, P Simeon DO Unavailable Unavailable Tal, P Simeon DO Unavailable Unavailable Tal, P Simeon DO Unavailable Unavailable Tal, P Simeon DO Unavailable Unavailable Tal, P Simeon DO Unavailable Unavailable Tal, P Simeon DO Unavailable Unavailable Tal, P Simeon DO Unavailable Unavailable Tal, P Simeon DO Unavailable Unavailable Tal, P Simeon DO Unavailable Unavailable Tal, P Simeon DO Unavailable Unavailable Tal, P Simeon DO Unavailable Unavailable Tal, P Simeon DO Unavailable Unavailable Tal, P Simeon DO Unavailable Unavailable Tal, P Simeon DO Unavailable Unavailable Tal, P Simeon DO Unavailable Unavailable Tal, P Simeon DO Unavailable Unavailable Tal, P Simeon DO Unavailable Unavailable Tal, P Simeon DO Unavailable Unavailable Tal, P Simeon DO Unavailable Unavailable Tal, P Simeon DO Unavailable Unavailable Tal, P Simeon DO Unavailable Unavailable Tal, P Simeon DO Unavailable Unavailable Tal, P Simeon DO Unavailable Unavailable Tal, P Simeon DO Unavailable Unavailable Tal, P Simeon DO Unavailable Unavailable Tal, P Simeon DO Unavailable Unavailable Tal, P Simeon DO Unavailable Unavailable Tal, P Simeon DO Unavailable Unavailable Tal, P Simeon DO Unavailable Unavailable Tal, P Simeon DO Unavailable Unavailable Tal, P Simeon DO Unavailable Unavailable Tal, P Simeon DO Unavailable Unavailable Tal, P Simeon DO Unavailable Unavailable Tal, P Simeon DO Unavailable Unavailable Tal, P Simeon DO Unavailable Unavailable Tal, P Simeon DO Unavailable Unavailable Tal, P Simeon DO Unavailable Unavailable Tal, P Simeon DO Unavailable Unavailable Tal, P Simeon DO Unavailable Unavailable Tal, P Simeon DO Unavailable Unavailable Tal, P Simeon DO Unavailable Unavailable Tal, P Simeon DO Unavailable Unavailable Tal, P Simeon DO Unavailable Unavailable Tal, P Simeon DO Unavailable Unavailable Tal, P Simeon DO Unavailable Unavailable Tal, P Simeon DO Unavailable Unavailable Tal, P Simeon DO Unavailable Unavailable Tal, P Simeon DO Unavailable Unavailable Frank, A Adenike SHUFFLE BOARD OPERATOR Unavailable Unavailable Frank, A Adenike SHUFFLE BOARD OPERATOR Unavailable Unavailable Frank, A Adenike SHUFFLE BOARD OPERATOR Unavailable Unavailable Frank, A Adenike SHUFFLE BOARD OPERATOR Unavailable Unavailable Frank, A Adenike SHUFFLE BOARD OPERATOR Unavailable Unavailable Frank, A Adenike SHUFFLE BOARD OPERATOR Unavailable Unavailable Frank, A Adenike SHUFFLE BOARD OPERATOR Unavailable Unavailable Frank, A Adenike SHUFFLE BOARD OPERATOR Unavailable Unavailable Frank, A Adenike SHUFFLE BOARD OPERATOR Unavailable Unavailable Frank, A Adenike SHUFFLE BOARD OPERATOR Unavailable Unavailable Frank, A Adenike SHUFFLE BOARD OPERATOR Unavailable Unavailable Frank, A Adenike SHUFFLE BOARD OPERATOR Unavailable Unavailable Frank, A Adenike SHUFFLE BOARD OPERATOR Unavailable Unavailable Frank, A Adenike SHUFFLE BOARD OPERATOR Unavailable Unavailable Frank, A Adenike SHUFFLE BOARD OPERATOR Unavailable Unavailable Frank, A Adenike SHUFFLE BOARD OPERATOR Unavailable Unavailable Frank, A Adenike SHUFFLE BOARD OPERATOR Unavailable Unavailable Frank, A Adenike SHUFFLE BOARD OPERATOR Unavailable Unavailable Frank, A Adenike SHUFFLE BOARD OPERATOR Unavailable Unavailable Frank, A Adenike SHUFFLE BOARD OPERATOR Unavailable Unavailable Frank, A Adenike SHUFFLE BOARD OPERATOR Unavailable Unavailable Frank, A Adenike SHUFFLE BOARD OPERATOR Unavailable Unavailable Frank, A Adenike SHUFFLE BOARD OPERATOR Unavailable Unavailable Frank, A Adenike SHUFFLE BOARD OPERATOR Unavailable Unavailable Frank, A Adenike SHUFFLE BOARD OPERATOR Unavailable Unavailable Frank, A Adenike SHUFFLE BOARD OPERATOR Unavailable Unavailable Frank, A Adenike SHUFFLE BOARD OPERATOR Unavailable Unavailable Frank, A Adenike SHUFFLE BOARD OPERATOR Unavailable Unavailable Frank, A Adenike SHUFFLE BOARD OPERATOR Unavailable Unavailable Frank, A Adenike SHUFFLE BOARD OPERATOR Unavailable Unavailable Frank, A Adenike SHUFFLE BOARD OPERATOR Unavailable Unavailable Scordo, M Edie PA Unavailable Unavailable Scordo, M Edie PA Unavailable Unavailable Scordo, M Edie PA Unavailable Unavailable Scordo, M Edie PA Unavailable Unavailable Scordo, M Edie PA Unavailable Unavailable Scordo, M Edie PA Unavailable Unavailable Scordo, M Edie PA Unavailable Unavailable Scordo, M Edie PA Unavailable Unavailable Scordo, M Edie PA Unavailable Unavailable Scordo, M Edie PA Unavailable Unavailable Scordo, M Edie PA Unavailable Unavailable Scordo, M Edie PA Unavailable Unavailable Scordo, M Edie PA Unavailable Unavailable Scordo, M Edie PA Unavailable Unavailable Scordo, M Edie PA Unavailable Unavailable Scordo, M Edie PA Unavailable Unavailable Scordo, M Edie PA Unavailable Unavailable Scordo, M Edie PA Unavailable Unavailable Scordo, M Edie PA Unavailable Unavailable Scordo, M Edie PA Unavailable Unavailable Scordo, M Edie PA Unavailable Unavailable Scordo, M Edie PA Unavailable Unavailable Scordo, M Edie PA Unavailable Unavailable Scordo, M Edie PA Unavailable Unavailable Scordo, M Edie PA Unavailable Unavailable Scordo, M Edie PA Unavailable Unavailable Scordo, M Edie PA Unavailable Unavailable Scordo, M Edie PA Unavailable Unavailable Scordo, M Edie PA Unavailable Unavailable Scordo, M Edie PA Unavailable Unavailable Scordo, M Edie PA Unavailable Unavailable Scordo, M Edie PA Unavailable Unavailable Scordo, M Edie PA Unavailable Unavailable Scordo, M Edie PA Unavailable Unavailable Scordo, M Edie PA Unavailable Unavailable Scordo, M Edie PA Unavailable Unavailable Scordo, M Edie PA Unavailable Unavailable Scordo, M Edie PA Unavailable Unavailable Scordo, M Edie PA Unavailable Unavailable Scordo, M Edie PA Unavailable Unavailable Scordo, M Edie PA Unavailable Unavailable Scordo, M Edie PA Unavailable Unavailable Scordo, M Edie PA Unavailable Unavailable Scordo, M Edie PA Unavailable Unavailable Scordo, M Edie PA Unavailable Unavailable Scordo, M Edie PA Unavailable Unavailable Scordo, M Edie PA Unavailable Unavailable Re-disclosure Warning The records that you are about to access may contain information from federally-assisted alcohol or drug abuse programs. If such information is present, then the following federally mandated warning applies: This information has been disclosed to you from records protected by federal confidentiality rules (42 CFR part 2). The federal rules prohibit you from making any further disclosure of this information unless further disclosure is expressly permitted by the written consent of the person to whom it pertains or as otherwise permitted by 42 CFR part 2. A general authorization for the release of medical or other information is NOT sufficient for this purpose. The Federal rules restrict any use of the information to criminally investigate or prosecute any alcohol or drug abuse patient.The records that you are about to access may contain highly sensitive health information, the redisclosure of which is protected by Article 27-F of the [facility] Public Health law. If you continue you may have access to information: Regarding HIV / AIDS; Provided by facilities licensed or operated by the [facility] Office of Mental Health; or Provided by the [facility] Office for People With Developmental Disabilities. If such information is present, then the following [facility] mandated warning applies: This information has been disclosed to you from confidential records which are protected by state law. State law prohibits you from making any further disclosure of this information without the specific written consent of the person to whom it pertains, or as otherwise permitted by law. Any unauthorized further disclosure in violation of state law may result in a fine or long term sentence or both. A general authorization for the release of medical or other information is NOT sufficient authorization for further disc losure. Allergies and Adverse Reactions Type Description Substance Reaction Status Data Source(s ) Drug allergy No Known Allergies No Known Allergies [facility] Allergy to substance Allergy to substance Allergy to substance NATHALIE ([facility]) Allergy to substance Allergy to substance Allergy to substance NATHALIE ([facility]) Allergy to substance Allergy to substance Allergy to substance JUANITA ([facility]) Allergy to substance Allergy to substance Allergy to substance NATHALIE ([facility]) Family History Family Member Name Family Member Gender Family Member Status Date o f Status Description Data Source(s) Unknown Unknown Problem [facility] ([facility] Encounters Encounter Providers Location Date Indications Data Source(s ) Emergency Attender: Simeon Parada DO 2020 02:14:00 PM EDT - 09/03/2021 03:23:00 PM EDT CSQ UC/Respiratory Complaint [facility] CS UC/Respiratory Complaint Patient discharged. Outpatient Attender: Jossy Muhammad/Sada/Estuardo dias/Yves 08/07/2021 02:00:00 PM EDT MED[facility] ([facility]ELINA Rivas) Edie Trevino PA-C: [address] [place] [address], Ph. Attender: Edie [facility] Medical 07/10/2021 12:00:00 AM EDT JUANITA ([facility]) Edie Trevino PA-C: [address] [place] [address], Ph. Attender: Edie [facility] Medical 06/15/2021 12:00:00 AM EDT JUANITA ([facility]) Edie Trevino PA-C: [address] [place] [address], Ph. Attender: Edie [facility] Medical 06/15/2021 12:00:00 AM EDT JUANITA ([facility]) Outpatient Attender: Ciaran Gates MD Main office - [place] 06/11/2021 10:45:00 AM EDT [facility] ([facility]) [facility] [address], [place] [address], Ph. Attender: Adenike Marie [facility] Medical 03/17/2021 12:00:00 AM EDT JUANITA ([facility]) [facility]: [address] [place] [address], Ph. Attender: Adenike Marie [facility] Medical 03/17/2021 12:00:00 AM EDT JUANITA ([facility]) [facility]: [address] [place] [address], Ph. Attender: Adenike Marie [facility] Medical 03/17/2021 12:00:00 AM EDT JUANITA ([facility]) OFFICE OUTPATIENT VISIT 15 MINUTES Attender: NIYAH COTTER Physical Therapy 01/20/2021 02:30:00 PM EST ANDREI ([facility] ) Sd Flannery MD: [address] [place] [address], Ph. Attender: Sd Flannery MD [facility] Medical 01/16/2021 12:00:00 AM EST JUANITA ([facility]) Sd Flannery MD: [address] [place] [address], Ph. Attender: Sd Flannery MD [facility] Medical 01/16/2021 12:00:00 AM EST JUANITA ([facility]) Sd Flannery MD: [address] [place] [address], Ph. Attender: Sd Flannery MD [facility] Medical 01/16/2021 12:00:00 AM EST JUANITA ([facility]) Sd Flannery MD: [address] [place] [address], Ph. Attender: Sd Flannery MD [facility] Medical 01/16/2021 12:00:00 AM EST JUANITA ([facility]) OFFICE OUTPATIENT VISIT 15 MINUTES Attender: NIYAH COTTER Physical Therapy 12/25/2020 01:45:00 PM EST MEDENT ([facility]) Shwetha Latif RPA-C: [address] [place] [address], Ph. Attender: Shwetha Jiménez [facility] Medical 12/25/2020 12:00:00 AM EST JUANITA ([facility]) DHRUV Murdock-: [address] [place] [address], Ph. Attender: Adenike BARTLETT [facility] Medical 12/25/2020 12:00:00 AM EST JUANITA ([facility]) Shwetha Latif RPA-C: [address] [place] [address], Ph. Attender: Shwetha Jiménez [facility] Medical 12/25/2020 12:00:00 AM EST JUANITA ([facility]) Adenike Marie [facility]: [address], [place] [address], Ph. Attender: Adenike Marie [facility] Medical 12/25/2020 12:00:00 AM EST JUANITA ([facility]) JOSE HarveyC: [address], [place] [address], Ph. Attender: Shwetha Jiménez [facility] Medical 12/25/2020 12:00:00 AM EST JUANITA ([facility]) Adenike Marie [facility]: [address], [place] [address], Ph. Attender: Adenike Marie [facility] Medical 12/25/2020 12:00:00 AM EST JUANITA ([facility]) JOSE HarveyC: [address], [place] [address], Ph. Attender: Shwetha Jiménez [facility] Medical 12/25/2020 12:00:00 AM EST JUANITA ([facility]) [facility]enike Marie [facility]: [address], [place] [address], Ph. Attender: Adenike Marie [facility] Medical 12/25/2020 12:00:00 AM EST JUANITA ([facility]) JOSE HarveyC: [address], [place] [address], Ph. Attender: Shwetha Jiménez [facility] Medical 12/25/2020 12:00:00 AM EST JUANITA ([facility]) Adenike Marie [facility]: [address], [place] [address], Ph. Attender: Adenike Marie [facility] Medical 12/25/2020 12:00:00 AM EST JUANITA ([facility]) BALDEV Harvey: [address], [place] [address], Ph. Attender: Shwetha Jiménez [facility] Medical 12/25/2020 12:00:00 AM EST JUANITA ([facility]) Adenike Marie [facility]: [address], [place] [address], Ph. Attender: Adenike Marie [facility] Medical 12/25/2020 12:00:00 AM EST JUANITA ([facility]) Adenike Marie [facility]: [address], [place] [address], Ph. Attender: Adenike Marie [facility] Medical 12/16/2020 12:00:00 AM EST JUANITA ([facility]) KARYNA MurdockPNura: [address], [place] [address], Ph. Attender: Adenike Marie [facility] Medical 12/16/2020 12:00:00 AM EST JUANITA ([facility]) [facility]: [address], [place] [address], Ph. Attender: Adenike Marie [facility] Medical 12/16/2020 12:00:00 AM EST JUANITA ([facility]) Adenike Marie [facility]: [address], [place] [address], Ph. Attender: Adenike Marie [facility] Medical 12/16/2020 12:00:00 AM EST JUANITA ([facility]) Adenike Marie [facility]: [address], [place] [address], Ph. Attender: Adenike Marie [facility] Medical 12/16/2020 12:00:00 AM EST JUANITA ([facility]) Adenike Marie [facility]: [address], [place] [address], Ph. Attender: Adenike Marie [facility] Medical 12/16/2020 12:00:00 AM EST JUANITA ([facility]) Adenike Marie [facility]: [address] [place] [address], Ph. Attender: Adenike Marie [facility] Medical 12/16/2020 12:00:00 AM EST JUANITA ([facility]) Sd Flannery MD: [address] [place] [address], Ph. Attender: Sd Flannery MD [facility] Medical 11/26/2020 12:00:00 AM EST JUANITA ([facility]) Sd Flannery MD: [address] [place] [address], Ph. Attender: Sd Flannery MD [facility] Medical 11/26/2020 12:00:00 AM EST JUANITA ([facility]) Sd Flannery MD: [address] [place] [address], Ph. Attender: Sd Flannery MD [facility] Medical 11/26/2020 12:00:00 AM EST JUANITA ([facility]) Sd Flannery MD: [address] [place] [address], Ph. Attender: Sd Flannery MD [facility] Medical 11/26/2020 12:00:00 AM EST JUANITA ([facility]) Sd Flannery MD: [address] [place] [address], Ph. Attender: Sd Flannery MD [facility] Medical 11/26/2020 12:00:00 AM EST JUANITA ([facility]) Sd Flannery MD: [address] [place] [address], Ph. Attender: Sd Flannery MD [facility] Medical 11/26/2020 12:00:00 AM EST JUANITA ([facility]) Sd Flannery MD: [address] [place] [address], Ph. Attender: Sd Flannery MD [facility] Medical 11/26/2020 12:00:00 AM EST JUANITA ([facility]) Sd Flannery MD: [address] [place] [address], Ph. Attender: Sd Flannery MD [facility] Medical 11/26/2020 12:00:00 AM EST JUANITA ([facility]) Sd Flannery MD: [address] [place] [address], Ph. Attender: Sd Flannery MD [facility] Medical 11/26/2020 12:00:00 AM EST JUANITA ([facility]) Sd Flannery MD: [address] [place] [address], Ph. Attender: Sd Flannery MD [facility] Medical 10/07/2020 12:00:00 AM EST JUANITA ([facility]) Sd Flannery MD: [address] [place] [address], Ph. Attender: Sd Flannery MD [facility] Medical 10/07/2020 12:00:00 AM EST JUANITA ([facility]) Sd Flannery MD: [address] [place] [address], Ph. Attender: Sd Flannery MD [facility] Medical 10/07/2020 12:00:00 AM EST JUANITA ([facility]) Sd Flannery MD: [address] [place] [address], Ph. Attender: Sd Flannery MD [facility] Medical 10/07/2020 12:00:00 AM EST JUANITA ([facility]) Sd Flannery MD: [address] [place] [address], Ph. Attender: Sd Flannery MD [facility] Medical 10/07/2020 12:00:00 AM EST JUANITA ([facility]) Sd Flannery MD: [address] [place] [address], Ph. Attender: Sd Flannery MD [facility] Medical 10/07/2020 12:00:00 AM EST JUANITA ([facility]) Sd Flannery MD: [address] [place] [address], Ph. Attender: Sd Flannery MD [facility] Medical 10/07/2020 12:00:00 AM EST JUANITA ([facility]) Sd Flannery MD: [address] [place] [address], Ph. Attender: Sd Flannery MD [facility] Medical 10/07/2020 12:00:00 AM EST JUANITA ([facility]) Sd Flannery MD: [address] [place] [address], Ph. Attender: Sd Flannery MD [facility] Medical 10/07/2020 12:00:00 AM EST JUANITA ([facility]) Sd Flannery MD: [address] [place] [address], Ph. Attender: Sd Flannery MD [facility] Medical 10/07/2020 12:00:00 AM EST JUANITA ([facility]) Outpatient Attender: Sd Muhammad/Sada/Ariel/Re indl 09/24/2020 09:30:00 AM EDT MEDENT ([facility]) MARY Murdock: [address], [place] [address], Ph. Attender: Adenike Marie [facility] Medical 09/18/2020 12:00:00 AM EDT JUANITA ([facility]) MARY Murdock: [address], [place] [address], Ph. Attender: Adenike Marie [facility] Medical 09/18/2020 12:00:00 AM EDT JUANITA ([facility]) MARY Murdock: [address], [place] [address], Ph. Attender: Adenike Marie [facility] Medical 09/18/2020 12:00:00 AM EDT JUANITA ([facility]) MARY MurdockBC: [address], [place] [address], Ph. Attender: Adenike Marie [facility] Medical 09/18/2020 12:00:00 AM EDT JUANITA ([facility]) Adenike Marie [facility]: [address], [place] [address], Ph. Attender: Adenike Marie [facility] Medical 09/18/2020 12:00:00 AM EDT JUANITA ([facility]) Adenike Marie [facility]: [address], [place] [address], Ph. Attender: Adenike Marie [facility] Medical 09/18/2020 12:00:00 AM EDT NATHALIE ([facility]) Adenike Marie [facility]: [address], [place] [address], Ph. Attender: Adenike Marie [facility] Medical 09/18/2020 12:00:00 AM EDT NATHALIE ([facility]) Adenike Marie [facility]: [address], [place] [address], Ph. Attender: Adenike Marie [facility] Medical 09/18/2020 12:00:00 AM EDT JUANITA ([facility]) Adenike Marie [facility]: [address], [place] [address], Ph. Attender: Adenike Marie [facility] Medical 09/18/2020 12:00:00 AM EDT JUANITA ([facility]) Adenike Marie [facility]: [address], [place] [address], Ph. Attender: Adenike BARTLETT [facility] Medical 09/18/2020 12:00:00 AM EDT [facility]) DHRUV Murdock-: [address] [place] [address], Ph. Attender: Adenike BARTLETT [facility] Medical 09/18/2020 12:00:00 AM EDT NATHALIE ([facility]) Outpatient Attender: DHRUV BARTLETT 09/16/2020 11:37:00 A M EDT [facility] Outpatient Attender: Adenike BARTLETT 08/14/2020 01:2 8:04 PM EDT [facility] Outpatient Attender: Adenike BARTLETT 08/08/2020 04:2 2:59 PM EDT [facility] Immunizations Vaccine Date Status Description Data Source(s) COVID-19, mRNA, LNP-S, PF, 100 mcg/0.5 mL dose 12/25/2020 01 :11:37 PM EST completed .5 mL [facility]) COVID-19, mRNA, LNP-S, PF, 100 mcg/0.5 mL dose 12/25/2020 01 :11:37 PM EST completed .5 mL [facility]) COVID-19, mRNA, LNP-S, PF, 100 mcg/0.5 mL dose 12/25/2020 01 :11:37 PM EST completed .5 mL [facility]) COVID-19, mRNA, LNP-S, PF, 100 mcg/0.5 mL dose 12/25/2020 01 :11:37 PM EST completed .5 mL [facility]) COVID-19, mRNA, LNP-S, PF, 100 mcg/0.5 mL dose 12/25/2020 01 :11:37 PM EST completed .5 mL [facility]) COVID-19, mRNA, LNP-S, PF, 100 mcg/0.5 mL dose 12/25/2020 01 :11:37 PM EST completed .5 mL JUANITA ([facility]) COVID-19 VACCINE Moderna 12/25/2020 12:00:00 AM EST completed NYSIIS Vaccine Series Complete: YESThis Data wa s Submitted to [facility] Via [facility]GG[facility]. COVID-19, mRNA, LNP-S, PF, 100 mcg/0.5 mL dose 11/26/2020 02 :47:29 PM EST completed .5 mL JUANITA ([facility]) COVID-19, mRNA, LNP-S, PF, 100 mcg/0.5 mL dose 11/26/2020 02 :47:29 PM EST completed .5 mL JUANITA ([facility]) COVID-19, mRNA, LNP-S, PF, 100 mcg/0.5 mL dose 11/26/2020 02 :47:29 PM EST completed .5 mL JUANITA ([facility]) COVID-19, mRNA, LNP-S, PF, 100 mcg/0.5 mL dose 11/26/2020 02 :47:29 PM EST completed .5 mL JUANITA ([facility]) COVID-19, mRNA, LNP-S, PF, 100 mcg/0.5 mL dose 11/26/2020 02 :47:29 PM EST completed .5 mL JUANITA ([facility]) COVID-19, mRNA, LNP-S, PF, 100 mcg/0.5 mL dose 11/26/2020 02 :47:29 PM EST completed .5 mL JUANITA ([facility]) COVID-19, mRNA, LNP-S, PF, 100 mcg/0.5 mL dose 11/26/2020 02 :47:29 PM EST completed .5 mL JUANITA ([facility]) COVID-19, mRNA, LNP-S, PF, 100 mcg/0.5 mL dose 11/26/2020 02 :47:29 PM EST completed .5 mL JUANITA ([facility]) COVID-19, mRNA, LNP-S, PF, 100 mcg/0.5 mL dose 11/26/2020 02 :47:29 PM EST completed 11/26/20200.5 mL NATHALIE ([facility]) COVID-19 VACCINE Moderna 11/26/2020 12:00:00 AM EST completed NYSIIS Vaccine Series Complete: NOThis Data was Submitted to [facility] Via ZUGGI. New in 2011. IIV4 09/18/2020 09:41:00 AM EDT completed 09/18/20 JUANITA ([facility]) New in 2011. IIV4 09/18/2020 09:41:00 AM EDT completed 09/18/20 JUANITA ([facility]) New in 2011. IIV4 09/18/2020 09:41:00 AM EDT completed 09/18/20 JUANITA ([facility]) New in 2011. IIV4 09/18/2020 09:41:00 AM EDT completed 09/18/20 JUANITA ([facility]) New in 2011. IIV4 09/18/2020 09:41:00 AM EDT completed 09/18/20 JUANITA ([facility]) New in 2011. IIV4 09/18/2020 09:41:00 AM EDT completed 09/18/20 JUANITA ([facility]) New in 2011. IIV4 09/18/2020 09:41:00 AM EDT completed 09/18/20 JUANITA ([facility]) New in 2011. IIV4 09/18/2020 09:41:00 AM EDT completed 09/18/20 JUANITA ([facility]) New in 2011. IIV4 09/18/2020 09:41:00 AM EDT completed 09/18/20 JUANITA ([facility]) New in 2011. IIV4 09/18/2020 09:41:00 AM EDT completed 09/18/20 JUANITA ([facility]) New in 2011. IIV4 09/18/2020 09:41:00 AM EDT completed 09/18/20 NATHALIE ([facility]) Medications Medication Brand Name Start Date Product Form Dose Route Admi nistrative Instructions Pharmacy Instructions Status Indications Reaction Description Data Source(s) POLYETHYLENE GLYCOL 3350 142 MG/ML Oral Solution [Miralax] M iralax 08/07/2021 12:00:00 AM [facility] Bisacodyl 5 MG Delayed Release Oral Tablet [Dulcolax] Dulcol ax 08/07/2021 12:00:00 AM EDT [facility]AL [facility] Omeprazole 20 MG Delayed Release Oral Ca psule omeprazole 20 mg capsule,delayed release omeprazole 20 mg capsule,delayed release completed omeprazole 20 MG Delayed Release Oral Capsule JUANITA ([facility]) duloxetine 40 MG Delayed Release Oral Ca psule duloxetine 40 mg capsule,delayed release duloxetine 40 mg capsule,delayed release completed duloxetine 40 MG Delayed Release Oral Capsule NATHALIE ([facility]) Sertraline 25 MG Oral Tablet sertraline 25 mg tablet sertraline 25 mg tablet completed sertraline 25 MG Oral Tablet NATHALIE ([facility]) Hydroxyzine Hydrochloride 10 MG Oral Tablet hydroxyzin e HCl 10 mg tablet hydroxyzine HCl 10 mg tablet completed hydroxyzine hydrochloride 10 MG Oral Tablet JUANITA ([facility]) Hydroxyzine Hydrochloride 10 MG Oral Tablet hydroxyzin e HCl 10 mg tablet hydroxyzine HCl 10 mg tablet completed hydroxyzine hydrochloride 10 MG Oral Tablet JUANITA ([facility]) Sertraline 25 MG Oral Tablet sertraline 25 mg tablet sertraline 25 mg tablet completed sertraline 25 MG Oral Tablet NATHALIE ([facility]) Mirtazapine 7.5 MG Oral Tablet mirtazapine 7.5 mg tabl et mirtazapine 7.5 mg tablet completed mirtazapine 7.5 MG Oral Tablet JUANITA ([facility]) Vitamin B 12 1 MG Oral Tablet cyanocobal chu (vit B-12) 1,000 mcg tablet TAKE ONE TABLET BY MOUTH ONCE DAILY cyanocobalamin (vit B-12) 1,000 mcg tabl et TAKE ONE TABLET BY MOUTH ONCE DAILY complet ed vitamin B12 1 MG Oral Tablet JUANITA ([facility]) Cephalexin 500 MG Oral Capsule cephalexin 500 mg capsu le cephalexin 500 mg capsule completed cephalexin 500 MG Oral Capsule NATHALIE ([facility]) duloxetine 30 MG Delayed Release Oral Ca psule duloxetine 30 mg capsule,delayed release duloxetine 30 mg capsule,delayed release completed duloxetine 30 MG Delayed Release Oral Capsule JUANITA ([facility]) Cephalexin 500 MG Oral Capsule cephalexin 500 mg capsu le cephalexin 500 mg capsule completed cephalexin 500 MG Oral Capsule NATHALIE ([facility]) aripiprazole 10 MG Oral Tablet aripiprazole 10 mg tabl et aripiprazole 10 mg tablet completed aripiprazole 10 MG Oral Tablet NATHALIE ([facility]) duloxetine 40 MG Delayed Release Oral Ca psule duloxetine 40 mg capsule,delayed release duloxetine 40 mg capsule,delayed release completed duloxetine 40 MG Delayed Release Oral Capsule [facility]) Mirtazapine 15 MG Oral Tablet mirtazapine 15 mg tablet agustín zapine 15 mg tablet completed mirtazapine 15 MG Oral Tablet [facility]) Sertraline 50 MG Oral Tablet sertraline 50 mg tablet sertraline 50 mg tablet completed sertraline 50 MG Oral Tablet NATHALIE ([facility]) Cephalexin 500 MG Oral Capsule cephalexin 500 mg capsu le cephalexin 500 mg capsule completed cephalexin 500 MG Oral Capsule [facility]) duloxetine 30 MG Delayed Release Oral Ca psule duloxetine 30 mg capsule,delayed release duloxetine 30 mg capsule,delayed release completed duloxetine 30 MG Delayed Release Oral Capsule NATHALIE ([facility]) Vitamin B 12 1 MG Oral Tablet cyanocobal chu (vit B-12) 1,000 mcg tablet TAKE ONE TABLET BY MOUTH ONCE DAILY cyanocobalamin (vit B-12) 1,000 mcg tabl et TAKE ONE TABLET BY MOUTH ONCE DAILY complet ed vitamin B12 1 MG Oral Tablet [facility]) Betamethasone 0.0005 MG/MG Topical Ointm ent betamethasone dipropionate 0.05 % topical ointment betamethasone dipropionate 0.05 % topical ointment completed betamethasone 0.0005 MG/MG Topic al Ointment [facility]) Sertraline 25 MG Oral Tablet sertraline 25 mg tablet sertraline 25 mg tablet completed sertraline 25 MG Oral Tablet JUANITA ([facility]) Ibuprofen 600 MG Oral Tablet ibuprofen 600 mg tablet ibuprofen 6 00 mg tablet completed ibuprofen 600 MG Oral Tablet NATHALIE ([facility]) duloxetine 30 MG Delayed Release Oral Ca psule duloxetine 30 mg capsule,delayed release duloxetine 30 mg capsule,delayed release completed duloxetine 30 MG Delayed Release Oral Capsule JUANITA ([facility]) Hydroxyzine Hydrochloride 10 MG Oral Tablet hydroxyzin e HCl 10 mg tablet hydroxyzine HCl 10 mg tablet completed hydroxyzine hydrochloride 10 MG Oral Tablet JUANITA ([facility]) Betamethasone 0.0005 MG/MG Topical Ointm ent betamethasone dipropionate 0.05 % topical ointment betamethasone dipropionate 0.05 % topical ointment completed betamethasone 0.0005 MG/MG Topic al Ointment JUANITA ([facility]) Betamethasone 0.0005 MG/MG Topical Ointm ent betamethasone dipropionate 0.05 % topical ointment betamethasone dipropionate 0.05 % topical ointment completed betamethasone 0.0005 MG/MG Topic al Ointment JUANITA ([facility]) Cephalexin 500 MG Oral Capsule cephalexin 500 mg capsu le cephalexin 500 mg capsule completed cephalexin 500 MG Oral Capsule NATHALIE ([facility]) Hydroxyzine Hydrochloride 10 MG Oral Tablet hydroxyzin e HCl 10 mg tablet hydroxyzine HCl 10 mg tablet completed hydroxyzine hydrochloride 10 MG Oral Tablet NATHALIE ([facility]) Sertraline 25 MG Oral Tablet sertraline 25 mg tablet sertraline 25 mg tablet completed sertraline 25 MG Oral Tablet JUANITA ([facility]) Cephalexin 500 MG Oral Capsule cephalexin 500 mg capsu le cephalexin 500 mg capsule completed cephalexin 500 MG Oral Capsule NATHALIE ([facility]) Hydroxyzine Hydrochloride 10 MG Oral Tablet hydroxyzin e HCl 10 mg tablet hydroxyzine HCl 10 mg tablet completed hydroxyzine hydrochloride 10 MG Oral Tablet JUANITA ([facility]) Sertraline 50 MG Oral Tablet sertraline 50 mg tablet sertraline 50 mg tablet completed sertraline 50 MG Oral Tablet JUANITA ([facility]) Sertraline 25 MG Oral Tablet sertraline 25 mg tablet sertraline 25 mg tablet completed sertraline 25 MG Oral Tablet NATHALIE ([facility]) Cephalexin 500 MG Oral Capsule cephalexin 500 mg capsu le cephalexin 500 mg capsule completed cephalexin 500 MG Oral Capsule NATHALIE ([facility]) duloxetine 20 MG Delayed Release Oral Ca psule duloxetine 20 mg capsule,delayed release duloxetine 20 mg capsule,delayed release completed duloxetine 20 MG Delayed Release Oral Capsule NATHALIE ([facility]) Mirtazapine 15 MG Oral Tablet mirtazapine 15 mg tablet agustín zapine 15 mg tablet completed mirtazapine 15 MG Oral Tablet NATHALIE ([facility]) Ibuprofen 600 MG Oral Tablet ibuprofen 600 mg tablet ibuprofen 6 00 mg tablet completed ibuprofen 600 MG Oral Tablet NATHALIE ([facility]) Sertraline 50 MG Oral Tablet sertraline 50 mg tablet sertraline 50 mg tablet completed sertraline 50 MG Oral Tablet NATHALIE ([facility]) Sertraline 50 MG Oral Tablet sertraline 50 mg tablet sertraline 50 mg tablet completed sertraline 50 MG Oral Tablet NATHALIE ([facility] [facility] duloxetine 30 MG Delayed Release Oral Ca psule duloxetine 30 mg capsule,delayed release duloxetine 30 mg capsule,delayed release completed duloxetine 30 MG Delayed Release Oral Capsule NATHALIE ([facility]) Sertraline 50 MG Oral Tablet sertraline 50 mg tablet sertraline 50 mg tablet completed sertraline 50 MG Oral Tablet NATHALIE ([facility]) Hydroxyzine Hydrochloride 10 MG Oral Tablet hydroxyzin e HCl 10 mg tablet hydroxyzine HCl 10 mg tablet completed hydroxyzine hydrochloride 10 MG Oral Tablet NATHALIE ([facility]) aripiprazole 10 MG Oral Tablet aripiprazole 10 mg tabl et aripiprazole 10 mg tablet completed aripiprazole 10 MG Oral Tablet NATHALIE ([facility]) duloxetine 40 MG Delayed Release Oral Ca psule duloxetine 40 mg capsule,delayed release duloxetine 40 mg capsule,delayed release completed duloxetine 40 MG Delayed Release Oral Capsule NATHALIE ([facility]) Hydroxyzine Hydrochloride 10 MG Oral Tablet hydroxyzin e HCl 10 mg tablet hydroxyzine HCl 10 mg tablet completed hydroxyzine hydrochloride 10 MG Oral Tablet NATHALIE ([facility]) Mirtazapine 7.5 MG Oral Tablet mirtazapine 7.5 mg tabl et mirtazapine 7.5 mg tablet completed mirtazapine 7.5 MG Oral Tablet NATHALIE ([facility]) Sertraline 25 MG Oral Tablet sertraline 25 mg tablet sertraline 25 mg tablet completed sertraline 25 MG Oral Tablet NATHALIE ([facility]) duloxetine 30 MG Delayed Release Oral Ca psule duloxetine 30 mg capsule,delayed release duloxetine 30 mg capsule,delayed release completed duloxetine 30 MG Delayed Release Oral Capsule NATHALIE ([facility]) aripiprazole 10 MG Oral Tablet aripiprazole 10 mg tabl et aripiprazole 10 mg tablet completed aripiprazole 10 MG Oral Tablet NATHALIE ([facility]) aripiprazole 10 MG Oral Tablet aripiprazole 10 mg tabl et aripiprazole 10 mg tablet completed aripiprazole 10 MG Oral Tablet NATHALIE ([facility]) Ibuprofen 600 MG Oral Tablet ibuprofen 600 mg tablet ibuprofen 6 00 mg tablet completed ibuprofen 600 MG Oral Tablet NATHALIE ([facility]) Sertraline 25 MG Oral Tablet sertraline 25 mg tablet sertraline 25 mg tablet completed sertraline 25 MG Oral Tablet NATHALIE ([facility]) duloxetine 30 MG Delayed Release Oral Ca psule duloxetine 30 mg capsule,delayed release duloxetine 30 mg capsule,delayed release completed duloxetine 30 MG Delayed Release Oral Capsule [facility]) Cephalexin 500 MG Oral Capsule cephalexin 500 mg capsu le cephalexin 500 mg capsule completed cephalexin 500 MG Oral Capsule NATHALIE ([facility]) Mirtazapine 7.5 MG Oral Tablet mirtazapine 7.5 mg tabl et mirtazapine 7.5 mg tablet completed mirtazapine 7.5 MG Oral Tablet NATHALIE ([facility]) aripiprazole 10 MG Oral Tablet aripiprazole 10 mg tabl et aripiprazole 10 mg tablet completed aripiprazole 10 MG Oral Tablet NATHALIE ([facility]) Mirtazapine 7.5 MG Oral Tablet mirtazapine 7.5 mg tabl et mirtazapine 7.5 mg tablet completed mirtazapine 7.5 MG Oral Tablet NATHALIE ([facility]) duloxetine 20 MG Delayed Release Oral Ca psule duloxetine 20 mg capsule,delayed release duloxetine 20 mg capsule,delayed release completed duloxetine 20 MG Delayed Release Oral Capsule NATHALIE ([facility]) Mirtazapine 15 MG Oral Tablet mirtazapine 15 mg tablet agustín zapine 15 mg tablet completed mirtazapine 15 MG Oral Tablet NATHALIE ([facility]) duloxetine 30 MG Delayed Release Oral Ca psule duloxetine 30 mg capsule,delayed release duloxetine 30 mg capsule,delayed release completed duloxetine 30 MG Delayed Release Oral Capsule NATHALIE ([facility]) Mirtazapine 7.5 MG Oral Tablet mirtazapine 7.5 mg tabl et mirtazapine 7.5 mg tablet completed mirtazapine 7.5 MG Oral Tablet NATHALIE ([facility]) duloxetine 20 MG Delayed Release Oral Ca psule duloxetine 20 mg capsule,delayed release duloxetine 20 mg capsule,delayed release completed duloxetine 20 MG Delayed Release Oral Capsule NATHALIE ([facility]) Betamethasone 0.0005 MG/MG Topical Ointm ent betamethasone dipropionate 0.05 % topical ointment betamethasone dipropionate 0.05 % topical ointment completed betamethasone 0.0005 MG/MG Topic al Ointment NATHALIE ([facility]) duloxetine 30 MG Delayed Release Oral Ca psule duloxetine 30 mg capsule,delayed release duloxetine 30 mg capsule,delayed release completed duloxetine 30 MG Delayed Release Oral Capsule NATHALIE ([facility]) aripiprazole 10 MG Oral Tablet aripiprazole 10 mg tabl et aripiprazole 10 mg tablet completed aripiprazole 10 MG Oral Tablet [facility]) duloxetine 30 MG Delayed Release Oral Ca psule duloxetine 30 mg capsule,delayed release duloxetine 30 mg capsule,delayed release completed duloxetine 30 MG Delayed Release Oral Capsule NATHALIE ([facility]) Hydroxyzine Hydrochloride 10 MG Oral Tablet hydroxyzin e HCl 10 mg tablet hydroxyzine HCl 10 mg tablet completed hydroxyzine hydrochloride 10 MG Oral Tablet [facility]) Sertraline 50 MG Oral Tablet sertraline 50 mg tablet sertraline 50 mg tablet completed sertraline 50 MG Oral Tablet [facility]) Sertraline 50 MG Oral Tablet sertraline 50 mg tablet sertraline 50 mg tablet completed sertraline 50 MG Oral Tablet [facility]) Betamethasone 0.0005 MG/MG Topical Ointm ent betamethasone dipropionate 0.05 % topical ointment betamethasone dipropionate 0.05 % topical ointment completed betamethasone 0.0005 MG/MG Topic al Ointment NATHALIE ([facility]) duloxetine 40 MG Delayed Release Oral Ca psule duloxetine 40 mg capsule,delayed release duloxetine 40 mg capsule,delayed release completed duloxetine 40 MG Delayed Release Oral Capsule NATHALIE ([facility]) Ibuprofen 600 MG Oral Tablet ibuprofen 600 mg tablet ibuprofen 6 00 mg tablet completed ibuprofen 600 MG Oral Tablet NATHALIE ([facility]) Mirtazapine 15 MG Oral Tablet mirtazapine 15 mg tablet agustín zapine 15 mg tablet completed mirtazapine 15 MG Oral Tablet NATHALIE ([facility]) Hydroxyzine Hydrochloride 10 MG Oral Tablet hydroxyzin e HCl 10 mg tablet hydroxyzine HCl 10 mg tablet completed hydroxyzine hydrochloride 10 MG Oral Tablet NATHALIE ([facility]) Hydroxyzine Hydrochloride 10 MG Oral Tablet hydroxyzin e HCl 10 mg tablet hydroxyzine HCl 10 mg tablet completed hydroxyzine hydrochloride 10 MG Oral Tablet NATHALIE ([facility]) Sertraline 25 MG Oral Tablet sertraline 25 mg tablet sertraline 25 mg tablet completed sertraline 25 MG Oral Tablet NATHALIE ([facility]) Betamethasone 0.0005 MG/MG Topical Ointm ent betamethasone dipropionate 0.05 % topical ointment betamethasone dipropionate 0.05 % topical ointment completed betamethasone 0.0005 MG/MG Topic al Ointment NATHALIE ([facility]) Mirtazapine 7.5 MG Oral Tablet mirtazapine 7.5 mg tabl et mirtazapine 7.5 mg tablet completed mirtazapine 7.5 MG Oral Tablet NATHALIE ([facility]) Sertraline 25 MG Oral Tablet sertraline 25 mg tablet sertraline 25 mg tablet completed sertraline 25 MG Oral Tablet NATHALIE ([facility]) duloxetine 30 MG Delayed Release Oral Ca psule duloxetine 30 mg capsule,delayed release duloxetine 30 mg capsule,delayed release completed duloxetine 30 MG Delayed Release Oral Capsule NATHALIE ([facility]) Ibuprofen 600 MG Oral Tablet ibuprofen 600 mg tablet ibuprofen 6 00 mg tablet completed ibuprofen 600 MG Oral Tablet NATHALIE ([facility]) Cephalexin 500 MG Oral Capsule cephalexin 500 mg capsu le cephalexin 500 mg capsule completed cephalexin 500 MG Oral Capsule NATHALIE ([facility]) duloxetine 20 MG Delayed Release Oral Ca psule duloxetine 20 mg capsule,delayed release duloxetine 20 mg capsule,delayed release completed duloxetine 20 MG Delayed Release Oral Capsule NATHALIE ([facility]) Betamethasone 0.0005 MG/MG Topical Ointm ent betamethasone dipropionate 0.05 % topical ointment betamethasone dipropionate 0.05 % topical ointment completed betamethasone 0.0005 MG/MG Topic al Ointment NATHALIE ([facility]) Sertraline 50 MG Oral Tablet sertraline 50 mg tablet sertraline 50 mg tablet completed sertraline 50 MG Oral Tablet NATHALIE ([facility]) Mirtazapine 7.5 MG Oral Tablet mirtazapine 7.5 mg tabl et mirtazapine 7.5 mg tablet completed mirtazapine 7.5 MG Oral Tablet NATHALIE ([facility]) Ibuprofen 600 MG Oral Tablet ibuprofen 600 mg tablet ibuprofen 6 00 mg tablet completed ibuprofen 600 MG Oral Tablet NATHALIE ([facility]) Sertraline 50 MG Oral Tablet sertraline 50 mg tablet sertraline 50 mg tablet completed sertraline 50 MG Oral Tablet NATHALIE ([facility]) Mirtazapine 7.5 MG Oral Tablet mirtazapine 7.5 mg tabl et mirtazapine 7.5 mg tablet completed mirtazapine 7.5 MG Oral Tablet NATHALIE ([facility]) Sertraline 25 MG Oral Tablet sertraline 25 mg tablet sertraline 25 mg tablet completed sertraline 25 MG Oral Tablet NATHALIE ([facility]) Sertraline 25 MG Oral Tablet sertraline 25 mg tablet sertraline 25 mg tablet completed sertraline 25 MG Oral Tablet NATHALIE ([facility]) duloxetine 20 MG Delayed Release Oral Ca psule duloxetine 20 mg capsule,delayed release duloxetine 20 mg capsule,delayed release completed duloxetine 20 MG Delayed Release Oral Capsule NATHALIE ([facility]) Mirtazapine 15 MG Oral Tablet mirtazapine 15 mg tablet agustín zapine 15 mg tablet completed mirtazapine 15 MG Oral Tablet NATHALIE ([facility]) duloxetine 20 MG Delayed Release Oral Ca psule duloxetine 20 mg capsule,delayed release duloxetine 20 mg capsule,delayed release completed duloxetine 20 MG Delayed Release Oral Capsule NATHALIE ([facility]) duloxetine 40 MG Delayed Release Oral Ca psule duloxetine 40 mg capsule,delayed release duloxetine 40 mg capsule,delayed release completed duloxetine 40 MG Delayed Release Oral Capsule NATHALIE ([facility]) Cephalexin 500 MG Oral Capsule cephalexin 500 mg capsu le cephalexin 500 mg capsule completed cephalexin 500 MG Oral Capsule NATHALIE ([facility]) Mirtazapine 7.5 MG Oral Tablet mirtazapine 7.5 mg tabl et mirtazapine 7.5 mg tablet completed mirtazapine 7.5 MG Oral Tablet NATHALIE ([facility]) Cephalexin 500 MG Oral Capsule cephalexin 500 mg capsu le cephalexin 500 mg capsule completed cephalexin 500 MG Oral Capsule NATHALIE ([facility]) duloxetine 20 MG Delayed Release Oral Ca psule duloxetine 20 mg capsule,delayed release duloxetine 20 mg capsule,delayed release completed duloxetine 20 MG Delayed Release Oral Capsule NATHALIE ([facility]) duloxetine 40 MG Delayed Release Oral Ca psule duloxetine 40 mg capsule,delayed release duloxetine 40 mg capsule,delayed release completed duloxetine 40 MG Delayed Release Oral Capsule NATHALIE ([facility]) aripiprazole 10 MG Oral Tablet aripiprazole 10 mg tabl et aripiprazole 10 mg tablet completed aripiprazole 10 MG Oral Tablet [facility]) Ibuprofen 600 MG Oral Tablet ibuprofen 600 mg tablet ibuprofen 6 00 mg tablet completed ibuprofen 600 MG Oral Tablet NATHALIE ([facility]) aripiprazole 10 MG Oral Tablet aripiprazole 10 mg tabl et aripiprazole 10 mg tablet completed aripiprazole 10 MG Oral Tablet NATHALIE ([facility]) Betamethasone 0.0005 MG/MG Topical Ointm ent betamethasone dipropionate 0.05 % topical ointment betamethasone dipropionate 0.05 % topical ointment completed betamethasone 0.0005 MG/MG Topic al Ointment NATHALIE ([facility]) aripiprazole 10 MG Oral Tablet aripiprazole 10 mg tabl et aripiprazole 10 mg tablet completed aripiprazole 10 MG Oral Tablet JUANITA ([facility]) aripiprazole 10 MG Oral Tablet aripiprazole 10 mg tabl et aripiprazole 10 mg tablet completed aripiprazole 10 MG Oral Tablet NATHALIE ([facility]) Sertraline 50 MG Oral Tablet sertraline 50 mg tablet sertraline 50 mg tablet completed sertraline 50 MG Oral Tablet NATHALIE ([facility]) Betamethasone 0.0005 MG/MG Topical Ointm ent betamethasone dipropionate 0.05 % topical ointment betamethasone dipropionate 0.05 % topical ointment completed betamethasone 0.0005 MG/MG Topic al Ointment NATHALIE ([facility]) Hydroxyzine Hydrochloride 10 MG Oral Tablet hydroxyzin e HCl 10 mg tablet hydroxyzine HCl 10 mg tablet completed hydroxyzine hydrochloride 10 MG Oral Tablet NATHALIE ([facility]) Mirtazapine 7.5 MG Oral Tablet mirtazapine 7.5 mg tabl et mirtazapine 7.5 mg tablet completed mirtazapine 7.5 MG Oral Tablet NATHALIE ([facility]) aripiprazole 10 MG Oral Tablet aripiprazole 10 mg tabl et aripiprazole 10 mg tablet completed aripiprazole 10 MG Oral Tablet NATHALIE ([facility]) Cyclobenzaprine hydrochloride 10 MG Oral Tablet cyclob enzaprine 10 mg tablet cyclobenzaprine 10 mg tablet completed cyclobenzaprine hydrochloride 10 MG Oral Tablet NATHALIE ([facility]) Cyclobenzaprine hydrochloride 10 MG Oral Tablet cyclob enzaprine 10 mg tablet cyclobenzaprine 10 mg tablet completed cyclobenzaprine hydrochloride 10 MG Oral Tablet JUANITA ([facility]) Mirtazapine 7.5 MG Oral Tablet mirtazapine 7.5 mg tabl et mirtazapine 7.5 mg tablet completed mirtazapine 7.5 MG Oral Tablet NATHALIE ([facility]) Betamethasone 0.0005 MG/MG Topical Ointm ent betamethasone dipropionate 0.05 % topical ointment betamethasone dipropionate 0.05 % topical ointment completed betamethasone 0.0005 MG/MG Topic al Ointment JUANITA ([facility]) Betamethasone 0.0005 MG/MG Topical Ointm ent betamethasone dipropionate 0.05 % topical ointment betamethasone dipropionate 0.05 % topical ointment completed betamethasone 0.0005 MG/MG Topic al Ointment JUANITA ([facility]) duloxetine 30 MG Delayed Release Oral Ca psule duloxetine 30 mg capsule,delayed release duloxetine 30 mg capsule,delayed release completed duloxetine 30 MG Delayed Release Oral Capsule JUANITA ([facility]) Sertraline 50 MG Oral Tablet sertraline 50 mg tablet sertraline 50 mg tablet completed sertraline 50 MG Oral Tablet JUANITA ([facility]) Cephalexin 500 MG Oral Capsule cephalexin 500 mg capsu le cephalexin 500 mg capsule completed cephalexin 500 MG Oral Capsule NATHALIE ([facility]) Insurance Providers Payer name Policy type / Coverage type Policy ID Covered green party ID Covered green party's relationship to montoya Policy [place] Plan Information [employer] [facility] [id number] SELF [id number] RONNIE [id number] SELF [id number] SELF PAY UNAVAILABLE SELF U[place]A BLE [place] Other 0 [id number] Self 0 RONNIE [id number] SP [id number] [place] Other 0 [id number] Self 0 RONNIE-PENDING [id number] SP [id number] [place] [id number] SP [id number] MEDICAID [facility] [id number] SP [id number] MEDICAID [facility] [id number] SP [id number] MEDICAID [facility] [id number] SP [id number] Medicaid S [id number] S [id number] RONNIE [id number] SP [id number] Managed Care Ronnie P [id number] S [id number] RONNIE [id number] SP [id number] RONNIE I [id number] Self [id number] Medicaid S [id number] S [id number] Managed Care [facility] P [id number] S [id number] [facility] COMMUNITY PLAN [facility] [id number] SP [id number] Medicaid S [id number] S [id number] Managed Care [facility] P [id number] S [id number] Managed Care - [facility] P [id number] S [id number] Managed Care - [facility] P [id number] S [id number] Medicaid S [id number] S [id number] Medicare P [id number] S [id number] Medicare P [id number] S [id number] Medicaid S [id number] S [id number] Medicare P [id number] S [id number] MEDICARE [id number] SP [id number] SELF PAY [facility] COMMUNITY PLAN MCDO [id number] SP [id number] RONNIE [id number] SP [id number] Medicaid Medicaid [id number] S elf [id number] Medicaid [facility] Other 0 [id number] Self 0 [place]IE CARE [place] O [id number] S [id number] Medicare Part A of [place] Other 0 [id number] Self 0 MEDICAID [facility] UNAVAILABLE UNAVAILABLE MEDICAID [id number] SP [id number] Medicaid [facility] Other 0 [id number] Self 0 Medicare Part A of [place] Other 0 [id number] Self 0 [facility](MCAID) O [id number] S [id number] MEDICARE C [id number] S [id number] EMEDNY [id number] SP [id number] MEDICARE [id number] SP [id number] Medicaid [facility] Other 0 [id number] Self 0 Managed Care - [facility] P [id number] S [id number] [place] [id number] SP [id number] Medicaid [facility] Other 0 [id number] Self 0 [facility] COMMUNITY PLAN [facility] [id number] SP [id number] [facility] Community Plan Commercial [id number] Self [id number] [place] [id number] Self [id number] Problems, Conditions, and Diagnoses Code Display Name Description Problem Type Effective Dates Data Source(s) R05.9 R05.9 - Cough, unspecified R05.9 - Cough, unspecified Diagnosis 09/03/2021 02:14:00 PM EDT [facility] J02.9 Acute pharyngitis, unspecified J02.9 - Acute pha ryngitis, unspecified Diagnosis 09/03/2021 02:14:00 PM EDT [facility] R09.81 Nasal congestion R09.81 - Nasal congestion Diagnosis 09/03/2021 02:14:00 PM EDT [facility] [id number] Finding by site Finding by Site Problem 0 12:00:00 AM EDT - 06/15/2021 12:00:00 AM EDT NATHALIE ([facility]) [id number] Finding by site Finding by Site Problem 0 12:00:00 AM EDT - 06/15/2021 12:00:00 AM EDT NATHALIE ([facility]) [id number] Patient asked to attend Patient Asked to Attend [facility] 04/16/2020 12:00:00 AM EDT - 06/15/2021 12:00:00 AM EDT NATHALIE ([facility]) [id number] Patient asked to attend Patient Asked to Attend [facility] 04/16/2020 12:00:00 AM EDT - 06/15/2021 12:00:00 AM EDT NATHALIE ([facility]) [id number] Clinical finding Clinical Finding Problem 12:00:00 AM EDT - 06/15/2021 12:00:00 AM EDT NATHALIE ([facility]) [id number] SNOMED CT Concept SNOMED CT Concept Problem 09/05 12:00:00 AM EDT - 06/15/2021 12:00:00 AM EDT NATHALIE ([facility]) [id number] Clinical finding Clinical Finding Problem 10/09/2 019 12:00:00 AM EDT - 06/15/2021 12:00:00 AM EDT JUANITA ([facility]) [id number] SNOMED CT Concept SNOMED CT Concept Problem 09/05 12:00:00 AM EDT - 06/15/2021 12:00:00 AM EDT JUANITA ([facility]) [id number] Repetitive self-excoriation Repetitive Self-excoriatio n Problem 04/19/2019 12:00:00 AM EDT - 06/15/2021 12:00:00 AM EDT JUANITA ([facility]) [id number] Repetitive self-excoriation Repetitive Self-excoriatio n Problem 04/19/2019 12:00:00 AM EDT - 06/15/2021 12:00:00 AM EDT NATHALIE ([facility]) [id number] Clinical history and observation finding s Clinical History and Observation Findings Problem 03/28/2018 12:00:00 AM EDT - 06/15/2021 12:00:00 AM EDT JUANITA ([facility]) [id number] Clinical history and observation finding s Clinical History and Observation Findings Problem 03/28/2018 12:00:00 AM EDT - 06/15/2021 12:00:00 AM EDT JUANITA ([facility]) [id number] Finding related to sleep Finding Related to Sleep Prob won 05/16/2017 12:00:00 AM EDT - 06/15/2021 12:00:00 AM EDT JUANITA ([facility]) [id number] Finding related to sleep Finding Related to Sleep Prob won 05/16/2017 12:00:00 AM EDT - 06/15/2021 12:00:00 AM EDT JUANITA ([facility]) [id number] Mental disorder Mental Disorder Problem 6 12:00:00 AM EDT - 06/15/2021 12:00:00 AM EDT JUANITA ([facility]) [id number] General finding of observation of patien t General Finding of Observation of Patient Problem 06/03/2016 12:00:00 AM EDT - 06/15/2021 12:00:00 AM EDT JUANITA ([facility]) [id number] Procedure by method Procedure by Method Problem 0 06/03/2016 12:00:00 AM EDT - 06/15/2021 12:00:00 AM EDT JUANITA ([facility]) [id number] Influenza vaccine needed Influenza Vaccine Needed Pro blem 06/03/2016 12:00:00 AM EDT - 06/15/2021 12:00:00 AM EDT JUANITA ([facility]) [id number] Mental disorder Mental Disorder Problem 6 12:00:00 AM EDT - 06/15/2021 12:00:00 AM EDT JUANITA ([facility]) [id number] General finding of observation of patien t General Finding of Observation of Patient Problem 06/03/2016 12:00:00 AM EDT - 06/15/2021 12:00:00 AM EDT JUANITA ([facility]) [id number] Procedure by method Procedure by Method Problem 0 06/03/2016 12:00:00 AM EDT - 06/15/2021 12:00:00 AM EDT JUANITA ([facility]) [id number] Influenza vaccine needed Influenza Vaccine Needed Pro blem 06/03/2016 12:00:00 AM EDT - 06/15/2021 12:00:00 AM EDT NATHALIE ([facility]) [id number] Disorder of upper respiratory system Dis order of Upper Respiratory System Problem 05/01/2015 12:00:00 AM EDT - 06/15/2021 12:00:00 AM EDT JUANITA ([facility]) [id number] Disorder of upper respiratory system Dis order of Upper Respiratory System Problem 05/01/2015 12:00:00 AM EDT - 06/15/2021 12:00:00 AM EDT NATHALIE ([facility]) Surgeries/Procedures Procedure Description Date Indications Data Source(s) Individual psychotherapy (regime/therapy) 08/19/2021 1 2:00:00 AM EDT [facility] ([facility]) Individual psychotherapy (regime/therapy) 08/12/2021 1 2:00:00 AM EDT [facility] ([facility]) Evaluation AND/OR management - established patient (procedur e) 08/10/2021 12:00:00 AM EDT [facility] ([facility]) OFFICE OUTPATIENT NEW 45 MINUTES 08/07/2021 12:00:00 A M [facility] ([facility], ) Individual psychotherapy (regime/therapy) 08/05/2021 1 2:00:00 AM EDT [facility] ([facility]) Individual psychotherapy (regime/therapy) 07/28/2021 1 2:00:00 AM EDT [facility] ([facility]) Individual psychotherapy (regime/therapy) 07/28/2021 1 2:00:00 AM EDT [facility] ([facility]) Individual psychotherapy (regime/therapy) 07/20/2021 1 2:00:00 AM EDT [facility] ([facility] [facility] Individual psychotherapy (regime/therapy) 07/20/2021 1 2:00:00 AM EDT [facility] ([facility]) Individual psychotherapy (regime/therapy) 07/20/2021 1 2:00:00 AM EDT [facility] ([facility]) Individual psychotherapy (regime/therapy) 07/20/2021 1 2:00:00 AM EDT [facility] ([facility]) Individual psychotherapy (regime/therapy) 07/20/2021 1 2:00:00 AM EDT [facility] ([facility]) Individual psychotherapy (regime/therapy) 07/20/2021 1 2:00:00 AM EDT [facility] ([facility]) Evaluation AND/OR management - established patient (procedur e) 07/06/2021 12:00:00 AM EDT [facility] ([facility]) Evaluation AND/OR management - established patient (procedur e) 07/06/2021 12:00:00 AM EDT [facility] ([facility]) Evaluation AND/OR management - established patient (procedur e) 07/06/2021 12:00:00 AM EDT [facility] ([facility]) Evaluation AND/OR management - established patient (procedur e) 07/06/2021 12:00:00 AM EDT [facility] ([facility]) OFFICE OUTPATIENT VISIT 15 MINUTES 06/11/2021 12:00:00 AM EDT [facility] ([facility]) Evaluation AND/OR management - established patient (procedur e) 06/10/2021 12:00:00 AM EDT [facility] ([facility]) Evaluation AND/OR management - established patient (procedur e) 06/10/2021 12:00:00 AM EDT [facility] ([facility]) Evaluation AND/OR management - established patient (procedur e) 06/10/2021 12:00:00 AM EDT [facility] ([facility]) Evaluation AND/OR management - established patient (procedur e) 06/10/2021 12:00:00 AM EDT [facility] ([facility]) Evaluation AND/OR management - established patient (procedur e) 06/10/2021 12:00:00 AM EDT [facility] ([facility]) Individual psychotherapy (regime/therapy) 06/09/2021 1 2:00:00 AM [facility]T [facility]) Individual psychotherapy (regime/therapy) 06/09/2021 1 2:00:00 AM [facility]) Individual psychotherapy (regime/therapy) 06/09/2021 1 2:00:00 AM [facility]) Individual psychotherapy (regime/therapy) 06/09/2021 1 2:00:00 AM [facility]) Individual psychotherapy (regime/therapy) 06/09/2021 1 2:00:00 AM EDT [facility] ([facility]) Individual psychotherapy (regime/therapy) 06/09/2021 1 2:00:00 AM [facility]) Individual psychotherapy (regime/therapy) 06/09/2021 1 2:00:00 AM [facility]) Individual psychotherapy (regime/therapy) 06/09/2021 1 2:00:00 AM [facility] ([facility]) Individual psychotherapy (regime/therapy) 06/09/2021 1 2:00:00 AM [facility] ([facility]) Individual psychotherapy (regime/therapy) 06/09/2021 1 2:00:00 AM [facility]T [facility] ([facility]) Individual psychotherapy (regime/therapy) 05/20/2021 1 2:00:00 AM [facility]T [facility] ([facility]) Individual psychotherapy (regime/therapy) 05/20/2021 1 2:00:00 AM EDT [facility] ([facility]) Individual psychotherapy (regime/therapy) 05/20/2021 1 2:00:00 AM EDT [facility] ([facility]) Individual psychotherapy (regime/therapy) 05/20/2021 1 2:00:00 AM EDT [facility] ([facility]) Individual psychotherapy (regime/therapy) 05/20/2021 1 2:00:00 AM EDT [facility] ([facility]) Individual psychotherapy (regime/therapy) 05/20/2021 1 2:00:00 AM EDT [facility] ([facility]) Individual psychotherapy (regime/therapy) 05/20/2021 1 2:00:00 AM EDT [facility] ([facility]) Individual psychotherapy (regime/therapy) 05/20/2021 1 2:00:00 AM EDT [facility] ([facility]) Individual psychotherapy (regime/therapy) 05/20/2021 1 2:00:00 AM EDT [facility] ([facility]) Individual psychotherapy (regime/therapy) 05/20/2021 1 2:00:00 AM [facility]T [facility] ([facility]) Individual psychotherapy (regime/therapy) 05/20/2021 1 2:00:00 AM EDT [facility] ([facility]) Individual psychotherapy (regime/therapy) 05/20/2021 1 2:00:00 AM EDT [facility] ([facility]) Evaluation AND/OR management - established patient (procedur e) 05/11/2021 12:00:00 AM EDT [facility] ([facility]) Evaluation AND/OR management - established patient (procedur e) 05/11/2021 12:00:00 AM EDT [facility] ([facility]) Evaluation AND/OR management - established patient (procedur e) 05/11/2021 12:00:00 AM EDT [facility] ([facility]) Evaluation AND/OR management - established patient (procedur e) 05/11/2021 12:00:00 AM EDT [facility] ([facility]) Evaluation AND/OR management - established patient (procedur e) 05/11/2021 12:00:00 AM EDT [facility] ([facility]) Evaluation AND/OR management - established patient (procedur e) 05/11/2021 12:00:00 AM EDT [facility] ([facility]) Evaluation AND/OR management - established patient (procedur e) 05/11/2021 12:00:00 AM [facility]) Individual psychotherapy (regime/therapy) 05/06/2021 1 2:00:00 AM EDT [facility] ([facility]) Individual psychotherapy (regime/therapy) 05/06/2021 1 2:00:00 AM EDT [facility] ([facility]) Individual psychotherapy (regime/therapy) 05/06/2021 1 2:00:00 AM EDT [facility] ([facility]) Individual psychotherapy (regime/therapy) 05/06/2021 1 2:00:00 AM EDT [facility] ([facility]) Individual psychotherapy (regime/therapy) 05/06/2021 1 2:00:00 AM [facility]) Individual psychotherapy (regime/therapy) 05/06/2021 1 2:00:00 AM [facility]T [facility]) Individual psychotherapy (regime/therapy) 05/06/2021 1 2:00:00 AM [facility]T [facility] ([facility]) Individual psychotherapy (regime/therapy) 05/06/2021 1 2:00:00 AM EDT [facility] ([facility]) Individual psychotherapy (regime/therapy) 05/06/2021 1 2:00:00 AM EDT [facility] ([facility]) Individual psychotherapy (regime/therapy) 05/06/2021 1 2:00:00 AM EDT [facility] ([facility]) Individual psychotherapy (regime/therapy) 05/06/2021 1 2:00:00 AM EDT [facility] ([facility]) Individual psychotherapy (regime/therapy) 05/06/2021 1 2:00:00 AM EDT [facility] ([facility]) Individual psychotherapy (regime/therapy) 05/06/2021 1 2:00:00 AM EDT [facility] ([facility]) Individual psychotherapy (regime/therapy) 05/06/2021 1 2:00:00 AM EDT [facility] ([facility]) Individual psychotherapy (regime/therapy) 05/06/2021 1 2:00:00 AM EDT [facility] ([facility]) Individual psychotherapy (regime/therapy) 05/06/2021 1 2:00:00 AM EDT [facility] ([facility]) Individual psychotherapy (regime/therapy) 04/22/2021 1 2:00:00 AM EDT [facility] ([facility]) Individual psychotherapy (regime/therapy) 04/22/2021 1 2:00:00 AM EDT [facility] ([facility]) Individual psychotherapy (regime/therapy) 04/22/2021 1 2:00:00 AM EDT [facility] ([facility]) Individual psychotherapy (regime/therapy) 04/22/2021 1 2:00:00 AM EDT [facility] ([facility]) Individual psychotherapy (regime/therapy) 04/22/2021 1 2:00:00 AM EDT [facility] ([facility]) Individual psychotherapy (regime/therapy) 04/22/2021 1 2:00:00 AM EDT [facility] ([facility]) Individual psychotherapy (regime/therapy) 04/22/2021 1 2:00:00 AM EDT [facility] ([facility]) Individual psychotherapy (regime/therapy) 04/22/2021 1 2:00:00 AM EDT [facility] ([facility]) Individual psychotherapy (regime/therapy) 04/22/2021 1 2:00:00 AM EDT [facility] ([facility]) Individual psychotherapy (regime/therapy) 04/22/2021 1 2:00:00 AM EDT [facility] ([facility]) Individual psychotherapy (regime/therapy) 04/22/2021 1 2:00:00 AM EDT [facility] ([facility]) Individual psychotherapy (regime/therapy) 04/22/2021 1 2:00:00 AM EDT [facility] ([facility]) Individual psychotherapy (regime/therapy) 04/22/2021 1 2:00:00 AM EDT [facility] ([facility]) Individual psychotherapy (regime/therapy) 04/22/2021 1 2:00:00 AM EDT [facility] ([facility]) Individual psychotherapy (regime/therapy) 04/22/2021 1 2:00:00 AM [facility]T [facility]) Individual psychotherapy (regime/therapy) 04/22/2021 1 2:00:00 AM [facility]T [facility]) Individual psychotherapy (regime/therapy) 04/22/2021 1 2:00:00 AM [facility]T [facility]) Individual psychotherapy (regime/therapy) 04/22/2021 1 2:00:00 AM [facility]T [facility]) Individual psychotherapy (regime/therapy) 03/24/2021 1 2:00:00 AM EDT [facility] ([facility]) Individual psychotherapy (regime/therapy) 03/24/2021 1 2:00:00 AM [facility]T [facility]) Individual psychotherapy (regime/therapy) 03/24/2021 1 2:00:00 AM EDT [facility] ([facility]) Individual psychotherapy (regime/therapy) 03/24/2021 1 2:00:00 AM EDT [facility] ([facility]) Individual psychotherapy (regime/therapy) 03/24/2021 1 2:00:00 AM EDT [facility] ([facility]) Individual psychotherapy (regime/therapy) 03/24/2021 1 2:00:00 AM EDT [facility] ([facility]) Individual psychotherapy (regime/therapy) 03/24/2021 1 2:00:00 AM EDT [facility] ([facility]) Individual psychotherapy (regime/therapy) 03/24/2021 1 2:00:00 AM EDT [facility] ([facility]) Individual psychotherapy (regime/therapy) 03/24/2021 1 2:00:00 AM EDT [facility] ([facility]) Individual psychotherapy (regime/therapy) 03/24/2021 1 2:00:00 AM EDT [facility] ([facility]) Individual psychotherapy (regime/therapy) 03/24/2021 1 2:00:00 AM EDT [facility] ([facility]) Individual psychotherapy (regime/therapy) 03/24/2021 1 2:00:00 AM EDT [facility] ([facility]) Individual psychotherapy (regime/therapy) 03/24/2021 1 2:00:00 AM EDT [facility] ([facility]) Individual psychotherapy (regime/therapy) 03/24/2021 1 2:00:00 AM EDT [facility] ([facility]) Individual psychotherapy (regime/therapy) 03/24/2021 1 2:00:00 AM EDT [facility] ([facility]) Individual psychotherapy (regime/therapy) 03/24/2021 1 2:00:00 AM EDT [facility] ([facility]) Individual psychotherapy (regime/therapy) 03/24/2021 1 2:00:00 AM [facility]) Individual psychotherapy (regime/therapy) 03/24/2021 1 2:00:00 AM EDT [facility] ([facility]) Individual psychotherapy (regime/therapy) 03/24/2021 1 2:00:00 AM EDT [facility] ([facility]) Individual psychotherapy (regime/therapy) 03/24/2021 1 2:00:00 AM EDT [facility] ([facility]) Individual psychotherapy (regime/therapy) 03/17/2021 1 2:00:00 AM EDT [facility] ([facility]) Individual psychotherapy (regime/therapy) 03/17/2021 1 2:00:00 AM EDT [facility] ([facility]) Individual psychotherapy (regime/therapy) 03/17/2021 1 2:00:00 AM [facility]) Individual psychotherapy (regime/therapy) 03/17/2021 1 2:00:00 AM [facility]T [facility]) Individual psychotherapy (regime/therapy) 03/17/2021 1 2:00:00 AM [facility]) Individual psychotherapy (regime/therapy) 03/17/2021 1 2:00:00 AM [facility]T [facility]) Individual psychotherapy (regime/therapy) 03/17/2021 1 2:00:00 AM [facility]T [facility]) Individual psychotherapy (regime/therapy) 03/17/2021 1 2:00:00 AM [facility]T [facility] ([facility]) Individual psychotherapy (regime/therapy) 03/17/2021 1 2:00:00 AM [facility]T [facility] ([facility]) Individual psychotherapy (regime/therapy) 03/17/2021 1 2:00:00 AM [facility]T [facility] ([facility]) Evaluation AND/OR management - established patient (procedur e) 03/16/2021 12:00:00 AM [facility]T [facility] ([facility]) Evaluation AND/OR management - established patient (procedur e) 03/16/2021 12:00:00 AM [facility] ([facility]) Evaluation AND/OR management - established patient (procedur e) 03/16/2021 12:00:00 AM [facility]T [facility]) Evaluation AND/OR management - established patient (procedur e) 03/16/2021 12:00:00 AM [facility]T [facility]) Evaluation AND/OR management - established patient (procedur e) 03/16/2021 12:00:00 AM [facility]T [facility]) Evaluation AND/OR management - established patient (procedur e) 03/16/2021 12:00:00 AM [facility]) Evaluation AND/OR management - established patient (procedur e) 03/16/2021 12:00:00 AM EDT [facility] ([facility]) Evaluation AND/OR management - established patient (procedur e) 03/16/2021 12:00:00 AM EDT [facility] ([facility]) Evaluation AND/OR management - established patient (procedur e) 03/16/2021 12:00:00 AM EDT [facility] ([facility]) Evaluation AND/OR management - established patient (procedur e) 03/16/2021 12:00:00 AM EDT [facility] ([facility]) Individual psychotherapy (regime/therapy) 03/11/2021 1 2:00:00 AM EDT [facility] ([facility]) Individual psychotherapy (regime/therapy) 03/11/2021 1 2:00:00 AM EDT [facility] ([facility]) Individual psychotherapy (regime/therapy) 03/11/2021 1 2:00:00 AM EDT [facility] ([facility]) Individual psychotherapy (regime/therapy) 03/11/2021 1 2:00:00 AM EDT [facility] ([facility]) Individual psychotherapy (regime/therapy) 03/11/2021 1 2:00:00 AM EDT [facility] ([facility]) Individual psychotherapy (regime/therapy) 03/11/2021 1 2:00:00 AM [facility]T [facility]) Individual psychotherapy (regime/therapy) 03/11/2021 1 2:00:00 AM EDT [facility] ([facility]) Individual psychotherapy (regime/therapy) 03/11/2021 1 2:00:00 AM EDT [facility] ([facility]) Individual psychotherapy (regime/therapy) 03/11/2021 1 2:00:00 AM EDT [facility] ([facility]) Individual psychotherapy (regime/therapy) 03/11/2021 1 2:00:00 AM EDT [facility] ([facility]) Individual psychotherapy (regime/therapy) 03/04/2021 1 2:00:00 AM [facility]T [facility]) Individual psychotherapy (regime/therapy) 03/04/2021 1 2:00:00 AM EDT [facility] ([facility]) Individual psychotherapy (regime/therapy) 03/04/2021 1 2:00:00 AM EDT [facility] ([facility]) Individual psychotherapy (regime/therapy) 03/04/2021 1 2:00:00 AM EDT [facility] ([facility]) Individual psychotherapy (regime/therapy) 03/04/2021 1 2:00:00 AM EDT [facility] ([facility]) Individual psychotherapy (regime/therapy) 03/04/2021 1 2:00:00 AM EDT [facility] ([facility]) Individual psychotherapy (regime/therapy) 03/04/2021 1 2:00:00 AM EDT [facility] ([facility]) Individual psychotherapy (regime/therapy) 03/04/2021 1 2:00:00 AM EDT [facility] ([facility]) Individual psychotherapy (regime/therapy) 03/04/2021 1 2:00:00 AM EDT [facility] ([facility]) Individual psychotherapy (regime/therapy) 03/04/2021 1 2:00:00 AM EDT [facility] ([facility]) Individual psychotherapy (regime/therapy) 02/18/2021 1 2:00:00 AM EDT [facility] ([facility]) Individual psychotherapy (regime/therapy) 02/18/2021 1 2:00:00 AM EDT [facility] ([facility]) Individual psychotherapy (regime/therapy) 02/18/2021 1 2:00:00 AM EDT [facility] ([facility]) Individual psychotherapy (regime/therapy) 02/18/2021 1 2:00:00 AM EDT [facility] ([facility]) Individual psychotherapy (regime/therapy) 02/18/2021 1 2:00:00 AM EDT [facility] ([facility]) Individual psychotherapy (regime/therapy) 02/18/2021 1 2:00:00 AM EDT [facility] ([facility]) Individual psychotherapy (regime/therapy) 02/18/2021 1 2:00:00 AM EDT [facility] ([facility]) Individual psychotherapy (regime/therapy) 02/18/2021 1 2:00:00 AM EDT [facility] ([facility]) Individual psychotherapy (regime/therapy) 02/18/2021 1 2:00:00 AM EDT [facility] ([facility]) Individual psychotherapy (regime/therapy) 02/18/2021 1 2:00:00 AM EDT [facility] ([facility]) Individual psychotherapy (regime/therapy) 02/18/2021 1 2:00:00 AM EDT [facility] ([facility]) Individual psychotherapy (regime/therapy) 02/18/2021 1 2:00:00 AM EDT [facility] ([facility]) Individual psychotherapy (regime/therapy) 02/18/2021 1 2:00:00 AM [facility]T [facility]) Individual psychotherapy (regime/therapy) 02/18/2021 1 2:00:00 AM EDT [facility] ([facility]) Individual psychotherapy (regime/therapy) 02/18/2021 1 2:00:00 AM EDT [facility] ([facility]) Individual psychotherapy (regime/therapy) 02/18/2021 1 2:00:00 AM EDT [facility] ([facility]) Individual psychotherapy (regime/therapy) 02/18/2021 1 2:00:00 AM EDT [facility] ([facility]) Individual psychotherapy (regime/therapy) 02/18/2021 1 2:00:00 AM EDT [facility] ([facility]) Individual psychotherapy (regime/therapy) 02/18/2021 1 2:00:00 AM EDT [facility] ([facility]) Individual psychotherapy (regime/therapy) 02/18/2021 1 2:00:00 AM EDT [facility] ([facility]) Individual psychotherapy (regime/therapy) 02/04/2021 1 2:00:00 AM EST [facility] ([facility]) Individual psychotherapy (regime/therapy) 02/04/2021 1 2:00:00 AM EST [facility] ([facility]) Individual psychotherapy (regime/therapy) 02/04/2021 1 2:00:00 AM EST [facility] ([facility]) Individual psychotherapy (regime/therapy) 02/04/2021 1 2:00:00 AM EST [facility] ([facility]) Individual psychotherapy (regime/therapy) 02/04/2021 1 2:00:00 AM EST [facility] ([facility]) Individual psychotherapy (regime/therapy) 02/04/2021 1 2:00:00 AM EST [facility] ([facility]) Individual psychotherapy (regime/therapy) 02/04/2021 1 2:00:00 AM EST [facility] ([facility]) Individual psychotherapy (regime/therapy) 02/04/2021 1 2:00:00 AM EST [facility] ([facility]) Individual psychotherapy (regime/therapy) 02/04/2021 1 2:00:00 AM EST [facility] ([facility]) Individual psychotherapy (regime/therapy) 02/04/2021 1 2:00:00 AM EST [facility] ([facility]) Individual psychotherapy (regime/therapy) 01/21/2021 1 2:00:00 AM EST [employer] ([facility]) Evaluation AND/OR management - established patient (procedur e) 01/21/2021 12:00:00 AM EST [employer] ([facility]) Individual psychotherapy (regime/therapy) 01/21/2021 1 2:00:00 AM EST [employer] ([facility]) Evaluation AND/OR management - established patient (procedur e) 01/21/2021 12:00:00 AM EST [employer] ([facility]) Individual psychotherapy (regime/therapy) 01/21/2021 1 2:00:00 AM EST [employer] ([facility]) Evaluation AND/OR management - established patient (procedur e) 01/21/2021 12:00:00 AM EST [employer] ([facility]) Individual psychotherapy (regime/therapy) 01/21/2021 1 2:00:00 AM EST [employer] ([facility]) Evaluation AND/OR management - established patient (procedur e) 01/21/2021 12:00:00 AM EST [employer] ([facility]) Individual psychotherapy (regime/therapy) 01/21/2021 1 2:00:00 AM EST [employer] ([facility]) Evaluation AND/OR management - established patient (procedur e) 01/21/2021 12:00:00 AM EST [employer] ([facility]) Individual psychotherapy (regime/therapy) 01/21/2021 1 2:00:00 AM EST [employer] ([facility]) Evaluation AND/OR management - established patient (procedur e) 01/21/2021 12:00:00 AM EST [employer] ([facility]) Individual psychotherapy (regime/therapy) 01/21/2021 1 2:00:00 AM EST [employer] ([facility]) Evaluation AND/OR management - established patient (procedur e) 01/21/2021 12:00:00 AM EST [employer] ([facility]) Individual psychotherapy (regime/therapy) 01/21/2021 1 2:00:00 AM EST [employer] ([facility]) Evaluation AND/OR management - established patient (procedur e) 01/21/2021 12:00:00 AM EST [employer] ([facility]) Individual psychotherapy (regime/therapy) 01/21/2021 1 2:00:00 AM EST [employer] ([facility]) Evaluation AND/OR management - established patient (procedur e) 01/21/2021 12:00:00 AM EST [employer] ([facility]) Individual psychotherapy (regime/therapy) 01/21/2021 1 2:00:00 AM EST [employer] ([facility]) Evaluation AND/OR management - established patient (procedur e) 01/21/2021 12:00:00 AM EST [employer] ([facility]) RADEX ANKLE COMPLETE MINIMUM 3 VIEWS 01/20/2021 12:00: 00 AM EST [facility] ([facility]) Individual psychotherapy (regime/therapy) 12/29/2020 1 2:00:00 AM EST [employer] ([facility]) Individual psychotherapy (regime/therapy) 12/29/2020 1 2:00:00 AM EST [employer] ([facility]) Individual psychotherapy (regime/therapy) 12/29/2020 1 2:00:00 AM EST [employer] ([facility]) Individual psychotherapy (regime/therapy) 12/29/2020 1 2:00:00 [facility] Individual psychotherapy (regime/therapy) 12/29/2020 1 2:00:00 AM [facility] Individual psychotherapy (regime/therapy) 12/29/2020 1 2:00:00 AM [facility] Individual psychotherapy (regime/therapy) 12/29/2020 1 2:00:00 AM [facility]) Individual psychotherapy (regime/therapy) 12/29/2020 1 2:00:00 AM EST [facility] ([facility]) Individual psychotherapy (regime/therapy) 12/29/2020 1 2:00:00 AM EST [facility] ([facility]) Individual psychotherapy (regime/therapy) 12/29/2020 1 2:00:00 AM EST [facility] ([facility]) RADEX ANKLE COMPLETE MINIMUM 3 VIEWS 12/25/2020 12:00: 00 AM EST [facility] ([facility] XR, ankle, 3 or more view 12/16/2020 12:00:00 AM EST [facility] ([facility]) XR, ankle, 3 or more view 12/16/2020 12:00:00 AM EST [facility] ([facility]) XR, ankle, 3 or more view 12/16/2020 12:00:00 AM EST [facility] ([facility]) XR, ankle, 3 or more view 12/16/2020 12:00:00 AM EST [facility] ([facility]) XR, ankle, 3 or more view 12/16/2020 12:00:00 AM EST [facility] ([facility]) XR, ankle, 3 or more view 12/16/2020 12:00:00 AM EST [facility] ([facility]) XR, ankle, 3 or more view 12/16/2020 12:00:00 AM EST [facility] ([facility]) Evaluation AND/OR management - established patient (procedur e) 12/15/2020 12:00:00 AM EST [employer] ([facility]) Evaluation AND/OR management - established patient (procedur e) 12/15/2020 12:00:00 AM EST [employer] ([facility]) Evaluation AND/OR management - established patient (procedur e) 12/15/2020 12:00:00 AM EST [employer] ([facility]) Evaluation AND/OR management - established patient (procedur e) 12/15/2020 12:00:00 AM EST [employer] ([facility]) Evaluation AND/OR management - established patient (procedur e) 12/15/2020 12:00:00 AM EST [employer] ([facility]) Evaluation AND/OR management - established patient (procedur e) 12/15/2020 12:00:00 AM EST [employer] ([facility]) Evaluation AND/OR management - established patient (procedur e) 12/15/2020 12:00:00 AM EST [employer] ([facility]) Evaluation AND/OR management - established patient (procedur e) 12/15/2020 12:00:00 AM EST [employer] ([facility]) Evaluation AND/OR management - established patient (procedur e) 12/15/2020 12:00:00 AM EST [employer] ([facility]) Evaluation AND/OR management - established patient (procedur e) 12/15/2020 12:00:00 AM EST [employer] ([facility]) RADEX SHOULDER COMPLETE MINIMUM 2 VIEWS 09/24/2020 12: 00:00 AM EDT [facility] ([facility]) RADIOLOGIC EXAM KNEE COMPLETE 4/MORE VIEWS 09/24/2020 12:00:00 AM EDT [facility] ([facility]) Individual psychotherapy (regime/therapy) 07/31/2020 1 2:00:00 AM EDT [employer] ([facility]) Individual psychotherapy (regime/therapy) 07/31/2020 1 2:00:00 AM EDT [employer] ([facility]) Individual psychotherapy (regime/therapy) 07/31/2020 1 2:00:00 AM EDT [facility]) Individual psychotherapy (regime/therapy) 07/31/2020 1 2:00:00 AM EDT [facility]) Individual psychotherapy (regime/therapy) 07/31/2020 1 2:00:00 AM EDT [facility]) Individual psychotherapy (regime/therapy) 07/31/2020 1 2:00:00 AM EDT [facility]) Individual psychotherapy (regime/therapy) 07/31/2020 1 2:00:00 AM EDT [facility]) Individual psychotherapy (regime/therapy) 07/31/2020 1 2:00:00 AM EDT [facility] ([facility]) Individual psychotherapy (regime/therapy) 07/31/2020 1 2:00:00 AM EDT [facility]) Individual psychotherapy (regime/therapy) 07/31/2020 1 2:00:00 AM EDT [facility]) Results ID Date Data Source [id number] 09/03/2021 03:21:00 [place] [address] HEALTH INFORMATION MANAGEMENT ED/UC Physician Report : [id number] Signed Patient: James Soares Acct:[id number] Unit: [facility] [id number] : 2000 Arrival Date: 09/03/21 Age/Sex: 21 / M Arrival Time: 1414 Copies to: Sd Flannery MD Resp Complaint HPI/ROS General Chief Complaint: Respiratory Complaint Stated Complaint: CSQ UC/Respiratory Complaint Source: Patient and I have reviewed available Ancillary/nursing staff documentation Mode of arrival: Ambulatory Limitations: Reports No limitations History of Present Illness Initial Comments: Patient presents with complaint of nasal congestion and sore throat cough generalized malaise x2 days. Onset/Timin Time interval: Days(s) Severity: Reports Mild Severity scale (1-10): 2 Improves With: Reports Medication Worsens With: Reports Nothing Associated Symptoms: Reports Cough Related Data Home Medications Medication Instructions Recorded aripiprazole 10 mg tablet (Abilify) 10 mg PO DAILY FOR 12 HOURS 11/30/14 cholecalciferol (vitamin D3) 50 2,000 unit PO DAILY 11/07/15 mcg (2,000 unit) tablet duloxetine 60 mg capsule,delayed 60 mg PO DAILY 09/03/21 release lamotrigine 100 mg tablet 100 mg PO BID 09/03/21 mirtazapine 30 mg tablet 30 mg PO HS 09/03/21 sucralfate 1 gram tablet 1 g PO QID 09/03/21 Allergies No Known Allergies Allergy (Verified 09/03/21 14:49) Review of systems Review of Systems: Review of Systems All systems: Reviewed and negative except as stated in HPI. General: reports generalized malaise Eye: Denies Eye pain ENT: Reports nasal congestion Cardiac: Denies Chest pain Respiratory: Reports Cough GI: Denies Pain : Denies Bleeding Neuro: Denies Headache Musculoskeletal: Denies Neck Pain Skin: Denies Bruising Psyc hiatric: Denies Anxiety Social History History of Smoking/Tobacco Use: Never Smoker Alcohol use: Reports None Drug use: Reports None Occupation: Student Lives with: Reports Correction Physical Exam Physical Exam Physical Exam: Physical Exam Appearance Appearance Normal: Present: Well appearing, No Pain Distress, No Respiratory Distress and Social Smile present Head Head Exam: Atraumatic and Normocephalic Eye Eye Exam: Sclera normal ENT ENT Normal: Present: Nasal congestion Throat normal and Tympanic membrane normal Cardiac Cardiac: Present: Regular rate and rhythm Lung/Chest Lung/Chest Exam: Clear Neuro Neuro Normal: Alert and Fluent speech Psych Psych Normal: Normal Affect Psych Abnormal: negative Anxiety or Depression Skin Skin exam: Dry, [place] and Warm Course Vital Signs Vital signs: Vital Signs 09/03/21 14:52 Temperature 98.8 F Pulse Rate 95 Respiratory Rate 20 Blood Pressure 140/82 H O2 Sat by Pulse Oximetry 97 Medical Decision Making/CCT Medication/Allergies Review Home Medication and Allergy review: I reviewed patients allergies, home medications, and new prescriptions Blood Pressure Blood pressure: Pt BP is hypertensive range (>140/90), Pt advised w/ PCP in 1 day-4 wk and Pt BP elevated has following urgent/emergent condition, without HX HTN Discharge Plan Disposition Clinical Impression: Encounter for laboratory testing for COVID- 19 virus Provider stated Dispo: Discharged Condition: Stable Instructions: Viral Syndrome (ED) Activity Restrictions/Additional Instructions: Additional information regarding your visit has been attached to your discharge paperwork, please carefully review this provided information. Present even tested for COVID-19 at this time please follow-up COVID quarantine guidelines and bili test results return in 2-4 days. If your symptoms worsen please seek medical attention at the closest emergency room please follow-up with your PCP asneeded. Prescriptions: No Action aripiprazole [Abilify] 10 MG tablet 10 mg PO DAILY FOR 12 HOURS 0RF cholecalciferol (vitamin D3) 2,000 UNIT tablet 2,000 unit PO DAILY 0RF sucralfate 1 gram tablet 1 g PO QID 0RF mirtazapine 30 mg tablet 30 mg PO HS 0RF lamotrigine 100 mg tablet 100 mg PO BID 0RF duloxetine 60 mg capsule,delayed release(DR/EC) 60 mg PO DAILY 0RF Referrals: Sd Flannery MD [Primary Care Provider] - Stand Alone Forms: Portal Instructions Patient agreeable to discharge: Patient/Guardian understands and is agreeable to discharge plan Provider in triage note Vital Signs Vital Signs: Vital Signs (Last 8 Hours) Temp Pulse Resp BP Pulse Ox 09/03/21 14:52 98.8 F 95 20 140/82 H 97 Date/Time <<Signature on File>> Initializing User: Sol Cardenas NP 09/03/21 1521 Signed by: Sol Cardenas NP 09/03/21 1525 Simeon Parada DO 09/03/21 1928 Name Value Range Interpretation Code Description Data Ann rce(s) Supporting Document(s) ID Date Data Source [id number] 09/03/2021 02:50:00 PM EDT [facility] Name Value Range Interpretation Code Description Data Ann rce(s) Supporting Document(s) SARS-CoV-2 (COVID-19) N gene [Presence] in Respiratory specimen by Nucleic acid amplification using NOT-DETECTED [facility] This lab was ordered by [facility] and reported by [facility]. ID Date Data Source [id number] 09/04/2021 06:29:00 AM EDT [facility] Have you tested POSITIVE for Covid-19 i n the last 90 days? No Patient presents as: Symptomatic COVID Reason Symptomatic PT -URGENT Name Value Range Interpretation Code Description Data Ann rce(s) Supporting Document(s) COVID 19 RHEONIX NOT-DETECTED NOTDETECTED [place] [facility] The [employer]x COVID-19 MDx Assay is an en dpoint RT-PCR assay (MOLECULAR)intended for the qualitative detection of nucleic acid from SARS-CoV-2 in nasopharyngeal or nasal swabs. COVID testing using the [employer] analyzer was developed for the purpose of diagnostic testing during a declared public health emergency and has Emergency Use Authorization (EUA) from the FDA. The possibility of a false negative result should be considered if the patient's recent exposures or clinical presentation indicate that COVID-19 is likely, and diagnostic tests for other causes of illness (e.g., other respiratory illness) are negative. If COVID-19 is still suspected based on exposure history together with other clinical findings, re-testing should be considered by healthcare providers in consultation with public health authorities. ID Date Data Source [id number] 07/02/2021 02:39:00 PM EDT [facility] ([facility]) Name Value Range Interpretation Code Description Data Ann rce(s) Supporting Document(s) istat HCT 44.0 % 38.0-51.0 Istat HCT [facility] ([facility]) istat sodium 139 mEq/L 136-145 Istat Sodium [facility] ([facility]) istat glucose 90 mg/dL 70-105 Istat Glucose [facility] ( [facility]) istat potassium 4.2 mEq/L 3.5-5.1 Istat Potassium ATHE NA ([facility]) istat Ca++ 4.8 mg/dL 4.5-5.3 Istat Ca++ [facility] ([facility]) istat chloride 100 mEq/L 98-109 Istat Chloride [facility] ([facility]) istat CO2 26.0 mm/L 23.0-27.0 Istat CO2 [facility] ([facility]) istat BUN 11 mg/dL 8-26 Istat BUN [facility] ([facility]) istat creatinine 1.0 mg/dL 0.6-1.3 Istat Creatinine AT [facility]) ID Date Data Source [id number] 07/02/2021 02:37:00 PM EDT [facility] ([facility]) Name Value Range Interpretation Code Description Data Ann rce(s) Supporting Document(s) lipase 74 U/L 73-393 Lipase [facility] ([facility]) ID Date Data Source [id number] 07/02/2021 02:37:00 PM EDT [facility] ([facility]) Name Value Range Interpretation Code Description Data Ann rce(s) Supporting Document(s) ALT/SGPT 62 U/L 12-78 ALT/SGPT [facility] ([facility]) AST/SGOT 31 U/L 7-37 AST/SGOT [facility] ([facility]) alkaline phosphatase 92 U/L 45-117 Alkaline Phosph atase [facility] ([facility]) bilirubin,total 0.5 mg/dL 0.2-1.0 Bilirubin,total [facility] ([facility]) bilirubin,direct 0.2 mg/dL 0.0-0.2 Bilirubin,direct AT [facility] ([facility]) albumin 3.9 gm/dL 3.2-5.2 Albumin [facility] ([facility]) total protein 7.1 gm/dL 6.4-8.2 Total Protein [facility] ( [facility]) albumin/globulin ratio Albumin/globu stephanie Ratio [facility] ([facility]) ID Date Data Source [id number] 07/02/2021 02:37:00 PM EDT [facility] ([facility]) Name Value Range Interpretation Code Description Data Ann rce(s) Supporting Document(s) red blood count 4.87 10 4.30-6.10 Red Blood Count [facility] ([facility]) white blood count 8.7 10 4.0-10.0 White Blood Count [facility] ([facility]) hematocrit 44.1 % 42.0-52.0 Hematocrit [facility] ([facility]) hemoglobin 14.7 g/dL 13.5-17.5 Hemoglobin [facility] ([facility]) mean corpuscular volume 90.6 fL 80.0-96.0 Mean Corpusc ular Volume [facility] ([facility]) mean corpuscular hemoglobin 30.2 pg 27.0-33.0 Mean Cor puscular Hemoglobin [facility] ([facility]) red cell distribution width 12.2 % 11.5-14.5 Red Cell Distribution Width [facility] ([facility]) mean corpuscular HGB conc 33.3 g/dL 32.0-36.5 Mean Corpu scular HGB Conc [facility] ([facility]) platelet count, automated 326 10 150-450 Platelet C ount, Automated [facility] ([facility]) neutrophils % 54.1 % 36.0-66.0 Neutrophils % [facility] ( [facility]) mono % 9.4 % 2.0-8.0 Above high normal [place] % [facility] ([facility]) eos % 2.1 % 0.0-3.0 Eos % [facility] ([facility]) lymph % 33.0 % 24.0-44.0 Lymph % [facility] ([facility]) baso % 0.9 % 0.0-1.0 Baso % [facility] ([facility]) immature granulocyte % 0.5 % 0-3.0 Immature Gran ulocyte % [facility] ([facility]) nucleated red blood cell % 0.0 % 0-0 Nucleated Red Blood Cell % [facility] ([facility]) neutrophils # 4.7 10 1.5-8.5 Neutrophils # [facility] ( [facility]) lymph # 2.9 10 1.5-5.0 Lymph # [facility] ([facility]) eos # 0.2 10 0.0-0.5 Eos # [facility] ([facility]) mono # 0.8 10 0.0-0.8 [place] # [facility] ([facility]) baso # 0.1 10 0.0-0.2 Baso # [facility] ([facility]) ID Date Data Source [id number] 06/17/2021 12:00:00 AM EDT [facility] ([facility]) Name Value Range Interpretation Code Description Data Ann rce(s) Supporting Document(s) Lipase [Enzymatic activity/volume] in Serum or Plasma 19 U/L 7-60 Lipase [facility] ([facility]) ID Date Data Source [id number] 06/17/2021 12:00:00 AM EDT [facility]) Name Value Range Interpretation Code Description Data Ann rce(s) Supporting Document(s) Amylase [Enzymatic activity/volume] in Serum or Plasma 43 U/L 21- 101 Amylase [facility] ([facility]) ID Date Data Source [id number] 06/17/2021 12:00:00 AM EDT [facility]) Name Value Range Interpretation Code Description Data Ann rce(s) Supporting Document(s) Thyrotropin [Units/volume] in Serum or Plasma 0.98 mIU/L 0.40-4.50 Tsh [facility] ([facility]) ID Date Data Source [id number] 06/17/2021 12:00:00 AM EDT [facility]) Name Value Range Interpretation Code Description Data Ann rce(s) Supporting Document(s) Hemoglobin [Mass/volume] in Blood 14.7 g/dL 13.2-17.1 He emily [facility] ([facility]) Leukocytes [#/volume] in Blood by Automated count 6.4 thousand/uL 3 .8-10.8 White Blood Cell Count [facility] ([facility]) Erythrocytes [#/volume] in Blood by Automated count 4.83 million/uL 4.20-5.80 Red Blood Cell Count [facility] ([facility]) Erythrocyte mean corpuscular hemoglobin [Entitic mass] by Automated count 30.4 pg 27.0-33.0 Mch [facility] ([facility]) Hematocrit [Volume Fraction] of Blood by Automated count 43.5 % 38.5-50.0 Hematocrit [facility] ([facility]) Erythrocyte mean corpuscular volume [Entitic volume] by Auto mated count 90.1 fL 80.0-100.0 Mcv [facility] ([facility]) Platelets [#/volume] in Blood by Automated count 358 thousand/uL 14 0-400 Platelet Count [facility] ([facility]) Platelet mean volume [Entitic volume] in Blood by Peter-Ariadne 10.9 f L 7.5-12.5 Mpv [facility] ([facility]) Erythrocyte mean corpuscular hemoglobin concentration [Mass/volume] by Automated count 33.8 g/dL 32.0-36.0 Mchc [facility] ([facility]) Erythrocyte distribution width [Ratio] by Automated count 12.3 % 11.0-15.0 Rdw [facility] ([facility]) ID Date Data Source [id number] 06/17/2021 12:00:00 AM EDT [facility] ([facility]) Name Value Range Interpretation Code Description Data Ann rce(s) Supporting Document(s) Creatinine [Mass/volume] in Serum or Plasma 0.93 mg/dL 0.60-1.35 Creatinine [facility] ([facility]) Urea nitrogen [Mass/volume] in Serum or Plasma 10 mg/dL 7-25 Urea Nitrogen (BUN) [facility] ([facility]) Glucose [Mass/volume] in Serum or Plasma 101 mg/dL 65-99 Above high normal Glucose [facility] ([facility]) Glomerular filtration rate/1.73 sq M.pre dicted among non-blacks [Volume Rate/Area] in Serum, Plasma or Blood by Creatinine-based formula (CKD-EPI) 116 mL/min/1.73m2 > or = 60 eGFR Non-afr. [place] [facility] ([facility]) Glomerular filtration rate/1.73 sq M.pre dicted among blacks [Volume Rate/Area] in Serum, Plasma or Blood by Creatinine-based formula (CKD-EPI) 135 mL/min/1.73m2 > or = 60 eGFR [facility] ([facility]) Urea nitrogen/Creatinine [Mass Ratio] in Serum or Plasma not applic able 6-22 BUN/creatinine Ratio [facility] ([facility]) Sodium [Moles/volume] in Serum or Plasma 139 mmol/L 135-146 Sodium [facility] ([facility]) Potassium [Moles/volume] in Serum or Plasma 4.4 mmol/L 3.5-5.3 Potassium [facility] ([facility]) Carbon dioxide, total [Moles/volume] in Serum or Plasma 24 mmol/L 20-32 Carbon Dioxide [facility] ([facility]) Calcium [Mass/volume] in Serum or Plasma 9.5 mg/dL 8.6-10.3 Calcium [facility] ([facility]) Chloride [Moles/volume] in Serum or Plasma 106 mmol/L 98-110 Chloride [facility] ([facility]) Protein [Mass/volume] in Serum or Plasma 6.8 g/dL 6.1-8.1 Protein, Total [facility] ([facility]) Globulin [Mass/volume] in Serum by calculation 2.3 g/dL_(calc) 1.9- 3.7 Globulin [facility] ([facility]) Albumin/Globulin [Mass Ratio] in Serum or Plasma 2.0 (calc) 1.0-2 .5 Albumin/globulin Ratio [facility] ([facility]) Albumin [Mass/volume] in Serum or Plasma 4.5 g/dL 3.6-5.1 Albumin [facility] ([facility]) Alkaline phosphatase [Enzymatic activity/volume] in Serum or Plasma 83 U/L 36-130 Alkaline Phosphatase [facility] ([facility]) Aspartate aminotransferase [Enzymatic activity/volume] in Serum or Plasma 28 U/L 10-40 Ast [facility] ([facility]) Bilirubin.total [Mass/volume] in Serum or Plasma 0.5 mg/dL 0.2-1 .2 Bilirubin, Total [facility] ([facility]) Alanine aminotransferase [Enzymatic activity/volume] in Seru m or Plasma 34 U/L 9-46 Alt [facility] ([facility]) ID Date Data Source [id number] 06/15/2021 11:04:00 AM EDT [facility] ([facility] [facility]) Name Value Range Interpretation Code Description Data Ann rce(s) Supporting Document(s) bilirubin neg Bilirubin JUANITA ([facility]) blood neg Blood JUANITA ([facility]) ketone neg Ketone JUANITA ([facility]) glucose neg Glucose JUANITA ([facility]) nitrite neg Nitrite JUANITA ([facility]) leukocytes neg Leukocytes JUANITA ([facility]) pH Ph JUANITA ([facility]) urobilinogen Urobilinogen JUANITA ([facility]) specific gravity Specific [place] AT [facility]) protein +- Protein JUANITA ([facility]) ID Date Data Source [id number] 01/16/2021 08:35:00 AM EST JUANITA ([facility]) Name Value Range Interpretation Code Description Data Ann rce(s) Supporting Document(s) vitamin B12 level 994 pg/mL Vitamin B12 Level JUANITA ([facility]) folate 14.9 NG/mL Folate JUANITA ([facility]) ID Date Data Source [id number] 01/16/2021 08:35:00 AM EST JUANITA ([facility]) Name Value Range Interpretation Code Description Data Ann rce(s) Supporting Document(s) blood urea nitrogen 15 mg/dL 7-18 Blood Urea Nitro gen JUANITA ([facility]) glucose, fasting 91 mg/dL 70-100 Glucose, Fasting AT [facility]) sodium level 140 mEq/L 136-145 Sodium Level JUANITA ([facility]) creatinine for GFR 1.02 mg/dL 0.70-1.30 Creatinine for GF R JUANITA ([facility]) glomerular filtration rate > 60.0 >60 Glomerula r Filtration Rate JUANITA ([facility]) potassium serum 4.9 mEq/L 3.5-5.1 Potassium Serum ATH NA ([facility]) chloride level 105 mEq/L 98-107 Chloride Level JUANITA ([facility]) anion gap 6 mEq/L 8-16 Below low normal Anion Gap JUANITA ( [facility]) carbon dioxide level 29 mEq/L 21-32 Carbon Dioxide Level JUANITA ([facility]) AST/SGOT 28 U/L 7-37 AST/SGOT JUANITA ([facility]) ALT/SGPT 51 U/L 12-78 ALT/SGPT JUANITA ([facility]) calcium level 9.5 mg/dL 8.5-10.1 Calcium Level JUANITA ( [facility]) bilirubin,total 0.8 mg/dL 0.2-1.0 Bilirubin,total ATHE NA ([facility]) alkaline phosphatase 105 U/L 45-117 Alkaline Phosph atase JUANITA ([facility]) total protein 6.9 gm/dL 6.4-8.2 Total Protein JUANITA ( [facility]) albumin 4.0 gm/dL 3.2-5.2 Albumin JUANITA ([facility]) albumin/globulin ratio Albumin/globu stephanie Ratio JUANITA ([facility]) ID Date Data Source [id number] 01/16/2021 08:35:00 AM EST JUANITA ([facility]) Name Value Range Interpretation Code Description Data Ann rce(s) Supporting Document(s) white blood count 7.1 10 4.0-10.0 White Blood Count JUANITA ([facility]) hemoglobin 14.9 g/dL 13.5-17.5 Hemoglobin JUANITA ([facility]) hematocrit 46.1 % 42.0-52.0 Hematocrit JUANITA ([facility]) red blood count 5.15 10 4.30-6.10 Red Blood Count ATHE NA ([facility]) mean corpuscular hemoglobin 28.9 pg 27.0-33.0 Mean Cor puscular Hemoglobin JUANITA ([facility]) mean corpuscular volume 89.5 fL 80.0-96.0 Mean Corpusc ular Volume JUANITA ([facility]) platelet count, automated 322 10 150-450 Platelet C ount, Automated JUANITA ([facility]) mean corpuscular HGB conc 32.3 g/dL 32.0-36.5 Mean Corpu scular HGB Conc JUANITA ([facility]) red cell distribution width 12.0 % 11.5-14.5 Red Cell Distribution Width JUANITA ([facility]) lymph % 35.7 % 24.0-44.0 Lymph % JUANITA ([facility]) neutrophils % 51.0 % 36.0-66.0 Neutrophils % JUANITA ( [facility]) mono % 9.9 % 2.0-8.0 Above high normal [place] % JUANITA ([facility]) eos % 2.4 % 0.0-3.0 Eos % JUANITA ([facility]) baso % 0.7 % 0.0-1.0 Baso % JUANITA ([facility]) nucleated red blood cell % 0.0 % 0-0 Nucleated Red Blood Cell % JUANITA ([facility]) immature granulocyte % 0.3 % 0-3.0 Immature Gran ulocyte % NATHALIE ([facility]) mono # 0.7 10 0.0-0.8 [place] # JUANITA ([facility]) neutrophils # 3.6 10 1.5-8.5 Neutrophils # JUANITA ( [facility]) lymph # 2.5 10 1.5-5.0 Lymph # JUANITA ([facility]) eos # 0.2 10 0.0-0.5 Eos # JUANITA ([facility]) baso # 0.1 10 0.0-0.2 Baso # JUANITA ([facility]) ID Date Data Source [id number] 01/16/2021 08:35:00 AM EST JUANITA ([facility]) Name Value Range Interpretation Code Description Data Ann rce(s) Supporting Document(s) vitamin B12 level 994 pg/mL Vitamin B12 Level JUANITA ([facility]) folate 14.9 NG/mL Folate JUANITA ([facility]) ID Date Data Source [id number] 01/16/2021 08:35:00 AM EST JUANITA ([facility]) Name Value Range Interpretation Code Description Data Ann rce(s) Supporting Document(s) glucose, fasting 91 mg/dL 70-100 Glucose, Fasting AT [place] ([facility]) blood urea nitrogen 15 mg/dL 7-18 Blood Urea Nitro gen JUANITA ([facility]) creatinine for GFR 1.02 mg/dL 0.70-1.30 Creatinine for GF R JUANITA ([facility]) potassium serum 4.9 mEq/L 3.5-5.1 Potassium Serum ATHE NA ([facility]) glomerular filtration rate > 60.0 >60 Glomerula r Filtration Rate JUANITA ([facility]) sodium level 140 mEq/L 136-145 Sodium Level JUANITA ([facility]) carbon dioxide level 29 mEq/L 21-32 Carbon Dioxide Level JUANITA ([facility]) chloride level 105 mEq/L 98-107 Chloride Level JUANITA ([facility]) anion gap 6 mEq/L 8-16 Below low normal Anion Gap JUANITA ( [facility]) ALT/SGPT 51 U/L 12-78 ALT/SGPT JUANITA ([facility]) calcium level 9.5 mg/dL 8.5-10.1 Calcium Level JUNAITA ( [facility]) AST/SGOT 28 U/L 7-37 AST/SGOT JUANITA ([facility]) bilirubin,total 0.8 mg/dL 0.2-1.0 Bilirubin,total ATHE ([facility]) alkaline phosphatase 105 U/L 45-117 Alkaline Phosph atase JUANITA ([facility]) total protein 6.9 gm/dL 6.4-8.2 Total Protein JUANITA ( [facility]) albumin 4.0 gm/dL 3.2-5.2 Albumin JUANITA ([facility]) albumin/globulin ratio Albumin/globu stephanie Ratio JUANITA ([facility]) ID Date Data Source [id number] 01/16/2021 08:35:00 AM EST JUANITA ([facility]) Name Value Range Interpretation Code Description Data Ann rce(s) Supporting Document(s) white blood count 7.1 10 4.0-10.0 White Blood Count JUANITA ([facility]) hemoglobin 14.9 g/dL 13.5-17.5 Hemoglobin JUANITA ([facility]) red blood count 5.15 10 4.30-6.10 Red Blood Count ATHE NA ([facility]) hematocrit 46.1 % 42.0-52.0 Hematocrit JUANITA ([facility]) mean corpuscular volume 89.5 fL 80.0-96.0 Mean Corpusc ular Volume JUANITA ([facility]) mean corpuscular hemoglobin 28.9 pg 27.0-33.0 Mean Cor puscular Hemoglobin JUANITA ([facility]) mean corpuscular HGB conc 32.3 g/dL 32.0-36.5 Mean Corpu scular HGB Conc JUANITA ([facility]) red cell distribution width 12.0 % 11.5-14.5 Red Cell Distribution Width JUANITA ([facility]) neutrophils % 51.0 % 36.0-66.0 Neutrophils % JUANITA ( [facility]) platelet count, automated 322 10 150-450 Platelet C ount, Automated JUANITA ([facility]) lymph % 35.7 % 24.0-44.0 Lymph % NATHALIE ([facility]) baso % 0.7 % 0.0-1.0 Baso % JUANITA ([facility]) eos % 2.4 % 0.0-3.0 Eos % JUANITA ([facility]) mono % 9.9 % 2.0-8.0 Above high normal [place] % JUANITA ([facility]) nucleated red blood cell % 0.0 % 0-0 Nucleated Red Blood Cell % JUANITA ([facility]) immature granulocyte % 0.3 % 0-3.0 Immature Gran ulocyte % JUANITA ([facility]) mono # 0.7 10 0.0-0.8 [place] # JUANITA ([facility]) neutrophils # 3.6 10 1.5-8.5 Neutrophils # JUANITA ( [facility]) lymph # 2.5 10 1.5-5.0 Lymph # JUANITA ([facility]) baso # 0.1 10 0.0-0.2 Baso # JUANITA ([facility]) eos # 0.2 10 0.0-0.5 Eos # JUANITA ([facility]) ID Date Data Source [id number] 01/16/2021 08:35:00 AM EST JUANITA ([facility]) Name Value Range Interpretation Code Description Data Ann rce(s) Supporting Document(s) vitamin B12 level 994 pg/mL Vitamin B12 Level JUANITA ([facility]) folate 14.9 NG/mL Folate JUANITA ([facility]) ID Date Data Source [id number] 01/16/2021 08:35:00 AM EST JUANITA ([facility]) Name Value Range Interpretation Code Description Data Ann rce(s) Supporting Document(s) blood urea nitrogen 15 mg/dL 7-18 Blood Urea Nitro gen JUANITA ([facility]) glucose, fasting 91 mg/dL 70-100 Glucose, Fasting AT [place] [facility]) sodium level 140 mEq/L 136-145 Sodium Level JUANITA ([facility]) creatinine for GFR 1.02 mg/dL 0.70-1.30 Creatinine for GF R JUANITA ([facility]) glomerular filtration rate > 60.0 >60 Glomerula r Filtration Rate JUANITA ([facility]) potassium serum 4.9 mEq/L 3.5-5.1 Potassium Serum ATHE NA ([facility]) chloride level 105 mEq/L 98-107 Chloride Level JUANITA ([facility]) carbon dioxide level 29 mEq/L 21-32 Carbon Dioxide Level JUANITA ([facility]) calcium level 9.5 mg/dL 8.5-10.1 Calcium Level JUANITA ( [facility]) anion gap 6 mEq/L 8-16 Below low normal Anion Gap JUANITA ( [facility]) AST/SGOT 28 U/L 7-37 AST/SGOT JUANITA ([facility]) ALT/SGPT 51 U/L 12-78 ALT/SGPT JUANITA ([facility]) alkaline phosphatase 105 U/L 45-117 Alkaline Phosph atase JUANITA ([facility]) bilirubin,total 0.8 mg/dL 0.2-1.0 Bilirubin,total ATHE NA ([facility]) total protein 6.9 gm/dL 6.4-8.2 Total Protein JUANITA ( [facility]) albumin 4.0 gm/dL 3.2-5.2 Albumin JUANITA ([facility]) albumin/globulin ratio Albumin/globu stephanie Ratio JUANITA ([facility]) ID Date Data Source [id number] 01/16/2021 08:35:00 AM EST JUANITA ([facility]) Name Value Range Interpretation Code Description Data Ann rce(s) Supporting Document(s) white blood count 7.1 10 4.0-10.0 White Blood Count JUANITA ([facility]) red blood count 5.15 10 4.30-6.10 Red Blood Count ATHE NA ([facility]) hemoglobin 14.9 g/dL 13.5-17.5 Hemoglobin JUANITA ([facility]) hematocrit 46.1 % 42.0-52.0 Hematocrit JUANITA ([facility]) mean corpuscular hemoglobin 28.9 pg 27.0-33.0 Mean Cor puscular Hemoglobin JUANITA ([facility]) mean corpuscular volume 89.5 fL 80.0-96.0 Mean Corpusc ular Volume JUANITA ([facility]) red cell distribution width 12.0 % 11.5-14.5 Red Cell Distribution Width JUANITA ([facility]) mean corpuscular HGB conc 32.3 g/dL 32.0-36.5 Mean Corpu scular HGB Conc JUANITA ([facility]) platelet count, automated 322 10 150-450 Platelet C ount, Automated JUANITA ([facility]) neutrophils % 51.0 % 36.0-66.0 Neutrophils % JUANITA ( [facility]) lymph % 35.7 % 24.0-44.0 Lymph % JUANITA ([facility]) baso % 0.7 % 0.0-1.0 Baso % JUANITA ([facility]) mono % 9.9 % 2.0-8.0 Above high normal [place] % JUANITA ([facility]) eos % 2.4 % 0.0-3.0 Eos % JUANITA ([facility]) immature granulocyte % 0.3 % 0-3.0 Immature Gran ulocyte % JUANITA ([facility]) nucleated red blood cell % 0.0 % 0-0 Nucleated Red Blood Cell % JUANITA ([facility]) neutrophils # 3.6 10 1.5-8.5 Neutrophils # JUANITA ( [facility]) lymph # 2.5 10 1.5-5.0 Lymph # JUANITA ([facility]) baso # 0.1 10 0.0-0.2 Baso # JUANITA ([facility]) mono # 0.7 10 0.0-0.8 [place] # JUANITA ([facility]) eos # 0.2 10 0.0-0.5 Eos # JUANITA ([facility]) ID Date Data Source [id number] 01/06/2021 12:00:00 AM EST [facility] Name Value Range Interpretation Code Description Data Ann rce(s) Supporting Document(s) SARS-CoV2 Rapid Antigen Negative [facility] This lab was ordered by [facility] and reported by [facility] ID Date Data Source [id number] 10/07/2020 10:45:00 AM EST NATHALIE ([facility]) Name Value Range Interpretation Code Description Data Ann rce(s) Supporting Document(s) estimated average glucose 100 mg/dL 60-110 Estimated Average Glucose NATHALIE ([facility]) Hemoglobin A1c/Hemoglobin.total in Blood 5.1 % Hemoglobin a1C NATHALIE ([facility]) ID Date Data Source [id number] 10/07/2020 10:45:00 AM EST JUANITA ([facility]) Name Value Range Interpretation Code Description Data Ann rce(s) Supporting Document(s) total 25(oh) vitamin D 44.6 NG/mL 30.0-100.0 Total 25(Oh) Vitamin D JUANITA ([facility]) ID Date Data Source [id number] 10/07/2020 10:45:00 AM EST NATHALIE ([facility]) Name Value Range Interpretation Code Description Data Ann rce(s) Supporting Document(s) thyroid stimulating hormone 0.524 uIU/mL 0.358-3.740 Thyroid Stimulating Hormone JUANITA ([facility]) free T4 0.99 NG/dL 0.76-1.46 Free T4 NATHALIE ([facility]) ID Date Data Source [id number] 10/07/2020 10:45:00 AM EST NATHALIE ([facility]) Name Value Range Interpretation Code Description Data Ann rce(s) Supporting Document(s) HDL cholesterol 37 mg/dL >40 Below low normal HDL Cholestero l JUANITA ([facility]) triglycerides level 56 mg/dL <150 Triglycerides Le cindy JUANITA ([facility]) cholesterol level 145 mg/dL <200 Cholesterol Level NATHALIE ([facility]) Cholesterol in LDL [Mass/volume] in Serum or Plasma 97 mg/dL <1 00 LDL Cholesterol JUANITA ([facility]) non-HDL-C 108 mg/dL Non-hdl-c JUANITA ([facility]) cholesterol risk ratio <5 Cholesterol R isk Ratio JUANITA ([facility]) ID Date Data Source [id number] 10/07/2020 10:45:00 AM EST NATHALIE ([facility]) Name Value Range Interpretation Code Description Data Ann rce(s) Supporting Document(s) glucose, fasting 93 mg/dL 70-100 Glucose, Fasting AT [facility] ([facility]) glomerular filtration rate > 60.0 >60 Glomerula r Filtration Rate JUANITA ([facility]) blood urea nitrogen 15 mg/dL 7-18 Blood Urea Nitro gen JUANITA ([facility]) creatinine for GFR 0.94 mg/dL 0.70-1.30 Creatinine for GF R JUANITA ([facility]) chloride level 108 mEq/L 98-107 Above high normal Chloride Level JUANITA ([facility]) sodium level 140 mEq/L 136-145 Sodium Level JUANITA ([facility]) potassium serum 4.9 mEq/L 3.5-5.1 Potassium Serum ATHE ([facility]) carbon dioxide level 26 mEq/L 21-32 Carbon Dioxide Level JUANITA ([facility]) anion gap 6 mEq/L 8-16 Below low normal Anion Gap JUANITA ( [facility]) calcium level 9.7 mg/dL 8.5-10.1 Calcium Level JUANITA ( [facility]) bilirubin,total 0.5 mg/dL 0.2-1.0 Bilirubin,total ATHE ([facility]) alkaline phosphatase 89 U/L 45-117 Alkaline Phosph atase JUANITA ([facility]) AST/SGOT 18 U/L 7-37 AST/SGOT JUANITA ([facility]) ALT/SGPT 36 U/L 12-78 ALT/SGPT JUANITA ([facility]) total protein 7.2 gm/dL 6.4-8.2 Total Protein JUANITA ( [facility]) albumin/globulin ratio Albumin/globu stephanie Ratio JUANITA ([facility]) albumin 4.2 gm/dL 3.2-5.2 Albumin JUANITA ([facility]) ID Date Data Source [id number] 10/07/2020 10:45:00 AM EST JUANITA ([facility]) Name Value Range Interpretation Code Description Data Ann rce(s) Supporting Document(s) white blood count 6.2 10 4.0-10.0 White Blood Count JUANITA ([facility]) hemoglobin 15.0 g/dL 13.5-17.5 Hemoglobin JUANITA ([facility]) red blood count 5.13 10 4.30-6.10 Red Blood Count ATHE ([facility]) mean corpuscular hemoglobin 29.2 pg 27.0-33.0 Mean Cor puscular Hemoglobin JUANITA ([facility]) hematocrit 46.6 % 42.0-52.0 Hematocrit JUANITA ([facility]) mean corpuscular volume 90.8 fL 80.0-96.0 Mean Corpusc ular Volume JUANITA ([facility]) mean corpuscular HGB conc 32.2 g/dL 32.0-36.5 Mean Corpu scular HGB Conc JUANITA ([facility]) platelet count, automated 352 10 150-450 Platelet C ount, Automated JUANITA ([facility]) neutrophils % 49.4 % 36.0-66.0 Neutrophils % JUANITA ( [facility]) red cell distribution width 11.9 % 11.5-14.5 Red Cell Distribution Width JUANITA ([facility]) lymph % 39.5 % 24.0-44.0 Lymph % JUANITA ([facility]) mono % 7.9 % 0.0-5.0 Above high normal [place] % JUANITA ([facility]) eos % 2.4 % 0.0-3.0 Eos % JUANITA ([facility]) immature granulocyte % 0.2 % 0-3.0 Immature Gran ulocyte % JUANITA ([facility]) baso % 0.6 % 0.0-1.0 Baso % JUANITA ([facility]) neutrophils # 3.1 10 1.5-8.5 Neutrophils # JUANITA ( [facility]) lymph # 2.4 10 1.5-5.0 Lymph # JUANITA ([facility]) nucleated red blood cell % 0.0 % 0-0 Nucleated Red Blood Cell % JUANITA ([facility]) eos # 0.2 10 0.0-0.5 Eos # JUANITA ([facility]) mono # 0.5 10 0.0-0.8 [place] # NATHALIE ([facility]) baso # 0.0 10 0.0-0.2 Baso # JUANITA ([facility]) ID Date Data Source [id number] 10/07/2020 10:45:00 AM EST JUANITA ([facility]) Name Value Range Interpretation Code Description Data Ann rce(s) Supporting Document(s) Hemoglobin A1c/Hemoglobin.total in Blood 5.1 % Hemoglobin a1C JUANITA ([facility]) estimated average glucose 100 mg/dL 60-110 Estimated Average Glucose JUANITA ([facility]) ID Date Data Source [id number] 10/07/2020 10:45:00 AM EST NATHALIE ([facility]) Name Value Range Interpretation Code Description Data Ann rce(s) Supporting Document(s) total 25(oh) vitamin D 44.6 NG/mL 30.0-100.0 Total 25(Oh) Vitamin D NATHALIE ([facility]) ID Date Data Source [id number] 10/07/2020 10:45:00 AM EST NATHALIE ([facility]) Name Value Range Interpretation Code Description Data Ann rce(s) Supporting Document(s) thyroid stimulating hormone 0.524 uIU/mL 0.358-3.740 Thyroid Stimulating Hormone NATHALIE ([facility]) free T4 0.99 NG/dL 0.76-1.46 Free T4 NATHALIE ([facility]) ID Date Data Source [id number] 10/07/2020 10:45:00 AM EST NATHALIE ([facility]) Name Value Range Interpretation Code Description Data Ann rce(s) Supporting Document(s) triglycerides level 56 mg/dL <150 Triglycerides Le cindy JUANITA ([facility]) Cholesterol in LDL [Mass/volume] in Serum or Plasma 97 mg/dL <1 00 LDL Cholesterol JUANITA ([facility]) non-HDL-C 108 mg/dL Non-hdl-c JUANITA ([facility]) cholesterol level 145 mg/dL <200 Cholesterol Level JUANITA ([facility]) HDL cholesterol 37 mg/dL >40 Below low normal HDL Cholestero l NATHALIE ([facility]) cholesterol risk ratio <5 Cholesterol R isk Ratio NATHALIE [facility]) ID Date Data Source [id number] 10/07/2020 10:45:00 AM EST JUANITA ([facility]) Name Value Range Interpretation Code Description Data Ann rce(s) Supporting Document(s) blood urea nitrogen 15 mg/dL 7-18 Blood Urea Nitro gen JUANITA ([facility]) glucose, fasting 93 mg/dL 70-100 Glucose, Fasting AT [place] ([facility]) creatinine for GFR 0.94 mg/dL 0.70-1.30 Creatinine for GF R JUANITA ([facility]) sodium level 140 mEq/L 136-145 Sodium Level JUANITA ([facility]) glomerular filtration rate > 60.0 >60 Glomerula r Filtration Rate JUANITA ([facility]) potassium serum 4.9 mEq/L 3.5-5.1 Potassium Serum ATHE NA ([facility]) chloride level 108 mEq/L 98-107 Above high normal Chloride Level JUANITA ([facility]) calcium level 9.7 mg/dL 8.5-10.1 Calcium Level JUANITA ( [facility]) anion gap 6 mEq/L 8-16 Below low normal Anion Gap JUANITA ( [facility]) carbon dioxide level 26 mEq/L 21-32 Carbon Dioxide Level JUANITA ([facility]) alkaline phosphatase 89 U/L 45-117 Alkaline Phosph atase JUANITA ([facility]) ALT/SGPT 36 U/L 12-78 ALT/SGPT JUANITA ([facility]) AST/SGOT 18 U/L 7-37 AST/SGOT JUANITA ([facility]) bilirubin,total 0.5 mg/dL 0.2-1.0 Bilirubin,total ATHE NA ([facility]) total protein 7.2 gm/dL 6.4-8.2 Total Protein JUANITA ( [facility]) albumin/globulin ratio Albumin/globu stephanie Ratio JUANITA ([facility]) albumin 4.2 gm/dL 3.2-5.2 Albumin JUANITA ([facility]) ID Date Data Source [id number] 10/07/2020 10:45:00 AM EST JUANITA ([facility]) Name Value Range Interpretation Code Description Data Ann rce(s) Supporting Document(s) white blood count 6.2 10 4.0-10.0 White Blood Count JUANITA ([facility]) hemoglobin 15.0 g/dL 13.5-17.5 Hemoglobin JUANITA ([facility]) red blood count 5.13 10 4.30-6.10 Red Blood Count ATHE NA ([facility]) mean corpuscular HGB conc 32.2 g/dL 32.0-36.5 Mean Corpu scular HGB Conc JUANITA ([facility]) mean corpuscular volume 90.8 fL 80.0-96.0 Mean Corpusc ular Volume JUANITA ([facility]) mean corpuscular hemoglobin 29.2 pg 27.0-33.0 Mean Cor puscular Hemoglobin JUANITA ([facility]) hematocrit 46.6 % 42.0-52.0 Hematocrit JUANITA ([facility]) platelet count, automated 352 10 150-450 Platelet C ount, Automated JUANITA ([facility]) red cell distribution width 11.9 % 11.5-14.5 Red Cell Distribution Width JUANITA ([facility]) neutrophils % 49.4 % 36.0-66.0 Neutrophils % JUANITA ( [facility]) lymph % 39.5 % 24.0-44.0 Lymph % JUANITA ([facility]) eos % 2.4 % 0.0-3.0 Eos % JUANITA ([facility]) mono % 7.9 % 0.0-5.0 Above high normal [place] % JUANITA ([facility]) baso % 0.6 % 0.0-1.0 Baso % JUANITA ([facility]) nucleated red blood cell % 0.0 % 0-0 Nucleated Red Blood Cell % JUANITA ([facility]) immature granulocyte % 0.2 % 0-3.0 Immature Gran ulocyte % JUANITA ([facility]) eos # 0.2 10 0.0-0.5 Eos # JUANITA ([facility]) lymph # 2.4 10 1.5-5.0 Lymph # JUANITA ([facility]) mono # 0.5 10 0.0-0.8 [place] # JUANITA ([facility]) neutrophils # 3.1 10 1.5-8.5 Neutrophils # JUANITA ( [facility]) baso # 0.0 10 0.0-0.2 Baso # JUANITA ([facility]) ID Date Data Source [id number] 10/07/2020 10:45:00 AM EST JUANITA ([facility]) Name Value Range Interpretation Code Description Data Ann rce(s) Supporting Document(s) estimated average glucose 100 mg/dL 60-110 Estimated Average Glucose NATHALIE ([facility]) Hemoglobin A1c/Hemoglobin.total in Blood 5.1 % Hemoglobin a1C NATHALIE ([facility]) ID Date Data Source [id number] 10/07/2020 10:45:00 AM EST JUANITA ([facility]) Name Value Range Interpretation Code Description Data Ann rce(s) Supporting Document(s) total 25(oh) vitamin D 44.6 NG/mL 30.0-100.0 Total 25(Oh) Vitamin D NATHALIE ([facility]) ID Date Data Source [id number] 10/07/2020 10:45:00 AM EST JUANITA ([facility]) Name Value Range Interpretation Code Description Data Ann rce(s) Supporting Document(s) thyroid stimulating hormone 0.524 uIU/mL 0.358-3.740 Thyroid Stimulating Hormone JUANITA ([facility]) free T4 0.99 NG/dL 0.76-1.46 Free T4 NATHALIE ([facility]) ID Date Data Source [id number] 10/07/2020 10:45:00 AM EST JUANITA ([facility]) Name Value Range Interpretation Code Description Data Ann rce(s) Supporting Document(s) Cholesterol in LDL [Mass/volume] in Serum or Plasma 97 mg/dL <1 00 LDL Cholesterol JUANITA ([facility]) triglycerides level 56 mg/dL <150 Triglycerides Le cindy JUANITA ([facility]) cholesterol level 145 mg/dL <200 Cholesterol Level JUANITA ([facility]) HDL cholesterol 37 mg/dL >40 Below low normal HDL Cholestero l JUANITA ([facility]) cholesterol risk ratio <5 Cholesterol R isk Ratio JUANITA ([facility]) non-HDL-C 108 mg/dL Non-hdl-c JUANITA ([facility]) ID Date Data Source [id number] 10/07/2020 10:45:00 AM EST JUANITA ([facility]) Name Value Range Interpretation Code Description Data Ann rce(s) Supporting Document(s) blood urea nitrogen 15 mg/dL 7-18 Blood Urea Nitro gen JUANITA ([facility]) creatinine for GFR 0.94 mg/dL 0.70-1.30 Creatinine for GF R JUANITA ([facility]) glucose, fasting 93 mg/dL 70-100 Glucose, Fasting AT [facility]) potassium serum 4.9 mEq/L 3.5-5.1 Potassium Serum ATH NA ([facility]) sodium level 140 mEq/L 136-145 Sodium Level JUANITA ([facility]) glomerular filtration rate > 60.0 >60 Glomerula r Filtration Rate JUANITA ([facility]) carbon dioxide level 26 mEq/L 21-32 Carbon Dioxide Level JUANITA ([facility]) chloride level 108 mEq/L 98-107 Above high normal Chloride Level JUANITA ([facility]) anion gap 6 mEq/L 8-16 Below low normal Anion Gap JUANITA ( [facility]) calcium level 9.7 mg/dL 8.5-10.1 Calcium Level JUANITA ( [facility]) AST/SGOT 18 U/L 7-37 AST/SGOT JUANITA ([facility]) ALT/SGPT 36 U/L 12-78 ALT/SGPT JUANITA ([facility]) alkaline phosphatase 89 U/L 45-117 Alkaline Phosph atase JUANITA ([facility]) albumin 4.2 gm/dL 3.2-5.2 Albumin JUANITA ([facility]) bilirubin,total 0.5 mg/dL 0.2-1.0 Bilirubin,total ATHE NA ([facility]) total protein 7.2 gm/dL 6.4-8.2 Total Protein UJANITA ( [facility]) albumin/globulin ratio Albumin/globu stephanie Ratio JUANITA ([facility]) ID Date Data Source [id number] 10/07/2020 10:45:00 AM EST JUANITA ([facility]) Name Value Range Interpretation Code Description Data Ann rce(s) Supporting Document(s) white blood count 6.2 10 4.0-10.0 White Blood Count JUANITA ([facility]) hemoglobin 15.0 g/dL 13.5-17.5 Hemoglobin JUANITA ([facility]) red blood count 5.13 10 4.30-6.10 Red Blood Count ATHE ([facility]) mean corpuscular hemoglobin 29.2 pg 27.0-33.0 Mean Cor puscular Hemoglobin JUANITA ([facility]) mean corpuscular volume 90.8 fL 80.0-96.0 Mean Corpusc ular Volume JUANITA ([facility]) mean corpuscular HGB conc 32.2 g/dL 32.0-36.5 Mean Corpu scular HGB Conc JUANITA ([facility]) hematocrit 46.6 % 42.0-52.0 Hematocrit JUANITA ([facility]) platelet count, automated 352 10 150-450 Platelet C ount, Automated JUANITA ([facility]) red cell distribution width 11.9 % 11.5-14.5 Red Cell Distribution Width JUANITA ([facility]) neutrophils % 49.4 % 36.0-66.0 Neutrophils % JUANITA ( [facility]) mono % 7.9 % 0.0-5.0 Above high normal [place] % JUANITA ([facility]) lymph % 39.5 % 24.0-44.0 Lymph % JUANITA ([facility]) eos % 2.4 % 0.0-3.0 Eos % JUANITA ([facility]) baso % 0.6 % 0.0-1.0 Baso % JUANITA ([facility]) immature granulocyte % 0.2 % 0-3.0 Immature Gran ulocyte % JUANITA ([facility]) lymph # 2.4 10 1.5-5.0 Lymph # JUANITA ([facility]) nucleated red blood cell % 0.0 % 0-0 Nucleated Red Blood Cell % JUANITA ([facility]) neutrophils # 3.1 10 1.5-8.5 Neutrophils # JUANITA ( [facility]) baso # 0.0 10 0.0-0.2 Baso # JUANITA ([facility]) eos # 0.2 10 0.0-0.5 Eos # JUANITA ([facility]) mono # 0.5 10 0.0-0.8 [place] # JUANITA ([facility]) ID Date Data Source [id number] 10/07/2020 10:45:00 AM EST JUANITA ([facility]) Name Value Range Interpretation Code Description Data Ann rce(s) Supporting Document(s) Hemoglobin A1c/Hemoglobin.total in Blood 5.1 % Hemoglobin a1C JUANITA ([facility]) estimated average glucose 100 mg/dL 60-110 Estimated Average Glucose JUANITA ([facility]) ID Date Data Source [id number] 10/07/2020 10:45:00 AM EST JUANITA ([facility]) Name Value Range Interpretation Code Description Data Ann rce(s) Supporting Document(s) total 25(oh) vitamin D 44.6 NG/mL 30.0-100.0 Total 25(Oh) Vitamin D NATHALIE ([facility]) ID Date Data Source [id number] 10/07/2020 10:45:00 AM EST JUANITA [facility]) Name Value Range Interpretation Code Description Data Ann rce(s) Supporting Document(s) free T4 0.99 NG/dL 0.76-1.46 Free T4 JUANITA ([facility]) thyroid stimulating hormone 0.524 uIU/mL 0.358-3.740 Thyroid Stimulating Hormone JUANITA ([facility]) ID Date Data Source [id number] 10/07/2020 10:45:00 AM EST NATHALIE ([facility]) Name Value Range Interpretation Code Description Data Ann rce(s) Supporting Document(s) cholesterol level 145 mg/dL <200 Cholesterol Level JUANITA ([facility]) triglycerides level 56 mg/dL <150 Triglycerides Le cindy JUANITA ([facility]) non-HDL-C 108 mg/dL Non-hdl-c NATHALIE ([facility]) Cholesterol in LDL [Mass/volume] in Serum or Plasma 97 mg/dL <1 00 LDL Cholesterol JUANITA ([facility]) HDL cholesterol 37 mg/dL >40 Below low normal HDL Cholestero l JUANITA ([facility]) cholesterol risk ratio <5 Cholesterol R isk Ratio NATHALIE ([facility]) ID Date Data Source [id number] 10/07/2020 10:45:00 AM EST NATHALIE ([facility]) Name Value Range Interpretation Code Description Data Ann rce(s) Supporting Document(s) creatinine for GFR 0.94 mg/dL 0.70-1.30 Creatinine for GF R JUANITA ([facility]) glucose, fasting 93 mg/dL 70-100 Glucose, Fasting AT [place] ([facility]) blood urea nitrogen 15 mg/dL 7-18 Blood Urea Nitro gen JUANITA ([facility]) potassium serum 4.9 mEq/L 3.5-5.1 Potassium Serum ATHE NA ([facility]) sodium level 140 mEq/L 136-145 Sodium Level JUANITA (No [facility]) glomerular filtration rate > 60.0 >60 Glomerula r Filtration Rate JUANITA ([facility]) chloride level 108 mEq/L 98-107 Above high normal Chloride Level JUANITA ([facility]) calcium level 9.7 mg/dL 8.5-10.1 Calcium Level JUANITA ( [facility]) AST/SGOT 18 U/L 7-37 AST/SGOT JUANITA ([facility]) carbon dioxide level 26 mEq/L 21-32 Carbon Dioxide Level JUANITA ([facility]) anion gap 6 mEq/L 8-16 Below low normal Anion Gap JUANITA ( [facility]) albumin 4.2 gm/dL 3.2-5.2 Albumin JUANITA ([facility]) alkaline phosphatase 89 U/L 45-117 Alkaline Phosph atase JUANITA ([facility]) bilirubin,total 0.5 mg/dL 0.2-1.0 Bilirubin,total ATHE ([facility]) total protein 7.2 gm/dL 6.4-8.2 Total Protein JUANITA ( [facility]) ALT/SGPT 36 U/L 12-78 ALT/SGPT JUANITA ([facility]) albumin/globulin ratio Albumin/globu stephanie Ratio JUANITA ([facility]) ID Date Data Source [id number] 10/07/2020 10:45:00 AM EST JUANITA ([facility]) Name Value Range Interpretation Code Description Data Ann rce(s) Supporting Document(s) white blood count 6.2 10 4.0-10.0 White Blood Count JUANITA ([facility]) hematocrit 46.6 % 42.0-52.0 Hematocrit JUANITA ([facility]) hemoglobin 15.0 g/dL 13.5-17.5 Hemoglobin JUANITA ([facility]) red blood count 5.13 10 4.30-6.10 Red Blood Count ATHE ([facility]) red cell distribution width 11.9 % 11.5-14.5 Red Cell Distribution Width JUANITA ([facility]) mean corpuscular volume 90.8 fL 80.0-96.0 Mean Corpusc ular Volume JUANITA ([facility]) mean corpuscular HGB conc 32.2 g/dL 32.0-36.5 Mean Corpu scular HGB Conc JUANITA ([facility]) mean corpuscular hemoglobin 29.2 pg 27.0-33.0 Mean Cor puscular Hemoglobin JUANITA ([facility]) platelet count, automated 352 10 150-450 Platelet C ount, Automated JUANITA ([facility]) lymph % 39.5 % 24.0-44.0 Lymph % JUANITA ([facility]) mono % 7.9 % 0.0-5.0 Above high normal [place] % NATHALIE ([facility]) neutrophils % 49.4 % 36.0-66.0 Neutrophils % NATHALIE ( [facility]) immature granulocyte % 0.2 % 0-3.0 Immature Gran ulocyte % NATHALIE ([facility]) nucleated red blood cell % 0.0 % 0-0 Nucleated Red Blood Cell % NATHALIE ([facility]) eos % 2.4 % 0.0-3.0 Eos % JUANITA ([facility]) baso % 0.6 % 0.0-1.0 Baso % NATHALIE ([facility]) lymph # 2.4 10 1.5-5.0 Lymph # JUANITA ([facility]) neutrophils # 3.1 10 1.5-8.5 Neutrophils # JUANITA ( [facility]) eos # 0.2 10 0.0-0.5 Eos # JUANITA ([facility]) mono # 0.5 10 0.0-0.8 [place] # JUANITA ([facility]) baso # 0.0 10 0.0-0.2 Baso # JUANITA ([facility]) ID Date Data Source [id number] 10/07/2020 10:45:00 AM EST NATHALIE ([facility]) Name Value Range Interpretation Code Description Data Ann rce(s) Supporting Document(s) estimated average glucose 100 mg/dL 60-110 Estimated Average Glucose NATHALIE ([facility]) Hemoglobin A1c/Hemoglobin.total in Blood 5.1 % Hemoglobin a1C NATHALIE ([facility]) ID Date Data Source [id number] 10/07/2020 10:45:00 AM EST JUANITA ([facility]) Name Value Range Interpretation Code Description Data Ann rce(s) Supporting Document(s) total 25(oh) vitamin D 44.6 NG/mL 30.0-100.0 Total 25(Oh) Vitamin D JUANITA ([facility]) ID Date Data Source [id number] 10/07/2020 10:45:00 AM EST JUANITA ([facility]) Name Value Range Interpretation Code Description Data Ann rce(s) Supporting Document(s) free T4 0.99 NG/dL 0.76-1.46 Free T4 JUANITA ([facility]) thyroid stimulating hormone 0.524 uIU/mL 0.358-3.740 Thyroid Stimulating Hormone JUANITA ([facility]) ID Date Data Source [id number] 10/07/2020 10:45:00 AM EST JUANITA ([facility]) Name Value Range Interpretation Code Description Data Ann rce(s) Supporting Document(s) triglycerides level 56 mg/dL <150 Triglycerides Le cindy JUANITA ([facility]) cholesterol level 145 mg/dL <200 Cholesterol Level JUANITA ([facility]) cholesterol risk ratio <5 Cholesterol R isk Ratio JUANITA ([facility]) non-HDL-C 108 mg/dL Non-hdl-c JUANITA ([facility]) HDL cholesterol 37 mg/dL >40 Below low normal HDL Cholestero l JUANITA ([facility]) Cholesterol in LDL [Mass/volume] in Serum or Plasma 97 mg/dL <1 00 LDL Cholesterol JUANITA ([facility]) ID Date Data Source [id number] 10/07/2020 10:45:00 AM EST JUANITA ([facility]) Name Value Range Interpretation Code Description Data Ann rce(s) Supporting Document(s) glucose, fasting 93 mg/dL 70-100 Glucose, Fasting AT [facility] ([facility]) blood urea nitrogen 15 mg/dL 7-18 Blood Urea Nitro gen JUANITA ([facility]) creatinine for GFR 0.94 mg/dL 0.70-1.30 Creatinine for GF R JUANITA ([facility]) potassium serum 4.9 mEq/L 3.5-5.1 Potassium Serum ATHE NA ([facility]) chloride level 108 mEq/L 98-107 Above high normal Chloride Level JUANITA ([facility]) glomerular filtration rate > 60.0 >60 Glomerula r Filtration Rate JUANITA ([facility]) sodium level 140 mEq/L 136-145 Sodium Level JUANITA (No [facility]) calcium level 9.7 mg/dL 8.5-10.1 Calcium Level JUANITA ( [facility]) carbon dioxide level 26 mEq/L 21-32 Carbon Dioxide Level JUANITA ([facility]) anion gap 6 mEq/L 8-16 Below low normal Anion Gap JUANITA ( [facility]) AST/SGOT 18 U/L 7-37 AST/SGOT JUANITA ([facility]) total protein 7.2 gm/dL 6.4-8.2 Total Protein JUANITA ( [facility]) bilirubin,total 0.5 mg/dL 0.2-1.0 Bilirubin,total ATHE ([facility]) ALT/SGPT 36 U/L 12-78 ALT/SGPT JUANITA ([facility]) alkaline phosphatase 89 U/L 45-117 Alkaline Phosph atase JUANITA ([facility]) albumin 4.2 gm/dL 3.2-5.2 Albumin JUANITA ([facility]) albumin/globulin ratio Albumin/globu stephanie Ratio JUANITA ([facility]) ID Date Data Source [id number] 10/07/2020 10:45:00 AM EST JUANITA ([facility]) Name Value Range Interpretation Code Description Data Ann rce(s) Supporting Document(s) red blood count 5.13 10 4.30-6.10 Red Blood Count ATHE ([facility]) white blood count 6.2 10 4.0-10.0 White Blood Count JUANITA ([facility]) hematocrit 46.6 % 42.0-52.0 Hematocrit JUANITA ([facility]) mean corpuscular hemoglobin 29.2 pg 27.0-33.0 Mean Cor puscular Hemoglobin JUANITA ([facility]) mean corpuscular volume 90.8 fL 80.0-96.0 Mean Corpusc ular Volume JUANITA ([facility]) hemoglobin 15.0 g/dL 13.5-17.5 Hemoglobin JUANITA ([facility]) red cell distribution width 11.9 % 11.5-14.5 Red Cell Distribution Width JUANITA ([facility]) platelet count, automated 352 10 150-450 Platelet C ount, Automated JUANITA ([facility]) mean corpuscular HGB conc 32.2 g/dL 32.0-36.5 Mean Corpu scular HGB Conc JUANITA ([facility]) eos % 2.4 % 0.0-3.0 Eos % JUANITA ([facility]) mono % 7.9 % 0.0-5.0 Above high normal [place] % JUANITA ([facility]) lymph % 39.5 % 24.0-44.0 Lymph % NATHALIE ([facility]) neutrophils % 49.4 % 36.0-66.0 Neutrophils % NATHALIE ( [facility]) immature granulocyte % 0.2 % 0-3.0 Immature Gran ulocyte % JUANITA ([facility]) baso % 0.6 % 0.0-1.0 Baso % JUANITA ([facility]) nucleated red blood cell % 0.0 % 0-0 Nucleated Red Blood Cell % JUANITA ([facility]) neutrophils # 3.1 10 1.5-8.5 Neutrophils # JUANITA ( [facility]) mono # 0.5 10 0.0-0.8 [place] # JUANITA ([facility]) lymph # 2.4 10 1.5-5.0 Lymph # JUANITA ([facility]) eos # 0.2 10 0.0-0.5 Eos # JUANITA ([facility]) baso # 0.0 10 0.0-0.2 Baso # JUANITA ([facility]) ID Date Data Source [id number] 10/07/2020 10:45:00 AM EST JUANITA ([facility]) Name Value Range Interpretation Code Description Data Ann rce(s) Supporting Document(s) Hemoglobin A1c/Hemoglobin.total in Blood 5.1 % Hemoglobin a1C JUANITA ([facility]) estimated average glucose 100 mg/dL 60-110 Estimated Average Glucose JUANITA ([facility]) ID Date Data Source [id number] 10/07/2020 10:45:00 AM EST JUANITA ([facility]) Name Value Range Interpretation Code Description Data Ann rce(s) Supporting Document(s) total 25(oh) vitamin D 44.6 NG/mL 30.0-100.0 Total 25(Oh) Vitamin D NATHALIE ([facility]) ID Date Data Source [id number] 10/07/2020 10:45:00 AM EST JUANITA ([facility]) Name Value Range Interpretation Code Description Data Ann rce(s) Supporting Document(s) thyroid stimulating hormone 0.524 uIU/mL 0.358-3.740 Thyroid Stimulating Hormone JUANITA ([facility]) free T4 0.99 NG/dL 0.76-1.46 Free T4 NATHALIE ([facility]) ID Date Data Source [id number] 10/07/2020 10:45:00 AM EST JUANITA ([facility]) Name Value Range Interpretation Code Description Data Ann rce(s) Supporting Document(s) triglycerides level 56 mg/dL <150 Triglycerides Le cindy JUANITA ([facility]) HDL cholesterol 37 mg/dL >40 Below low normal HDL Cholestero l JUANITA ([facility]) cholesterol level 145 mg/dL <200 Cholesterol Level JUANITA ([facility]) non-HDL-C 108 mg/dL Non-hdl-c JUANITA ([facility]) cholesterol risk ratio <5 Cholesterol R isk Ratio JUANITA ([facility]) Cholesterol in LDL [Mass/volume] in Serum or Plasma 97 mg/dL <1 00 LDL Cholesterol JUANITA ([facility]) ID Date Data Source [id number] 10/07/2020 10:45:00 AM EST JUANITA ([facility]) Name Value Range Interpretation Code Description Data Ann rce(s) Supporting Document(s) creatinine for GFR 0.94 mg/dL 0.70-1.30 Creatinine for GF R NATHALIE ([facility]) glucose, fasting 93 mg/dL 70-100 Glucose, Fasting AT [facility] ([facility]) blood urea nitrogen 15 mg/dL 7-18 Blood Urea Nitro gen JUANITA ([facility]) sodium level 140 mEq/L 136-145 Sodium Level JUANITA (No [facility]) glomerular filtration rate > 60.0 >60 Glomerula r Filtration Rate JUANITA ([facility]) potassium serum 4.9 mEq/L 3.5-5.1 Potassium Serum ATHE NA ([facility]) carbon dioxide level 26 mEq/L 21-32 Carbon Dioxide Level JUANITA ([facility]) anion gap 6 mEq/L 8-16 Below low normal Anion Gap JUANITA ( [facility]) chloride level 108 mEq/L 98-107 Above high normal Chloride Level JUANITA ([facility]) calcium level 9.7 mg/dL 8.5-10.1 Calcium Level JUANITA ( [facility]) AST/SGOT 18 U/L 7-37 AST/SGOT JUANITA ([facility]) ALT/SGPT 36 U/L 12-78 ALT/SGPT JUANITA ([facility]) total protein 7.2 gm/dL 6.4-8.2 Total Protein JUANITA ( [facility]) bilirubin,total 0.5 mg/dL 0.2-1.0 Bilirubin,total ATHE NA ([facility]) alkaline phosphatase 89 U/L 45-117 Alkaline Phosph atase JUANITA ([facility]) albumin 4.2 gm/dL 3.2-5.2 Albumin JUANITA ([facility]) albumin/globulin ratio Albumin/globu stephanie Ratio JUANITA ([facility]) ID Date Data Source [id number] 10/07/2020 10:45:00 AM EST JUANITA ([facility]) Name Value Range Interpretation Code Description Data Ann rce(s) Supporting Document(s) white blood count 6.2 10 4.0-10.0 White Blood Count JUANITA ([facility]) red blood count 5.13 10 4.30-6.10 Red Blood Count ATHE NA ([facility]) hemoglobin 15.0 g/dL 13.5-17.5 Hemoglobin JUANITA ([facility]) mean corpuscular hemoglobin 29.2 pg 27.0-33.0 Mean Cor puscular Hemoglobin JUANITA ([facility]) hematocrit 46.6 % 42.0-52.0 Hematocrit JUANITA ([facility]) mean corpuscular volume 90.8 fL 80.0-96.0 Mean Corpusc ular Volume JUANITA ([facility]) platelet count, automated 352 10 150-450 Platelet C ount, Automated JUANITA ([facility]) mean corpuscular HGB conc 32.2 g/dL 32.0-36.5 Mean Corpu scular HGB Conc JUANITA ([facility]) red cell distribution width 11.9 % 11.5-14.5 Red Cell Distribution Width JUANITA ([facility]) neutrophils % 49.4 % 36.0-66.0 Neutrophils % JUANITA ( [facility]) lymph % 39.5 % 24.0-44.0 Lymph % JUANITA ([facility]) baso % 0.6 % 0.0-1.0 Baso % JUANITA ([facility]) eos % 2.4 % 0.0-3.0 Eos % JUANITA ([facility]) mono % 7.9 % 0.0-5.0 Above high normal [place] % JUANITA ([facility]) neutrophils # 3.1 10 1.5-8.5 Neutrophils # JUANITA ( [facility]) immature granulocyte % 0.2 % 0-3.0 Immature Gran ulocyte % JUANITA ([facility]) nucleated red blood cell % 0.0 % 0-0 Nucleated Red Blood Cell % JUANITA ([facility]) mono # 0.5 10 0.0-0.8 [place] # JUANITA ([facility]) eos # 0.2 10 0.0-0.5 Eos # JUANITA ([facility]) lymph # 2.4 10 1.5-5.0 Lymph # JUANITA ([facility]) baso # 0.0 10 0.0-0.2 Baso # JUANITA ([facility]) ID Date Data Source [id number] 10/07/2020 10:45:00 AM EST JUANITA ([facility]) Name Value Range Interpretation Code Description Data Ann rce(s) Supporting Document(s) Hemoglobin A1c/Hemoglobin.total in Blood 5.1 % Hemoglobin a1C JUANITA ([facility]) estimated average glucose 100 mg/dL 60-110 Estimated Average Glucose JUANITA ([facility]) ID Date Data Source [id number] 10/07/2020 10:45:00 AM EST JUANITA ([facility]) Name Value Range Interpretation Code Description Data Ann rce(s) Supporting Document(s) total 25(oh) vitamin D 44.6 NG/mL 30.0-100.0 Total 25(Oh) Vitamin D JUANITA ([facility]) ID Date Data Source [id number] 10/07/2020 10:45:00 AM EST NATHALIE ([facility]) Name Value Range Interpretation Code Description Data Ann rce(s) Supporting Document(s) thyroid stimulating hormone 0.524 uIU/mL 0.358-3.740 Thyroid Stimulating Hormone JUANITA ([facility]) free T4 0.99 NG/dL 0.76-1.46 Free T4 NATHALIE ([facility]) ID Date Data Source [id number] 10/07/2020 10:45:00 AM EST NATHALIE ([facility]) Name Value Range Interpretation Code Description Data Ann rce(s) Supporting Document(s) triglycerides level 56 mg/dL <150 Triglycerides Le cindy JUANITA ([facility]) cholesterol risk ratio <5 Cholesterol R isk Ratio JUANITA ([facility]) cholesterol level 145 mg/dL <200 Cholesterol Level JUANITA ([facility]) Cholesterol in LDL [Mass/volume] in Serum or Plasma 97 mg/dL <1 00 LDL Cholesterol JUANITA ([facility]) HDL cholesterol 37 mg/dL >40 Below low normal HDL Cholestero l JUANITA ([facility]) non-HDL-C 108 mg/dL Non-hdl-c JUANITA ([facility]) ID Date Data Source [id number] 10/07/2020 10:45:00 AM EST JUANITA ([facility]) Name Value Range Interpretation Code Description Data Ann rce(s) Supporting Document(s) glomerular filtration rate > 60.0 >60 Glomerula r Filtration Rate JUANITA ([facility]) creatinine for GFR 0.94 mg/dL 0.70-1.30 Creatinine for GF R JUANITA ([facility]) blood urea nitrogen 15 mg/dL 7-18 Blood Urea Nitro gen JUANITA ([facility]) glucose, fasting 93 mg/dL 70-100 Glucose, Fasting AT [place] ([facility]) chloride level 108 mEq/L 98-107 Above high normal Chloride Level JUANITA ([facility]) potassium serum 4.9 mEq/L 3.5-5.1 Potassium Serum ATH NA ([facility]) sodium level 140 mEq/L 136-145 Sodium Level JUANITA ([facility]) carbon dioxide level 26 mEq/L 21-32 Carbon Dioxide Level JAUNITA ([facility]) calcium level 9.7 mg/dL 8.5-10.1 Calcium Level NATHALIE ( [facility]) AST/SGOT 18 U/L 7-37 AST/SGOT JUANITA ([facility]) anion gap 6 mEq/L 8-16 Below low normal Anion Gap JUANITA ( [facility]) alkaline phosphatase 89 U/L 45-117 Alkaline Phosph atase JUANITA ([facility]) total protein 7.2 gm/dL 6.4-8.2 Total Protein JUANITA ( [facility]) bilirubin,total 0.5 mg/dL 0.2-1.0 Bilirubin,total ATHE NA ([facility]) ALT/SGPT 36 U/L 12-78 ALT/SGPT JUANITA ([facility]) albumin/globulin ratio Albumin/globu stephanie Ratio JUANITA ([facility]) albumin 4.2 gm/dL 3.2-5.2 Albumin JUANITA ([facility]) ID Date Data Source [id number] 10/07/2020 10:45:00 AM EST JUANITA ([facility]) Name Value Range Interpretation Code Description Data Ann rce(s) Supporting Document(s) red blood count 5.13 10 4.30-6.10 Red Blood Count ATHE NA ([facility]) white blood count 6.2 10 4.0-10.0 White Blood Count JUANITA ([facility]) hemoglobin 15.0 g/dL 13.5-17.5 Hemoglobin JUANITA ([facility]) hematocrit 46.6 % 42.0-52.0 Hematocrit JUANITA ([facility]) mean corpuscular volume 90.8 fL 80.0-96.0 Mean Corpusc ular Volume JUANITA ([facility]) mean corpuscular hemoglobin 29.2 pg 27.0-33.0 Mean Cor puscular Hemoglobin JUANITA ([facility]) platelet count, automated 352 10 150-450 Platelet C ount, Automated JUANITA ([facility]) mean corpuscular HGB conc 32.2 g/dL 32.0-36.5 Mean Corpu scular HGB Conc JUANITA ([facility]) red cell distribution width 11.9 % 11.5-14.5 Red Cell Distribution Width JUANITA ([facility]) lymph % 39.5 % 24.0-44.0 Lymph % JUANITA ([facility]) neutrophils % 49.4 % 36.0-66.0 Neutrophils % JUANITA ( [facility]) mono % 7.9 % 0.0-5.0 Above high normal [place] % JUANITA ([facility]) eos % 2.4 % 0.0-3.0 Eos % JUANITA ([facility]) neutrophils # 3.1 10 1.5-8.5 Neutrophils # JUANITA ( [facility]) baso % 0.6 % 0.0-1.0 Baso % JUANITA ([facility]) nucleated red blood cell % 0.0 % 0-0 Nucleated Red Blood Cell % JUANITA ([facility]) immature granulocyte % 0.2 % 0-3.0 Immature Gran ulocyte % JUANITA ([facility]) eos # 0.2 10 0.0-0.5 Eos # JUANITA ([facility]) mono # 0.5 10 0.0-0.8 [place] # JUANITA ([facility]) lymph # 2.4 10 1.5-5.0 Lymph # JUANITA ([facility]) baso # 0.0 10 0.0-0.2 Baso # JUANITA ([facility]) ID Date Data Source [id number] 10/07/2020 10:45:00 AM EST NATHALIE ([facility]) Name Value Range Interpretation Code Description Data Ann rce(s) Supporting Document(s) estimated average glucose 100 mg/dL 60-110 Estimated Average Glucose NATHALIE ([facility]) Hemoglobin A1c/Hemoglobin.total in Blood 5.1 % Hemoglobin a1C JUANITA ([facility]) ID Date Data Source [id number] 10/07/2020 10:45:00 AM EST JUANITA ([facility]) Name Value Range Interpretation Code Description Data Ann rce(s) Supporting Document(s) total 25(oh) vitamin D 44.6 NG/mL 30.0-100.0 Total 25(Oh) Vitamin D JUANITA ([facility]) ID Date Data Source [id number] 10/07/2020 10:45:00 AM EST NATHALIE ([facility]) Name Value Range Interpretation Code Description Data Ann rce(s) Supporting Document(s) thyroid stimulating hormone 0.524 uIU/mL 0.358-3.740 Thyroid Stimulating Hormone JUANITA ([facility]) free T4 0.99 NG/dL 0.76-1.46 Free T4 NATHALIE ([facility]) ID Date Data Source [id number] 10/07/2020 10:45:00 AM EST NATHALIE ([facility]) Name Value Range Interpretation Code Description Data Ann rce(s) Supporting Document(s) cholesterol level 145 mg/dL <200 Cholesterol Level JUANITA ([facility]) triglycerides level 56 mg/dL <150 Triglycerides Le cindy JUANITA ([facility]) cholesterol risk ratio <5 Cholesterol R isk Ratio NATHALIE ([facility]) non-HDL-C 108 mg/dL Non-hdl-c JUANITA ([facility]) HDL cholesterol 37 mg/dL >40 Below low normal HDL Cholestero l JUANITA ([facility]) Cholesterol in LDL [Mass/volume] in Serum or Plasma 97 mg/dL <1 00 LDL Cholesterol JUANITA ([facility]) ID Date Data Source [id number] 10/07/2020 10:45:00 AM EST NATHALIE ([facility]) Name Value Range Interpretation Code Description Data Ann rce(s) Supporting Document(s) blood urea nitrogen 15 mg/dL 7-18 Blood Urea Nitro gen JUANITA ([facility]) glucose, fasting 93 mg/dL 70-100 Glucose, Fasting AT [place] ([facility]) potassium serum 4.9 mEq/L 3.5-5.1 Potassium Serum ATHE NA ([facility]) glomerular filtration rate > 60.0 >60 Glomerula r Filtration Rate NATHALIE ([facility]) sodium level 140 mEq/L 136-145 Sodium Level JUANITA ([facility]) creatinine for GFR 0.94 mg/dL 0.70-1.30 Creatinine for GF R JUANITA ([facility]) chloride level 108 mEq/L 98-107 Above high normal Chloride Level JUANITA ([facility]) calcium level 9.7 mg/dL 8.5-10.1 Calcium Level JUANITA ( [facility]) AST/SGOT 18 U/L 7-37 AST/SGOT JUANITA ([facility]) anion gap 6 mEq/L 8-16 Below low normal Anion Gap JUANITA ( [facility]) carbon dioxide level 26 mEq/L 21-32 Carbon Dioxide Level JUANITA ([facility]) alkaline phosphatase 89 U/L 45-117 Alkaline Phosph atase JUANITA ([facility]) bilirubin,total 0.5 mg/dL 0.2-1.0 Bilirubin,total ATHE ([facility]) ALT/SGPT 36 U/L 12-78 ALT/SGPT JUANITA ([facility]) total protein 7.2 gm/dL 6.4-8.2 Total Protein JUANITA ( [facility]) albumin 4.2 gm/dL 3.2-5.2 Albumin JUANITA ([facility]) albumin/globulin ratio Albumin/globu stephanie Ratio JUANITA ([facility]) ID Date Data Source [id number] 10/07/2020 10:45:00 AM EST JUANITA ([facility]) Name Value Range Interpretation Code Description Data Ann rce(s) Supporting Document(s) red blood count 5.13 10 4.30-6.10 Red Blood Count ATHE ([facility]) white blood count 6.2 10 4.0-10.0 White Blood Count JUANITA ([facility]) hemoglobin 15.0 g/dL 13.5-17.5 Hemoglobin JUANITA ([facility]) hematocrit 46.6 % 42.0-52.0 Hematocrit JUANITA ([facility]) mean corpuscular volume 90.8 fL 80.0-96.0 Mean Corpusc ular Volume JUANITA ([facility]) mean corpuscular hemoglobin 29.2 pg 27.0-33.0 Mean Cor puscular Hemoglobin JUANITA ([facility]) mean corpuscular HGB conc 32.2 g/dL 32.0-36.5 Mean Corpu scular HGB Conc JUANITA ([facility]) red cell distribution width 11.9 % 11.5-14.5 Red Cell Distribution Width JUANITA ([facility]) platelet count, automated 352 10 150-450 Platelet C ount, Automated JUANITA ([facility]) neutrophils % 49.4 % 36.0-66.0 Neutrophils % JUANITA ( [facility]) mono % 7.9 % 0.0-5.0 Above high normal [place] % NATHALIE ([facility]) lymph % 39.5 % 24.0-44.0 Lymph % NATHALIE ([facility]) nucleated red blood cell % 0.0 % 0-0 Nucleated Red Blood Cell % JUANITA ([facility]) eos % 2.4 % 0.0-3.0 Eos % NATHALIE ([facility]) immature granulocyte % 0.2 % 0-3.0 Immature Gran ulocyte % NATHALIE ([facility]) baso % 0.6 % 0.0-1.0 Baso % NATHALIE ([facility]) neutrophils # 3.1 10 1.5-8.5 Neutrophils # JUANITA ( [facility]) lymph # 2.4 10 1.5-5.0 Lymph # JUANITA ([facility]) eos # 0.2 10 0.0-0.5 Eos # JUANITA ([facility]) mono # 0.5 10 0.0-0.8 [place] # JUANITA ([facility]) baso # 0.0 10 0.0-0.2 Baso # JUANITA ([facility]) ID Date Data Source [id number] 10/07/2020 10:45:00 AM EST NATHALIE ([facility]) Name Value Range Interpretation Code Description Data Ann rce(s) Supporting Document(s) Hemoglobin A1c/Hemoglobin.total in Blood 5.1 % Hemoglobin a1C JUANITA ([facility]) estimated average glucose 100 mg/dL 60-110 Estimated Average Glucose JUANITA ([facility]) ID Date Data Source [id number] 10/07/2020 10:45:00 AM EST JUANITA ([facility]) Name Value Range Interpretation Code Description Data Ann rce(s) Supporting Document(s) total 25(oh) vitamin D 44.6 NG/mL 30.0-100.0 Total 25(Oh) Vitamin D JAUNITA ([facility]) ID Date Data Source [id number] 10/07/2020 10:45:00 AM EST JUANITA ([facility]) Name Value Range Interpretation Code Description Data Ann rce(s) Supporting Document(s) free T4 0.99 NG/dL 0.76-1.46 Free T4 JUANITA ([facility]) thyroid stimulating hormone 0.524 uIU/mL 0.358-3.740 Thyroid Stimulating Hormone JUANITA ([facility]) ID Date Data Source [id number] 10/07/2020 10:45:00 AM EST JUANITA ([facility]) Name Value Range Interpretation Code Description Data Ann rce(s) Supporting Document(s) triglycerides level 56 mg/dL <150 Triglycerides Le cindy JUANITA ([facility]) non-HDL-C 108 mg/dL Non-hdl-c JUANITA ([facility]) Cholesterol in LDL [Mass/volume] in Serum or Plasma 97 mg/dL <1 00 LDL Cholesterol JUANITA ([facility]) cholesterol level 145 mg/dL <200 Cholesterol Level JUANITA ([facility]) HDL cholesterol 37 mg/dL >40 Below low normal HDL Cholestero l JUANITA ([facility]) cholesterol risk ratio <5 Cholesterol R isk Ratio JUANITA ([facility]) ID Date Data Source [id number] 10/07/2020 10:45:00 AM EST JUANITA ([facility]) Name Value Range Interpretation Code Description Data Ann rce(s) Supporting Document(s) glucose, fasting 93 mg/dL 70-100 Glucose, Fasting AT [place] ([facility]) blood urea nitrogen 15 mg/dL 7-18 Blood Urea Nitro gen JUANITA ([facility]) glomerular filtration rate > 60.0 >60 Glomerula r Filtration Rate JUANITA ([facility]) creatinine for GFR 0.94 mg/dL 0.70-1.30 Creatinine for GF R JUANITA ([facility]) sodium level 140 mEq/L 136-145 Sodium Level JUANITA ([facility]) carbon dioxide level 26 mEq/L 21-32 Carbon Dioxide Level JUANITA ([facility]) potassium serum 4.9 mEq/L 3.5-5.1 Potassium Serum ATHE ([facility]) chloride level 108 mEq/L 98-107 Above high normal Chloride Level JUANITA ([facility]) anion gap 6 mEq/L 8-16 Below low normal Anion Gap JUANITA ( [facility]) bilirubin,total 0.5 mg/dL 0.2-1.0 Bilirubin,total ATHE ([facility]) alkaline phosphatase 89 U/L 45-117 Alkaline Phosph atase JUANITA ([facility]) AST/SGOT 18 U/L 7-37 AST/SGOT JUANITA ([facility]) ALT/SGPT 36 U/L 12-78 ALT/SGPT JUANITA ([facility]) calcium level 9.7 mg/dL 8.5-10.1 Calcium Level JUANITA ( [facility]) albumin 4.2 gm/dL 3.2-5.2 Albumin JUANITA ([facility]) albumin/globulin ratio Albumin/globu stephanie Ratio JUANITA ([facility]) total protein 7.2 gm/dL 6.4-8.2 Total Protein JUANITA ( [facility]) ID Date Data Source [id number] 10/07/2020 10:45:00 AM EST JUANITA ([facility]) Name Value Range Interpretation Code Description Data Ann rce(s) Supporting Document(s) red blood count 5.13 10 4.30-6.10 Red Blood Count ATHE NA ([facility]) white blood count 6.2 10 4.0-10.0 White Blood Count JUANITA ([facility]) hemoglobin 15.0 g/dL 13.5-17.5 Hemoglobin JUANITA ([facility]) mean corpuscular volume 90.8 fL 80.0-96.0 Mean Corpusc ular Volume JUANITA ([facility]) hematocrit 46.6 % 42.0-52.0 Hematocrit JUANITA ([facility]) mean corpuscular hemoglobin 29.2 pg 27.0-33.0 Mean Cor puscular Hemoglobin JUANITA ([facility]) neutrophils % 49.4 % 36.0-66.0 Neutrophils % JUANITA ( [facility]) platelet count, automated 352 10 150-450 Platelet C ount, Automated JUANITA ([facility]) mean corpuscular HGB conc 32.2 g/dL 32.0-36.5 Mean Corpu scular HGB Conc JUANITA ([facility]) red cell distribution width 11.9 % 11.5-14.5 Red Cell Distribution Width JUANITA ([facility]) eos % 2.4 % 0.0-3.0 Eos % JUANITA ([facility]) lymph % 39.5 % 24.0-44.0 Lymph % JUANITA ([facility]) mono % 7.9 % 0.0-5.0 Above high normal [place] % JUANITA ([facility]) immature granulocyte % 0.2 % 0-3.0 Immature Gran ulocyte % JUANITA ([facility]) nucleated red blood cell % 0.0 % 0-0 Nucleated Red Blood Cell % JUANITA ([facility]) baso % 0.6 % 0.0-1.0 Baso % JUANITA ([facility]) neutrophils # 3.1 10 1.5-8.5 Neutrophils # JUANITA ( [facility]) mono # 0.5 10 0.0-0.8 [place] # JUANITA ([facility]) lymph # 2.4 10 1.5-5.0 Lymph # JUANITA ([facility]) baso # 0.0 10 0.0-0.2 Baso # JUANITA ([facility]) eos # 0.2 10 0.0-0.5 Eos # JUANITA ([facility]) ID Date Data Source [id number] 10/07/2020 10:45:00 AM EST JUANITA ([facility]) Name Value Range Interpretation Code Description Data Ann rce(s) Supporting Document(s) Hemoglobin A1c/Hemoglobin.total in Blood 5.1 % Hemoglobin a1C JUANITA ([facility]) estimated average glucose 100 mg/dL 60-110 Estimated Average Glucose JUANITA ([facility]) ID Date Data Source [id number] 10/07/2020 10:45:00 AM EST JUANITA ([facility]) Name Value Range Interpretation Code Description Data Ann rce(s) Supporting Document(s) total 25(oh) vitamin D 44.6 NG/mL 30.0-100.0 Total 25(Oh) Vitamin D NATHALIE ([facility]) ID Date Data Source [id number] 10/07/2020 10:45:00 AM EST JUANITA ([facility]) Name Value Range Interpretation Code Description Data Ann rce(s) Supporting Document(s) free T4 0.99 NG/dL 0.76-1.46 Free T4 JUANITA ([facility]) thyroid stimulating hormone 0.524 uIU/mL 0.358-3.740 Thyroid Stimulating Hormone JUANITA ([facility]) ID Date Data Source [id number] 10/07/2020 10:45:00 AM EST JUANITA ([facility]) Name Value Range Interpretation Code Description Data Ann rce(s) Supporting Document(s) Cholesterol in LDL [Mass/volume] in Serum or Plasma 97 mg/dL <1 00 LDL Cholesterol JUANITA ([facility]) HDL cholesterol 37 mg/dL >40 Below low normal HDL Cholestero l JUANITA ([facility]) triglycerides level 56 mg/dL <150 Triglycerides Le cindy JUANITA ([facility]) cholesterol level 145 mg/dL <200 Cholesterol Level JUANITA ([facility]) cholesterol risk ratio <5 Cholesterol R isk Ratio JUANITA ([facility]) non-HDL-C 108 mg/dL Non-hdl-c JUANITA ([facility]) ID Date Data Source [id number] 10/07/2020 10:45:00 AM EST JUANITA ([facility]) Name Value Range Interpretation Code Description Data Ann rce(s) Supporting Document(s) blood urea nitrogen 15 mg/dL 7-18 Blood Urea Nitro gen JUANITA ([facility]) creatinine for GFR 0.94 mg/dL 0.70-1.30 Creatinine for GF R JUANITA ([facility]) glomerular filtration rate > 60.0 >60 Glomerula r Filtration Rate JUANITA ([facility]) glucose, fasting 93 mg/dL 70-100 Glucose, Fasting AT [facility]) chloride level 108 mEq/L 98-107 Above high normal Chloride Level JUANITA ([facility]) potassium serum 4.9 mEq/L 3.5-5.1 Potassium Serum ATHE ([facility]) carbon dioxide level 26 mEq/L 21-32 Carbon Dioxide Level JUANITA ([facility]) sodium level 140 mEq/L 136-145 Sodium Level JUANITA (No [facility]) calcium level 9.7 mg/dL 8.5-10.1 Calcium Level JUANITA ( [facility]) anion gap 6 mEq/L 8-16 Below low normal Anion Gap JUANITA ( [facility]) ALT/SGPT 36 U/L 12-78 ALT/SGPT JUANITA ([facility]) AST/SGOT 18 U/L 7-37 AST/SGOT JUANITA ([facility]) bilirubin,total 0.5 mg/dL 0.2-1.0 Bilirubin,total ATHE ([facility]) albumin/globulin ratio Albumin/globu stephanie Ratio JUANITA ([facility]) total protein 7.2 gm/dL 6.4-8.2 Total Protein JUANITA ( [facility]) alkaline phosphatase 89 U/L 45-117 Alkaline Phosph atase JUANITA ([facility]) albumin 4.2 gm/dL 3.2-5.2 Albumin JUANITA ([facility]) ID Date Data Source [id number] 10/07/2020 10:45:00 AM EST JUANITA ([facility]) Name Value Range Interpretation Code Description Data Ann rce(s) Supporting Document(s) red blood count 5.13 10 4.30-6.10 Red Blood Count ATHE NA ([facility]) white blood count 6.2 10 4.0-10.0 White Blood Count JUANITA ([facility]) hemoglobin 15.0 g/dL 13.5-17.5 Hemoglobin JUANITA ([facility]) mean corpuscular volume 90.8 fL 80.0-96.0 Mean Corpusc ular Volume JUANITA ([facility]) hematocrit 46.6 % 42.0-52.0 Hematocrit JUANITA ([facility]) red cell distribution width 11.9 % 11.5-14.5 Red Cell Distribution Width JUANITA ([facility]) platelet count, automated 352 10 150-450 Platelet C ount, Automated JUANITA ([facility]) mean corpuscular HGB conc 32.2 g/dL 32.0-36.5 Mean Corpu scular HGB Conc JUANITA ([facility]) mean corpuscular hemoglobin 29.2 pg 27.0-33.0 Mean Cor puscular Hemoglobin JUANITA ([facility]) lymph % 39.5 % 24.0-44.0 Lymph % JUANITA ([facility]) eos % 2.4 % 0.0-3.0 Eos % JUANITA ([facility]) mono % 7.9 % 0.0-5.0 Above high normal [place] % JUANITA ([facility]) neutrophils % 49.4 % 36.0-66.0 Neutrophils % JUANITA ( [facility]) baso % 0.6 % 0.0-1.0 Baso % JUANITA ([facility]) nucleated red blood cell % 0.0 % 0-0 Nucleated Red Blood Cell % NATHALIE ([facility]) neutrophils # 3.1 10 1.5-8.5 Neutrophils # NATHALIE ( [facility]) immature granulocyte % 0.2 % 0-3.0 Immature Gran ulocyte % NATHALIE ([facility]) lymph # 2.4 10 1.5-5.0 Lymph # JUANITA ([facility]) eos # 0.2 10 0.0-0.5 Eos # JUANITA ([facility]) mono # 0.5 10 0.0-0.8 [place] # NATHALIE ([facility]) baso # 0.0 10 0.0-0.2 Baso # JUANITA ([facility]) ID Date Data Source [id number] 08/06/2020 11:16:00 AM EDT [facility] Name Value Range Interpretation Code Description Data Ann rce(s) Supporting Document(s) SARS coronavirus 2 RNA [facility] This lab was ordered by [facility] and rep orted by [facility]. Procedure Social History No Information Vital Signs ID Date Data Source UNK Name Value Range Interpretation Code Description Data Source(s) Body height 71.5 [in_i] 71.5 [in_i] [facility]) 5'11.50" [place] body weight 172 [lb_av] 172 [lb_av] [facility] ([facility]) Systolic blood pressure 128 mm[Hg] 128 mm[facility]Hg[facility] Diastolic blood pressure 88 mm[Hg] 88 mm[Hg] [facility] ([facility]) Body weight 282.00 [lb_av] 282.00 [lb_av] [facility] ([facility]) Body mass index (BMI) [Ratio] 38.8 kg/m2 38.8 k g/m2 [facility]) Body weight 127.915 kg 127.915 kg [facility] ([facility]) Body surface area Derived from formula 2.45 m2 2.45 m2 [facility] ([facility], ) Diastolic blood pressure 84 mm[Hg] 84 mm[Hg] JUANITA ([facility]) Body height 71.5 [in_i] 71.5 [in_i] JUANITA ([facility]) Systolic blood pressure 134 mm[Hg] 134 mm[Hg] A THENA ([facility]) Body weight 4512 [oz_av] 4512 [oz_av] JUANITA ([facility]) Body mass index (BMI) [Ratio] 38.8 kg/m2 38.8 k g/m2 JUANITA ([facility]) Diastolic blood pressure 79 mm[Hg] 79 mm[Hg] JUANITA ([facility]) Body height 71.5 [in_i] 71.5 [in_i] JUANITA ([facility]) Body mass index (BMI) [Ratio] 38.5 kg/m2 38.5 k g/m2 JUANITA ([facility]) Systolic blood pressure 117 mm[Hg] 117 mm[Hg] A THENA ([facility]) Body weight 4480 [oz_av] 4480 [oz_av] JUANITA ([facility]) Diastolic blood pressure 79 mm[Hg] 79 mm[Hg] JUANITA ([facility]) Body height 71.5 [in_i] 71.5 [in_i] JUANITA ([facility]) Body mass index (BMI) [Ratio] 38.5 kg/m2 38.5 k g/m2 JUANITA ([facility]) Systolic blood pressure 117 mm[Hg] 117 mm[Hg] A THENA ([facility]) Body weight 4480 [oz_av] 4480 [oz_av] JUANITA ([facility]) Body height 71.5 [in_i] 71.5 [in_i] JUANITA ([facility]) Body height 71.5 [in_i] 71.5 [in_i] JUANITA ([facility]) Body height 71.5 [in_i] 71.5 [in_i] JUANITA ([facility]) Body temperature 97.3 [degF] 97.3 [degF] MED[facility] ([facility]) Body height 71.5 [in_i] 71.5 [in_i] MED[facility] ([facility]) 5'11.50" Body weight 288.00 [lb_av] 288.00 [lb_av] MEDEN T ([facility]) Body mass index (BMI) [Ratio] 39.6 kg/m2 39.6 k g/m2 [facility] ([facility]) Diastolic blood pressure 72 mm[Hg] 72 mm[Hg] JUANITA ([facility]) Body height 71.5 [in_i] 71.5 [in_i] JUANITA ([facility]) Body mass index (BMI) [Ratio] 39 kg/m2 39 kg/ m2 JUANITA ([facility]) Systolic blood pressure 107 mm[Hg] 107 mm[Hg] [facility] Body weight 4534 [oz_av] 4534 [oz_av] JUANITA ([facility]) Diastolic blood pressure 72 mm[Hg] 72 mm[Hg] JUANITA ([facility]) Body mass index (BMI) [Ratio] 39 kg/m2 39 kg/ m2 JUANITA ([facility]) Systolic blood pressure 107 mm[Hg] 107 mm[Hg] A THENA ([facility]) Body weight 4534 [oz_av] 4534 [oz_av] JUANITA ([facility]) Body height 71.5 [in_i] 71.5 [in_i] JUANITA ([facility]) Diastolic blood pressure 72 mm[Hg] 72 mm[Hg] JUANITA ([facility]) Body height 71.5 [in_i] 71.5 [in_i] JUANITA ([facility]) Body mass index (BMI) [Ratio] 39 kg/m2 39 kg/ m2 JUANITA ([facility]) Systolic blood pressure 107 mm[Hg] 107 mm[Hg] A THENA ([facility]) Body weight 4534 [oz_av] 4534 [oz_av] JUANITA ([facility]) Diastolic blood pressure 72 mm[Hg] 72 mm[Hg] JUANITA ([facility]) Body height 71.5 [in_i] 71.5 [in_i] JUANITA ([facility]) Diastolic blood pressure 72 mm[Hg] 72 mm[Hg] JUANITA ([facility]) Body height 71.5 [in_i] 71.5 [in_i] JUANITA ([facility]) Body mass index (BMI) [Ratio] 39 kg/m2 39 kg/ m2 JUANITA ([facility]) Systolic blood pressure 107 mm[Hg] 107 mm[Hg] [facility] Body weight 4534 [oz_av] 4534 [oz_av] JUANITA ([facility]) Body mass index (BMI) [Ratio] 39 kg/m2 39 kg/ m2 JUANITA ([facility]) Systolic blood pressure 107 mm[Hg] 107 mm[Hg] [facility]) Body weight 4534 [oz_av] 4534 [oz_av] JUANITA ([facility]) Diastolic blood pressure 72 mm[Hg] 72 mm[Hg] JUANITA ([facility]) Body height 71.5 [in_i] 71.5 [in_i] JUANITA ([facility]) Body mass index (BMI) [Ratio] 39 kg/m2 39 kg/ m2 JUANITA ([facility]) Systolic blood pressure 107 mm[Hg] 107 mm[Hg] A THENA ([facility]) Body weight 4534 [oz_av] 4534 [oz_av] JUANITA ([facility]) Diastolic blood pressure 77 mm[Hg] 77 mm[Hg] JUANITA ([facility]) Body height 71.5 [in_i] 71.5 [in_i] JUANITA ([facility]) Body mass index (BMI) [Ratio] 39.4 kg/m2 39.4 k g/m2 JUANITA ([facility]) Systolic blood pressure 127 mm[Hg] 127 mm[Hg] [facility]) Body weight 4582.4 [oz_av] 4582.4 [oz_av] ATHEN A ([facility]) Diastolic blood pressure 77 mm[Hg] 77 mm[Hg] JUANITA ([facility]) Body height 71.5 [in_i] 71.5 [in_i] JUANITA ([facility]) Body mass index (BMI) [Ratio] 39.4 kg/m2 39.4 k g/m2 JUANITA ([facility]) Systolic blood pressure 127 mm[Hg] 127 mm[Hg] A THENA ([facility]) Body weight 4582.4 [oz_av] 4582.4 [oz_av] ATHEN A ([facility]) Diastolic blood pressure 77 mm[Hg] 77 mm[Hg] JUANITA ([facility]) Body height 71.5 [in_i] 71.5 [in_i] JUANITA ([facility]) Body mass index (BMI) [Ratio] 39.4 kg/m2 39.4 k g/m2 JUANITA ([facility]) Systolic blood pressure 127 mm[Hg] 127 mm[Hg] A THENA ([facility]) Body weight 4582.4 [oz_av] 4582.4 [oz_av] ATHEN A ([facility]) Diastolic blood pressure 77 mm[Hg] 77 mm[Hg] JUANITA ([facility]) Body height 71.5 [in_i] 71.5 [in_i] JUANITA ([facility]) Body mass index (BMI) [Ratio] 39.4 kg/m2 39.4 k g/m2 JUANITA ([facility]) Systolic blood pressure 127 mm[Hg] 127 mm[Hg] A THENA ([facility]) Body weight 4582.4 [oz_av] 4582.4 [oz_av] ATHEN A ([facility]) Diastolic blood pressure 77 mm[Hg] 77 mm[Hg] JUANITA ([facility]) Body height 71.5 [in_i] 71.5 [in_i] JUANITA ([facility]) Body mass index (BMI) [Ratio] 39.4 kg/m2 39.4 k g/m2 JUANITA ([facility]) Systolic blood pressure 127 mm[Hg] 127 mm[Hg] A THENA ([facility]) Body weight 4582.4 [oz_av] 4582.4 [oz_av] ATHEN A ([facility]) Diastolic blood pressure 77 mm[Hg] 77 mm[Hg] JUANITA ([facility]) Body height 71.5 [in_i] 71.5 [in_i] JUANITA ([facility]) Body mass index (BMI) [Ratio] 39.4 kg/m2 39.4 k g/m2 JUANITA ([facility]) Systolic blood pressure 127 mm[Hg] 127 mm[Hg] A THENA ([facility]) Body weight 4582.4 [oz_av] 4582.4 [oz_av] ATHEN A ([facility]) Diastolic blood pressure 77 mm[Hg] 77 mm[Hg] JUANITA ([facility]) Body height 71.5 [in_i] 71.5 [in_i] JUANITA ([facility]) Body mass index (BMI) [Ratio] 39.4 kg/m2 39.4 k g/m2 JUANITA ([facility]) Systolic blood pressure 127 mm[Hg] 127 mm[Hg] A THENA ([facility]) Body weight 4582.4 [oz_av] 4582.4 [oz_av] ATHPIYUSH A ([facility]) Body temperature 97.1 [degF] 97.1 [degF] [facility] ([facility], ) Body height 71 [in_i] 71 [in_i] [facility] 5'11" Body weight 274.00 [lb_av] 274.00 [lb_av] MEDEN T ([facility], ) Body mass index (BMI) [Ratio] 38.2 kg/m2 38.2 k g/m2 [facility] ([facility], ) [place] body weight 172 [lb_av] 172 [lb_av] MEDEN T ([facility], ) Body weight 124.286 kg 124.286 [facility] Body mass index (BMI) [Ratio] 38.2 kg/m2 38.2 k g/m2 [facility] ([facility], ) Body temperature 97.1 [degF] 97.1 [degF] [facility] Body height 71 [in_i] 71 [in_i] [facility] ([facility]) 5'11" Body weight 274.00 [lb_av] 274.00 [lb_av] [facility] ([facility]) [place] body weight 172 [lb_av] 172 [facility]_av[facility] Body weight 124.286 kg 124.286 kg [facility] ([facility]) Body surface area Derived from formula 2.41 m2 2.41 m2 [facility] ([facility]) Diastolic blood pressure 78 mm[Hg] 78 mm[Hg] JUANITA ([facility]) Body height 71.5 [in_i] 71.5 [in_i] NATHALIE ([facility]) Body mass index (BMI) [Ratio] 37.8 kg/m2 37.8 k g/m2 JUANITA ([facility]) Systolic blood pressure 116 mm[Hg] 116 mm[Hg] A [facility] ([facility]) Body weight 4396.8 [oz_av] 4396.8 [oz_av] ATHEN A ([facility]) Diastolic blood pressure 78 mm[Hg] 78 mm[Hg] JUANITA ([facility]) Body height 71.5 [in_i] 71.5 [in_i] JUANITA ([facility]) Body mass index (BMI) [Ratio] 37.8 kg/m2 37.8 k g/m2 JUANITA ([facility]) Systolic blood pressure 116 mm[Hg] 116 mm[Hg] A [facility] ([facility]) Body weight 4396.8 [oz_av] 4396.8 [oz_av] ATHEN A ([facility]) Diastolic blood pressure 78 mm[Hg] 78 mm[Hg] JUANITA ([facility]) Systolic blood pressure 116 mm[Hg] 116 mm[Hg] A [facility] ([facility]) Body height 71.5 [in_i] 71.5 [in_i] JUANITA ([facility]) Body mass index (BMI) [Ratio] 37.8 kg/m2 37.8 k g/m2 JUANITA ([facility]) Body weight 4396.8 [oz_av] 4396.8 [oz_av] ATHEN A ([facility]) Diastolic blood pressure 78 mm[Hg] 78 mm[Hg] JUANITA ([facility]) Body height 71.5 [in_i] 71.5 [in_i] JUANITA ([facility]) Body mass index (BMI) [Ratio] 37.8 kg/m2 37.8 k g/m2 JUANITA ([facility]) Systolic blood pressure 116 mm[Hg] 116 mm[Hg] A THENA ([facility]) Body weight 4396.8 [oz_av] 4396.8 [oz_av] ATHEN A ([facility]) Diastolic blood pressure 78 mm[Hg] 78 mm[Hg] JUANITA ([facility]) Body height 71.5 [in_i] 71.5 [in_i] JUANITA ([facility]) Body mass index (BMI) [Ratio] 37.8 kg/m2 37.8 k g/m2 JUANITA ([facility]) Systolic blood pressure 116 mm[Hg] 116 mm[Hg] A THENA ([facility]) Body weight 4396.8 [oz_av] 4396.8 [oz_av] ATHEN A ([facility]) Diastolic blood pressure 78 mm[Hg] 78 mm[Hg] JUANITA ([facility]) Body height 71.5 [in_i] 71.5 [in_i] JUANITA ([facility]) Body mass index (BMI) [Ratio] 37.8 kg/m2 37.8 k g/m2 JUANITA ([facility]) Systolic blood pressure 116 mm[Hg] 116 mm[Hg] A THENA ([facility]) Body weight 4396.8 [oz_av] 4396.8 [oz_av] ATHEN A ([facility]) Diastolic blood pressure 78 mm[Hg] 78 mm[Hg] JUANITA ([facility]) Body height 71.5 [in_i] 71.5 [in_i] JUANITA ([facility]) Body mass index (BMI) [Ratio] 37.8 kg/m2 37.8 k g/m2 JUANITA ([facility]) Systolic blood pressure 116 mm[Hg] 116 mm[Hg] [facility] Body weight 4396.8 [oz_av] 4396.8 [oz_av] ATHEN A ([facility]) Diastolic blood pressure 78 mm[Hg] 78 mm[Hg] JUANITA ([facility]) Body height 71.5 [in_i] 71.5 [in_i] JUANITA ([facility]) Body mass index (BMI) [Ratio] 37.8 kg/m2 37.8 k g/m2 JUANITA ([facility]) Systolic blood pressure 116 mm[Hg] 116 mm[Hg] A [facility] ([facility]) Body weight 4396.8 [oz_av] 4396.8 [oz_av] ATHEN A ([facility]) Diastolic blood pressure 78 mm[Hg] 78 mm[Hg] JUANITA ([facility]) Body height 71.5 [in_i] 71.5 [in_i] JUANITA ([facility]) Body mass index (BMI) [Ratio] 37.8 kg/m2 37.8 k g/m2 JUANITA ([facility]) Diastolic blood pressure 78 mm[Hg] 78 mm[Hg] JUANITA ([facility]) Body height 71.5 [in_i] 71.5 [in_i] JUANITA ([facility]) Body mass index (BMI) [Ratio] 37.8 kg/m2 37.8 k g/m2 JUANITA ([facility]) Systolic blood pressure 116 mm[Hg] 116 mm[Hg] [facility] Body weight 4396.8 [oz_av] 4396.8 [oz_av] ATHEN A ([facility]) Systolic blood pressure 116 mm[Hg] 116 mm[Hg] [facility] Body weight 4396.8 [oz_av] 4396.8 [oz_av] ATHEN A ([facility]) Diastolic blood pressure 78 mm[Hg] 78 mm[Hg] JUANITA ([facility]) Body height 71.5 [in_i] 71.5 [in_i] JUANITA ([facility]) Body mass index (BMI) [Ratio] 37.8 kg/m2 37.8 k g/m2 JUANITA ([facility]) Systolic blood pressure 116 mm[Hg] 116 mm[Hg] Estuardo GRULLONA ([facility]) Body weight 4396.8 [oz_av] 4396.8 [oz_av] ATHEN A ([facility]) Patient Treatment Plan of Care Planned Activity Planned Date Details Description Data Source (s) Sertraline 50 MG Oral Tablet JUANITA ([facility]) Sertraline 25 MG Oral Tablet JUANITA ([facility]) Omeprazole 20 MG Delayed Release Oral Capsule JUANITA ([facility]) Mirtazapine 7.5 MG Oral Tablet JUANITA ([facility]) Ibuprofen 600 MG Oral Tablet JUANITA ([facility]) Hydroxyzine Hydrochloride 10 MG Oral Tablet JUANITA ([facility]) duloxetine 40 MG Delayed Release Oral Capsule JUANITA ([facility]) duloxetine 30 MG Delayed Release Oral Capsule JUANITA ([facility]) duloxetine 20 MG Delayed Release Oral Capsule JUANITA ([facility]) Cyclobenzaprine hydrochloride 10 MG Oral Tablet JUANITA ([facility]) Vitamin B 12 1 MG Oral Tablet JUANITA ([facility]) Cephalexin 500 MG Oral Capsule JUANITA ([facility]) Betamethasone 0.0005 MG/MG Topical Ointment JUANITA ([facility]) aripiprazole 10 MG Oral Tablet JUANITA ([facility]) Sertraline 50 MG Oral Tablet JUANITA ([facility]) Sertraline 25 MG Oral Tablet JUANITA ([facility]) Mirtazapine 7.5 MG Oral Tablet JUANITA ([facility]) Ibuprofen 600 MG Oral Tablet JUANITA ([facility]) Hydroxyzine Hydrochloride 10 MG Oral Tablet JUANITA ([facility]) duloxetine 40 MG Delayed Release Oral Capsule JUANITA ([facility]) duloxetine 30 MG Delayed Release Oral Capsule JUANITA ([facility]) duloxetine 20 MG Delayed Release Oral Capsule JUANITA ([facility]) Cyclobenzaprine hydrochloride 10 MG Oral Tablet JUANITA ([facility]) Vitamin B 12 1 MG Oral Tablet JUANITA ([facility]) Cephalexin 500 MG Oral Capsule JUANITA ([facility]) Betamethasone 0.0005 MG/MG Topical Ointment JUANITA ([facility]) aripiprazole 10 MG Oral Tablet JUANITA ([facility]) Sertraline 50 MG Oral Tablet JUANITA ([facility]) Sertraline 25 MG Oral Tablet JUANITA ([facility]) Mirtazapine 7.5 MG Oral Tablet JUANITA ([facility]) Ibuprofen 600 MG Oral Tablet JUANITA ([facility]) Hydroxyzine Hydrochloride 10 MG Oral Tablet JUANITA ([facility]) duloxetine 40 MG Delayed Release Oral Capsule JUANITA ([facility]) duloxetine 30 MG Delayed Release Oral Capsule JUANITA ([facility]) Cephalexin 500 MG Oral Capsule JUANITA ([facility]) Betamethasone 0.0005 MG/MG Topical Ointment JUANITA ([facility]) aripiprazole 10 MG Oral Tablet JUANITA ([facility]) Sertraline 50 MG Oral Tablet JUANITA ([facility]) Sertraline 25 MG Oral Tablet JUANITA ([facility]) Mirtazapine 7.5 MG Oral Tablet JUANITA ([facility]) Ibuprofen 600 MG Oral Tablet JUANITA ([facility]) Hydroxyzine Hydrochloride 10 MG Oral Tablet JUANITA ([facility]) duloxetine 40 MG Delayed Release Oral Capsule JUANITA ([facility]) duloxetine 30 MG Delayed Release Oral Capsule JUANITA ([facility]) duloxetine 20 MG Delayed Release Oral Capsule JUANITA ([facility]) Cephalexin 500 MG Oral Capsule JUANITA ([facility]) Betamethasone 0.0005 MG/MG Topical Ointment JUANITA ([facility]) aripiprazole 10 MG Oral Tablet JUANITA ([facility]) Sertraline 50 MG Oral Tablet JUANITA ([facility]) Sertraline 25 MG Oral Tablet JUANITA ([facility]) Mirtazapine 7.5 MG Oral Tablet JUANITA ([facility]) Ibuprofen 600 MG Oral Tablet JUANITA ([facility]) Hydroxyzine Hydrochloride 10 MG Oral Tablet JUANITA ([facility]) duloxetine 40 MG Delayed Release Oral Capsule JUANITA ([facility]) duloxetine 30 MG Delayed Release Oral Capsule JUANITA ([facility]) duloxetine 20 MG Delayed Release Oral Capsule JUANITA ([facility]) Cephalexin 500 MG Oral Capsule JUANITA ([facility]) Betamethasone 0.0005 MG/MG Topical Ointment JUANITA ([facility]) aripiprazole 10 MG Oral Tablet JUANITA ([facility]) Sertraline 50 MG Oral Tablet JUANITA ([facility]) Sertraline 25 MG Oral Tablet JUANITA ([facility]) Mirtazapine 7.5 MG Oral Tablet JUANITA ([facility]) Ibuprofen 600 MG Oral Tablet JUANITA ([facility]) Hydroxyzine Hydrochloride 10 MG Oral Tablet JUANITA ([facility]) duloxetine 40 MG Delayed Release Oral Capsule JUANITA ([facility]) duloxetine 30 MG Delayed Release Oral Capsule JUANITA ([facility]) duloxetine 20 MG Delayed Release Oral Capsule JUANITA ([facility]) Cephalexin 500 MG Oral Capsule JUANITA ([facility]) Betamethasone 0.0005 MG/MG Topical Ointment JUANITA ([facility]) aripiprazole 10 MG Oral Tablet JUANITA ([facility]) Sertraline 50 MG Oral Tablet JUANITA ([facility]) Sertraline 25 MG Oral Tablet JUANITA ([facility]) Mirtazapine 7.5 MG Oral Tablet JUANITA ([facility]) Mirtazapine 15 MG Oral Tablet JUANITA ([facility]) Ibuprofen 600 MG Oral Tablet JUANITA ([facility]) Hydroxyzine Hydrochloride 10 MG Oral Tablet JUANITA ([facility]) duloxetine 30 MG Delayed Release Oral Capsule JUANITA ([facility]) Cephalexin 500 MG Oral Capsule JUANITA ([facility]) Betamethasone 0.0005 MG/MG Topical Ointment JUANITA ([facility]) aripiprazole 10 MG Oral Tablet JUANITA ([facility]) Sertraline 50 MG Oral Tablet JUANITA ([facility]) Sertraline 25 MG Oral Tablet JUANITA ([facility]) Mirtazapine 7.5 MG Oral Tablet JUANITA ([facility]) Mirtazapine 15 MG Oral Tablet JUANITA ([facility]) Hydroxyzine Hydrochloride 10 MG Oral Tablet JUANITA ([facility]) duloxetine 30 MG Delayed Release Oral Capsule JUANITA ([facility]) Cephalexin 500 MG Oral Capsule JUANITA ([facility]) Betamethasone 0.0005 MG/MG Topical Ointment JUANITA ([facility]) aripiprazole 10 MG Oral Tablet JUANITA ([facility]) Sertraline 50 MG Oral Tablet JUANITA ([facility]) Sertraline 25 MG Oral Tablet JUANITA ([facility]) Mirtazapine 7.5 MG Oral Tablet JUANITA ([facility]) Mirtazapine 15 MG Oral Tablet JUANITA ([facility]) Hydroxyzine Hydrochloride 10 MG Oral Tablet JUANITA ([facility]) duloxetine 30 MG Delayed Release Oral Capsule JUANITA ([facility]) Cephalexin 500 MG Oral Capsule JUANITA ([facility]) Betamethasone 0.0005 MG/MG Topical Ointment JUANITA ([facility]) aripiprazole 10 MG Oral Tablet JUANITA ([facility]) Sertraline 50 MG Oral Tablet JUANITA ([facility]) Sertraline 25 MG Oral Tablet JUANITA ([facility]) Mirtazapine 7.5 MG Oral Tablet JUANITA ([facility]) Mirtazapine 15 MG Oral Tablet JUANITA ([facility]) Hydroxyzine Hydrochloride 10 MG Oral Tablet JUANITA ([facility]) duloxetine 30 MG Delayed Release Oral Capsule JUANITA ([facility]) duloxetine 20 MG Delayed Release Oral Capsule JUANITA ([facility]) Cephalexin 500 MG Oral Capsule JUANITA ([facility]) Betamethasone 0.0005 MG/MG Topical Ointment JUANITA ([facility]) aripiprazole 10 MG Oral Tablet JUANITA ([facility]) Sertraline 50 MG Oral Tablet JUANITA ([facility]) Sertraline 25 MG Oral Tablet JAUNITA ([facility]) Mirtazapine 7.5 MG Oral Tablet JUANITA ([facility]) Mirtazapine 15 MG Oral Tablet JUANITA ([facility]) Hydroxyzine Hydrochloride 10 MG Oral Tablet JUANITA ([facility]) duloxetine 30 MG Delayed Release Oral Capsule JUANITA ([facility]) duloxetine 20 MG Delayed Release Oral Capsule JUANITA ([facility]) Cephalexin 500 MG Oral Capsule JUANITA ([facility]) Betamethasone 0.0005 MG/MG Topical Ointment JUANITA ([facility]) aripiprazole 10 MG Oral Tablet JUANITA ([facility])
[2021-09-21] MEDS ORDERED: propofoL 500 MG/50 ML VIAL As Ordered ONE (12:41)
[2021-09-21] MEDS ORDERED: fentaNYL 100 MCG/2 ML INJECTION (J3010) As Ordered ONE (13:11)
[2021-09-21] MEDS ORDERED: LIDOCAINE 2% 100MG/5ML SDV (FOR ANES.) As Ordered ONE (14:01)
--- NOTE | 2021-09-21 14:51 | ROOR ---
Patient Name: James Soares Procedure Date: 09/21/2021 2:22 PM Date of : 2000 Age: 21 Room: [facility] Gender: Male Note Status: Finalized Procedure: Upper GI endoscopy Indications: Epigastric abdominal pain, Heartburn Providers: César Hernandez MD Referring MD: Sd BAEZA MD Requesting Provider: Medicines: Monitored Anesthesia Care Complications: No immediate complications. Procedure: Pre-Anesthesia Assessment: - Prior to the procedure, a History and Physical was performed, and patient medications and allergies were reviewed. The patient is competent. The risks and benefits of the procedure and the sedation options and risks were discussed with the patient. All questions were answered and informed consent was obtained. Patient identification and proposed procedure were verified by the physician, the nurse and the anesthesiologist in the procedure room. Mental Status Examination: alert and oriented. Airway Examination: normal oropharyngeal airway and neck mobility. Respiratory Examination: clear to auscultation. CV Examination: normal. Prophylactic Antibiotics: The patient does not require prophylactic antibiotics. Prior Anticoagulants: The patient has taken no previous anticoagulant or antiplatelet agents. ASA Grade Assessment: II - A patient with mild systemic disease. After reviewing the risks and benefits, the patient was deemed in satisfactory condition to undergo the procedure. The anesthesia plan was to use monitored anesthesia care (MAC). Immediately prior to administration of medications, the patient was re-assessed for adequacy to receive sedatives. The heart rate, respiratory rate, oxygen saturations, blood pressure, adequacy of pulmonary ventilation, and response to care were monitored throughout the procedure. The physical status of the patient was re-assessed after the procedure. The Endoscope was introduced through the mouth, and advanced to the second part of duodenum. The upper GI endoscopy was accomplished without difficulty. The patient tolerated the procedure well. Findings: The Z-line was regular and was found 40 cm from the incisors. The examined esophagus was normal. Scattered mild inflammation characterized by congestion (edema), erythema and granularity was found in the gastric antrum. Biopsies were taken with a cold forceps for Helicobacter pylori testing. Verification of patient identification for the specimen was done by the physician and nurse using the patient's name, date and medical record number. Estimated blood loss was minimal. The duodenal bulb, second portion of the duodenum, area of the papilla and third portion of the duodenum were normal. Biopsies for histology were taken with a cold forceps for evaluation of celiac disease. Impression: - Z-line regular, 40 cm from the incisors. - Normal esophagus. - Gastritis. Biopsied. - Normal duodenal bulb, second portion of the duodenum, area of the papilla and third portion of the duodenum. Biopsied. Recommendation: - Patient has a contact number available for emergencies. The signs and symptoms of potential delayed complications were discussed with the patient. Return to normal activities tomorrow. Written discharge instructions were provided to the patient. - High fiber diet. - Continue present medications. - Await pathology results. - Follow an antireflux regimen. - Telephone GI clinic for pathology results in 2 weeks. - Return to GI clinic if persistent symptoms or new symptoms. - Return to primary care physician. Procedure Code(s): --- Professional --- 95114, Esophagogastroduodenoscopy, flexible, transoral; with biopsy, single or multiple Diagnosis Code(s): --- Professional --- K29.70, Gastritis, unspecified, without bleeding R10.13, Epigastric pain R12, Heartburn CPT copyright 2019 [employer]. All rights reserved. The codes documented in this report are preliminary and upon associate quality engineer review may be revised to meet current compliance requirements. César Hernandez MD César Hernandez MD 09/21/2021 2:51:19 PM Electronically signed by César Hernandez MD Number of Addenda: 0 Note Initiated On: 09/21/2021 2:22 PM Estimated Blood Loss: Estimated blood loss was minimal.
--- NOTE | 2021-09-21 15:07 | ROOR ---
Patient Name: James Soares Procedure Date: 09/21/2021 2:22 PM Date of : 2000 Age: 21 Room: [facility] Gender: Male Note Status: Finalized Procedure: Colonoscopy Indications: Hematochezia Providers: César Hernandez MD Referring MD: Sd BAEZA MD Requesting Provider: Medicines: Monitored Anesthesia Care Complications: No immediate complications. Procedure: Pre-Anesthesia Assessment: - Prior to the procedure, a History and Physical was performed, and patient medications and allergies were reviewed. The patient is competent. The risks and benefits of the procedure and the sedation options and risks were discussed with the patient. All questions were answered and informed consent was obtained. Patient identification and proposed procedure were verified by the physician, the nurse and the anesthesiologist in the procedure room. Mental Status Examination: alert and oriented. Airway Examination: normal oropharyngeal airway and neck mobility. Respiratory Examination: clear to auscultation. CV Examination: normal. Prophylactic Antibiotics: The patient does not require prophylactic antibiotics. Prior Anticoagulants: The patient has taken no previous anticoagulant or antiplatelet agents. ASA Grade Assessment: III - A patient with severe systemic disease. After reviewing the risks and benefits, the patient was deemed in satisfactory condition to undergo the procedure. The anesthesia plan was to use monitored anesthesia care (MAC). Immediately prior to administration of medications, the patient was re-assessed for adequacy to receive sedatives. The heart rate, respiratory rate, oxygen saturations, blood pressure, adequacy of pulmonary ventilation, and response to care were monitored throughout the procedure. The physical status of the patient was re-assessed after the procedure. The Colonoscope was introduced through the anus and advanced to the terminal ileum, with identification of the appendiceal orifice and IC valve. The colonoscopy was performed without difficulty. The patient tolerated the procedure well. The quality of the bowel preparation was good. The terminal ileum, ileocecal valve, appendiceal orifice, and rectum were photographed. Scope insertion time was 2 minutes. Scope withdrawal time was 6 minutes. The total duration of the procedure was 8 minutes. Findings: The perianal and digital rectal examinations were normal. Pertinent negatives include normal sphincter tone. The terminal ileum appeared normal. A few small and large-mouthed diverticula were found in the sigmoid colon. There was no evidence of diverticular bleeding. Non-bleeding external and internal hemorrhoids were found during retroflexion. The hemorrhoids were medium-sized. No other significant abnormalities were identified in a careful examination of the remainder of the colon. Impression: - The examined portion of the ileum was normal. - Mild diverticulosis in the sigmoid colon. There was no evidence of diverticular bleeding. - Non-bleeding external and internal hemorrhoids. - No specimens collected. Recommendation: - Patient has a contact number available for emergencies. The signs and symptoms of potential delayed complications were discussed with the patient. Return to normal activities tomorrow. Written discharge instructions were provided to the patient. - High fiber diet. - Continue present medications. - Use fiber, for example Citrucel, Fibercon, Konsyl or Metamucil. - Repeat colonoscopy at age 49 for screening purposes. - Preparation H ointment: Apply externally BID Intermittent use when hav ing hemorrhoidal bleeding. - Return to GI clinic if persistent symptoms or new symptoms. - Return to primary care physician. Procedure Code(s): --- Professional --- 29104, Colonoscopy, flexible; diagnostic, including collection of specimen(s) by brushing or washing, when performed (separate procedure) Diagnosis Code(s): --- Professional --- K64.8, Other hemorrhoids K92.1, Melena (includes Hematochezia) CPT copyright 2019 [employer]. All rights reserved. The codes documented in this report are preliminary and upon archivist nonprofit foundation review may be revised to meet current compliance requirements. César Hernandez MD César Hernandez MD 09/21/2021 3:06:59 PM Electronically signed by César Hernandez MD Number of Addenda: 0 Note Initiated On: 09/21/2021 2:22 PM Estimated Blood Loss: Estimated blood loss: none.
[2021-09-21 15:15] VITALS: BP 135/89
== END 2021-09-21 15:22 | disposition home or self-care (01) ==
LOC: M OPP 11:25
PROVIDERS: ATTEND Internal Medicine Gastroenterology
DX: K57.30 Diverticulosis of large intestine without perforation or abscess without bleeding (principal); K64.8 Other hemorrhoids; K92.1 Melena; K29.70 Gastritis, unspecified, without bleeding; R10.13 Epigastric pain; Z79.899 Other long term (current) drug therapy
CPT/HCPCS: 43239; 45378; 88305; J3010

== ENCOUNTER 2021-11-23 13:46 | Emergency (ER) | payer MEDICARE, MEDICAID ==
[~2021-11-23] VITALS: Ht 180.3 cm; Wt 131.4 kg
[~2021-11-23 13:46] MED LIST changes: -NS 1,000 ML IV ONE; -OMEP-221; +OMEP40CA5
[2021-11-23] MEDS ORDERED: MIRT1TAB16 (14:10)
[2021-11-23] MEDS ORDERED: CYCL10TA20 PO (14:10)
[2021-11-23] MEDS ORDERED: DULO-34 (14:10)
[2021-11-23] MEDS ORDERED: SUCR1TAB56 (14:10)
[2021-11-23] MEDS ORDERED: ARIP1TAB43 (14:10)
[2021-11-23] MEDS ORDERED: ACETAMINOPHEN 500 MG TAB PO ONE (16:50)
[2021-11-23] MEDS ORDERED: GI COCKTAIL 50ML BTL(HYOSCYAMINE/MAALOX/LIDOCAINE VISCOUS)(1:3:1) PO ONE (16:50)
[2021-11-23 17:22] LABS: HEMATOCRIT 47.3 % (42.0-52.0); HEMOGLOBIN 15.8 g/dl (13.5-17.5); MEAN CORPUSCULAR HEMOGLOBIN 29.4 pg (27.0-33.0); MEAN CORPUSCULAR HGB CONC 33.4 g/dl (32.0-36.5); MEAN CORPUSCULAR VOLUME 88.1 fl (80.0-96.0); PLATELET COUNT, AUTOMATED 441 10^3/uL (150-450); RED BLOOD COUNT 5.37 10^6/uL (4.30-6.10); WHITE BLOOD COUNT 9.7 10^3/uL (4.0-10.0)
[2021-11-23] MEDS ORDERED: LIDO2SOL17 PO (17:41)
[2021-11-23 17:47] LABS: MONO REFLEX EBV COMP NEGATIVE (NEGATIVE)
[2021-11-23 17:59] VITALS: BP 160/96
[2021-11-25 14:09] LABS: EBV AB TO NUCLEAR ANTIGEN <18.0 U/mL (0.0-17.9); EBV VIRAL CAPSID AG IgG <18.0 U/mL (0.0-17.9); EBV VIRAL CAPSID AG IgM <36.0 U/mL (0.0-35.9)
== END 2021-11-23 18:10 | disposition home or self-care (01) ==
LOC: M ED 13:46
DX: J02.9 Acute pharyngitis, unspecified (principal); R09.81 Nasal congestion; Z90.89 Acquired absence of other organs

== ENCOUNTER 2022-05-17 13:21 | Emergency (ER) | payer MEDICARE, MEDICAID ==
[~2022-05-17] VITALS: Ht 180.3 cm; Wt 130.4 kg
[~2022-05-17 13:21] MED LIST changes: +ARIP1TAB43; +CYCL10TA20 PO; -D31000TA2 PO; +DULO-34; +LIDO2SOL17 PO; +SUCR1TAB56; +VITA100093 PO
[2022-05-17] MEDS ORDERED: RISP-7 (13:53)
[2022-05-17] MEDS ORDERED: KETOROLAC 30 MG/ML 1ML VIAL IM ONE (15:40)
[2022-05-17 16:22] VITALS: BP 137/84
== END 2022-05-17 16:28 | disposition home or self-care (01) ==
LOC: M ED 13:21
DX: M94.0 Chondrocostal junction syndrome [Tietze] (principal); F41.9 Anxiety disorder, unspecified; K21.9 Gastro-esophageal reflux disease without esophagitis; Z79.899 Other long term (current) drug therapy
CPT/HCPCS: 93005; 96372; 99284; J1885

== ENCOUNTER → 2022-07-10 | Outpatient (CLI) | payer MEDICARE, MEDICAID ==
[~2022-07-10] MED LIST changes: +RISP-7
== END ==
LOC: M SLEEP 20:00
PROVIDERS: ATTEND Nurse Practitioner Family
DX: R06.83 Snoring (principal)

== ENCOUNTER → 2022-09-13 | Outpatient (CLI) | payer MEDICARE, MEDICAID ==
[2022-09-13 12:13] LABS: BASO # 0.1 10^3/uL (0.0-0.2); BASO % 0.7 % (0.0-1.0); EOS # 0.2 10^3/uL (0.0-0.5); EOS % 2.4 % (0.0-3.0); HEMATOCRIT 45.7 % (42.0-52.0); HEMOGLOBIN 15.4 g/dl (13.5-17.5); LYMPH # 2.7 10^3/uL (1.5-5.0); LYMPH % 38.3 % (24.0-44.0); MEAN CORPUSCULAR HEMOGLOBIN 30.1 pg (27.0-33.0); MEAN CORPUSCULAR HGB CONC 33.7 g/dl (32.0-36.5); MEAN CORPUSCULAR VOLUME 89.4 fl (80.0-96.0); MONO # 0.6 10^3/uL (0.0-0.8); MONO % 9.1 % (2.0-8.0); NEUTROPHILS # 3.5 10^3/uL (1.5-8.5); NEUTROPHILS % 49.2 % (36.0-66.0); PLATELET COUNT, AUTOMATED 344 10^3/uL (150-450); RED BLOOD COUNT 5.11 10^6/uL (4.30-6.10); WHITE BLOOD COUNT 7.1 10^3/uL (4.0-10.0)
[2022-09-13 13:17] LABS: ALBUMIN 3.8 GM/DL (3.2-5.2); ALT/SGPT 44 U/L (12-78); BILIRUBIN,TOTAL 0.6 MG/DL (0.2-1.0); BLOOD UREA NITROGEN 11 MG/DL (7-18); CALCIUM LEVEL 9.6 MG/DL (8.5-10.1); CARBON DIOXIDE LEVEL 27 MEQ/L (21-32); CHLORIDE LEVEL 105 MEQ/L (98-107); CREATININE FOR GFR 1.05 MG/DL (0.70-1.30); GLOMERULAR FILTRATION RATE > 60.0 (>60); GLUCOSE, FASTING 97 MG/DL (70-100); POTASSIUM SERUM 4.5 MEQ/L (3.5-5.1); SODIUM LEVEL 137 MEQ/L (136-145); TOTAL PROTEIN 7.1 GM/DL (6.4-8.2)
[2022-09-13 13:54] LABS: TOTAL 25(OH) VITAMIN D 33.6 NG/ML (30.0-100.0); VITAMIN B12 LEVEL 1098 PG/ML (247-911)
== END ==
LOC: M LAB 11:20
PROVIDERS: ATTEND Psychiatry & Neurology Neurology
DX: M54.50 Low back pain, unspecified (principal); E55.9 Vitamin D deficiency, unspecified; E53.9 Vitamin B deficiency, unspecified

== ENCOUNTER 2022-10-25 11:14 | Outpatient (RCR) | payer MEDICARE, MEDICAID | END 2022-10-27 | LOC: M PT 11:14 | PROVIDERS: ATTEND Orthopaedic Surgery Orthopaedic Surgery of the Spine | DX: M51.9 Unspecified thoracic, thoracolumbar and lumbosacral intervertebral disc disorder (principal) ==

== ENCOUNTER → 2022-10-29 | Outpatient (CLI) | payer MEDICARE, MEDICAID | LOC: M SLEEP 20:00 | PROVIDERS: ATTEND Nurse Practitioner Family | DX: G47.33 Obstructive sleep apnea (adult) (pediatric) (principal) ==

== ENCOUNTER → 2023-09-09 | Outpatient (CLI) | payer MEDICARE, MEDICAID ==
[~2023-09-09] MED LIST changes: +LIDO15SO PO; -LIDO2SOL17 PO
== END ==
LOC: M SLEEP 20:00
PROVIDERS: ATTEND Nurse Practitioner Family
DX: G47.33 Obstructive sleep apnea (adult) (pediatric) (principal)